=== PATIENT | female | born 1960 | race Caucasian/White ===

== ENCOUNTER → 2020-06-11 08:30 | Outpatient (BNVA) | payer OTHER, SELFPAY | PROVIDERS: PCP Registered Nurse; Referring Provider Registered Nurse; Visit Provider Psychiatry & Neurology Neurology | DX: Z76.89 Persons encountering health services in other specified circumstances (principal) ==

== ENCOUNTER → 2020-07-09 12:38 | Outpatient (BNVA) | payer OTHER, SELFPAY | PROVIDERS: PCP Pediatrics; Referring Provider Pediatrics; Visit Provider Physician Assistant | DX: Z76.89 Persons encountering health services in other specified circumstances (principal) ==

== ENCOUNTER → 2020-08-02 09:02 | Outpatient (BNVA) | payer OTHER, SELFPAY | PROVIDERS: Visit Provider Physician Assistant | DX: Z76.89 Persons encountering health services in other specified circumstances (principal) ==

== ENCOUNTER 2020-08-20 20:52 | Emergency (ER) | payer OTHER, SELFPAY ==
[2020-08-20 21:08] VITALS: BP 157/83; PULSE 76; RESP 16; TEMP 37.1; O2SAT 98; BMI 59.5
[2020-08-20 22:12] LABS: Basophils Absolute Auto 0.1 X10*3/uL (0.0-0.2); Basophils Percent Auto 0.6 % (0-2); Eosinophils Absolute Auto 0.3 X10*3/uL (0.0-0.4); Eosinophils Percent Auto 2.4 % (0-4); Hematocrit 41.1 % (37-47); Hemoglobin 12.9 g/dl (12.0-16.0); Imm Gran Abs Auto 0.03 X10*3/uL (0.00-0.03); Imm Gran Pct Auto 0.3 % (0.0-0.4); Lymphocytes Absolute Auto 3.3 X10*3/uL (1.2-4.9); Lymphocytes Percent Auto 30.5 % (20-40); MANUAL DIFF FLAG NO; Mean Corpuscular HGB Conc 31.4 g/dl (31.0-35.0); Mean Corpuscular Volume 82.9 fL (80-98); Mean Platelet Volume 10.5 fL (9.4-12.3); Monocytes Absolute Auto 0.9 X10*3/uL (0.1-1.2); Monocytes Percent Auto 8.6 % (2-11); Neutrophils Absolute Auto 6.2 X10*3/uL (2.0-8.3); Neutrophils Percent Auto 57.6 % (45-73); Platelet Count 241 X10*3/uL (160-400); Red Blood Count 4.96 X10*6/uL (4.20-5.50); Red Cell Distribution Width 14.9 % (11.0-16.0); White Blood Count 10.7 X10*3/uL (4.8-10.8)
[2020-08-20 22:25] LABS: Prothrombin Time 12.4 SEC (10.8-13.0)
[2020-08-20 22:28] LABS: D Dimer 232 NG/ML; Partial Thromboplastin Time 36.6 SEC (24.1-38.0)
[2020-08-20 22:53] LABS: Alanine Aminotransferase 15 U/L (0-31); Albumin Level 3.6 g/dL (3.5-5.0); Alkaline Phosphatase 96 U/L (39-117); Anion Gap 10 (12-20); Aspartate Amino Transferase 16 U/L (5-31); Bilirubin Total 0.4 mg/dL (0.0-1.0); Blood Urea Nitrogen 20 mg/dL (9-16); Carbon Dioxide 30 mmol/L (22-29); Chloride 102 mmol/L (96-108); Creatinine Clr Calc Pharmacy 92.6; Estimated Glomerular Filt Rate > 60; Glucose Fasting 168 mg/dL (60-99); Potassium 4.4 mmol/l (3.3-5.1); Sodium 138 mmol/L (135-145); Total Protein 6.8 g/dL (6.5-8.0)
--- NOTE | 2020-08-20 22:55 | US_ITS ---
EXAMINATION: DOPPLER VENOUS ULTRASOUND EXTREMITY, RIGHT CLINICAL INFORMATION: Right lower extremity pain. COMPARISON: None. TECHNIQUE: Collins-scale, Doppler and spectral analysis of the lower extremity was performed. FINDINGS: There is no evidence for a deep venous thrombosis within the visualized lower extremity veins. There is normal flow, compression and augmentation. ADDITIONAL FINDINGS: No Gil's cyst is identified. US/US venous duplex LE RT IMPRESSION: Unremarkable examination. Specifically, no evidence for DVT.
--- NOTE | 2020-08-20 22:55 | ED.EXTPRO ---
HPI - Extremity Problem General Chief complaint: Extremity Problem Stated complaint: LEG PAIN Time Seen by Provider: 08/20/20 22:42 Source: patient Mode of arrival: ambulatory Limitations: no limitations History of Present Illness HPI Narrative: Patient obese came here for right calf swelling and pain for last 4 - 5 days no his history of trauma no long distance travel no history of prior DVT in the past patient denies any knee pain or knee problems MD Complaint: extremity pain Onset (ago): day(s) (4-5) Pain Consistency: constant Location: right Quality: dull Radiation: proximal Relieving factors: nothing Exacerbating factors: walking Associated symptoms: denies other symptoms Related Data Home Medications Medication Instructions Recorded Confirmed amlodipine 5 mg tablet 5 mg PO DAILY 06/11/20 08/02/20 aspirin 81 mg tablet,delayed 81 mg PO DAILY 06/11/20 08/02/20 release cholecalciferol (vitamin D3) 25 25 mcg PO DAILY 06/11/20 08/02/20 mcg (1,000 unit) capsule dulaglutide 0.75 mg/0.5 mL 0.75 mg SUBCUT QWEEK 06/11/20 08/02/20 subcutaneous pen injector insulin degludec 100 unit/mL (3 30 unit SUBCUT DAILY ml 06/11/20 08/02/20 mL) subcutaneous pen lisinopril 20 mg tablet 20 mg PO DAILY 06/11/20 08/02/20 multivitamin 1 tab PO DAILY 06/11/20 08/02/20 desvenlafaxine succinate 25 mg 75 mg PO DAILY tab 08/02/20 08/02/20 tablet,extended release 24 hr Allergies Allergy/AdvReac Type Severity Reaction Status Date / Time Sulfa (Sulfonamide Allergy Intermediate SWELLING Unverified 06/11/20 15:23 Antibiotics) [SULFA (SULFONAMIDE ANTIBIOTICS)] Review of Systems Review of Systems: Constitutional : No Weight loss, No Fever, No Chills ENT/Mouth : No sore throat, No Rhinorrhea Eyes: No Eye Pain, No Swelling Cardiovascular : No Chest Pain, no Dyspnea on Exertion, No Orthopnea, No Edema, No Palpitations, no SOB Respiratory : No Cough, No Sputum Gastrointestinal : no Nausea, No Vomiting, No Diarrhea, No abdominal Pain, No Hematochezia, No Melena Genitourinary : No Dysuria, No Urinary Frequency Musculoskeletal : No joint pain, , No Joint Swelling Skin : No Skin Lesions, No rash Neuro : No Weakness, No Numbness, No Dizziness, No Headache Psych : No Anxiety/Panic, No Depression Heme/Lymph: No Bruising, No Lymphadenopathy Endocrine : No Polyuria, No Polydipsia All other systems reviewed and are negative [facility] Past Medical History Medical History Anxiety COPD (chronic obstructive pulmonary disease) Depression Fatty liver LBBB (left bundle branch block) Morbid obesity Obstructive sleep apnea hypopnea, severe Super obesity Type 2 diabetes mellitus Surgical History History of carpal tunnel surgery History of hand surgery History of removal of laparoscopic gastric banding device Hx of cholecystectomy Hx of colonoscopy Hx of laparoscopic gastric banding Family History Family History Father Interstitial pneumonitis Diabetes Mother Bladder cancer Brother No problems noted. Social History Social History Alcohol intake: current Alcohol intake frequency: a few times a month Alcohol type: wine Smoking Status: Former smoker Advance Directives: No Advance Directives Information Provided: No Physical Exam Vital Signs: Vital Signs: Last Vital Signs Temp 98.7 F 08/20/20 21:08 Pulse 76 08/20/20 21:08 Resp 16 08/20/20 21:08 BP 157/83 H 08/20/20 21:08 Pulse Ox 98 08/20/20 21:08 Body Mass Index 59.5 Appearance: Alert. Oriented X3. No acute distress. Eyes: Pupils equal, round and reactive to light. ENT: Pharynx normal. Neck: Normal inspection. Neck supple. CVS: Normal heart rate and rhythm. Pulses normal. Respiratory: No respiratory distress. Breath sounds normal. Abdomen: Soft and nontender. Bowel sounds are present, no mass palpable, no CVA tenderness Skin: Skin warm and dry. Normal skin color. Normal skin turgor. Extremities: 1+ lower extremity edema bilateral. Slight tenderness right upper calf area Cody signs and negative Neuro: Oriented X 3. No motor deficit. No sensory deficit. MDM - Extremity (Nontraumatic) MDM Narrative Medical decision making narrative: Patient obese with right calf pain clinically muscular pain Doppler was done which is also negative for DVT will discharge patient home Lab Data Attestation: I reviewed the patient's lab results. Result diagrams: 08/20/20 22:04 08/20/20 22:04 Labs: Lab Results 08/20/20 08/20/20 08/20/20 Range/Units 22:04 22:04 22:04 WBC 10.7 (4.8-10.8) X10*3/uL RBC 4.96 (4.20-5.50) X10*6/uL Hgb 12.9 (12.0-16.0) g/dl Hct 41.1 (37-47) % MCV 82.9 (80-98) fL MCH 26.0 L (27.0-33.0) pg MCHC 31.4 (31.0-35.0) g/dl RDW 14.9 (11.0-16.0) % Plt Count 241 (160-400) X10*3/uL MPV 10.5 (9.4-12.3) fL Immature Gran % (Auto) 0.3 (0.0-0.4) % Neut % (Auto) 57.6 (45-73) % Lymph % (Auto) 30.5 (20-40) % [place] % (Auto) 8.6 (2-11) % Eos % (Auto) 2.4 (0-4) % Baso % (Auto) 0.6 (0-2) % Lymph # (Auto) 3.3 (1.2-4.9) X10*3/uL [place] # (Auto) 0.9 (0.1-1.2) X10*3/uL Eos # (Auto) 0.3 (0.0-0.4) X10*3/uL Baso # (Auto) 0.1 (0.0-0.2) X10*3/uL Abs Immat Gran (auto) 0.03 (0.00-0.03) X10*3/uL Absolute Neuts (auto) 6.2 (2.0-8.3) X10*3/uL Absolute Nucleated RBC 0.000 (0.0-0.012) X10*3/uL Nucleated RBC % (auto) 0.0 (0.0-0.2) /100WBC Hold Purple Top SEE NOTE PT 12.4 (10.8-13.0) SEC INR 1.0 (0.9-1.1) APTT 36.6 (24.1-38.0) SEC D-Dimer 232 NG/ML Sodium (135-145) mmol/L Potassium (3.3-5.1) mmol/l Chloride (96-108) mmol/L Carbon Dioxide (22-29) mmol/L Anion Gap (12-20) BUN (9-16) mg/dL Creatinine (0.5-1.4) mg/dL Estim Creat Clear Calc Estimated GFR Fasting Glucose (60-99) mg/dL Calcium (8.4-10.2) mg/dL Total Bilirubin (0.0-1.0) mg/dL AST (5-31) U/L ALT (0-31) U/L Alkaline Phosphatase (39-117) U/L Total Protein (6.5-8.0) g/dL Albumin (3.5-5.0) g/dL 08/20/20 Range/Units 22:04 WBC (4.8-10.8) X10*3/uL RBC (4.20-5.50) X10*6/uL Hgb (12.0-16.0) g/dl Hct (37-47) % MCV (80-98) fL MCH (27.0-33.0) pg MCHC (31.0-35.0) g/dl RDW (11.0-16.0) % Plt Count (160-400) X10*3/uL MPV (9.4-12.3) fL Immature Gran % (Auto) (0.0-0.4) % Neut % (Auto) (45-73) % Lymph % (Auto) (20-40) % [place] % (Auto) (2-11) % Eos % (Auto) (0-4) % Baso % (Auto) (0-2) % Lymph # (Auto) (1.2-4.9) X10*3/uL [place] # (Auto) (0.1-1.2) X10*3/uL Eos # (Auto) (0.0-0.4) X10*3/uL Baso # (Auto) (0.0-0.2) X10*3/uL Abs Immat Gran (auto) (0.00-0.03) X10*3/uL Absolute Neuts (auto) (2.0-8.3) X10*3/uL Absolute Nucleated RBC (0.0-0.012) X10*3/uL Nucleated RBC % (auto) (0.0-0.2) /100WBC Hold Purple Top PT (10.8-13.0) SEC INR (0.9-1.1) APTT (24.1-38.0) SEC D-Dimer NG/ML Sodium 138 (135-145) mmol/L Potassium 4.4 (3.3-5.1) mmol/l Chloride 102 (96-108) mmol/L Carbon Dioxide 30 H (22-29) mmol/L Anion Gap 10 L (12-20) BUN 20 H (9-16) mg/dL Creatinine 0.81 (0.5-1.4) mg/dL Estim Creat Clear Calc 92.6 Estimated GFR > 60 Fasting Glucose 168 H (60-99) mg/dL Calcium 9.0 (8.4-10.2) mg/dL Total Bilirubin 0.4 (0.0-1.0) mg/dL AST 16 (5-31) U/L ALT 15 (0-31) U/L Alkaline Phosphatase 96 (39-117) U/L Total Protein 6.8 (6.5-8.0) g/dL Albumin 3.6 (3.5-5.0) g/dL Discharge Plan Discharge Prescriptions: No Action Tresiba FlexTouch U-100 100 unit/mL (3 mL) insulin pen 30 unit subcut DAILY RF: 0 amlodipine 5 mg tablet 5 mg PO DAILY RF: 0 lisinopril 20 mg tablet 20 mg PO DAILY RF: 0 multivitamin Tablet 1 tab PO DAILY RF: 0 cholecalciferol (vitamin D3) 25 mcg (1,000 unit) capsule 25 mcg PO DAILY RF: 0 aspirin 81 mg tablet,delayed release (DR/EC) 81 mg PO DAILY RF: 0 Trulicity 0.75 mg/0.5 mL pen injector 0.75 mg subcut QWEEK RF: 0 desvenlafaxine succinate [Pristiq] 25 mg tablet extended release 24 hr 75 mg PO DAILY RF: 0
== END 2020-08-21 00:40 | disposition home or self-care (01) ==
PROVIDERS: Emergency Provider Internal Medicine; PCP Registered Nurse
DX: R60.0 Localized edema (principal); M79.661 Pain in right lower leg; Z87.891 Personal history of nicotine dependence; Z79.899 Other long term (current) drug therapy
CPT/HCPCS: 36415; 80053; 85025; 85379; 85610; 85730; 93971; 99283; 99284

== ENCOUNTER 2020-08-26 17:02 | Emergency (ER) | payer OTHER, SELFPAY ==
[2020-08-26 20:15] VITALS: BP 225/94; PULSE 107; RESP 18; TEMP 36.8; O2SAT 100; BMI 60.5
--- NOTE | 2020-08-26 20:17 | PC.NURSE ---
charge nurse idalmis rodriguez aware of hypertension.
--- NOTE | 2020-08-26 20:34 | XR_ITS ---
EXAMINATION: XR CHEST CLINICAL INFORMATION: Upper extremity swelling. Hypertension. COMPARISON: Chest x-ray 05/04/2020 TECHNIQUE: Frontal portable view of the chest was obtained. 8:33 PM FINDINGS: Lungs are clear. No pulmonary vascular congestion. There is no pleural effusion. The heart size is normal. The cardiac and mediastinal contours are normal. There are calcifications of the thoracic aorta. There are multilevel degenerative changes of dorsal spine. XR/XR chest 1V IMPRESSION: Unremarkable examination.
--- NOTE | 2020-08-26 20:34 | ECG_ITS ---
Test Reason : swelling, hypertension Blood Pressure : / mmHG Vent. Rate : 098 BPM Atrial Rate : 098 BPM P-R Int : 152 ms QRS Dur : 090 ms QT Int : 360 ms P-R-T Axes : 058 -22 072 degrees QTc Int : 459 ms Sinus rhythm with Premature atrial complexes Possible Anterior infarct (cited on or before 24-MAY-2017) Abnormal ECG When compared with ECG of 24-MAY-2017 14:51, Premature atrial complexes are now Present Referred By: Kendra Hahn Electronically Signed By:KARMA ALVAREZ
[2020-08-26 20:55] LABS: MANUAL DIFF FLAG NO
[2020-08-26 20:56] LABS: Basophils Percent Auto 0.3 % (0-2); Eosinophils Absolute Auto 0.2 X10*3/uL (0.0-0.4); Eosinophils Percent Auto 1.5 % (0-4); Hematocrit 41.7 % (37-47); Hemoglobin 13.2 g/dl (12.0-16.0); Imm Gran Abs Auto 0.03 X10*3/uL (0.00-0.03); Imm Gran Pct Auto 0.3 % (0.0-0.4); Lymphocytes Absolute Auto 2.7 X10*3/uL (1.2-4.9); Lymphocytes Percent Auto 22.9 % (20-40); Mean Corpuscular HGB Conc 31.7 g/dl (31.0-35.0); Mean Corpuscular Hemoglobin 26.1 pg (27.0-33.0); Mean Corpuscular Volume 82.4 fL (80-98); Mean Platelet Volume 10.3 fL (9.4-12.3); Monocytes Absolute Auto 0.8 X10*3/uL (0.1-1.2); Monocytes Percent Auto 6.8 % (2-11); Neutrophils Percent Auto 68.2 % (45-73); Platelet Count 252 X10*3/uL (160-400); Red Blood Count 5.06 X10*6/uL (4.20-5.50); White Blood Count 11.7 X10*3/uL (4.8-10.8)
--- NOTE | 2020-08-26 21:00 | ED_ITS ---
HPI - General Adult General Chief complaint: General Medical Stated complaint: leg swelling Time Seen by Provider: 08/26/20 21:35 Source: patient Mode of arrival: ambulatory Limitations: no limitations History of Present Illness HPI narrative: PATIENT PRESENTS TO ED FOR INCREASED SWELLING OF LIGHT LOWER EXTREMITY AND PAIN. PATIENT STATES NO CHEST PAIN OR SHORTNESS OF BREATH. PATIENT DENIES ANY ERYTHEMA. PATIENT DOES STATES SOME BLISTERS ON BOTH LEGS. Related Data Home Medications Medication Instructions Recorded Confirmed amlodipine 5 mg tablet 5 mg PO DAILY 06/11/20 08/02/20 aspirin 81 mg tablet,delayed 81 mg PO DAILY 06/11/20 08/02/20 release cholecalciferol (vitamin D3) 25 25 mcg PO DAILY 06/11/20 08/02/20 mcg (1,000 unit) capsule dulaglutide 0.75 mg/0.5 mL 0.75 mg SUBCUT QWEEK 06/11/20 08/02/20 subcutaneous pen injector insulin degludec 100 unit/mL (3 30 unit SUBCUT DAILY ml 06/11/20 08/02/20 mL) subcutaneous pen lisinopril 20 mg tablet 20 mg PO DAILY 06/11/20 08/02/20 multivitamin 1 tab PO DAILY 06/11/20 08/02/20 desvenlafaxine succinate 25 mg 75 mg PO DAILY tab 08/02/20 08/02/20 tablet,extended release 24 hr Previous Rx's Medication Instructions Recorded cephalexin 500 mg PO QID 7 Days #28 cap 08/27/20 phenazopyridine [Pyridium] 200 mg PO TID PRN #6 tab 08/27/20 Allergies Allergy/AdvReac Type Severity Reaction Status Date / Time Sulfa (Sulfonamide Allergy Intermediate SWELLING Verified 08/26/20 20:12 Antibiotics) [SULFA (SULFONAMIDE ANTIBIOTICS)] Review of Systems Review of Systems: Yes all other systems are reviewed and are negative Constitutional: Constitutional: Reports as per HPI and Reports no additional constitutional complaints Eyes: Eyes: Reports as per HPI and Reports no additional eye complaints ENT: Reports system reviewed and no additional complaints, except as documented and Reports as per HPI Cardiovascular: Cardiovascular: Reports as per HPI and Reports no additional cardiovascular complaints Respiratory: Respiratory: Reports as per HPI and Reports no additional respiratory complaints Gastrointestinal: Gastrointestinal: Reports as per HPI and Reports no additional gastrointestinal complaints Genitourinary: Genitourinary: Reports no additional female genitourinary complaints and Reports as per HPI Musculoskeletal: Musculoskeletal: Reports no additional musculoskeletal complaints and Reports as per HPI Comments: INCREASED BILATERAL LOWER EXTREMITY SWELLING Neurologic: Reports system reviewed and no additional complaints, except as documented and Reports as per HPI Psychiatric: Psychiatric: Reports no additional psychiatric complaints and Reports as per HPI [facility] Past Medical History Medical History Anxiety COPD (chronic obstructive pulmonary disease) Depression Fatty liver LBBB (left bundle branch block) Morbid obesity Obstructive sleep apnea hypopnea, severe Super obesity Type 2 diabetes mellitus Surgical History History of carpal tunnel surgery History of hand surgery History of removal of laparoscopic gastric banding device Hx of cholecystectomy Hx of colonoscopy Hx of laparoscopic gastric banding Family History Family History Father Interstitial pneumonitis Diabetes Mother Bladder cancer Brother No problems noted. Social History Social History Alcohol intake: current Alcohol intake frequency: a few times a month Alcohol type: wine Smoking Status: Former smoker Smoked in Last 30 Days: No Advance Directives: No Advance Directives Information Provided: No Physical Exam Vital Signs: Vital Signs: Last Vital Signs Temp 98.3 F 08/26/20 20:15 Pulse 100 08/26/20 22:40 Resp 16 08/26/20 22:40 BP 147/80 H 08/26/20 22:40 Pulse Ox 95 08/26/20 22:40 Body Mass Index 60.5 Const: General: cooperative, healthy appearing, comfortable, no acute distress, well developed, alert, awake and Physically active Orientation/consciousness: patient oriented x3 HENMT: Head: Yes normal to inspection and Yes No palpable skull fracture p resent Eyes: General: appearance normal, both eyes and all related structures Neck: Neck: Yes normal visual inspection, Yes full ROM, Yes no lymphadenopathy, Yes no meningeal signs, Yes trachea midline, Yes supple and No tender Chest: Chest palpation & inspection: normal inspection of the chest and normal palpation of entire chest wall Breast/axilla inspection: normal inspection of the breasts Resp: Effort & Inspection: normal respiratory effort and able to speak in complete sentences Auscultation: clear to auscultation bilaterally Cardio: Jugular venous distension: no JVD Heart sounds: S1 normal heart sound present and S2 normal heart sound present GI: Inspection: Yes normal to inspection and No abdominal wall ecchymosis Palpation (GI): Soft to palpation, not firm, nontender, no guarding and not rigid : General: No CVA tenderness and Yes no CVA tenderness Back/Spine/Pelvis: Back: no CVA tenderness, No CVA tenderness and No back ten derness Skin: General skin exam: no rashes or lesions noted Neuro: General: patient oriented x3, gait normal, no meningeal signs and CN's II-XI intact bilaterally Cranial nerves: Yes CN's II-XII intact bilaterally Extrem: Other: LOWER EXTREMITIES BILATERALLY POSITIVE FOR SWELLING AND PITTING EDEMA. BOTH LOWER EXTREMITY POSITIVE FOR VENOUS STASIS CHANGES. NEGATIVE FOR ANY WARMTH OR ERYTHEMA TO INDICATE CELLULITIS. BOTH LOWER EXTREMITIES SKIN IS thickening WHICH IS POSITIVE FOR VENOUS STATUS CHANGES. NEGATIVE FOR (SHINGLES) BLISTERS. PULSES IN LOWER EXTREMITIES IS INTACT. Psych: Appearance: grossly normal, well kempt and not disheveled Course Course Course Narrative: PATIENT TO HAVE LABS, EKG, BNP, AND LOWER EXTREMITY IMAGING TO RULE OUT DVT, OSTEOMYELITIS, OR FRACTURES. PATIENT HAS PULSES OF LOWER EXTREMIT IES INTACT. Reevaluation(s) Reevaluation #1: LOWER EXTREMITY ULTRASOUND NEGATIVE FOR ANY DVT. X-RAYS NEGATIVE FOR FRACTURE OR OSTEOMYELITIS. BNP CAME BACK NEGATIVE. TROPONIN NEGATIVE. EKG IS NORMAL. DIAGNOSIS OF VENOUS STASIS. PATIENT IS SAFE FOR DISCHARGE. DR. Del Angel ALSO EVALUATE LOWER EXTREMITIES AND AGREES PATIENT HAS VENOUS STASIS. Time: 00:03 Medical Decision Making [facility] Narrative Medical decision making narrative: CHRONIC VENOUS STASIS Lab Data Result diagrams: 08/26/20 20:47 08/26/20 20:46 Labs: Lab Results 08/26/20 08/26/20 08/26/20 Range/Units 20:46 20:47 20:47 WBC 11.7 H (4.8-10.8) X10*3/uL RBC 5.06 (4.20-5.50) X10*6/uL Hgb 13.2 (12.0-16.0) g/dl Hct 41.7 (37-47) % MCV 82.4 (80-98) fL MCH 26.1 L (27.0-33.0) pg MCHC 31.7 (31.0-35.0) g/dl RDW 15.0 (11.0-16.0) % Plt Count 252 (160-400) X10*3/uL MPV 10.3 (9.4-12.3) fL Immature Gran % (Auto) 0.3 (0.0-0.4) % Neut % (Auto) 68.2 (45-73) % Lymph % (Auto) 22.9 (20-40) % [place] % (Auto) 6.8 (2-11) % Eos % (Auto) 1.5 (0-4) % Baso % (Auto) 0.3 (0-2) % Lymph # (Auto) 2.7 (1.2-4.9) X10*3/uL [place] # (Auto) 0.8 (0.1-1.2) X10*3/uL Eos # (Auto) 0.2 (0.0-0.4) X10*3/uL Baso # (Auto) 0.0 (0.0-0.2) X10*3/uL Abs Immat Gran (auto) 0.03 (0.00-0.03) X10*3/uL Absolute Neuts (auto) 8.0 (2.0-8.3) X10*3/uL Absolute Nucleated RBC 0.000 (0.0-0.012) X10*3/uL Nucleated RBC % (auto) 0.0 (0.0-0.2) /100WBC Hold Blue Top SEE NOTE Sodium 137 (135-145) mmol/L Potassium 4.3 (3.3-5.1) mmol/l Chloride 101 (96-108) mmol/L Carbon Dioxide 29 (22-29) mmol/L Anion Gap 11 L (12-20) BUN 12 (9-16) mg/dL Creatinine 0.76 (0.5-1.4) mg/dL Estim Creat Clear Calc 99.8 Estimated GFR > 60 Random Glucose 133 H (60-115) mg/dL Calcium 8.9 (8.4-10.2) mg/dL Troponin I High Sens (<3.5-17.0) ng/L B-Natriuretic Peptide (<100) pg/mL Urine Color Urine Appearance Urine pH (5.0-8.0) Ur Specific [place] (1.005-1.025) Urine Protein (NEG-TRACE) MG/DL Urine Glucose (UA) (NEG) MG/DL Urine Ketones (NEG) MG/DL Urine Blood (NEG) Urine Nitrite (NEG) Ur Leukocyte Esterase (NEG) Urine RBC (0) /HPF Urine WBC (0-4) /HPF Ur Squamous Epith Cells /LPF Urine Bacteria /LPF Urine Mucus /LPF 08/26/20 08/26/20 Range/Units 20:47 21:43 WBC (4.8-10.8) X10*3/uL RBC (4.20-5.50) X10*6/uL Hgb (12.0-16.0) g/dl Hct (37-47) % MCV (80-98) fL MCH (27.0-33.0) pg MCHC (31.0-35.0) g/dl RDW (11.0-16.0) % Plt Count (160-400) X10*3/uL MPV (9.4-12.3) fL Immature Gran % (Auto) (0.0-0.4) % Neut % (Auto) (45-73) % Lymph % (Auto) (20-40) % [place] % (Auto) (2-11) % Eos % (Auto) (0-4) % Baso % (Auto) (0-2) % Lymph # (Auto) (1.2-4.9) X10*3/uL [place] # (Auto) (0.1-1.2) X10*3/uL Eos # (Auto) (0.0-0.4) X10*3/uL Baso # (Auto) (0.0-0.2) X10*3/uL Abs Immat Gran (auto) (0.00-0.03) X10*3/uL Absolute Neuts (auto) (2.0-8.3) X10*3/uL Absolute Nucleated RBC (0.0-0.012) X10*3/uL Nucleated RBC % (auto) (0.0-0.2) /100WBC Hold Blue Top Sodium (135-145) mmol/L Potassium (3.3-5.1) mmol/l Chloride (96-108) mmol/L Carbon Dioxide (22-29) mmol/L Anion Gap (12-20) BUN (9-16) mg/dL Creatinine (0.5-1.4) mg/dL Estim Creat Clear Calc Estimated GFR Random Glucose (60-115) mg/dL Calcium (8.4-10.2) mg/dL Troponin I High Sens 4.6 (<3.5-17.0) ng/L B-Natriuretic Peptide 18 (<100) pg/mL Urine Color STRAW Urine Appearance CLEAR Urine pH 7.5 (5.0-8.0) Ur Specific [place] 1.020 (1.005-1.025) Urine Protein TRACE (NEG-TRACE) MG/DL Urine Glucose (UA) NEG (NEG) MG/DL Urine Ketones NEG (NEG) MG/DL Urine Blood NEG (NEG) Urine Nitrite NEG (NEG) Ur Leukocyte Esterase TRACE H (NEG) Urine RBC 0-2 (0) /HPF Urine WBC 15-29 H (0-4) /HPF Ur Squamous Epith Cells TRACE /LPF Urine Bacteria 1+ /LPF Urine Mucus TRACE /LPF ECG Data Interpretation: SINUS RHYTHM WITH PREMATURE ATRIAL COMPLEXES. VENTRICULAR RATE 98. CA INTERVAL 152. QTC 459. NEGATIVE STEMI Discharge Plan Discharge Clinical Impression: Venous stasis, Venous stasis dermatitis of both lower extremities, UTI (urinary tract infection) Patient Disposition: Home, Self-Care Instructions: Urinary Tract Infection in Women (ED), Stasis Dermatitis (ED), Venous Insufficiency (DC) Additional Instructions: RETURN TO ED FOR ANY CHEST PAIN, SHORTNESS OF BREATH, FEVER, CHILLS, REDNESS, WEAKNESS, COUGHING UP BLOOD, OR ANY OTHER CONCERNING SYMPTOMS. RECOMMEND [id number] COMPRESSION STOCKINGS. Prescriptions: New cephalexin 500 mg capsule 500 mg PO QID 7 Days Qty: 28 RF: 0 phenazopyridine [Pyridium] 200 mg tablet 200 mg PO TID PRN (Reason: dysuria) Qty: 6 RF: 0 No Action Tresiba FlexTouch U-100 100 unit/mL (3 mL) insulin pen 30 unit subcut DAILY RF: 0 amlodipine 5 mg tablet 5 mg PO DAILY RF: 0 lisinopril 20 mg tablet 20 mg PO DAILY RF: 0 multivitamin Tablet 1 tab PO DAILY RF: 0 cholecalciferol (vitamin D3) 25 mcg (1,000 unit) capsule 25 mcg PO DAILY RF: 0 aspirin 81 mg tablet,delayed release (DR/EC) 81 mg PO DAILY RF: 0 Trulicity 0.75 mg/0.5 mL pen injector 0.75 mg subcut QWEEK RF: 0 desvenlafaxine succinate [Pristiq] 25 mg tablet extended release 24 hr 75 mg PO DAILY RF: 0 Referrals: Linda Camejo DNP [Primary Care Provider] - 2 days (BILATERAL LOWER EXTREMITY ULTRASOUND NEGATIVE FOR DVT. LOWER EXTREMITY X-RAY NEGATIVE FOR ANY FRACTURES. BNP CAME BACK NEGATIVE. CHEST X-RAY NEGATIVE FOR CARDIOMEGALY. TROPONIN NEGATIVE.) Interventions: ED Discharge Assessment Last Done: 08/27/20 00:41 Discharge Date/Time: 08/27/20 00:43 Print Language: Spanish
--- NOTE | 2020-08-26 21:07 | US_ITS ---
EXAMINATION: US VENOUS ULTRASOUND WITH DOPPLER LOWER EXTREMITY, BILATERAL CLINICAL INFORMATION: Bilateral lower extremity swelling. COMPARISON: None TECHNIQUE: Ultrasound of the deep veins is performed from the hip to the calf with compression sonography and color and pulse Doppler assessment. Spectral analysis with color-flow imaging is performed. FINDINGS: RIGHT: There is normal venous compression and respiratory variation and augmented flow. The visualized common femoral vein, superficial femoral vein, profunda femoral vein, popliteal vein, and the trifurcation region shows no evidence of deep venous thrombosis. There is no significant popliteal fossa cyst. LEFT: There is normal venous compression and respiratory variation and augmented flow. The visualized common femoral vein, superficial femoral vein, profunda femoral vein, popliteal vein, and the trifurcation region shows no evidence of deep venous thrombosis. There is no significant popliteal fossa cyst. If the patient's symptoms persist, followup ultrasound in 5 days 7 days might be of value to exclude proximal propagation from a non-visualized calf vein. US/US venous duplex LE BI IMPRESSION: No DVT demonstrated in bilateral lower extremity.
--- NOTE | 2020-08-26 21:08 | XR_ITS ---
EXAMINATION: BILATERAL TIBIA AND FIBULA CLINICAL INFORMATION: Bilateral leg swelling. COMPARISON: None TECHNIQUE: 2 views each leg. FINDINGS: RIGHT LEG: There is no visible acute fracture or or periosteal thickening. The soft tissues are normal. Incidental finding of a small calcaneal heel spur. Left leg: There is no visible acute fracture or bony abnormality. Incidental finding of a small calcaneal heel enthesophyte is seen. The soft tissues are normal. XR/XR tibia fibula LT 2V IMPRESSION: Unremarkable bilateral tibia and fibula except for bilateral calcaneal heel enthesophytes
--- NOTE | 2020-08-26 21:08 | XR_ITS ---
EXAMINATION: BILATERAL TIBIA AND FIBULA CLINICAL INFORMATION: Bilateral leg swelling. COMPARISON: None TECHNIQUE: 2 views each leg. FINDINGS: RIGHT LEG: There is no visible acute fracture or or periosteal thickening. The soft tissues are normal. Incidental finding of a small calcaneal heel spur. Left leg: There is no visible acute fracture or bony abnormality. Incidental finding of a small calcaneal heel enthesophyte is seen. The soft tissues are normal. XR/XR tibia fibula RT 2V IMPRESSION: Unremarkable bilateral tibia and fibula except for bilateral calcaneal heel enthesophytes
[2020-08-26 21:21] LABS: Anion Gap 11 (12-20); Blood Urea Nitrogen 12 mg/dL (9-16); Calcium 8.9 mg/dL (8.4-10.2); Carbon Dioxide 29 mmol/L (22-29); Chloride 101 mmol/L (96-108); Creatinine Clr Calc Pharmacy 99.8; Estimated Glomerular Filt Rate > 60; Glucose Random 133 mg/dL (60-115); Potassium 4.3 mmol/l (3.3-5.1); Sodium 137 mmol/L (135-145)
[2020-08-26 21:26] LABS: B Type Natriuretic Peptide 18 pg/mL (<100); Troponin-I High Sensitivity 4.6 ng/L (<3.5-17.0)
[2020-08-26 21:43] VITALS: BP 199/76; PULSE 108
[2020-08-26 21:57] LABS: Glucose Urine UA NEG (NEG); Leukocyte Esterase Urine TRACE (NEG); Nitrite Urine NEG (NEG); PH 7.5 (5.0-8.0); Urine Blood NEG (NEG); Urine Ketones NEG (NEG); Urine Protein TRACE MG/DL (NEG-TRACE)
[2020-08-26 22:03] LABS: Appearance Urine CLEAR; Color Urine STRAW
[2020-08-26 22:16] LABS: Bacteria Urine 1+ /LPF; Mucus Urine TRACE /LPF; RBC Urine 0-2 /HPF (0); Squamous Epithelial Cell Urine TRACE /LPF
[2020-08-26 22:40] VITALS: BP 147/80; PULSE 100; RESP 16; O2SAT 95
== END 2020-08-27 00:43 | disposition home or self-care (01) ==
PROVIDERS: Physician Assistant; Emergency Provider Emergency Medicine; PCP Registered Nurse
DX: L30.9 Dermatitis, unspecified (principal); I87.2 Venous insufficiency (chronic) (peripheral); N39.0 Urinary tract infection, site not specified; M79.662 Pain in left lower leg; M79.661 Pain in right lower leg; E11.9 Type 2 diabetes mellitus without complications; Z79.4 Long term (current) use of insulin
CPT/HCPCS: 36415; 71045; 73590; 80048; 81001; 81003; 83880; 84484; 85025; 87086; 87088; 87186; 93005; 93970; 99284

== ENCOUNTER → 2020-09-12 13:41 | Outpatient (BNVA) | payer OTHER, SELFPAY | PROVIDERS: PCP Registered Nurse; Visit Provider Internal Medicine | DX: Z76.89 Persons encountering health services in other specified circumstances (principal) ==

== ENCOUNTER → 2021-03-07 10:21 | Outpatient (REF) | payer OTHER, SELFPAY ==
--- NOTE | 2021-03-07 10:30 | CA_ITS ---
Transthoracic Echocardiogram Patient (Last, First, Middle): Shefali Figueroa, Gender: Female Date of : 1960 Age: 60 Procedure Date: 03/07/2021 Procedure Type: Transthoracic Echocardiogram Location: OP Height: 149.86 cm Weight: 142.88 kg BSA: 2.24 m2 Heart Rate: bpm BP: 130 / 80 mmHg Box Maker Wood: [email or web address] Referring MD: Gage Browne MD Symptoms: I44.7 - Left bundle-branch block, unspecified Study Quality: Fair ECG Rhythm: Sinus Conclusions: - The left ventricular systolic function is normal. The visually estimated ejection fraction is between 60-65%. - No obvious valvular pathology seen on this study. Findings Left Ventricle Normal left ventricular cavity size. There is mildly increased left ventricular wall thickness. The left ventricular systolic function is normal. The visually estimated ejection fraction is between 60-65%. There is no evidence of regional wall motion abnormalities. E/E prime ratio is between 8 and 15 consistent with indeterminate filling pressures. Evidence suggests grade I (mild) diastolic dysfunction. Right Ventricle Normal right ventricular cavity size and systolic function. Atria Both atria are normal in size. Aortic Valve The aortic valve was not well visualized. There is no aortic valve stenosis. There is no aortic valve regurgitation. Mitral Valve There is mild mitral annular calcification. There is no mitral valve regurgitation. There is no mitral valve stenosis. Pulmonic Valve The pulmonic valve was not well visualized. Tricuspid Valve There is no tricuspid valve regurgitation. Tricuspid regurgitation envelope is inadequate for calculation of right ventricular systolic pressure. Great Vessels The aortic annulus, sinuses of valsalva, and asc aorta are normal in size. Venous The inferior vena cava is normal in size and collapses greater than 50% with inspiration. Pericardium/Pleural There is no evidence of pericardial effusion. Prior Study Comparison Changes noted compared to prior study dated: 11/30/2019. LVEF improved. Recommendations, Care & Conclusions No obvious valvular pathology seen on this study. Measurements 2D Linear Measurements IVSd: 1.28 0.6-0.9/0.6-1.0 cm LVIDd: 4.08 3.9-5.3/4.2-5.9 cm LVIDd Index: 1.82 2.4-3.2/2.2-3.1 cm/m2 LVIDs: 2.37 2.0-3.6 cm LVPWd: 1.02 0.7-1.1 cm Ao Root: 2.50 2.1-3.5 cm LA Diam: 4.40 2.7-3.8/3.0-4.0 cm LAIDs Index: 1.96 1.5-2.3 cm/m2 LV Mass: 199.45 67-162/88-224 g LV Mass Index: 89.04 43-95/49-115 g/m2 LVOT Diam: 2.20 3.0+(-)1.3 cm 2D Systolic Function EF 4C: 67.30 >55% EF 2C: 67.70 >55% EF BiP: 67.90 >55% Mitral Valve MV Pk E: 1.03 MV PK A: 1.54 MV Decel Time: 82.00 E/A: 0.70 E'Lateral: 7.51 E'Medial: 6.96 E/E' Med: 14.80 E/E' Lat: 13.70 PHT: 24.00 MVA PHT: 9.17 Decel [place]: 12.56 Aortic Valve AoV Pk Jaison: 1.64 AoV Pk Grad: 11.00 LVOT LVOT Pk [place]: 1.08 LVOT Mn [place]: 0.74 LVOT VTI: 0.22 LVOT Pk Grad: 5.00 LVOT Mn Grad: 3.00 LVOT Diam: 2.20 LVOT Area: 3.80 Diastolic Function MV Pk E: 1.03 MV Pk A: 1.54 E/A: 0.70 E'Medial: 6.96 E/E' Med: 14.80 E' Laterial: 7.51 E/E' Lat: 13.70 Tricuspid Valve RA Press: 8.00 Great Vessels Aorta Ao Root-2D: 2.50 2.0-3.7 cm Ao Asc: 3.00 2.1-3.4 cm Updated in Other Vendor System with Status of Final Gage Browne MD electronically signed on 03/08/2021 12:28:34 PM with status of Final
== END ==
LOC: HO.CARD 10:21
PROVIDERS: PCP Registered Nurse; Visit Provider Internal Medicine
DX: I44.7 Left bundle-branch block, unspecified (principal)
CPT/HCPCS: 93306; Q9957

== ENCOUNTER → 2021-03-13 13:59 | Outpatient (BNVA) | payer OTHER, SELFPAY | PROVIDERS: PCP Registered Nurse; Visit Provider Internal Medicine ==

== ENCOUNTER → 2022-03-05 09:34 | Outpatient (REF) | payer OTHER, SELFPAY ==
--- NOTE | 2022-03-05 09:38 | CA_ITS ---
Transthoracic Echocardiogram Patient (Last, First, Middle): Shefali Figueroa, Gender: Female Date of : 1960 Age: 61 Procedure Date: 03/05/2022 Procedure Type: Transthoracic Echocardiogram Location: OP Height: 149.86 cm Weight: 140.62 kg BSA: 2.22 m2 Heart Rate: 86 bpm BP: 130 / 74 mmHg Reliner: CARINA Referring MD: Gage Browne MD Handmade Tile Artist: Sea Bernstein MD Symptoms: I44.7 - Left bundle-branch block, unspecified Study Quality: Fair/Contrast ECG Rhythm: Sinus Conclusions: - 1. Technically very limited study desite use of contrast agent 2. Normal LV systolic function with LVEF of 60 65% 3. Limited visualization of cardiac valves with cardiac valvular Doppler within normal limits Findings Procedure Information Contrast agent, definity, is being given per protocol without apparent complications. Left Ventricle Normal left ventricular size, thickness, and systolic function. The visually estimated ejection fraction is between 60-65%. There is paradoxical septal motion consistent with a left bundle branch block. Spectral Doppler is indicative of a normal filling pattern. Right Ventricle The right ventricle was not well visualized. Atria The left atrium was not well visualized. Interatrial shunt cannot be excluded. The right atrium was not well visualized. Aortic Valve The aortic valve was not well visualized. There is no aortic valve stenosis. There is no aortic valve regurgitation. Mitral Valve The mitral valve was not well visualized. There is no mitral valve regurgitation. Pulmonic Valve The pulmonic valve was not well visualized. Tricuspid Valve The tricuspid valve was not well visualized. Tricuspid regurgitation envelope is inadequate for calculation of right ventricular systolic pressure. Great Vessels The aorta was not well visualized. The pulmonary artery was not well visualized. Venous The inferior vena cava was not well visualized. Pericardium/Pleural The pericardium was not well visualized. Prior Study Comparison No significant change compared to prior study. Measurements 2D Linear Measurements IVSd: 1.32 0.6-0.9/0.6-1.0 cm LVIDd: 3.91 3.9-5.3/4.2-5.9 cm LVIDd Index: 1.76 2.4-3.2/2.2-3.1 cm/m2 LVIDs: 2.78 2.0-3.6 cm LVPWd: 1.10 0.7-1.1 cm LA Diam: 3.70 2.7-3.8/3.0-4.0 cm LAIDs Index: 1.67 1.5-2.3 cm/m2 LV Mass: 201.61 67-162/88-224 g LV Mass Index: 90.82 43-95/49-115 g/m2 LVOT Diam: 2.00 3.0+(-)1.3 cm 2D Systolic Function EF 4C: 66.90 >55% EF 2C: 61.70 >55% EF BiP: 63.90 >55% Mitral Valve MV Pk E: 0.81 MV PK A: 1.14 MV Decel Time: 415.00 E/A: 0.70 E'Lateral: 7.62 E'Medial: 7.07 E/E' Med: 11.50 E/E' Lat: 10.70 PHT: 121.00 MVA PHT: 1.82 Decel [place]: 1.96 Aortic Valve AoV Pk Jaison: 1.54 AoV Mn Jaison: 1.22 AoV VTI: 0.37 AoV Pk Grad: 9.00 Aov Mn Grad: 6.00 TOMMIE Cont.VTI: 2.20 LVOT LVOT Pk [place]: 1.06 LVOT Mn [place]ison: 0.78 LVOT VTI: 0.26 LVOT Pk Grad: 4.00 LVOT Mn Grad: 3.00 LVOT Diam: 2.00 LVOT Area: 3.14 Diastolic Function MV Pk E: 0.81 MV Pk A: 1.14 E/A: 0.70 E'Medial: 7.07 E/E' Med: 11.50 E' Laterial: 7.62 E/E' Lat: 10.70 Right Ventricle TAPSE (mm): 25.30 TVS' [place]: 11.30 Tricuspid Valve RA Press: 3.00 Great Vessels Aorta Sinus of Valsalva: 3.18 2.0-3.5 cm Ao Asc: 3.00 2.1-3.4 cm Updated in Other Vendor System with Status of Final Sea Bernstein MD electronically signed on 03/05/2022 11:59:34 AM with status of Final
== END ==
LOC: HO.CARD 09:34
PROVIDERS: Visit Provider Internal Medicine
DX: I44.7 Left bundle-branch block, unspecified (principal)
CPT/HCPCS: 93306; 93356; Q9957

== ENCOUNTER 2022-03-10 22:07 | Inpatient (IN) | payer OTHER, SELFPAY ==
--- NOTE | ~2022-03-10 | XR_ITS ---
EXAMINATION: XR HAND, RIGHT CLINICAL INFORMATION: Right hand infection COMPARISON: None TECHNIQUE: PA, lateral, and oblique views of the right hand. FINDINGS: Osseous alignment is anatomic. No acute fracture is seen. There is mild degenerative change at the basal joint of the thumb. There is degenerative change with spurring at the interphalangeal joint of the thumb. There is soft tissue swelling of the second digit. No radiopaque foreign body or soft tissue gas is seen. XR/XR hand RT 2V IMPRESSION: Soft tissue swelling of the second digit. No acute osseous findings identified.
[2022-03-10 23:45] VITALS: BP 157/71; PULSE 85; RESP 18; TEMP 37.1; O2SAT 95; BMI 64.7
[2022-03-11] VITALS (12 sets, daily range): BP systolic 141–193; BP diastolic 57–86; PULSE 83–97; RESP 16–24; TEMP 37.1; O2SAT 92–97
[2022-03-11 00:18] LABS: Basophils Absolute Auto 0.1 X10*3/uL (0.0-0.2); Basophils Percent Auto 0.4 % (0-2); Eosinophils Absolute Auto 0.2 X10*3/uL (0.0-0.4); Eosinophils Percent Auto 1.7 % (0-4); Hematocrit 43.9 % (37.0-47.0); Hemoglobin 13.7 g/dl (12.0-16.0); Imm Gran Abs Auto 0.04 X10*3/uL (0.00-0.03); Imm Gran Pct Auto 0.3 % (0.0-0.4); Lymphocytes Absolute Auto 2.4 X10*3/uL (1.2-4.9); Lymphocytes Percent Auto 20.1 % (20-40); MANUAL DIFF FLAG NO; Mean Corpuscular HGB Conc 31.2 g/dl (31.0-35.0); Mean Corpuscular Hemoglobin 24.4 pg (27.0-33.0); Mean Corpuscular Volume 78.1 fL (80.0-98.0); Mean Platelet Volume 9.9 fL (9.4-12.3); Monocytes Absolute Auto 1.1 X10*3/uL (0.1-1.2); Monocytes Percent Auto 9.2 % (2-11); Neutrophils Absolute Auto 8.2 x10*3/uL (2.0-8.3); Neutrophils Percent Auto 68.3 % (45-73); Platelet Count 235 X10*3/uL (160-400); Red Blood Count 5.62 X10*6/uL (4.20-5.50)
[2022-03-11 00:43] LABS: Alanine Aminotransferase 17 U/L (0-31); Alkaline Phosphatase 88 U/L (39-117); Anion Gap 15 (12-20); Aspartate Amino Transferase 13 U/L (5-31); Bilirubin Total 0.8 mg/dL (0.0-1.0); Blood Urea Nitrogen 16 mg/dL (9-16); Calcium 9.3 mg/dL (8.4-10.2); Carbon Dioxide 26 mmol/L (22-29); Chloride 102 mmol/L (96-108); Creatinine Clr Calc Pharmacy 94.1; Estimated Glomerular Filt Rate > 60; Glucose Random 167 mg/dL (60-115); Potassium 3.7 mmol/L (3.3-5.1); Sodium 139 mmol/L (135-145); Total Protein 7.5 g/dL (6.5-8.0)
[2022-03-11] MEDS: 0.9 % Sodium Chloride 1,000 ML 999 ML IV (04:20)
[2022-03-11] MEDS: Piperacillin Sodium/Tazobactam 3.375 GM in 0.9 % Sodium Chloride 50 ML IV ×4 (04:20→21:58)
[2022-03-11 04:35] LABS: Lactic Acid 1.6 mmol/L (0.5-2.0)
--- NOTE | 2022-03-11 04:44 | ED_ITS ---
HPI - Animal Bite General Chief Complaint: Animal Bite Stated Complaint: bug/animal bite Time Seen by Provider: 03/11/22 03:53 Source: patient Mode of arrival: ambulatory Limitations: no limitations History of Present Illness HPI narrative: 61 years old female came in for evaluation of right index finger infection. Patient is right handed was bitten by her own cat (the cat was choking), patient was seen and evaluated at an urgent care was started on amoxicillin and was given a tetanus shot despite the antibiotic was started since yesterday patient noted that her right index finger is getting more swollen with spreading of the redness beyond the finger to the dorsum of the right hand toward the wrist, no fever or chills. Patient is diabetic. Related Data Home Medications Medication Instructions Recorded Confirmed amlodipine 5 mg tablet 5 mg PO DAILY 06/11/20 03/13/21 aspirin 81 mg tablet,delayed 81 mg PO DAILY 06/11/20 03/13/21 release cholecalciferol (vitamin D3) 25 25 mcg PO DAILY 06/11/20 03/13/21 mcg (1,000 unit) capsule dulaglutide 0.75 mg/0.5 mL 0.75 mg subcut QWEEK 06/11/20 03/13/21 subcutaneous pen injector (Trulicity) insulin degludec 100 unit/mL (3 30 unit subcut DAILY 06/11/20 03/13/21 mL) subcutaneous pen (Tresiba FlexTouch U-100 insulin) multivitamin 1 tab PO DAILY 06/11/20 03/13/21 desvenlafaxine succinate 25 mg 75 mg PO DAILY 08/02/20 03/13/21 tablet,extended release 24 hr (Pristiq) losartan 100 1 tab PO DAILY 09/12/20 03/13/21 mg-hydrochlorothiazide 25 mg tablet Previous Rx's Medication Instructions Recorded phenazopyridine 200 mg tablet 200 mg PO TID PRN dysuria 6 doses 08/27/20 (Pyridium) #6 tabs Allergies Allergy/AdvReac Type Severity Reaction Status Date / Time Sulfa (Sulfonamide Allergy Intermediate SWELLING Verified 03/13/21 14:04 Antibiotics) [SULFA (SULFONAMIDE ANTIBIOTICS)] Review of Systems Review of Systems: All other systems are reviewed and are negative Constitutional: Reports as per HPI and Reports no additional constitutional complaints Eyes: Reports as per HPI and Reports no additional eye complaints Reports system reviewed and no additional complaints, except as documented Cardiovascular: Reports as per HPI and Reports no additional cardiovascular co mplaints Respiratory: Reports as per HPI and Reports no additional respiratory complaints Gastrointestinal: Reports as per HPI and Reports no additional gastrointestinal complaints Genitourinary: Reports no additional female genitourinary complaints Musculoskeletal: Reports no additional musculoskeletal complaints Skin/Breast: Reports system reviewed and no additional complaints, except as docu Psychiatric: Reports no additional psychiatric complaints Endocrine: Reports no additional endocrine complaints Hematologic/Lymphatic: Reports no additional hematologic/lymphatic complaints Allergic/Immunologic: Reports no additional allergic/immunologic complaints Reports system reviewed and no additional complaints, except as documented and Reports Abnormal speech present [facility] Past Medical History Medical History Anxiety COPD (chronic obstructive pulmonary disease) Depression Essential hypertension Fatty liver LBBB (left bundle branch block) Morbid obesity Obstructive sleep apnea hypopnea, severe Super obesity Type 2 diabetes mellitus Surgical History History of carpal tunnel surgery History of hand surgery History of removal of laparoscopic gastric banding device Hx of cholecystectomy Hx of colonoscopy Hx of laparoscopic gastric banding Family History Family History Father Interstitial pneumonitis Diabetes Mother Bladder cancer Brother No problems noted. Social History Social History Alcohol intake: current Alcohol intake frequency: a few times a month Alcohol type: wine Patient Tobacco Use Status: Former Tobacco user Quit Date: 1997 Advance Directives: No Advance Directives Information Provided: No Physical Exam ED Vital Signs: Vital Signs - 24 hr 03/10/22 23:45 03/11/22 03:03 03/11/22 04:13 Temperature 98.8 F 98.7 F Pulse Rate 85 97 95 Respiratory Rate 18 24 H 20 Blood Pressure 157/71 H 158/72 H 193/86 H Pulse Oximetry 95 94 94 Oxygen Delivery Method Room Air Room Air Room Air BMI result Body Mass Index 64.7 Vital signs have been reviewed as appeared to be correct. Blood pressure normal. Heart rate normal. Respiration rate normal. Temperature normal. Oxygen saturation normal. Appearance: Alert. Oriented X3. No acute distress. Head: Normal external exam. Normocephalic. Atraumatic. No Knapp signs noted. No raccoon eyes noted Eyes: PERRLA. EOMI. Conjunctiva and sclera normal. Eyelids normal. ENT: TM's Normal. Pharynx normal. Uvula midline. Moist mucous membranes. No trismus noted. No drooling noted. No muffled voice noted. Neck: Normal inspection. Neck supple. FROM. No adenopathy. Thyroid Normal. No meningeal signs. No neck mass noted. CVS: Normal heart rate and rhythm. Heart sound normal. No murmurs noted. Pulses normal throughout. Respiratory: No respiratory distress. Painless inspiration. Breath sounds normal. No wheezes/rales/rhonchi noted. Chest nontender. No accessory muscle usage noted or decreased air movement noted. Abdomen: Soft and nontender. Bowel sounds normal in all 4 quadrants. No distention noted. No organomegaly noted. No visible injury noted. Back: No CVA tenderness. Full range of motion noted. Skin: Skin warm and dry. Normal skin color. Normal skin turgor. No rashes/lesions/lacerations noted. Extremities: Right hand exam: Right index finger is fusiform swelling, held an semi flexion position, tender to extend, to marked teeth on the palm side of the right index. No fluctuation, no discharge. Neuro: Oriented X 3. Cranial nerve exam: II-XII are grossly intact No motor deficit. No sensory deficit. Reflexes normal. Course Course Course Narrative: Assessment and plan. 61-year-old female with possible right index tenosynovitis, patient also meet criteria for SIRS (no sign of severe sepsis or septic shock) will start the patient on Zosyn/vancomycin. Will admit the patient will obtain orthopedic consultation in the a.m. [facility] - Animal Bite Medical Records Attestation: I reviewed the patient's medical records. Lab Data Attestation: I reviewed the patient's lab results. Result diagrams: 03/11/22 00:10 03/11/22 00:10 Labs: Lab Results 03/11/22 03/11/22 03/11/22 Range/Units 00:10 00:10 04:18 WBC 12.0 H (4.8-10.8) X10*3/uL RBC 5.62 H (4.20-5.50) X10*6/uL Hgb 13.7 (12.0-16.0) g/dl Hct 43.9 (37.0-47.0) % MCV 78.1 L (80.0-98.0) fL MCH 24.4 L (27.0-33.0) pg MCHC 31.2 (31.0-35.0) g/dl RDW 18.0 H (11.0-16.0) % Plt Count 235 (160-400) X10*3/uL MPV 9.9 (9.4-12.3) fL Immature Gran % (Auto) 0.3 (0.0-0.4) % Neut % (Auto) 68.3 (45-73) % Lymph % (Auto) 20.1 (20-40) % [place] % (Auto) 9.2 (2-11) % Eos % (Auto) 1.7 (0-4) % Baso % (Auto) 0.4 (0-2) % Lymph # (Auto) 2.4 (1.2-4.9) X10*3/uL [place] # (Auto) 1.1 (0.1-1.2) X10*3/uL Eos # (Auto) 0.2 (0.0-0.4) X10*3/uL Baso # (Auto) 0.1 (0.0-0.2) X10*3/uL Abs Immat Gran (auto) 0.04 H (0.00-0.03) X10*3/uL Absolute Neuts (auto) 8.2 (2.0-8.3) x10*3/uL Absolute Nucleated RBC 0.000 (0.0-0.012) X10*3/uL Nucleated RBC % (auto) 0.0 (0.0-0.2) /100WBC Sodium 139 (135-145) mmol/L Potassium 3.7 (3.3-5.1) mmol/L Chloride 102 (96-108) mmol/L Carbon Dioxide 26 (22-29) mmol/L Anion Gap 15 (12-20) BUN 16 (9-16) mg/dL Creatinine 0.79 (0.5-1.4) mg/dL Estim Creat Clear Calc 94.1 Estimated GFR > 60 Random Glucose 167 H (60-115) mg/dL Lactic Acid 1.6 (0.5-2.0) mmol/L Calcium 9.3 (8.4-10.2) mg/dL Total Bilirubin 0.8 (0.0-1.0) mg/dL AST 13 (5-31) U/L ALT 17 (0-31) U/L Alkaline Phosphatase 88 (39-117) U/L Total Protein 7.5 (6.5-8.0) g/dL Albumin 4.0 (3.5-5.0) g/dL Imaging Data Right finger x-ray: Attestation: I personally reviewed and interpreted this imaging study as follows: Radiologist's impression: Soft tissue swelling of the second digit. No acute osseous findings identified. Discharge Plan Discharge Clinical Impression: Cat bite, Tenosynovitis of finger Patient Disposition: Admitted As Inpatient Prescriptions: No Action phenazopyridine [Pyridium] 200 mg tablet 200 mg PO TID PRN (Reason: dysuria) Qty: 6 0RF Tresiba FlexTouch U-100 100 unit/mL (3 mL) insulin pen 30 unit subcut DAILY amlodipine 5 mg tablet 5 mg PO DAILY multivitamin Tablet 1 tab PO DAILY cholecalciferol (vitamin D3) 25 mcg (1,000 unit) capsule 25 mcg PO DAILY aspirin 81 mg tablet,delayed release (DR/EC) 81 mg PO DAILY Trulicity 0.75 mg/0.5 mL pen injector 0.75 mg subcut QWEEK desvenlafaxine succinate [Pristiq] 25 mg tablet extended release 24 hr 75 mg PO DAILY losartan-hydrochlorothiazide 100-25 mg tablet 1 tab PO DAILY
[2022-03-11] MEDS: Morphine Sulfate 2 MG/ML CARTRIDGE IVPUSH (05:33)
[2022-03-11 05:55] LABS: COVID-19 Test Negative (Negative); IDNOW Serial# 16C4AD1C
--- NOTE | 2022-03-11 06:17 | P.HPHOSP_ITS ---
History of Present Illness Date of Service: 03/11/22 Chief Complaint: cat bite 61-year-old female with past medical history of COPD, diabetes, HTN, morbid obesity, obstructive sleep apnea, presents to the hospital with complaints of a painful right index finger after a cat bite. Patient reports that on Wednesday she thought that her to cat was choking, therefore she attempted the Heimlich maneuver maneuver on her cat, when her cat bit her. She later found out that her cat was having an asthma attack, her cat in her arms. she went to urgent care on Wednesday, she had an injection of an IV antibiotic, and sent home on Augmentin. She reports that she took 1 dose that afternoon but developed worsening pain, swelling, and redness on her right hand therefore decided to come to the ED. Patient denies any fever or chills, no abdominal pain nausea or vomiting, no diarrhea constipation, no urinary symptoms and no lower extremity edema. No headache or change in vision. On arrival to the ED patient hemodynamically stable with respiratory rate of 24 otherwise unremarkable vitals Labs are significant for WBC count of 12, hemoglobin of 13.7, hematocrit 43.9, labs otherwise unremarkable, hand x-ray shows soft tissue swelling. patient will be admitted for further management Review of Systems Review of Systems: Yes all other systems are reviewed and are negative [facility] Medical History Anxiety COPD (chronic obstructive pulmonary disease) Depression Essential hypertension Fatty liver LBBB (left bundle branch block) Morbid obesity Obstructive sleep apnea hypopnea, severe Super obesity Type 2 diabetes mellitus Family History Father Interstitial pneumonitis Diabetes Mother Bladder cancer Brother No problems noted. Surgical History History of carpal tunnel surgery History of hand surgery History of removal of laparoscopic gastric banding device Hx of cholecystectomy Hx of colonoscopy Hx of laparoscopic gastric banding Social History Alcohol intake: current Alcohol intake frequency: a few times a month Alcohol type: wine Patient Tobacco Use Status: Former Tobacco user Quit Date: 1997 Advance Directives: No Advance Directives Information Provided: No Meds Allergies Allergy/AdvReac Type Severity Reaction Status Date / Time Sulfa (Sulfonamide Allergy Intermediate SWELLING Verified 03/13/21 14:04 Antibiotics) [SULFA (SULFONAMIDE ANTIBIOTICS)] Active Medications: Current Medications Acetaminophen (Acetaminophen 325 Mg Tablet) 650 mg PO Q6H PRN PRN Reason: Pain, Mild (Pain Scale 1-3) Docusate Sodium (Docusate Sodium 100 Mg Capsule) 100 mg PO DAILY PRN PRN Reason: Constipation Enoxaparin Sodium (Enoxaparin Sodium 40 Mg/0.4 Ml Syringe) 40 mg SUBCUT Q24H VIANCA Piperacillin Sod/Tazobactam (Sod 3.375 gm/ Sodium Chloride) 50 mls @ 100 mls/hr IV Q6H VIANCA Ondansetron HCl (Ondansetron Hcl 4 Mg/2 Ml Vial) 4 mg IVPUSH Q8H PRN PRN Reason: Nausea and Vomiting Oxycodone HCl (Oxycodone Hcl Immed Release 5 Mg Tablet) 5 mg PO Q6H PRN PRN Reason: Pain, Severe (Pain Scale 7-10) Pharmacy Consult (Consult Rx Vancomycin Dosing) 1 each MISCELLANE DAILY PRN PRN Reason: Consult order Sodium Chloride (0.9 % Sodium Chloride Flush 3 Ml Syringe) 3 ml IVFLUSH QSHIFT [facility] Home Medications Medication Instructions Recorded Confirmed Last Taken Type amlodipine 5 mg tablet 5 mg PO DAILY 03/11/22 03/11/22 Unknown History dulaglutide 4.5 mg/0.5 mL 4.5 mg subcut QWEEK 03/11/22 03/11/22 Unknown History subcutaneous pen injector (Trulicity) empagliflozin 10 mg tablet 10 mg PO DAILY 03/11/22 03/11/22 Unknown History (Jardiance) losartan 100 1 tab PO DAILY 03/11/22 03/11/22 Unknown History mg-hydrochlorothiazide 25 mg tablet metformin 1,000 mg 24 hr 1,000 mg PO QPM 03/11/22 03/11/22 Unknown History tablet,extended release sertraline 100 mg tablet 100 mg PO DAILY 03/11/22 03/11/22 Unknown History Physical Exam Vital Signs and Narrative: Vital Signs: Last Vital Signs Temp 98.7 F 03/11/22 03:03 Pulse 91 03/11/22 05:17 Resp 20 03/11/22 05:33 BP 157/58 H 03/11/22 05:17 Pulse Ox 94 03/11/22 04:13 O2 Del Method 03/11/22 04:13 BMI result Body Mass Index 64.7 Const: General: cooperative and no acute distress Orientation/conscious ness: patient oriented x3 Eyes: General: appearance normal, both eyes and all related structures Resp: Effort & Inspection: normal respiratory effort Auscultation: clear to auscultation bilaterally Cardio: Rate: regular rate Rhythm: regular rhythm GI: Palpation (GI): Soft to palpation Auscultation: normal bowel sounds Skin: General skin exam: no rashes or lesions noted Neuro: General: patient oriented x3 Cognition (Neuro): normal cognition Extrem: Other: right index finger tenderness, swelling, presence of puncture brandon on the finger, erythema to the middle of the hand, warmth limited range of motion of finger General: Yes no pedal edema Results Labs CBC and Chem 7: 03/11/22 00:10 03/11/22 00:10 Labs: Laboratory Results - last 24 hr 03/11/22 03/11/22 03/11/22 00:10 00:10 04:18 MCV 78.1 L MCH 24.4 L MCHC 31.2 RDW 18.0 H Plt Count 235 MPV 9.9 Immature Gran % (Auto) 0.3 Neut % (Auto) 68.3 Lymph % (Auto) 20.1 [place] % (Auto) 9.2 Eos % (Auto) 1.7 Baso % (Auto) 0.4 Lymph # (Auto) 2.4 [place] # (Auto) 1.1 Eos # (Auto) 0.2 Baso # (Auto) 0.1 Abs Immat Gran (auto) 0.04 H Absolute Neuts (auto) 8.2 Absolute Nucleated RBC 0.000 Nucleated RBC % (auto) 0.0 Anion Gap 15 Estim Creat Clear Calc 94.1 Estimated GFR > 60 Random Glucose 167 H Lactic Acid 1.6 Calcium 9.3 Total Bilirubin 0.8 AST 13 ALT 17 Alkaline Phosphatase 88 Total Protein 7.5 Albumin 4.0 COVID-19 (EFRAIN) COVID-19 Clin Com 03/11/22 05:31 MCV MCH MCHC RDW Plt Count MPV Immature Gran % (Auto) Neut % (Auto) Lymph % (Auto) [place] % (Auto) Eos % (Auto) Baso % (Auto) Lymph # (Auto) [place] # (Auto) Eos # (Auto) Baso # (Auto) Abs Immat Gran (auto) Absolute Neuts (auto) Absolute Nucleated RBC Nucleated RBC % (auto) Anion Gap Estim Creat Clear Calc Estimated GFR Random Glucose Lactic Acid Calcium Total Bilirubin AST ALT Alkaline Phosphatase Total Protein Albumin COVID-19 (EFRAIN) Negative COVID-19 Clin Com See Note Imaging Radiologist's Impressions: Impressions Hand X-Ray 03/11/22 04:05 IMPRESSION: Soft tissue swelling of the second digit. No acute osseous findings identified. Assessment and Plan (1) Cat bite: Status: Acute (2) Tenosynovitis of finger: Status: Acute (3) Cellulitis of right hand: Status: Acute Plan 61-year-old female with past medical history of diabetes, hypertension, presents to the hospital with complaints of cat bite and failed outpatient therapy # cat bite - has evidence of tenosynovitis and cellulitis of the hand with difficulty mo ving finger, swelling, as well as erythema and warmth - was tried on p.o. antibiotics with the pain and swelling worsening - will treat with IV antibiotics - follow cultures # likely acute tenosynovitis of right finger - IV antibiotic - hand surgeon consulted # right hand cellulitis - IV antibiotics - follow cultures # diabetes - low-dose sliding scale insulin - hold oral antihyperglycemics - diabetic diet # hypertension - slightly elevated - continue home medications DVT prophylaxis: Lovenox given the severity of the cat bite, tenosynovitis, and requirement for IV a ntibiotics patient will require a minimum 2 night hospital stay for further management Quality Stroke Does the patient have a stroke diagnosis?: No VTE Prior VTE?: No VTE Risk Level:: Medical - moderate - high VTE Device Contraindication: Treatment Not Indicated VTE Drug Contraindication: N/A - Med Ordered
[2022-03-11 06:47] LABS: C Reactive Protein 5.68 mg/dL (< or = 0.50)
--- NOTE | 2022-03-11 07:04 | PHA.MEDREC ---
Pharmacy Consult ? Medication Reconciliation Pharmacy has reviewed the medication reconciliation complete by Nicholas. Tory Calderón, PharmD
[2022-03-11 07:20] LABS: Erythrocyte Sedimentation Rate 23 MM/HR (0-20)
[2022-03-11] MEDS: hydroCHLOROthiazide 25 MG TABLET PO (07:43)
[2022-03-11] MEDS: Sertraline HCL 100 MG TABLET PO (07:43)
[2022-03-11] MEDS: Losartan Potassium 50 MG TABLET 100 MG PO (07:43)
[2022-03-11] MEDS: amLODIPine Besylate 5 MG TABLET PO (07:44)
[2022-03-11] MEDS: oxyCODONE HCl Immed Release 5 MG TABLET PO ×3 (07:44→21:57)
[2022-03-11] MEDS: Enoxaparin Sodium 40 MG/0.4 ML SYRINGE SUBCUT (07:51)
--- NOTE | 2022-03-11 07:54 | PC.NURSE ---
[facility] at bedside plan of care to soak right pointer finger in warm water in 20 minutes and possible corwin to drain area on finger . patient aware of plan of care .
--- NOTE | 2022-03-11 07:57 | PC.NURSE ---
patient a/ox4 . wound at pointer finger , red edematous , painful to touch . no streaks noted by this manager cosmetics up her wrist or arm . patient received vancomycin and c/o of itching and painfulness above site redness noted above IV site . provider made aware . patient pain level 10/ 10, medicated prn will reassess .
--- NOTE | 2022-03-11 08:09 | PM.EVENT ---
Event Note Date of Service: 03/11/22 Event Note: 61 yo female sustained cat bite 03/09 developed worsening pain and swelling within 12-24 hours, went to urgent care first on 03/10 and then to the ED due to worsening sx admitted for IV abx-recommend warm water soaks and re-eal for potential bed side I&D versus I&D in OR. pain and swelling / pus is located over the PIP of the right index finger
--- NOTE | 2022-03-11 08:13 | P.CONOP_ITS ---
History of Present Illness HPI Consult date: 03/12/22 Chief complaint: cat bite Narrative: 61 yo female admitted to the medical service for right index finger cat bite from 03/09. She states the following day she did go to urgent care and was given 1g Ceftriaxone and po augmentin, but her symptoms rapidly worsened which prompted her to the ED. She was admitted and strated on IV abx and orthopedics was consulted. Review of Systems Review of Systems: per hpi [facility] Past Medical History Medical History Anxiety COPD (chronic obstructive pulmonary disease) Depression Essential hypertension Fatty liver LBBB (left bundle branch block) Morbid obesity Obstructive sleep apnea hypopnea, severe Super obesity Type 2 diabetes mellitus Family History Family History Father Interstitial pneumonitis Diabetes Mother Bladder cancer Brother No problems noted. Surgical History Surgical History History of carpal tunnel surgery History of hand surgery History of removal of laparoscopic gastric banding device Hx of cholecystectomy Hx of colonoscopy Hx of laparoscopic gastric banding Social History Social History Alcohol intake: current Alcohol intake frequency: holidays/special occasions only Alcohol type: wine and hard liquor Patient Tobacco Use Status: Former Tobacco user Quit Date: 1997 Smoked in Last 30 Days: No Use of substances other than those prescribed or required for medical reasons: No Advance Directives: Yes Advance Directives on File: Yes Advance Directives Date on File: 03/12/22 service: No Current occupational status: unemployed Meds Allergies Allergy/AdvReac Type Severity Reaction Status Date / Time Sulfa (Sulfonamide Allergy Intermediate SWELLING Verified 03/13/21 14:04 Antibiotics) [SULFA (SULFONAMIDE ANTIBIOTICS)] vancomycin Allergy Rash Verified 03/11/22 08:20 Active Medications: Current Medications Acetaminophen (Acetaminophen 325 Mg Tablet) 650 mg PO Q6H PRN PRN Reason: Pain, Mild (Pain Scale 1-3) Amlodipine Besylate (Amlodipine Besylate 5 Mg Tablet) 5 mg PO DAILY [facility]; Protocol Last Admin: 03/11/22 07:44 Dose: 5 mg Dextrose (Dextrose 50 % 25 Gm/50 Ml Syringe) 25 gm IVPUSH Q15M PRN; Protocol PRN Reason: per Hypoglycemia Standing Ord. Docusate Sodium (Docusate Sodium 100 Mg Capsule) 100 mg PO DAILY PRN PRN Reason: Constipation Enoxaparin Sodium (Enoxaparin Sodium 40 Mg/0.4 Ml Syringe) 40 mg SUBCUT Q24H [facility] Last Admin: 03/11/22 07:51 Dose: 40 mg Glucose (Glucose Gel 15 Gm Gel..Gram.) 15 gm PO Q15M PRN; Protocol PRN Reason: per Hypoglycemia Standing Ord. Hydrochlorothiazide (Hydrochlorothiazide 25 Mg Tablet) 25 mg PO DAILY [facility] Last Admin: 03/11/22 07:43 Dose: 25 mg Piperacillin Sod/Tazobactam (Sod 3.375 gm/ Sodium Chloride) 50 mls @ 100 mls/hr IV Q6H [facility] Insulin Human Lispro (Insulin Lispro 100 Unit/Ml 3 Ml Vial) 0 unit SUBCUT QIDACHS [facility]; Protocol Losartan Potassium (Losartan Potassium 50 Mg Tablet) 100 mg PO DAILY [facility] Last Admin: 03/11/22 07:43 Dose: 100 mg Ondansetron HCl (Ondansetron Hcl 4 Mg/2 Ml Vial) 4 mg IVPUSH Q8H PRN PRN Reason: Nausea and Vomiting Oxycodone HCl (Oxycodone Hcl Immed Release 5 Mg Tablet) 5 mg PO Q6H PRN PRN Reason: Pain, Severe (Pain Scale 7-10) Last Admin: 03/11/22 07:44 Dose: 5 mg Sertraline HCl (Sertraline Hcl 100 Mg Tablet) 100 mg PO DAILY [facility] Last Admin: 03/11/22 07:43 Dose: 100 mg Sodium Chloride (0.9 % Sodium Chloride Flush 3 Ml Syringe) 3 ml IVFLUSH QSHIFT [facility] Home Medications Medication Instructions Recorded Confirmed Last Taken Type amlodipine 5 mg tablet 5 mg PO DAILY 03/11/22 03/11/22 Unknown History dulaglutide 4.5 mg/0.5 mL 4.5 mg subcut QWEEK 03/11/22 03/11/22 Unknown History subcutaneous pen injector (Trulicity) empagliflozin 10 mg tablet 10 mg PO DAILY 03/11/22 03/11/22 Unknown History (Jardiance) losartan 100 1 tab PO DAILY 03/11/22 03/11/22 Unknown History mg-hydrochlorothiazide 25 mg tablet metformin 1,000 mg 24 hr 1,000 mg PO QPM 03/11/22 03/11/22 Unknown History tablet,extended release sertraline 100 mg tablet 100 mg PO DAILY 03/11/22 03/11/22 Unknown History Physical Exam Vital Signs: Vital Signs: Last Vital Signs Temp 98.7 F 03/11/22 03:03 Pulse 93 03/11/22 07:35 Resp 20 03/11/22 07:35 BP 171/79 H 03/11/22 07:35 Pulse Ox 92 03/11/22 07:35 O2 Del Method 03/11/22 07:35 BMI result Body Mass Index 64.7 Extrem: Other: right index finger swelling and redness over the PIP joint with pustule. She is unable to flex the finger. No extension beyond the finger into the hand or wrist. Minimal pain along the flexor tendon. Results Labs Result Diagrams: 03/12/22 06:37 03/12/22 06:37 Labs: Abnormal lab results 03/11/22 03/11/22 03/11/22 Range/Units 00:10 00:10 00:10 WBC 12.0 H (4.8-10.8) X10*3/uL RBC 5.62 H (4.20-5.50) X10*6/uL MCV 78.1 L (80.0-98.0) fL MCH 24.4 L (27.0-33.0) pg RDW 18.0 H (11.0-16.0) % Abs Immat Gran (auto) 0.04 H (0.00-0.03) X10*3/uL ESR 23 H (0-20) MM/HR Random Glucose 167 H (60-115) mg/dL C-Reactive Protein 5.68 H (< or = 0.50) mg/dL H & H 03/11/22 Range/Units 00:10 Hgb 13.7 (12.0-16.0) g/dl Hct 43.9 (37.0-47.0) % All other labs normal. Assessment and Plan (1) Cellulitis of right hand: Status: Acute (2) Cat bite: Status: Acute Plan We will continue iv abx and perform warm water soaks qid. Re-eval tomorrow for potentail OR. She will be NPO after midnight. Procedures Date of Service Date of Service: 03/12/22
[2022-03-11] MEDS: 0.9 % Sodium Chloride Flush 3 ML SYRINGE IVFLUSH ×2 (08:14→15:28)
[2022-03-11 08:16] LABS: Glucose, Whole Blood 151 mg/dL (60-115)
--- NOTE | 2022-03-11 08:30 | PC.NURSE ---
Patient soaked right pointer finger for 20 minutes as previously advised by Marissa from orthopedics . Scant amount whit drainage noted from puncture wounds noted . patient tolerated well .
[2022-03-11] MEDS: Insulin Lispro 100 UNIT/ML 3 ML VIAL SUBCUT ×3 (09:14→21:57)
[2022-03-11] MEDS: diphenhydrAMINE HCL 50 MG/ML VIAL 25 MG IVPUSH ×3 (09:18→21:57)
--- NOTE | 2022-03-11 09:24 | PC.NURSE ---
patient given ivp for allergic reaction to vancomycin as ordered by hospitalist . patient medical recorder updated to reflect reaction to medication . patient aware of plan of care .
--- NOTE | 2022-03-11 10:15 | MHC.CM.PN ---
Attempted to meet with patient in regards to discharge planning. Provider currently with patient. Will attempt to meet again. Continue to monitor for d/c needs.
--- NOTE | 2022-03-11 10:22 | PC.NURSE ---
IV site in right for arm shows improvement after Benadryl , patient reports decreased pain and itching . IV patent . redness reduced . patient aware of plan of care
--- NOTE | 2022-03-11 11:58 | PM.EVENT ---
Event Note Date of Service: 03/11/22 Event Note: Seen and evaluated this morning Unable to bend her finger but less swollen than before Pending orthopedic final decision if any intervention if needed Continue IV antibiotic of Zosyn for now
--- NOTE | 2022-03-11 12:34 | PC.NURSE ---
patient c/o of increased redness and itchiness on IV site . bilateral redness with inflammation noted on forearms . patient c/o of right buttocks itchiness and inflammation noted . provider contacted , order for Benadryl obtained . administered as ordered . patient vss. patient aware of plan of care .
[2022-03-11 13:13] LABS: Glucose, Whole Blood 162 mg/dL (60-115)
--- NOTE | 2022-03-11 19:29 | MHC.CM.PN ---
CM met with admitted patient with bed assignment pending. A&Ox4. Lives with children and animals. No DME or services. Pt tells CM she has a CPAP, but cannot find a mask she can use, so she doesn't use it. Pt has no services. Verified that pt had 4 does of Moderna Vaccine. 2 vaccinations and 2 boosters. No HCP on file. Reviewed, completed and signed. Copies given. Uploaded into [facility] [employer] and [facility] [employer]. HCP/mother Haritha Nato ([phone]). PCP Linda Camejo. D/C plan: Home. Unsure if she will need IV antibiotics at discharge. Family to transport home. CM to follow for d/c needs.
[2022-03-11 19:33] LABS: Glucose, Whole Blood 179 mg/dL (60-115)
--- NOTE | 2022-03-11 19:45 | PC.NURSE ---
Pt ate dinner prior to having POC checked for 1630 insulin dose. This RN checked POC and found to be 179 just after eating dinner. Insulin due for 1630 will be held. Recheck POC at bedtime.
--- NOTE | 2022-03-11 21:48 | PC.NURSE ---
Pt had some swelling and redness on the left arm above IV site that she reported as more painful and itchy. IV removed from left arm. IV reinserted in right AC. This RN made markings on the left arm around inflamed area. Continue to monitor. Provider notified.
[2022-03-11 21:50] LABS: Glucose, Whole Blood 177 mg/dL (60-115)
[2022-03-12] VITALS (7 sets, daily range): BP systolic 144–168; BP diastolic 61–81; PULSE 77–97; RESP 18–20; TEMP 36.1–37.3; O2SAT 93–96
[2022-03-12] MEDS: 0.9 % Sodium Chloride Flush 3 ML SYRINGE IVFLUSH ×4 (01:20→23:34)
[2022-03-12] MEDS: Piperacillin Sodium/Tazobactam 3.375 GM in 0.9 % Sodium Chloride 50 ML IV ×3 (04:32→21:28)
[2022-03-12] MEDS: oxyCODONE HCl Immed Release 5 MG TABLET PO ×3 (04:59→21:34)
[2022-03-12] MEDS: diphenhydrAMINE HCL 50 MG/ML VIAL 25 MG IVPUSH ×3 (05:00→23:45)
[2022-03-12 07:00] LABS: MANUAL DIFF FLAG NO
[2022-03-12 07:06] LABS: Glucose, Whole Blood 168 mg/dL (60-115)
[2022-03-12 07:12] LABS: Basophils Percent Auto 0.4 % (0-2); Eosinophils Absolute Auto 0.2 X10*3/uL (0.0-0.4); Eosinophils Percent Auto 2.6 % (0-4); Hematocrit 42.7 % (37.0-47.0); Hemoglobin 12.9 g/dl (12.0-16.0); Imm Gran Abs Auto 0.04 X10*3/uL (0.00-0.03); Imm Gran Pct Auto 0.4 % (0.0-0.4); Lymphocytes Absolute Auto 1.8 X10*3/uL (1.2-4.9); Lymphocytes Percent Auto 18.8 % (20-40); Mean Corpuscular HGB Conc 30.2 g/dl (31.0-35.0); Mean Corpuscular Volume 79.4 fL (80.0-98.0); Monocytes Absolute Auto 0.9 X10*3/uL (0.1-1.2); Monocytes Percent Auto 9.6 % (2-11); Neutrophils Absolute Auto 6.4 x10*3/uL (2.0-8.3); Neutrophils Percent Auto 68.2 % (45-73); Platelet Count 217 X10*3/uL (160-400); Red Blood Count 5.38 X10*6/uL (4.20-5.50); Red Cell Distribution Width 17.6 % (11.0-16.0); White Blood Count 9.4 X10*3/uL (4.8-10.8)
[2022-03-12 07:25] LABS: Anion Gap 13 (12-20); Blood Urea Nitrogen 15 mg/dL (9-16); Calcium 8.6 mg/dL (8.4-10.2); Carbon Dioxide 26 mmol/L (22-29); Chloride 101 mmol/L (96-108); Creatinine Clr Calc Pharmacy 94.1; Estimated Glomerular Filt Rate > 60; Glucose Random 169 mg/dL (60-115); Potassium 3.8 mmol/L (3.3-5.1); Sodium 136 mmol/L (135-145)
--- NOTE | 2022-03-12 09:37 | PC.NURSE ---
pts hand placed in warm water basin
--- NOTE | 2022-03-12 09:39 | PC.NURSE ---
verbal order per dr. Millan - pt ok to have PO meds
[2022-03-12] MEDS: Enoxaparin Sodium 40 MG/0.4 ML SYRINGE SUBCUT (09:59)
--- NOTE | 2022-03-12 10:15 | PC.NURSE ---
warm water bath d/c - SSS on unit for pt at this time
--- NOTE | 2022-03-12 11:28 | MHC.SHP ---
Pre-Procedural Eval Section A Date of Service: 03/12/22 The patient is an INPATIENT: Yes Changes since office visit: No Cold of Flu in the past 2 weeks, No New Medical Problems, No Changes in Medication and No Patient answered all questions The History & Physical has been completed within 30 days and I have reviewed it.: Yes Section B Chief Complaint: cat bite Allergies: Allergies Allergy/AdvReac Type Severity Reaction Status Date / Time Sulfa (Sulfonamide Allergy Intermediate SWELLING Verified 03/13/21 14:04 Antibiotics) [SULFA (SULFONAMIDE ANTIBIOTICS)] vancomycin Allergy Rash Verified 03/11/22 08:20 Exam Exam Comment: The patient had multiple bite wounds about the right index finger. There was purulence coming from the dorsal aspect of the PIP joint. She did not appear to have discomfort with axial loading of the digit. She does have some increased tenderness along the flexor tendon sheath extending up to the A1 margaret. She was however able to weakly flex and extend the digit some. There is a bite wound on the volar aspect of the digit and about the PIP level. Cap refill was brisk. She did not appear to have any tenderness along the tendon sheath as it extended into the palm and there was no evidence of palmar abscess. Plan I have reviewed the history and physical and performed a pertinent physical examination on my patient. No changes have occurred unless specified. The risks and benefits of operative treatment were discussed with the patient and the patient wishes to proceed with surgery. These risks include, but are not limited to risk of damage to blood vessels, nerves, tendons, infection, recurrence, incomplete relief of preoperative symptoms, persistent pain, possible need for further surgery and the risks associated with regional blocks and anesthesia. The plan is to take the patient to the operating room Today for the following procedures: 1. right index finger I and D 2. [ ] All of the preoperative paperwork including the consent was filled out today. All the patient's questions were answered. The patient understands that they will be contacted by our veterinary surgery technician soon to schedule this procedure
--- NOTE | 2022-03-12 11:33 | P.OP_ITS ---
Operative Note Operative Note Date of Service: 03/12/22 Narrative: Operative Note Preop diagnosis: 1. right index finger flexor tenosynovitis status post cat bite 2. Right index finger infection from multiple bite wounds Postop diagnosis: same Procedure: 1. right index finger I and D flexor tendon sheath 2. Right index finger I and D dorsal to PIP joint and several other bite wounds on the finger Surgeon: Saskia Horn MD Anesthesia: digital block using 1% lidocaine with epinephrine Findings: creamy yellow purulent discharge from multiple bite wounds. The wound over the dorsal aspect of the PIP joint had the largest amount of purulent material. No gross purulence found within the flexor tendon sheath. EBL: Less than 5 mL Tourniquet time: None Specimens: cultures sent from flexor tendon sheath and dorsal PIP joint wound Drains: Iodoform x1 Complications: None Disposition: Brought to recovery room in stable condition Plan: Admit to floor for course of IV antibiotics. Remove iodoform drain Postop day 1 and begin daily dressing changes. check cultures and adjust antibiotics accordingly. Indications: The patient is 61 years old, with right index finger infection status post multiple cap bite wounds . The risks and benefits of operative treatment including but not limited to risk of damage to blood vessels, nerves, tendons, infection, persistent pain, persistent symptoms, recurrence or possible need for additional surgery were discussed with the patient and the patient wishes to proceed with surgery. Procedure: Once consent was obtained a digital block was performed in the preop area using a combination of 1% lidocaine with epinephrine. The patient was then brought back to the operating suite and placed on the operative table in supine position. A tourniquet was applied to the proximal aspect of the right upper extremity and the limb was prepped and draped in a standard surgical fashion. Once assured that we had a good block, A 15. Blade was used to make a longitudinal incision over the wound over the dorsal aspect of the right index finger PIP joint. incision was made through the skin to the subcutaneous tissues.? There was creamy yellow purulent material and cultures were obtained.? I carefully debrided this wound using tenotomy scissors.? I did not enter the PIP joint.? There were several other bite wounds over the finger and small is sits were made over each of these bite wounds, tenotomy scissors were used to carefully open the bite wounds.? Most of these by wounds had a small amount of creamy yellow purulent material. Cultures were taken of the creamy yellow pur ulent material.? All wounds were copiously irrigated with normal saline. A 2nd culture had been taken from 1 of these additional bite wounds. Once satisfied with this I then turned my attention to the volar aspect of the finger. I made an oblique incision over the A1 margaret and another oblique incision to include 1 of the bite wounds over the middle phalanx. The incisions were made through the skin to the subcutaneous tissues using a 15. Blade. I then carefully dissected down to the level of the tendon sheath using tenotomy scissors. The A1 margaret was opened longitudinally using a 15. Blade. No purulence was found within the tendon sheath at this point. At the middle phalanx level I carefully dissected down to the flexor tendon sheath at the A4 margaret level. I did not see any gross purulence here however there was some watery edema in the subcutaneous tissues. At this point I placed an Angiocath into the flexor tendon sheath at the A1 margaret level and irrigated from proximal to distal through the flexor tendon sheath. There was another bite wound just distal to the D IP flexion crease and I opened this up with a small longitudinal incision. I then carefully dissected down into the pulp. This area was also carefully irrigated with normal saline. All wounds were again irrigated with normal saline. The incisions over the A1 and A4 pulleys were loosely closed with some 5 0 nylon suture material. I also loosely closed the incision through the wound over the dorsal aspect of the PIP joint. A small strip of iodoform gauze was then placed from proximal to distal into this wound as a drain to facilitate drainage. Once satisfied with Our right index finger I and D hemostasis was obtained with a brief period of local pressure. A sterile dressing was applied. The patient appears to have tolerated the procedure well and with no complications. All digits were well vascularized at the conclusion of the case.
--- NOTE | 2022-03-12 11:50 | P.PNIM_ITS ---
Subjective Subjective Date of Service: 03/12/22 Interval History: the patient was seen and evaluated this morning Laying in bed, complaining pain in her right index Denies any fever, chills or shortness of breath No reported other overnight events. Systemic review: No fever, chills or weakness No chest pain, palpitation No shortness of breath or coughing No abdominal pain, nausea or vomiting No urinary symptoms Swelling and pain in the right index Physical Exam Vital Signs: Vital Signs: Last Vital Signs Temp 97 F 03/12/22 10:21 Pulse 97 03/12/22 10:21 Resp 20 03/12/22 10:21 BP 160/68 H 03/12/22 10:21 Pulse Ox 95 03/12/22 10:21 O2 Del Method 03/12/22 10:21 BMI result Body Mass Index 64.7 Const: Other: Constitutional : Alert, oriented, not in distress Neck : Normal inspection, Supple Cardiovascular : RRR, no JVP, no lower extremity edema Respiratory : fair bilateral air entry, no crackles, wheezes or rhonchi Gastrointestinal: soft, lax, Normal bowel sounds, Non tender Skin : Warm, Dry, right index finger tenderness, swelling with puncture brandon on the finger, improving erythema to the middle of the hand, still having ?limited range of motion of finger Neurological : Alert & oriented x3, No focal deficit , CN 2-12 within normal Objective Data Active Medications Acetaminophen (Acetaminophen 325 Mg Tablet) 650 mg PO Q6H PRN PRN Reason: Pain, Mild (Pain Scale 1-3) Amlodipine Besylate (Amlodipine Besylate 5 Mg Tablet) 5 mg PO DAILY [facility]; Protocol Last Admin: 03/12/22 10:02 Dose: Not Given Documented By: KULDEEP Non-Admin Reason: NPO Dextrose (Dextrose 50 % 25 Gm/50 Ml Syringe) 25 gm IVPUSH Q15M PRN; Protocol PRN Reason: per Hypoglycemia Standing Ord. Diphenhydramine HCl (Diphenhydramine Hcl 50 Mg/Ml Vial) 25 mg IVPUSH Q6H PRN PRN Reason: Allergic Reaction Last Admin: 03/12/22 05:00 Dose: 25 mg Documented By: HORACIO Docusate Sodium (Docusate Sodium 100 Mg Capsule) 100 mg PO DAILY PRN PRN Reason: Constipation Enoxaparin Sodium (Enoxaparin Sodium 40 Mg/0.4 Ml Syringe) 40 mg SUBCUT Q24H [facility] Last Admin: 03/12/22 09:59 Dose: 40 mg Documented By: KULDEEP Glucose (Glucose Gel 15 Gm Gel..Gram.) 15 gm PO Q15M PRN; Protocol PRN Reason: per Hypoglycemia Standing Ord. Hydrochlorothiazide (Hydrochlorothiazide 25 Mg Tablet) 25 mg PO DAILY [facility] Last Admin: 03/12/22 10:04 Dose: Not Given Documented By: KULDEEP Non-Admin Reason: NPO Piperacillin Sod/Tazobactam (Sod 3.375 gm/ Sodium Chloride) 50 mls @ 100 mls/hr IV Q6H [facility] Last Infusion: 03/12/22 05:48 Dose: 0 mls/hr Documented By: HORACIO Insulin Human Lispro (Insulin Lispro 100 Unit/Ml 3 Ml Vial) 0 unit SUBCUT QIDACHS [facility]; Protocol Last Admin: 03/12/22 07:21 Dose: Not Given Documented By: KULDEEP Non-Admin Reason: NPO Losartan Potassium (Losartan Potassium 50 Mg Tablet) 100 mg PO DAILY [facility] Last Admin: 03/12/22 10:04 Dose: Not Given Documented By: KULDEEP Non-Admin Reason: NPO Ondansetron HCl (Ondansetron Hcl 4 Mg/2 Ml Vial) 4 mg IVPUSH Q8H PRN PRN Reason: Nausea and Vomiting Oxycodone HCl (Oxycodone Hcl Immed Release 5 Mg Tablet) 5 mg PO Q6H PRN PRN Reason: Pain, Severe (Pain Scale 7-10) Last Admin: 03/12/22 04:59 Dose: 5 mg Documented By: HORACIO Sertraline HCl (Sertraline Hcl 100 Mg Tablet) 100 mg PO DAILY [facility] Last Admin: 03/12/22 10:04 Dose: Not Given Documented By: KULDEEP Non-Admin Reason: NPO Sodium Chloride (0.9 % Sodium Chloride Flush 3 Ml Syringe) 3 ml IVFLUSH QSHIFT [facility] Last Admin: 03/12/22 10:00 Dose: 3 ml Documented By: KULDEEP Labs CBC & Chem 7: 03/12/22 06:37 03/12/22 06:37 Labs: Laboratory Results - last 24 hr 07/03/11/22 03/11/22 13:10 19:28 21:46 MCV MCH MCHC RDW Plt Count MPV Immature Gran % (Auto) Neut % (Auto) Lymph % (Auto) [place] % (Auto) Eos % (Auto) Baso % (Auto) Lymph # (Auto) [place] # (Auto) Eos # (Auto) Baso # (Auto) Abs Immat Gran (auto) Absolute Neuts (auto) Absolute Nucleated RBC Nucleated RBC % (auto) Anion Gap Estim Creat Clear Calc Estimated GFR POC Glucose 162 H 179 H 177 H Random Glucose Calcium 03/12/22 03/12/22 03/12/22 06:37 06:37 07:03 MCV 79.4 L MCH 24.0 L MCHC 30.2 L RDW 17.6 H Plt Count 217 MPV 11.0 Immature Gran % (Auto) 0.4 Neut % (Auto) 68.2 Lymph % (Auto) 18.8 L [place] % (Auto) 9.6 Eos % (Auto) 2.6 Baso % (Auto) 0.4 Lymph # (Auto) 1.8 [place] # (Auto) 0.9 Eos # (Auto) 0.2 Baso # (Auto) 0.0 Abs Immat Gran (auto) 0.04 H Absolute Neuts (auto) 6.4 Absolute Nucleated RBC 0.000 Nucleated RBC % (auto) 0.0 Anion Gap 13 Estim Creat Clear Calc 94.1 Estimated GFR > 60 POC Glucose 168 H Random Glucose 169 H Calcium 8.6 D Microbiology Microbiology Results: Microbiology 03/11/22 04:18 Blood Culture - Preliminary Blood - Venous No growth after 24 hours. 03/11/22 04:18 Blood Culture - Preliminary Blood - Venous No growth after 24 hours. Assessment and Plan (1) Cellulitis of right hand: Status: Acute (2) Cat bite: Status: Acute Plan 61-year-old female with past medical history of diabetes, hypertension, presents to the hospital with complaints of cat bite and failed outpatient therapy # cat bite, right hand cellulitis has evidence of tenosynovitis and cellulitis of the hand Continue IV Zosyn Pending final cultures # acute tenosynovitis of right finger Plan for surgical intervention today # diabetes low-dose sliding scale insulin hold oral antihyperglycemics diabetic diet # hypertension slightly elevated continue home medications DVT prophylaxis Lovenox given the severity of the cat bite, tenosynovitis, and requirement for IV antibiotics patient will require overnight hospital stay for further management Quality Stroke Does the patient have a stroke diagnosis?: No VTE Prior VTE?: No VTE Risk Level:: Medical - moderate - high VTE Device Contraindication: Treatment Not Indicated VTE Drug Contraindication: N/A - Med Ordered
[2022-03-12 14:08] LABS: Glucose, Whole Blood 134 mg/dL (60-115)
[2022-03-12] MEDS: amLODIPine Besylate 5 MG TABLET PO (14:53)
[2022-03-12] MEDS: hydroCHLOROthiazide 25 MG TABLET PO (14:53)
[2022-03-12] MEDS: Sertraline HCL 100 MG TABLET PO (14:53)
[2022-03-12] MEDS: Losartan Potassium 50 MG TABLET 100 MG PO (14:54)
[2022-03-12] MEDS: Morphine Sulfate 4 MG/ML CARTRIDGE IVPUSH ×2 (17:23→23:45)
[2022-03-12 19:45] LABS: Glucose, Whole Blood 185 mg/dL (60-115)
[2022-03-12] MEDS: Insulin Lispro 100 UNIT/ML 3 ML VIAL SUBCUT (21:28)
[2022-03-13] VITALS (8 sets, daily range): BP systolic 137–158; BP diastolic 58–74; PULSE 79–89; RESP 16–20; TEMP 36.7–37.4; O2SAT 90–94
[2022-03-13] MEDS: Piperacillin Sodium/Tazobactam 3.375 GM in 0.9 % Sodium Chloride 50 ML IV ×4 (03:44→21:47)
[2022-03-13 05:45] LABS: Hematocrit 42.9 % (37.0-47.0); Hemoglobin 13.2 g/dl (12.0-16.0); Mean Corpuscular HGB Conc 30.8 g/dl (31.0-35.0); Mean Corpuscular Hemoglobin 24.4 pg (27.0-33.0); Mean Corpuscular Volume 79.3 fL (80.0-98.0); Mean Platelet Volume 10.5 fL (9.4-12.3); Platelet Count 225 X10*3/uL (160-400); Red Blood Count 5.41 X10*6/uL (4.20-5.50); Red Cell Distribution Width 17.6 % (11.0-16.0); White Blood Count 9.8 X10*3/uL (4.8-10.8)
[2022-03-13 05:59] LABS: Anion Gap 14 (12-20); Blood Urea Nitrogen 14 mg/dL (9-16); Calcium 8.6 mg/dL (8.4-10.2); Carbon Dioxide 24 mmol/L (22-29); Chloride 102 mmol/L (96-108); Creatinine Clr Calc Pharmacy 92.9; Estimated Glomerular Filt Rate > 60; Glucose Random 165 mg/dL (60-115); Potassium 3.8 mmol/L (3.3-5.1); Sodium 136 mmol/L (135-145)
[2022-03-13 07:29] LABS: Glucose, Whole Blood 156 mg/dL (60-115)
[2022-03-13] MEDS: oxyCODONE HCl Immed Release 5 MG TABLET PO ×2 (07:45→15:29)
[2022-03-13] MEDS: amLODIPine Besylate 5 MG TABLET PO (07:46)
[2022-03-13] MEDS: Losartan Potassium 50 MG TABLET 100 MG PO (07:46)
[2022-03-13] MEDS: hydroCHLOROthiazide 25 MG TABLET PO (07:46)
[2022-03-13] MEDS: Sertraline HCL 100 MG TABLET PO (07:46)
[2022-03-13] MEDS: Insulin Lispro 100 UNIT/ML 3 ML VIAL SUBCUT ×2 (07:47→21:47)
[2022-03-13] MEDS: Enoxaparin Sodium 40 MG/0.4 ML SYRINGE SUBCUT (07:47)
[2022-03-13] MEDS: 0.9 % Sodium Chloride Flush 3 ML SYRINGE IVFLUSH ×2 (07:48→16:09)
--- NOTE | 2022-03-13 08:00 | PM.PNORT ---
Subjective Subjective Date of Service: 03/13/22 Interval history: POd 1 s/p Right index ginfer I&D no overnight events states the finger is throbbing Physical Exam Vital Signs: Vital Signs: Last Vital Signs Temp 99.4 F 03/13/22 07:27 Pulse 83 03/13/22 07:27 Resp 16 03/13/22 07:27 BP 141/67 H 03/13/22 07:27 Pulse Ox 93 03/13/22 07:27 O2 Del Method 03/13/22 07:27 BMI result Body Mass Index 64.7 Const: General: cooperative, healthy appearing and no acute distress Resp: Effort & Inspection: normal respiratory effort and able to speak in complete sentences Cardio: Rate: regular rate Peripheral pulses: Peripheral pulses 2+ throughout GI: Palpation (GI): Soft to palpation Skin: General skin exam: no rashes or lesions noted Extrem: Other: Rught index finger incisions clean dry and intact mild erythema diff bending due to pain and swelling nvi Procedures Date of Service Date of Service: 03/13/22 Progress Note: A&P Assessment and plan (1) Cellulitis of right hand: Status: Acute (2) Cat bite: Status: Acute Plan continue iv abx await cultures and sensitivities ID consult Time Spent With Patient Time: Total time spent is greater than 50% in coordination of care (as documented) at patient's floor/unit and/or counseling patient: Quality Stroke Does the patient have a stroke diagnosis?: No VTE Prior VTE?: No VTE Risk Level:: Medical - moderate - high VTE Device Contraindication: Treatment Not Indicated VTE Drug Contraindication: N/A - Med Ordered
--- NOTE | 2022-03-13 09:04 | MHC.CLN ---
NUTRITION DIET CHANGED TO DIABETIC 2000 KCALS DUE TO DX DM AND TAKES INSULIN.
[2022-03-13 11:21] LABS: Glucose, Whole Blood 147 mg/dL (60-115)
--- NOTE | 2022-03-13 11:39 | HO.PM.IMPN ---
Subjective Subjective Date of Service: 03/13/22 Interval History: Pod 1 the patient was seen and evaluated this morning Laying in bed, improved pain in her right index Denies any fever, chills or shortness of breath No reported other overnight events. Systemic review: No fever, chills or weakness No chest pain, palpitation No shortness of breath or coughing No abdominal pain, nausea or vomiting No urinary symptoms Better range of motion in right index Physical Exam Vital Signs: Vital Signs: Last Vital Signs Temp 99.3 F 03/13/22 11:10 Pulse 82 03/13/22 11:10 Resp 16 03/13/22 11:10 BP 148/67 H 03/13/22 11:10 Pulse Ox 90 L 03/13/22 11:10 O2 Del Method 03/13/22 11:10 BMI result Body Mass Index 64.7 Const: Other: Constitutional : Alert, oriented, not in distress Neck : Normal inspection, Supple Cardiovascular : RRR, no JVP, no lower extremity edema Respiratory : fair bilateral air entry, no crackles, wheezes or rhonchi Gastrointestinal: soft, lax, Normal bowel sounds, Non tender Skin : Warm, Dry, right index finger covered with dressing, good peripheral sensation ?limited range of motion of finger Neurological : Alert & oriented x3, No focal deficit , CN 2-12 within normal Objective Data Active Medications Acetaminophen (Acetaminophen 325 Mg Tablet) 650 mg PO Q6H PRN PRN Reason: Pain, Mild (Pain Scale 1-3) Amlodipine Besylate (Amlodipine Besylate 5 Mg Tablet) 5 mg PO DAILY [facility]; Protocol Last Admin: 03/13/22 07:46 Dose: 5 mg Documented By: NERY Dextrose (Dextrose 50 % 25 Gm/50 Ml Syringe) 25 gm IVPUSH Q15M PRN; Protocol PRN Reason: per Hypoglycemia Standing Ord. Diphenhydramine HCl (Diphenhydramine Hcl 50 Mg/Ml Vial) 25 mg IVPUSH Q6H PRN PRN Reason: Allergic Reaction Last Admin: 03/12/22 23:45 Dose: 25 mg Documented By: SHELBI Docusate Sodium (Docusate Sodium 100 Mg Capsule) 100 mg PO DAILY PRN PRN Reason: Constipation Enoxaparin Sodium (Enoxaparin Sodium 40 Mg/0.4 Ml Syringe) 40 mg SUBCUT Q24H [facility]AN[facility] Last Admin: 03/13/22 07:47 Dose: 40 mg Documented By: NERY Glucose (Glucose Gel 15 Gm Gel..Gram.) 15 gm PO Q15M PRN; Protocol PRN Reason: per Hypoglycemia Standing Ord. Hydrochlorothiazide (Hydrochlorothiazide 25 Mg Tablet) 25 mg PO DAILY [facility] Last Admin: 03/13/22 07:46 Dose: 25 mg Documented By: ENRY Piperacillin Sod/Tazobactam (Sod 3.375 gm/ Sodium Chloride) 50 mls @ 100 mls/hr IV Q6H [facility] Last Infusion: 03/13/22 11:18 Dose: 100 mls/hr Documented By: NERY Insulin Human Lispro (Insulin Lispro 100 Unit/Ml 3 Ml Vial) 0 unit SUBCUT QIDACHS [facility]; Protocol Last Admin: 03/13/22 07:47 Dose: 2 unit Documented By: NERY Losartan Potassium (Losartan Potassium 50 Mg Tablet) 100 mg PO DAILY [facility] Last Admin: 03/13/22 07:46 Dose: 100 mg Documented By: NERY Morphine Sulfate (Morphine Sulfate 4 Mg/Ml Cartridge) 4 mg IVPUSH Q4H PRN; Protocol PRN Reason: Pain, Severe (Pain Scale 7-10) Last Admin: 03/12/22 23:45 Dose: 4 mg Documented By: SHELBI Ondansetron HCl (Ondansetron Hcl 4 Mg/2 Ml Vial) 4 mg IVPUSH Q8H PRN PRN Reason: Nausea and Vomiting Oxycodone HCl (Oxycodone Hcl Immed Release 5 Mg Tablet) 5 mg PO Q6H PRN PRN Reason: Pain, Severe (Pain Scale 7-10) Last Admin: 03/13/22 07:45 Dose: 5 mg Documented By: NERY Sertraline HCl (Sertraline Hcl 100 Mg Tablet) 100 mg PO DAILY [facility] Last Admin: 03/13/22 07:46 Dose: 100 mg Documented By: NERY Sodium Chloride (0.9 % Sodium Chloride Flush 3 Ml Syringe) 3 ml IVFLUSH QSHIFT [facility] Last Admin: 03/13/22 07:48 Dose: 3 ml Documented By: NERY Labs CBC & Chem 7: 03/13/22 05:16 03/13/22 05:16 Labs: Laboratory Results - last 24 hr 03/12/22 03/12/22 03/13/22 14:03 19:24 05:16 MCV 79.3 L MCH 24.4 L MCHC 30.8 L RDW 17.6 H Plt Count 225 MPV 10.5 Absolute Nucleated RBC 0.000 Nucleated RBC % (auto) 0.0 Anion Gap Estim Creat Clear Calc Estimated GFR POC Glucose 134 H 185 H Random Glucose Calcium 03/13/22 03/13/22 03/13/22 05:16 07:19 11:09 MCV MCH MCHC RDW Plt Count MPV Absolute Nucleated RBC Nucleated RBC % (auto) Anion Gap 14 Estim Creat Clear Calc 92.9 Estimated GFR > 60 POC Glucose 156 H 147 H Random Glucose 165 H Calcium 8.6 Microbiology Microbiology Results: Microbiology 03/12/22 12:32 Gram Stain - Final Finger Right Index Routine Culture - Preliminary Culture in progress. 03/12/22 12:28 Gram Stain - Final Finger Right Index Routine Culture - Preliminary Culture in progress. 03/11/22 04:18 Blood Culture - Preliminary Blood - Venous No growth after 48 hours. 03/11/22 04:18 Blood Culture - Preliminary Blood - Venous No growth after 48 hours. Assessment and Plan (1) Cellulitis of right hand: Status: Acute (2) Cat bite: Status: Acute (3) Tenosynovitis of finger: Status: Acute Plan 61-year-old female with past medical history of diabetes, hypertension, presents to the hospital with complaints of cat bite and failed outpatient therapy # cat bite, right hand cellulitis # tenosynovitis and cellulitis of the hand Pod 1 post I&D Continue IV Zosyn Pending final cultures ID consult # acute tenosynovitis of right finger Pod 1 Pain management with oxycodone and morphine # diabetes low-dose sliding scale insulin hold oral antihyperglycemics diabetic diet # hypertension slightly elevated continue home medications DVT prophylaxis Lovenox given the severity of the cat bite, tenosynovitis, and requirement for IV antibiotics patient will require overnight hospital stay for further management Quality Stroke Does the patient have a stroke diagnosis?: No VTE Prior VTE?: No VTE Risk Level:: Medical - moderate - high VTE Device Contraindication: Treatment Not Indicated VTE Drug Contraindication: N/A - Med Ordered
--- NOTE | 2022-03-13 13:52 | W.PM.IDCN ---
History of Present Illness Data of Consult Service Date: 03/13/22 Requesting physician: Patricia Millan Primary Care Provider: Nonstaff Physician ERNA Reason for consult: right first finger cat bite She took 10 yo cat to vet four days ago. Cat had asthma diagnosed and was given steroids and went home. Cat became worse overnight and patient tried to administer feline Heimlich maneuver and cat bit patient six times on hand and passed on. She has pain and swelling hand and went to Urgent Care next day and received IV and Augmentin which she only took one of before presenting here. Cat was UTD on shots. Patient received tetanus shot now. Review of Systems Review of Systems: Yes all other systems are reviewed and are negative [facility] Past Medical History Medical History Anxiety COPD (chronic obstructive pulmonary disease) Depression Essential hypertension Fatty liver LBBB (left bundle branch block) Morbid obesity Obstructive sleep apnea hypopnea, severe Super obesity Type 2 diabetes mellitus Family History Family History Father Interstitial pneumonitis Diabetes Mother Bladder cancer Brother No problems noted. Surgical History Surgical History History of carpal tunnel surgery History of hand surgery History of removal of laparoscopic gastric banding device Hx of cholecystectomy Hx of colonoscopy Hx of laparoscopic gastric banding Social History Social History Household Members: Family and Children Housing: House Do you presently have visiting nurse or other home services: No Alcohol intake: current Alcohol intake frequency: holidays/special occasions only Alcohol type: wine and hard liquor Patient Tobacco Use Status: Former Tobacco user Quit Date: 1997 Advance Directives Date on File: 03/12/22 service: No Current occupational status: unemployed Meds Allergies Allergy/AdvReac Type Severity Reaction Status Date / Time Sulfa (Sulfonamide Allergy Intermediate SWELLING Verified 03/13/21 14:04 Antibiotics) [SULFA (SULFONAMIDE ANTIBIOTICS)] vancomycin Allergy Rash Verified 03/11/22 08:20 Active Medications: Current Medications Acetaminophen (Acetaminophen 325 Mg Tablet) 650 mg PO Q6H PRN PRN Reason: Pain, Mild (Pain Scale 1-3) Amlodipine Besylate (Amlodipine Besylate 5 Mg Tablet) 5 mg PO DAILY [facility]; Protocol Last Admin: 03/13/22 07:46 Dose: 5 mg Dextrose (Dextrose 50 % 25 Gm/50 Ml Syringe) 25 gm IVPUSH Q15M PRN; Protocol PRN Reason: per Hypoglycemia Standing Ord. Diphenhydramine HCl (Diphenhydramine Hcl 50 Mg/Ml Vial) 25 mg IVPUSH Q6H PRN PRN Reason: Allergic Reaction Last Admin: 03/12/22 23:45 Dose: 25 mg Docusate Sodium (Docusate Sodium 100 Mg Capsule) 100 mg PO DAILY PRN PRN Reason: Constipation Enoxaparin Sodium (Enoxaparin Sodium 40 Mg/0.4 Ml Syringe) 40 mg SUBCUT Q24H [facility] Last Admin: 03/13/22 07:47 Dose: 40 mg Glucose (Glucose Gel 15 Gm Gel..Gram.) 15 gm PO Q15M PRN; Protocol PRN Reason: per Hypoglycemia Standing Ord. Hydrochlorothiazide (Hydrochlorothiazide 25 Mg Tablet) 25 mg PO DAILY [facility] Last Admin: 03/13/22 07:46 Dose: 25 mg Piperacillin Sod/Tazobactam (Sod 3.375 gm/ Sodium Chloride) 50 mls @ 100 mls/hr IV Q6H [facility] Last Infusion: 03/13/22 11:18 Dose: Infused Insulin Human Lispro (Insulin Lispro 100 Unit/Ml 3 Ml Vial) 0 unit SUBCUT QIDACHS [facility]; Protocol Last Admin: 03/13/22 12:00 Dose: Not Given Losartan Potassium (Losartan Potassium 50 Mg Tablet) 100 mg PO DAILY [facility] Last Admin: 03/13/22 07:46 Dose: 100 mg Morphine Sulfate (Morphine Sulfate 4 Mg/Ml Cartridge) 4 mg IVPUSH Q4H PRN; Protocol PRN Reason: Pain, Severe (Pain Scale 7-10) Last Admin: 03/12/22 23:45 Dose: 4 mg Ondansetron HCl (Ondansetron Hcl 4 Mg/2 Ml Vial) 4 mg IVPUSH Q8H PRN PRN Reason: Nausea and Vomiting Oxycodone HCl (Oxycodone Hcl Immed Release 5 Mg Tablet) 5 mg PO Q6H PRN PRN Reason: Pain, Severe (Pain Scale 7-10) Last Admin: 03/13/22 07:45 Dose: 5 mg Sertraline HCl (Sertraline Hcl 100 Mg Tablet) 100 mg PO DAILY [facility] Last Admin: 03/13/22 07:46 Dose: 100 mg Sodium Chloride (0.9 % Sodium Chloride Flush 3 Ml Syringe) 3 ml IVFLUSH QSHIFT [facility] Last Admin: 03/13/22 07:48 Dose: 3 ml Home Medications Medication Instructions Recorded Confirmed Last Taken Type amlodipine 5 mg tablet 5 mg PO DAILY 03/11/22 03/11/22 Unknown History dulaglutide 4.5 mg/0.5 mL 4.5 mg subcut QWEEK 03/11/22 03/11/22 Unknown History subcutaneous pen injector (Trulicity) empagliflozin 10 mg tablet 10 mg PO DAILY 03/11/22 03/11/22 Unknown History (Jardiance) losartan 100 1 tab PO DAILY 03/11/22 03/11/22 Unknown History mg-hydrochlorothiazide 25 mg tablet metformin 1,000 mg 24 hr 1,000 mg PO QPM 03/11/22 03/11/22 Unknown History tablet,extended release sertraline 100 mg tablet 100 mg PO DAILY 03/11/22 03/11/22 Unknown History Physical Exam Vital Signs: Vital Signs: Last Vital Signs Temp 99.3 F 03/13/22 11:10 Pulse 82 03/13/22 11:10 Resp 16 03/13/22 11:10 BP 148/67 H 03/13/22 11:10 Pulse Ox 90 L 03/13/22 11:10 O2 Del Method 03/13/22 11:10 BMI result Body Mass Index 64.7 Const: General: cooperative HEENT: Head: Yes normal to inspection Face and sinus: Yes normal facial exam Mouth: Normal oral and palatal mucosa present Teeth and gingiva: dentition normal Eyes: General: appearance normal, both eyes and all related structures Pupils: Equal, round and reactive pupils present Resp: Effort & Inspection: normal respiratory effort Cardio: Rate: regular rate Rhythm: regular rhythm GI: Palpation (GI): Soft to palpation and nontender : General: Yes no CVA tenderness Back/Spine/Pelvis: Back: no CVA tenderness Skin: General skin exam: no rashes or lesions noted Neuro: General: moves all extremities Cranial nerves: Yes Equal, round and reactive pupils present Extrem: Other: right first finger wrapped,swelling and redness dorsum hand difficulty bending finger Psych: Appearance: grossly normal Results Labs CBC & Chem 7: 03/13/22 05:16 03/13/22 05:16 Labs: Short CBC 03/13/22 Range/Units 05:16 WBC 9.8 (4.8-10.8) X10*3/uL Hgb 13.2 (12.0-16.0) g/dl Hct 42.9 (37.0-47.0) % Plt Count 225 (160-400) X10*3/uL BMP 03/13/22 05:16 Sodium 136 Potassium 3.8 Chloride 102 Carbon Dioxide 24 BUN 14 Creatinine 0.80 Calcium 8.6 Microbiology Microbiology Results: Microbiology 03/12/22 12:32 Finger Right Index Gram Stain - Final 03/12/22 12:32 Finger Right Index Routine Culture - Preliminary Culture in progress. 03/12/22 12:28 Finger Right Index Gram Stain - Final 03/12/22 12:28 Finger Right Index Routine Culture - Preliminary Culture in progress. 03/11/22 04:18 Blood - Venous Blood Culture - Preliminary No growth after 48 hours. 03/11/22 04:18 Blood - Venous Blood Culture - Preliminary No growth after 48 hours. Assessment and Plan (1) Cellulitis of right hand: Status: Acute She is seen by Hand She has allergy to Vancomycin rash now and Sulfa pasterella,anerobes,concern and gram positive (2) Cat bite: Status: Acute (3) Tenosynovitis of finger: Status: Acute Plan Stop Vancomycin,reaction Continue piperacillin/tazobactam or Unasyn Follow up Hand surgery probable po Augmentin 10 d outpatient No rabies shot (cat has been vaccinated)
[2022-03-13 15:26] LABS: Glucose, Whole Blood 149 mg/dL (60-115)
[2022-03-13 19:31] LABS: Glucose, Whole Blood 190 mg/dL (60-115)
[2022-03-13] MEDS: Morphine Sulfate 4 MG/ML CARTRIDGE IVPUSH (21:48)
[2022-03-14 03:20] VITALS: BP 155/60; PULSE 78; RESP 17; TEMP 37; O2SAT 97
[2022-03-14] MEDS: Piperacillin Sodium/Tazobactam 3.375 GM in 0.9 % Sodium Chloride 50 ML IV ×2 (04:36→10:21)
[2022-03-14] MEDS: 0.9 % Sodium Chloride Flush 3 ML SYRINGE IVFLUSH ×2 (04:38→07:50)
[2022-03-14 07:08] LABS: Glucose, Whole Blood 157 mg/dL (60-115)
[2022-03-14 07:13] VITALS: BP 132/63; PULSE 73; RESP 18; TEMP 36.6; O2SAT 98
[2022-03-14] MEDS: Insulin Lispro 100 UNIT/ML 3 ML VIAL SUBCUT ×2 (07:45→11:54)
[2022-03-14] MEDS: hydroCHLOROthiazide 25 MG TABLET PO (07:46)
[2022-03-14] MEDS: Sertraline HCL 100 MG TABLET PO (07:46)
[2022-03-14] MEDS: amLODIPine Besylate 5 MG TABLET PO (07:47)
[2022-03-14] MEDS: Losartan Potassium 50 MG TABLET 100 MG PO (07:47)
[2022-03-14] MEDS: Enoxaparin Sodium 40 MG/0.4 ML SYRINGE SUBCUT (07:48)
[2022-03-14] MEDS: Acetaminophen 325 MG TABLET 650 MG PO (08:03)
--- NOTE | 2022-03-14 11:20 | PM.DS ---
DS: Providers Provider Date of Service: 03/14/22 Date of admission: 03/11/22 06:02 Primary care physician: Nonstaff Physician Consults: 03/11/22 06:04 Consult to Orthopedics Routine Consulting Provider: Saskia Horn Reason for consultation: Cat bite, difficulty moving finger Has provider been notified: No 03/13/22 07:28 Consult to Infectious Diseases Stat Consulting Provider: Love Estrada Reason for consultation: cat bite - POD1 s/p I&D DS: Diagnosis Discharge Diagnosis (1) Cellulitis of right hand: Status: Acute (2) Cat bite: Status: Acute (3) Tenosynovitis of finger: Status: Acute DS: Summary Hospital Course Hospital Course: The patient underwent a successful right index finger I&D after sustaining a cat bite on 03/09/22, they were transferred to PACU and then to the floor to recover. During their stay, their vitals were stable, afebrile at 97.7. Labs were unremarkable. POD 1 their dressings were changed and areas of infection were showing signs of decreasing erythema and edema. Prior to discharge, their dressing was changed, incisions were clean dry and intact, new dressing applied and the plan was to be discharged home with antibiotics for 10 days. Time Spent with Patient Time attestation: Total time spent providing and/or coordinating discharge services: Discharge coordination time: Less than 30 minutes Quality: Safe Use of Opioids Does Pt have an Active Cancer Diagnosis on the Problem List?: No Quality: Stroke Does the patient have a stroke diagnosis?: No Physical Exam Vital Signs: Vital Signs: Last Vital Signs Temp 98 F 03/14/22 07:13 Pulse 73 03/14/22 07:13 Resp 18 03/14/22 07:13 BP 132/63 03/14/22 07:13 Pulse Ox 98 03/14/22 07:13 O2 Del Method 03/14/22 07:13 BMI result Body Mass Index 64.7 Const: General: cooperative, healthy appearing and no acute distress Resp: Effort & Inspection: normal respiratory effort and able to speak in complete sentences Cardio: Rate: regular rate Peripheral pulses: Peripheral pulses 2+ throughout GI: Palpation (GI): Soft to palpation Skin: General skin exam: no rashes or lesions noted Extrem: Other: Rught index finger incisions clean dry and intact. Mild erythema. No active drainage. Sutures intact. Pain with flexion due to pain and swelling. NVI. DS: Data Data Completed and Pending Labs on day of discharge: Laboratory Results - last 24 hr 03/13/22 03/13/22 03/13/22 11:09 15:02 19:26 POC Glucose 147 H 149 H 190 H 03/14/22 07:02 POC Glucose 157 H Preliminary micro results at discharge 03/12/22 12:32 Routine Culture - Preliminary Finger Right Index Culture in progress. 03/12/22 12:28 Routine Culture - Preliminary Finger Right Index Culture in progress. 03/11/22 04:18 Blood Culture - Preliminary Blood - Venous No growth after 48 hours. 03/11/22 04:18 Blood Culture - Preliminary Blood - Venous No growth after 48 hours. Discharge Plan Discharge Patient Disposition: Home, Self-Care Discharge Diagnosis: s/p cat bite Referrals: Physician,Nonstaff [Primary Care Provider] - 1 Week Discharge Medications: New acetaminophen 325 mg Tablet 650 mg PO Q6H PRN (Reason: Pain, Mild (Pain Scale 1-3)) 30 Days Qty: 240 0RF docusate sodium 100 mg Capsule 100 mg PO DAILY PRN (Reason: Constipation) 30 Days Qty: 60 0RF oxycodone 5 mg Tablet 5 mg PO Q6H PRN (Reason: Pain, Severe (Pain Scale 7-10)) 7 Days Qty: 28 0RF Rx Instructions: Partial Fill upon patient request. amoxicillin-pot clavulanate [Augmentin] 500-125 mg tablet 1 tab PO BID 10 Days Qty: 20 0RF Continued sertraline 100 mg tablet 100 mg PO DAILY amlodipine 5 mg tablet 5 mg PO DAILY losartan-hydrochlorothiazide 100-25 mg tablet 1 tab PO DAILY metformin 1,000 mg tablet,ER [email or web address] 24 hr 1,000 mg PO QPM Jardiance 10 mg tablet 10 mg PO DAILY Trulicity 4.5 mg/0.5 mL pen injector 4.5 mg subcut QWEEK Discharge Orders: Discharge Order (Routine); Ordered 03/14/22 Ordered By: Berna Greene Diet: Regular diet Activity on Discharge: keep bandages clean, dry, and intact Stand Alone Forms: Patient Portal Discharge page Care Plan Goals: Treat cat bite infection Health Concerns: None Plan of Treatment: Keep bandages clean, dry, and intact Oxycodone every 6hrs as needed for pain by mouth Followup with orthopedics in one week Augmentin antibiotic for 10 days by mouth Assessment: Stable for d/c
[2022-03-14 11:23] LABS: Glucose, Whole Blood 189 mg/dL (60-115)
[2022-03-14 11:31] VITALS: BP 151/75; PULSE 81; RESP 15; TEMP 36.5; O2SAT 96
--- NOTE | 2022-03-14 11:58 | MHC.CM.PN ---
PT WILL DC HOME TODAY WITH NO SERVICES FAMILY TO TRANSPORT
[2022-03-14] MEDS: oxyCODONE HCl Immed Release 5 MG TABLET PO (12:26)
--- NOTE | 2022-03-14 12:31 | PM.EVENT ---
Event Note Date of Service: 03/14/22 Event Note: the patient was seen and evaluated this morning. Feels comfortable and able to move her index finger with less pain. Stable vitals and blood work. To be discharged on Augmentin and follow-up with orthopedic team.
== END 2022-03-14 15:23 | disposition home or self-care (01) | DRG 603 ==
LOC: HO.ED 03-11 04:53 → HO.EDOVER 03-11 06:26 → HO.S3 03-12 13:21
PROVIDERS: Orthopaedic Surgery; Admitting Provider Internal Medicine; Emergency Provider Emergency Medicine; Visit Provider Student in an Organized Health Care Education/Training Program
PROC: 0J9J0ZZ Drainage of Right Hand Subcutaneous Tissue and Fascia, Open Approach (ICD-10-PCS; principal; 2022-03-12 12:20)
DX: L03.011 Cellulitis of right finger (principal); Z68.44 Body mass index [BMI] 60.0-69.9, adult; S60.476A Other superficial bite of right little finger, initial encounter; W55.01XA Bitten by cat, initial encounter; J44.9 Chronic obstructive pulmonary disease, unspecified; F41.9 Anxiety disorder, unspecified; E66.01 Morbid (severe) obesity due to excess calories; I10 Essential (primary) hypertension; M65.9 Synovitis and tenosynovitis, unspecified; G47.33 Obstructive sleep apnea (adult) (pediatric); Z20.822 Contact with and (suspected) exposure to COVID-19; Z98.84 Bariatric surgery status; Z87.891 Personal history of nicotine dependence; Z88.1 Allergy status to other antibiotic agents; Z88.2 Allergy status to sulfonamides; Z79.84 Long term (current) use of oral hypoglycemic drugs; Z79.899 Other long term (current) drug therapy
CPT/HCPCS: 36415; 73120; 80048; 80053; 82947; 83605; 85025; 85027; 85652; 86140; 87040; 87071; 87077; 87102; 87186; 87205; 87635; 96361; 96374; 96375; 99285; J1200; J1650; J2270; J2543; J3370

== ENCOUNTER → 2022-04-13 13:02 | Outpatient (BNVA) | payer OTHER, SELFPAY | PROVIDERS: PCP Registered Nurse; Visit Provider Internal Medicine | DX: I44.7 Left bundle-branch block, unspecified (principal); I10 Essential (primary) hypertension; E66.01 Morbid (severe) obesity due to excess calories; E11.8 Type 2 diabetes mellitus with unspecified complications; G47.33 Obstructive sleep apnea (adult) (pediatric) | CPT/HCPCS: 93005 ==

== ENCOUNTER 2022-07-10 10:49 | Outpatient (REF) | payer OTHER, SELFPAY ==
--- NOTE | ~2022-07-10 | US_ITS ---
EXAMINATION: US PELVIS CLINICAL INFORMATION: Postmenopausal bleeding COMPARISON: None TECHNIQUE: Ultrasound of the pelvis is performed using both transabdominal and transvaginal transducers along with Doppler. Transvaginal imaging is performed due to inadequate visualization transabdominally. FINDINGS: Uterus: The uterus is anteverted and measures 8.4 x 5.6 cm. There is a 3.6 cm fibroid. The endometrium was not well visualized. Adnexa: Both ovaries are not visualized. No free fluid. US/US pelvic and transvaginal IMPRESSION: 1. 3.6 cm fibroid. 2. The endometrium and ovaries are not visualized. Consider pelvic MRI for further evaluation if warranted.
== END 2022-07-10 10:50 | disposition home or self-care (01) ==
LOC: HO.US 10:49
PROVIDERS: Visit Provider Registered Nurse
DX: N95.0 Postmenopausal bleeding (principal)
CPT/HCPCS: 76830; 76856

== ENCOUNTER 2022-10-20 14:23 | Outpatient (REF) | payer OTHER, SELFPAY ==
--- NOTE | ~2022-10-20 | US_ITS ---
EXAMINATION: ULTRASOUND EXTREMITY NONVASCULAR CLINICAL INFORMATION: Right lower extremity lump. COMPARISON: No similar priors. TECHNIQUE: Grayscale targeted sonographic evaluation utilizing grayscale and color Doppler in the area of clinical concern as indicated by patient within the right posterior calf, with the contralateral side for comparison. US/US extremity nonvascular FINDINGS/IMPRESSION: No evidence of discrete lesion or mass. No drainable abscess. There is however significant bilateral soft tissue thickening and swelling, correlation with physical examination for cellulitis or edema recommended. If the lumping persist or increases in size, recommend correlation with CT or MRI.
== END 2022-10-20 14:24 | disposition home or self-care (01) ==
LOC: HO.HMGCX 14:23
PROVIDERS: PCP Registered Nurse; Visit Provider Registered Nurse
DX: R22.41 Localized swelling, mass and lump, right lower limb (principal)
CPT/HCPCS: 76882

== ENCOUNTER → 2023-05-20 13:59 | Outpatient (REF) | payer OTHER, SELFPAY ==
--- NOTE | 2023-05-20 14:01 | CA_ITS ---
Transthoracic Echocardiogram Patient (Last, First, Middle): Shefali Figueroa, Gender: Female Date of : 1960 Age: 62 Procedure Date: 05/20/2023 Procedure Type: Transthoracic Echocardiogram Location: OP Height: 149.86 cm Weight: 132.45 kg BSA: 2.17 m2 Heart Rate: 88 bpm BP: 148 / 74 mmHg Band Manager: TO Referring MD: Gage Browne MD Symptoms: I44.7 - Left bundle-branch block, unspecified Study Quality: Adequate w contrast ECG Rhythm: Sinus Conclusions: - The left ventricular systolic function is low normal. The visually estimated ejection fraction is between 50-55%. - No obvious valvular pathology seen on this study. Findings Procedure Information Contrast agent, definity, is being given per protocol without apparent complications. Left Ventricle Normal left ventricular cavity size. The left ventricular systolic function is low normal. The visually estimated ejection fraction is between 50-55%. There is paradoxical septal motion consistent with a left bundle branch block. Evidence suggests grade I (mild) diastolic dysfunction. There is moderate septal asymmetric hypertrophy. Right Ventricle Normal right ventricular cavity size and systolic function. Atria Both atria are normal in size. Aortic Valve There is a normal trileaflet aortic valve. There is no aortic valve stenosis. There is no aortic valve regurgitation. Mitral Valve There is mild mitral annular calcification. There is no mitral valve regurgitation. There is no mitral valve stenosis. Pulmonic Valve The pulmonic valve is likely normal. Tricuspid Valve There is no tricuspid valve regurgitation. Tricuspid regurgitation envelope is inadequate for calculation of right ventricular systolic pressure. Great Vessels The asc aorta is normal in size. Venous The inferior vena cava is normal in size and collapses greater than 50% with inspiration. Pericardium/Pleural There is no evidence of pericardial effusion. Prior Study Comparison Changes noted compared to prior study dated: 03/05/2022. Difficult to compare due to image quality. Possible slight decrease in LVEF vs technical. Images reviewed. Recommendations, Care & Conclusions No obvious valvular pathology seen on this study. Measurements 2D Linear Measurements IVSd: 1.50 0.6-0.9/0.6-1.0 cm LVIDd: 4.10 3.9-5.3/4.2-5.9 cm LVIDd Index: 1.89 2.4-3.2/2.2-3.1 cm/m2 LVIDs: 3.00 2.0-3.6 cm LVPWd: 1.10 0.7-1.1 cm LA Diam: 4.20 2.7-3.8/3.0-4.0 cm LAIDs Index: 1.94 1.5-2.3 cm/m2 LV Mass: 241.12 67-162/88-224 g LV Mass Index: 111.11 43-95/49-115 g/m2 LVOT Diam: 2.10 3.0+(-)1.3 cm 2D Systolic Function EF 4C: 58.50 >55% Mitral Valve MV VTI: 0.22 MV Pk Jaison: 1.48 MV Mn Jaison: 0.85 MV Pk Grad: 9.00 MV Mn Grad: 3.00 MV Pk E: 0.73 MV PK A: 1.27 MV Decel Time: 79.00 E/A: 0.60 E'Lateral: 4.79 E'Medial: 5.00 E/E' Med: 14.50 E/E' Lat: 15.20 PHT: 23.00 MVA PHT: 9.57 MVA Continuity: 2.57 Decel [place]: 9.25 Aortic Valve AoV Pk Jaison: 1.28 AoV Mn Jaison: 0.93 AoV VTI: 0.24 AoV Pk Grad: 7.00 Aov Mn Grad: 4.00 TOMMIE Cont.VTI: 2.27 LVOT LVOT Pk Jaison: 0.71 LVOT Mn Jaison: 0.55 LVOT VTI: 0.16 LVOT Pk Grad: 2.00 LVOT Mn Grad: 1.00 LVOT Diam: 2.10 LVOT Area: 3.46 Diastolic Function MV Pk E: 0.73 MV Pk A: 1.27 E/A: 0.60 E'Medial: 5.00 E/E' Med: 14.50 E' Laterial: 4.79 E/E' Lat: 15.20 Right Ventricle TAPSE (mm): 21.40 TVS' Jaison: 11.90 Tricuspid Valve RA Press: 3.00 Great Vessels Aorta Sinus of Valsalva: 3.20 2.0-3.5 cm Ao Asc: 3.00 2.1-3.4 cm Updated in Other Vendor System with Status of Final Gage Browne MD electronically signed on 05/20/2023 4:04:41 PM with status of Final
== END ==
LOC: HO.CARD 13:59
PROVIDERS: PCP Registered Nurse; Visit Provider Internal Medicine
DX: I44.7 Left bundle-branch block, unspecified (principal)
CPT/HCPCS: 93306; Q9957

== ENCOUNTER → 2023-05-20 14:01 | Outpatient (BNV) | payer OTHER, SELFPAY | PROVIDERS: PCP Registered Nurse; Visit Provider Internal Medicine | DX: I34.81 Nonrheumatic mitral (valve) annulus calcification (principal) | CPT/HCPCS: 93306 ==

== ENCOUNTER 2023-05-24 09:10 | Outpatient (AMB) | payer OTHER, SELFPAY ==
--- NOTE | 2023-05-24 09:13 | A.OFFVIS_ITS ---
Intake Vital Signs 05/24/23 09:14 Height 4 ft 11 in Weight 302 lb 0.533 oz BMI 61.0 BP 140/62 H Blood Pressure Location Lt brachial Position Sitting Pulse 82 Intake Visit Reasons: 1 year follow up Intake Note: 1 year f/u Spooler Operator Automatic Required: No Allergies Sulfa (Sulfonamide Antibiotics) [SULFA (SULFONAMIDE ANTIBIOTICS)] Allergy (Intermediate, Verified 05/24/23 09:22) SWELLING vancomycin Allergy (Verified 05/24/23 09:22) Rash Medication List - Last Reconciled 05/24/23 by Jessie Horner, BUSINESS DEVELOPMENT COORDINATOR-C amlodipine 5 mg PO DAILY bupropion HCl 100 mg PO BID dulaglutide (Trulicity) 4.5 mg subcut QWEEK empagliflozin (Jardiance) 10 mg PO DAILY lorazepam 0.5 mg PO BID PRN losartan-hydrochlorothiazide 100-25 mg 1 tab PO DAILY metformin ER 500 mg PO BID sertraline 100 mg PO DAILY HPI 1 year follow up HPI Details Shefali is a 62-year-old female with past medical history of diabetes, hypertension, morbid obesity, obstructive sleep apnea with CPAP use, left bundle branch block who presents for follow-up after recent echocardiogram. Today she reports that she continues to be under high stress in her life. She has recently lost a good friend and 2 of her cats. She also tells me that both her children have been diagnosed with psychiatric illness. In the past year and half she also lost her ex- and brother. She says her mother now has dementia and she is trying to help her out more. She has not been able to lose weight. Her activity is limited by this and she ambulates with a cane. She has no cardiac symptoms. She has some mild shortness of breath with exertion which is not new. No presyncope, syncope, falls. Taking meds as directed. [facility] Medical History Essential hypertension LBBB (left bundle branch block) Morbid obesity Super obesity Anxiety Depression Fatty liver Type 2 diabetes mellitus COPD (chronic obstructive pulmonary disease) Obstructive sleep apnea hypopnea, severe Surgical History History of hand surgery Hx of colonoscopy History of removal of laparoscopic gastric banding device History of carpal tunnel surgery Hx of cholecystectomy Hx of laparoscopic gastric banding Family History Father Interstitial pneumonitis Diabetes Mother Bladder cancer Brother No problems noted. Social History Household Members: Family and Children Housing: House Do you presently have visiting nurse or other home services: No Alcohol intake: current Alcohol intake frequency: holidays/special occasions only Alcohol type: wine and hard liquor Patient Tobacco Use Status: Former Tobacco user Quit Date: 1997 Advance Directives Date on File: 03/12/22 service: No Current occupational status: unemployed Review of Systems Const Details: High stress level All systems reviewed & are unremarkable except as noted in HPI and below ENT Denies dizziness Card Denies chest pain, Denies chest pain at rest, Denies chest pain with activity, Denies rapid heart rate, Denies pedal edema, Denies edema, Denies leg edema, Denies lightheadedness, Denies palpitations, Denies dyspnea, Denies dyspnea on exertion and Denies orthopnea Resp Denies cough, Denies dyspnea and Denies dyspnea on exertion GI Denies hematochezia and Denies change in stool character Musc Details: Ambulates with cane Reports abnormal gait, Reports limited range of motion, Denies muscle cramps, Denies muscle weakness, Denies numbness, Denies radiating pain into limb, Denies stiffness and Denies tingling Neuro Reports abnormal gait, Denies dizziness, Denies numbness and Denies tingling Endo Denies palpitations Physical Exam Vital Signs: Last Vital Signs Pulse 82 05/24/23 09:14 BP 140/62 H 05/24/23 09:14 BMI result Body Mass Index 61.0 Const Other: Morbidly obese General: cooperative, comfortable and no acute distress Orientation/consciousness: patient oriented x3 Neck Neck: Yes normal visual inspection Resp Effort & Inspection: normal respiratory effort Auscultation: clear to auscultation bilaterally, no crackles, no rales, no rhonchi and no wheezes Cardio Jugular venous distension: no JVD Rate: regular rate Rhythm: regular rhythm Heart sounds: S1 normal heart sound present, S2 normal heart sound present, no gallops, no murmurs and no rubs Neuro General: patient oriented x3 Extrem General: Yes normal to inspection Psych Appearance: grossly normal Mental Status: mental status grossly normal Speech and movement: Normal speech and movement present Office Procedures EKG Details: Today, read by me, normal sinus rhythm, left axis deviation, left bundle branch block, no change from prior, rate 83 [id number], Complete Assessment & Plan Assessment & Plan (1) Abnormal echocardiogram findings without diagnosis: Code(s): R93.1 - Abnormal findings on diagnostic imaging of heart and coronary circulation Plan: Echocardiogram done 05/20/2023 showing EF 50-55%, difficult to determine if this is technical verses actual. Prior echo showed EF was 60-65%. She does have an underlying left bundle branch block which does put her at increased risk for development of cardiomyopathy. She also has significant stressors in her life, morbid obesity and hypertension all of which can contribute. She is compliant with CPAP. She is on losartan and hydrochlorothiazide combination. Blood pressure mildly elevated today but tells me she has not taking her medications as of yet. Echo results reviewed with her and she is very concerned. Will plan for a limited echo with definity contrast in 3 months for further evaluation. If EF is in fact going down then nuclear stress test will be ordered. Plan to review results with her over the phone unless office visit is needed sooner. If repeat echo shows EF is normal then will plan a follow-up in 1 year, sooner if needed (2) LBBB (left bundle branch block): Code(s): I44.7 - Left bundle-branch block, unspecified Plan: Chronic left bundle branch block. Following with routine echoes to assess EF. (3) Obstructive sleep apnea hypopnea, severe: Code(s): G47.33 - Obstructive sleep apnea (adult) (pediatric) (4) Essential hypertension: Code(s): I10 - Essential (primary) hypertension (5) Super obesity: Code(s): E66.9 - Obesity, unspecified Orders: Orders CA echo limited 3 Months I44.7 - Left bundle-branch block, unspecified, R93.1 - Abnormal findings on diagnostic imaging of heart and coronary circulation Coding Level of Care Code Est Pt Level 3 (58050) Diagnoses Abnormal echocardiogram findings without diagnosis R93.1 LBBB (left bundle branch block) I44.7 Obstructive sleep apnea hypopnea, severe G47.33 Essential hypertension I10 Super obesity E66.9 CPT Codes EKG - CPT: 35792-[id number], Complete ([id number]) Time Spent (min) 28
[2023-05-24 09:14] VITALS: BP 140/62; PULSE 82; BMI 61.0
== END 2023-05-24 09:50 | disposition home or self-care (01) ==
PROVIDERS: PCP Registered Nurse; Visit Provider Nurse Practitioner Family
DX: R93.1 Abnormal findings on diagnostic imaging of heart and coronary circulation (principal); I44.7 Left bundle-branch block, unspecified; G47.33 Obstructive sleep apnea (adult) (pediatric); I10 Essential (primary) hypertension; E66.9 Obesity, unspecified
CPT/HCPCS: 93010; 99213

== ENCOUNTER → 2023-05-24 09:10 | Outpatient (BNVA) | payer OTHER, SELFPAY | PROVIDERS: PCP Registered Nurse; Visit Provider Nurse Practitioner Family | DX: I44.7 Left bundle-branch block, unspecified (principal); R93.1 Abnormal findings on diagnostic imaging of heart and coronary circulation; I10 Essential (primary) hypertension | CPT/HCPCS: 93005 ==

== ENCOUNTER 2023-11-23 15:11 | Outpatient (AMB) | payer OTHER, SELFPAY ==
[2023-11-23 15:36] VITALS: BP 120/74; PULSE 80; BMI 60.9
--- NOTE | 2023-11-23 15:36 | A.OFFVIS_ITS ---
Intake Vital Signs 11/23/23 15:36 Height 4 ft 11 in Weight 301 lb 9.478 oz BMI 60.9 BP 120/74 Blood Pressure Location Lt brachial Position Sitting Pulse 80 Pulse Source Pulse Oximeter Intake Visit Reasons: r/s 6 mos followup Still Pump Operator Required: No Allergies Sulfa (Sulfonamide Antibiotics) [SULFA (SULFONAMIDE ANTIBIOTICS)] Allergy (Intermediate, Verified 11/23/23 15:39) SWELLING vancomycin Allergy (Verified 11/23/23 15:39) Rash Medication List - Last Reconciled 11/23/23 by Jessie Horner, DIRECTOR OF DEVELOPMENT-C amlodipine 5 mg PO DAILY bupropion HCl 100 mg PO BID empagliflozin (Jardiance) 10 mg PO DAILY lorazepam 0.5 mg PO BID PRN losartan-hydrochlorothiazide 100-25 mg 1 tab PO DAILY metformin ER 500 mg PO BID sertraline 100 mg PO DAILY tirzepatide (Mounjaro) 10 mg subcut QWEEK HPI r/s 6 mos followup HPI Details Shefali is a 62-year-old female with past medical history of diabetes, hypertension, morbid obesity, obstructive sleep apnea with CPAP use, left bundle branch block who presents for follow-up.. Today she reports that physically she has been feeling unchanged. She does still have a lot of mental stress in her life. She continues to provide emotional care to her 2 children that have psychiatric illness. Her mother has dementia and she has been trying to help her when able. Last year she lost her ex- and brother. She is in need of hip surgery but she can not have it done since she is not able to lose weight. He states she is not able to exercise and can ambulate only short distances with a cane. She continues to have no cardiac symptoms. She has some shortness of breath with walking which is not new. No presyncope, syncope, falls. Taking meds as directed. [facility] Medical History Essential hypertension LBBB (left bundle branch block) Morbid obesity Super obesity Anxiety Depression Fatty liver Type 2 diabetes mellitus COPD (chronic obstructive pulmonary disease) Obstructive sleep apnea hypopnea, severe Surgical History History of hand surgery Hx of colonoscopy History of removal of laparoscopic gastric banding device History of carpal tunnel surgery Hx of cholecystectomy Hx of laparoscopic gastric banding Family History Father Interstitial pneumonitis Diabetes Mother Bladder cancer Brother No problems noted. Social History Household Members: Family and Children Housing: House Do you presently have visiting nurse or other home services: No Alcohol intake: current Alcohol intake frequency: holidays/special occasions only Alcohol type: wine and hard liquor Patient Tobacco Use Status: Former Tobacco user Quit Date: 1997 Advance Directives Date on File: 03/12/22 service: No Current occupational status: unemployed Review of Systems Const All systems reviewed & are unremarkable except as noted in HPI and below Reports fatigue Card Denies chest pain, Denies chest pain at rest, Denies chest pain with activity, Denies syncope, Denies rapid heart rate, Reports pedal edema, Reports dyspnea, Reports dyspnea on exertion and Denies orthopnea Resp Reports dyspnea and Reports dyspnea on exertion Musc Details: Hip pain bilateral Neuro Denies syncope Endo Reports fatigue Physical Exam Vital Signs: Last Vital Signs Pulse 80 11/23/23 15:36 BP 120/74 11/23/23 15:36 BMI result Body Mass Index 60.9 Const Other: Morbidly obese General: cooperative, comfortable and no acute distress Orientation/consciousness: patient oriented x3 Neck Neck: Yes normal visual inspection Resp Effort & Inspection: normal respiratory effort Auscultation: clear to auscultation bilaterally, no crackles, no rales, no rhonchi and no wheezes Cardio Jugular venous distension: no JVD Rate: regular rate Rhythm: regular rhythm Heart sounds: S1 normal heart sound present, S2 normal heart sound present, no gallops, no murmurs and no rubs Neuro General: patient oriented x3 Extrem General: Yes normal to inspection Psych Appearance: grossly normal Mental Status: mental status grossly normal Speech and movement: Normal speech and movement present Assessment & Plan Assessment & Plan (1) Abnormal echocardiogram findings without diagnosis: Code(s): R93.1 - Abnormal findings on diagnostic imaging of heart and coronary circulation Plan: Echocardiogram done 05/20/2023 showing EF 50-55%, difficult to determine if this is technical verses actual. Prior echo 02/2022 showed EF was 60-65%. She does have an underlying left bundle branch block which does put her at increased risk for development of cardiomyopathy. I had ordered a repeat limited echocardiogram to be done 6 months from the last however it was denied by the insurance company. She also has significant stressors in her life, morbid obesity and hypertension all of which can contribute to slight reduction in EF.. She is compliant with CPAP. She is on losartan and hydrochlorothiazide combination. Blood pressure in normal range today. No signs of heart failure on examination. She does have some shortness of breath with walking which can be explained by her sedentary lifestyle and obesity. Will plan for a repeat echocardiogram 1 year from the last due April 2024. If EF is truly reduced then nuclear stress test will be ordered. Signs and symptoms of angina and heart failure reviewed with her. Cardiology follow-up 6 months, sooner if needed (2) LBBB (left bundle branch block): Code(s): I44.7 - Left bundle-branch block, unspecified Plan: Chronic left bundle branch block. Following with routine echoes to assess EF. (3) Essential hypertension: Code(s): I10 - Essential (primary) hypertension Plan: Well controlled at present. No med changes made Plan Time spent on chart review, documentation, interview and assessment Coding Level of Care Code Est Pt Level 3 (76384) Diagnoses Abnormal echocardiogram findings without diagnosis R93.1 LBBB (left bundle branch block) I44.7 Essential hypertension I10 Time Spent (min) 24
== END 2023-11-23 16:23 | disposition home or self-care (01) ==
PROVIDERS: PCP Registered Nurse; Visit Provider Nurse Practitioner Family
DX: R93.1 Abnormal findings on diagnostic imaging of heart and coronary circulation (principal); I44.7 Left bundle-branch block, unspecified; I10 Essential (primary) hypertension
CPT/HCPCS: 99213

== ENCOUNTER → 2023-11-23 15:11 | Outpatient (BNVA) | payer OTHER, SELFPAY | PROVIDERS: PCP Registered Nurse; Visit Provider Nurse Practitioner Family ==

== ENCOUNTER 2024-03-13 01:22 | Emergency (ER) | payer OTHER, SELFPAY ==
--- NOTE | ~2024-03-13 | CT_ITS ---
EXAMINATION: CT ABDOMEN AND PELVIS WITHOUT CONTRAST CLINICAL INFORMATION: Left flank pain. COMPARISON: None available. TECHNIQUE: Multidetector volumetric imaging was performed from the superior aspect of the liver through the pubic symphysis. Sagittal and coronal reformatted images were obtained on the technologist's workstation. This CT examination was performed using dose optimization techniques as appropriate, variously including the following: *Automated exposure control *Adjustment of mA and/or kV according to patient size (this includes techniques or standardized protocols for targeted exams where dose is matched to indication/reason for exam; i.e. extremities or head) *Use of iterative reconstruction technique DLP: 1315 mGy-cm FINDINGS: LUNG BASES: The visualized lung bases are unremarkable. LIVER, GALLBLADDER, AND BILIARY TREE: The liver is of heterogeneous diminished attenuation. No focal liver lesions are seen. There is no intrahepatic biliary duct dilatation. There has been a prior cholecystectomy. PANCREAS: There is partial fatty infiltration of the pancreas. SPLEEN: Unremarkable. ADRENAL GLANDS: Unremarkable. KIDNEYS AND URETERS: The kidneys are normal in size, shape, and attenuation. There is a 1 mm nonobstructing calculus lower pole right kidney. There is no hydronephrosis. BLADDER: Unremarkable. GASTROINTESTINAL TRACT: The small and large bowel are unremarkable. The appendix is unremarkable. ABDOMINAL WALL: There is an umbilical hernia containing LYMPH NODES: Normal. VASCULAR: Unremarkable. PELVIC VISCERA: Unremarkable. OSSEOUS STRUCTURES: There is diffuse [id number] thoracolumbar disc degenerative change with grade 1 anterolisthesis L3 over L4. There is severe right hip degenerative change. CT/CT abdomen pelvis wo IV con IMPRESSION: Small nonobstructing right lower pole renal calculus. Fatty liver. Partial fatty infiltration of the pancreas. Umbilical hernia containing fat. Severe right hip degenerative change. Fleischner guidelines were followed.
[2024-03-13 01:41] VITALS: BP 159/81; PULSE 99; RESP 16; TEMP 36.8; O2SAT 94; BMI 58.0
[2024-03-13 01:52] LABS: Appearance Urine Clear; Color Urine Yellow; Glucose Urine UA >=1000 mg/dL (Negative); Leukocyte Esterase Urine Negative (Negative); Nitrite Urine Negative (Negative); PH 5.5 (5.0-9.0); Specific Gravity - Urine >= 1.030 (1.005-1.025); UMIC TRIGGER UACC YES; Urine Blood Negative (Negative); Urine Ketones Negative (Negative); Urine Protein Negative (Neg-Trace)
[2024-03-13 02:04] LABS: Bacteria Urine None Seen (None Seen); Hyaline Casts Urine 0-2 /LPF (0-2); Squamous Epithelial Cell Urine 0-2 /HPF (0-2); WBC Urine 0-5 /HPF (0-5)
[2024-03-13 02:14] VITALS: BP 156/79; PULSE 98; RESP 19; TEMP 37.2; O2SAT 96
[2024-03-13 02:24] LABS: MANUAL DIFF FLAG NO
[2024-03-13 02:25] LABS: Basophils Percent Auto 0.5 % (0-2); Eosinophils Percent Auto 0.1 % (0-4); Hematocrit 47.8 % (37.0-47.0); Hemoglobin 16.1 g/dl (12.0-16.0); Imm Gran Abs Auto 0.09 X10*3/uL (0.00-0.03); Imm Gran Pct Auto 1.1 % (0.0-0.4); Lymphocytes Absolute Auto 1.1 X10*3/uL (1.2-4.9); Lymphocytes Percent Auto 13.3 % (20-40); Mean Corpuscular HGB Conc 33.7 g/dl (31.0-35.0); Mean Platelet Volume 10.5 fL (9.4-12.3); Monocytes Absolute Auto 0.3 X10*3/uL (0.1-1.2); Monocytes Percent Auto 3.1 % (2-11); Neutrophils Absolute Auto 6.5 x10*3/uL (2.0-8.3); Neutrophils Percent Auto 81.9 % (45-73); Platelet Count 210 X10*3/uL (160-400); Red Blood Count 5.56 X10*6/uL (4.20-5.50); Red Cell Distribution Width 14.4 % (11.0-16.0)
--- NOTE | 2024-03-13 02:41 | ED.BACK ---
HPI - Back Pain/Injury General Chief Complaint: Back Pain/Injury Stated Complaint: low back pain Time Seen by Provider: 03/13/24 02:26 Source: patient Mode of arrival: ambulatory Limitations: no limitations History of Present Illness ED Provider: Dr. Kendra Hahn HPI Narrative: Patient comes to the emergency room complaining of left lower back pain for 2-3 days. 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 Patient went to see her primary care physician, patient was prescribed muscle relaxants. Patient states it she has not having any improvement in symptoms. Patient denies fever chills, no hematuria or dysuria. Denies nausea or vomiting. Related Data Home Medications ?Medication ?Instructions ?Recorded ?Confirmed amlodipine 5 mg tablet 5 mg PO DAILY 03/11/22 11/23/23 empagliflozin 10 mg tablet 10 mg PO DAILY 03/11/22 11/23/23 (Jardiance) losartan 100 1 tab PO DAILY 03/11/22 11/23/23 mg-hydrochlorothiazide 25 mg tablet sertraline 100 mg tablet 100 mg PO DAILY 03/11/22 11/23/23 bupropion HCl 100 mg tablet,12 hr 100 mg PO BID 05/24/23 11/23/23 sustained-release lorazepam 0.5 mg tablet 0.5 mg PO BID PRN 05/24/23 11/23/23 metformin 500 mg tablet,extended 500 mg PO BID 05/24/23 11/23/23 release 24 hr tirzepatide 10 mg/0.5 mL 10 mg subcut QWEEK 11/23/23 11/23/23 subcutaneous pen injector (Tal) Previous Rx's ?Medication ?Instructions ?Recorded oxycodone 5 mg tablet 5 mg PO BID PRN pain #7 tabs 03/13/24 Allergies Allergy/AdvReac Type Severity Reaction Status Date / Time Sulfa (Sulfonamide Allergy Intermediate SWELLING Verified 03/13/24 01:46 Antibiotics) [SULFA (SULFONAMIDE ANTIBIOTICS)] vancomycin Allergy Rash Verified 03/13/24 01:46 Review of Systems Review of Systems: Constitutional : No Weight loss, No Fever, No Chills, No Night Sweats, No Fatigue, No Malaise ENT/Mouth : No Hearing loss, No Ear Pain, No Nasal Congestion, No Sinus Pain, No Hoarseness, No sore throat, No Rhinorrhea, No Swallowing Difficulty Eyes: No Eye Pain, No Swelling, No Redness, No Foreign Body, No Discharge, No Vision Changes Cardiovascular : No Chest Pain, No SOB, No Dyspnea on Exertion, No Orthopnea, No Edema, No Palpitations Respiratory : No Cough, No Sputum, No Wheezing, No Smoke Exposure, No Dyspnea Gastrointestinal : No Nausea, No Vomiting, No Diarrhea, No Constipation, No abdominal Pain, No Hematochezia, No Melena Genitourinary : no irregular bleeding, No Dysuria, No Urinary Frequency, No Hematuria, No Urinary Incontinence, No Urgency, No Flank Pain, No Urinary Flow Changes, No Hesitancy Musculoskeletal : Complaining of constant left lower back pain with periods of intensity, No joint pain, No Myalgias, No Joint Swelling Skin : No Skin Lesions, No rash Neuro : No Weakness, No Numbness, No Paresthesias, No Loss of Consciousness, No Dizziness, No Headache Psych : No Anxiety/Panic, No Depression, No SI/HI/AH/VH, No Social Issues, Heme/Lymph: No Bruising, No Bleeding,No Lymphadenopathy Endocrine : No Polyuria, No Polydipsia, No Temperature Intolerance PMFSH Past Medical History Medical History Essential hypertension LBBB (left bundle branch block) Morbid obesity Super obesity Anxiety Depression Fatty liver Type 2 diabetes mellitus COPD (chronic obstructive pulmonary disease) Obstructive sleep apnea hypopnea, severe Surgical History History of hand surgery Hx of colonoscopy History of removal of laparoscopic gastric banding device History of carpal tunnel surgery Hx of cholecystectomy Hx of laparoscopic gastric banding Family History Family History Father Interstitial pneumonitis Diabetes Mother Bladder cancer Brother No problems noted. Social History Social History Household Members: Family and Children Housing: House Do you presently have visiting nurse or other home services: No Alcohol intake: current Alcohol intake frequency: holidays/special occasions only Alcohol type: wine and hard liquor Patient Tobacco Use Status: Former Tobacco user Advance Directives: Yes Advance Directives on File: Yes Advance Directives Date on File: 03/12/22 Do you have a plan to hurt others: No Plan service: No Current occupational status: unemployed Physical Exam Vital Signs: Vital Signs: Last Vital Signs Temp 98.9 F 03/13/24 02:14 Pulse 98 03/13/24 02:14 Resp 19 03/13/24 02:14 BP 156/79 H 03/13/24 02:14 Pulse Ox 96 03/13/24 02:14 O2 Del Method Room Air 03/13/24 02:14 BMI result Body Mass Index 58.0 Const: Other: Appearance: Alert. Oriented X3. No acute distress. Eyes: Pupils equal, round and reactive to light. ENT: Pharynx normal. Neck: Normal inspection. Neck supple. No lymph nodes noted. No crepitus CVS: Normal heart rate and rhythm. Pulses normal. Normal S1 and S2 Respiratory: No respiratory distress. Breath sounds normal. No Wheezing. No rales Abdomen: Soft and nontender. No rigidity. No distention. Back: No cervical/thoracic/lumbar spine tenderness, positive CVA tenderness on the left Skin: Skin warm and dry. Normal skin color. Normal skin turgor. Extremities: No lower extremity edema. No Lacerations. No Rash Neuro: Oriented X 3. No motor deficit. No sensory deficit. Moving all extremities. No slurred speech. CN 2 through 12 grossly intact Psych: calm, cooperative, normal affect Medications Administered Discontinued Medications Generic Name Dose Route Start Last Admin Trade Name Freq PRN Reason Stop Dose Admin Ketorolac Tromethamine 60 mg 03/13/24 02:34 03/13/24 03:00 Ketorolac Tromethamine 60 Mg/2 Ml Vial IM 03/13/24 02:35 60 mg ONCE ONE Administration Medical Decision Making Medical Decision Making [facility] Narrative: My interpretation of labs: No significant abnormality in the hematology, no significant electrolyte abnormality, glucose 207. Urinalysis negative for UTI but there is blood in the urine. -given the patient's physical exam and urinalysis, patient likely is passing a kidney stone CT scan my interpretation, no obvious ureterolithiasis. -patient's pain likely secondary to musculoskeletal issues, patient states that she has knee and hip replacements pending. -I discussed with the patient to follow-up with the primary care physician as she did have microscopic hematuria. UA to be performed in a near future to ensure resolution of hematuria -I discussed with the patient that there is another possibility that she may have passed a small kidney stone and it is no longer present. The pain that she is feeling could be secondary to a renal colic -patient agrees with plan. Differential Diagnosis Differential Diagnoses: The differential diagnosis associated with the presentation includes (As above) Lab Data MDM Lab Attestation statement: I reviewed the patient's lab results. 03/13/24 02:19 03/13/24 02:19 Labs: Lab Results 03/13/24 03/13/24 Range/Units 01:44 02:19 WBC 8.0 (4.8-10.8) X10*3/uL RBC 5.56 H (4.20-5.50) X10*6/uL Hgb 16.1 H D (12.0-16.0) g/dl Hct 47.8 H (37.0-47.0) % MCV 86.0 (80.0-98.0) fL MCH 29.0 (27.0-33.0) pg MCHC 33.7 (31.0-35.0) g/dl RDW 14.4 (11.0-16.0) % Plt Count 210 (160-400) X10*3/uL MPV 10.5 (9.4-12.3) fL Immature Gran % (Auto) 1.1 H (0.0-0.4) % Neut % (Auto) 81.9 H (45-73) % Lymph % (Auto) 13.3 L (20-40) % Trinity % (Auto) 3.1 (2-11) % Eos % (Auto) 0.1 (0-4) % Baso % (Auto) 0.5 (0-2) % Lymph # (Auto) 1.1 L (1.2-4.9) X10*3/uL [place] # (Auto) 0.3 (0.1-1.2) X10*3/uL Eos # (Auto) 0.0 (0.0-0.4) X10*3/uL Baso # (Auto) 0.0 (0.0-0.2) X10*3/uL Abs Immat Gran (auto) 0.09 H (0.00-0.03) X10*3/uL Absolute Neuts (auto) 6.5 (2.0-8.3) x10*3/uL Absolute Nucleated RBC 0.000 (0.0-0.012) X10*3/uL Nucleated RBC % (auto) 0.0 (0.0-0.2) /100WBC Sodium 138 (135-145) mmol/L Potassium 4.2 (3.3-5.1) mmol/L Chloride 101 (96-108) mmol/L Carbon Dioxide 24 (22-29) mmol/L Anion Gap 17 (12-20) BUN 20 H (9-16) mg/dL Creatinine 1.05 (0.5-1.4) mg/dL Estim Creat Clear Calc 66.6 Estimated GFR 53 Random Glucose 207 H (60-115) mg/dL Calcium 10.3 H D (8.4-10.2) mg/dL Total Bilirubin 0.7 (0.0-1.0) mg/dL Direct Bilirubin 0.2 (0.0-0.5) mg/dL AST 22 (5-31) U/L ALT 38 H (0-31) U/L Alkaline Phosphatase 86 (39-117) U/L Total Protein 8.1 H (6.5-8.0) g/dL Albumin 4.3 (3.5-5.0) g/dL Urine Color Yellow Urine Appearance Clear Urine pH 5.5 (5.0-9.0) Ur Specific [place] >= 1.030 H (1.005-1.025) Urine Protein Negative (Neg-Trace) mg/dL Urine Glucose (UA) >=1000 H (Negative) mg/dL Urine Ketones Negative (Negative) mg/dL Urine Blood Negative (Negative) Urine Nitrite Negative (Negative) Ur Leukocyte Esterase Negative (Negative) Urine RBC 6-10 H (0-2) /HPF Urine WBC 0-5 (0-5) /HPF Ur Squamous Epith Cells 0-2 (0-2) /HPF Urine Bacteria None Seen (None Seen) Hyaline Casts 0-2 (0-2) /LPF Urine Yeast Present Independent Interpretation I performed an independent interpretation of an: CT Scan Radiology Impression Discussion of test interpretation with radiology: I have reviewed the radiologist's reading. Radiologist Impression: FINDINGS: LUNG BASES: The visualized lung bases are unremarkable. LIVER, GALLBLADDER, AND BILIARY TREE: The liver is of heterogeneous diminished attenuation. No focal liver lesions are seen. There is no intrahepatic biliary duct dilatation. There has been a prior cholecystectomy. PANCREAS: There is partial fatty infiltration of the pancreas. SPLEEN: Unremarkable. ADRENAL GLANDS: Unremarkable. KIDNEYS AND URETERS: The kidneys are normal in size, shape, and attenuation. There is a 1 mm nonobstructing calculus lower pole right kidney. There is no hydronephrosis. BLADDER: Unremarkable. GASTROINTESTINAL TRACT: The small and large bowel are unremarkable. The appendix is unremarkable. ABDOMINAL WALL: There is an umbilical hernia containing LYMPH NODES: Normal. VASCULAR: Unremarkable. PELVIC VISCERA: Unremarkable. OSSEOUS STRUCTURES: There is diffuse [id number]-[id number] thoracolumbar disc degenerative change with grade 1 anterolisthesis L3 over L4. There is severe right hip degenerative change. CT/CT abdomen pelvis wo IV con IMPRESSION: Small nonobstructing right lower pole renal calculus. Fatty liver. Partial fatty infiltration of the pancreas. Umbilical hernia containing fat. Severe right hip degenerative change. Discharge Plan Discharge Clinical Impression: Acute flank pain Patient Disposition: Home, Self-Care Instructions: Flank Pain (ED) Additional Instructions: Please follow-up with your primary care physician tomorrow. If you have any worsening or new symptoms, please return to the emergency room or call 911 Prescriptions: New oxycodone 5 mg tablet 5 mg PO BID PRN (Reason: pain) Qty: 7 0RF Rx Instructions: Partial Fill upon patient request. No Action sertraline 100 mg tablet 100 mg PO DAILY amlodipine 5 mg tablet 5 mg PO DAILY losartan-hydrochlorothiazide 100-25 mg tablet 1 tab PO DAILY Jardiance 10 mg tablet 10 mg PO DAILY lorazepam 0.5 mg tablet 0.5 mg PO BID PRN bupropion HCl 100 mg tablet sustained-release 12 hr 100 mg PO BID metformin 500 mg tablet extended release 24 hr 500 mg PO BID Mounjaro 10 mg/0.5 mL pen injector 10 mg subcut QWEEK Print Language: Spanish
[2024-03-13 02:42] LABS: Alanine Aminotransferase 38 U/L (0-31); Albumin Level 4.3 g/dL (3.5-5.0); Alkaline Phosphatase 86 U/L (39-117); Anion Gap 17 (12-20); Aspartate Amino Transferase 22 U/L (5-31); Bilirubin Direct 0.2 mg/dL (0.0-0.5); Blood Urea Nitrogen 20 mg/dL (9-16); Calcium 10.3 mg/dL (8.4-10.2); Carbon Dioxide 24 mmol/L (22-29); Chloride 101 mmol/L (96-108); Creatinine Clr Calc Pharmacy 66.6; Estimated Glomerular Filt Rate 53; Glucose Random 207 mg/dL (60-115); Potassium 4.2 mmol/L (3.3-5.1); Sodium 138 mmol/L (135-145); Total Protein 8.1 g/dL (6.5-8.0)
[2024-03-13 02:50] LABS: Bilirubin Total 0.7 mg/dL (0.0-1.0)
--- OUTSIDE RECORDS SUMMARY | 2024-03-13 02:52 | XMS_ITS | Continuity of Care Document ---
Author Organization [facility] Address [address] [place] [address] [address], [address] [place] [address]- Care Team Providers Care Poultry Hanger Name Role Phone Bashir RODARTE, Linda Fatima Primary Care Physician Encounter [facility] Date(s): 03/11/20 - 03/18/20 [facility] [address] [place] [address] Drive, [address] [place] [address]- [facility] Attending Physician: Domenico Paiz MD Referring Physician: Bashir RODARTE, Linda Fatima Allergies, Adverse Reactions, Alerts Substance Reaction Severity Status sulfa drugs hives Active Medications 14 day desiree reader 14 day desiree reader, See Instructions, # 1 each, Refills 5, Tot. Refills 5, Maintenance, E11.9: Fortesting glucose levels: [facility] [id number], 10/23/19 11:36:00 EST, Compound, 152, cm, 08/04/19 11:39:00 EST, Height Start Date: 10/23/19 Status: Ordered 14 day desiree sensor 14 day desiree sensor, See Instructions, # 2 each, Refills 11, Tot. Refills 11, Maintenance, E 11.9: for testing glucose lev els. [facility] [id number], 08/04/19 13:21:15 EST, Compound, 152, cm, 08/04/19 11:39:47 EST, Height Start Date: 08/04/19 Status: Ordered aspirin 81 mg oral tablet 1 tablet = 81 mg, By Mouth, Daily, 0 Refills, Maintenance Start Date: 08/09/13 Status: Ordered Compression Stockings See Instructions, # 3 pair, Refills 3, Tot. Refills 3, Maintenance, surgical, knee length 20-30 mm Hg, 08/09/13 16:09:22, Compound Start Date: 08/09/13 Status: Ordered Humalog Kwik Pen 100 units/mL subcutaneous injection See Instructions, take 10-20 units 3 times a day before meals per sliding scale. Max daily dose is 60 units. E 11.9, # 30 mL, 11 Refills, Maintenance, 08/04/19 13:16:57 EST, 152, cm, 08/04/19 11:39:47 EST, Height Start Date: 08/04/19 Status: Ordered Lexapro 20 mg oral tablet 1 tablet = 20 mg, By Mouth, Daily, 0 Refills, Maintenance Start Date: 08/09/13 Status: Ordered lisinopril 20 mg oral tablet See Instructions, # 90 tablet, Refills 1 Tot. Refills 1, TAKE 1 TABLET BY MOUTH ONCE A DAY (INCREASED DOSE), [facility]/pharmacy #1972 Start Date: 12/09/18 Status: Ordered Metformin By Mouth, 0 Refills, Maintenance Start Date: 08/09/13 Status: Ordered metFORMIN 500 mg oral tablet, extended release 2 tablet = 1,000 mg, By Mouth, 2 times a day, # 120 tablet, 5 Refills, Maintenance, 09/08/19 16:57:00 EST, ER Tablet, [facility] #[id number], 152, cm, 08/04/19 11:39:00 EST, Height Start Date: 09/08/19 Status: Ordered Tresiba FlexTouch 100 units/mL subcutaneous solution See Instructions, tresiba 60 units daily in the AM. E 11.9, # 30 mL, 11 Refills, Maintenance, 08/04/19 13:18:29 EST, 152, cm, 08/04/19 11:39:47 EST, Height Start Date: 08/04/19 Status: Ordered Trulicity Pen 1.5 mg/0.5 mL subcutaneous solution = 1.5 mg, Subcutaneous Infusion, Every week, Increased dose. E 11.9, # 2.5 mL, 11 Refills, Maintenance, 08/04/19 13:20:19 EST, 152, cm, 08/04/19 11:39:47 EST, Height Start Date: 08/04/19 Status: Ordered Vital Signs Most recent to oldest [Reference Range]: 1 Height 152.00 cm (03/11/20 8:50 AM) Weight 142 kg (03/11/20 8:50 AM) Body Mass Index [18.5-24.99] 61.46 *>HHI* (03/11/20 8:50 AM)
--- OUTSIDE RECORDS SUMMARY | 2024-03-13 02:52 | XMS_ITS | Continuity of Care Document ---
Author Organization [facility] Address [address] [facility] [place] [address]- Care Team Providers Care Dining Service Inspector Name Role Phone Bashir RODARTE, Linda Fatima Primary Care Physician Encounter 12/22/21 - 12/29/21 [facility] [address] [place], [place] [address] Attending Physician: Bashir RODARTE, Linda Fatima Admitting Physician: Bashir RODARTE, Linda Fatima Referring Physician: Bashir RODARTE, Linda Fatima Allergies, Adverse Reactions, Alerts Substance Reaction Severity Status sulfa drugs hives Active Medications 14 day desiree reader 14 day desiree reader, See Instructions, # 1 each, Refills 5, Tot. Refills 5, Maintenance, E11.9: Fortesting glucose levels: [facility] [id number], 10/23/19 11:36:00 EST, Compound, 152, cm, 08/04/19 11:39:00 EST, Height Start Date: 10/23/19 Status: Ordered 14 day desiree sensor 14 day desiree sensor, See Instructions, # 2 each, Refills 11, Tot. Refills 11, Maintenance, E 11.9: for testing glucose lev els. [facility] [id number], 09/19/20 16:42:00 EST, Compound, 152, cm, 04/15/20 12:53:00 EDT, Height Start Date: 09/19/20 Status: Ordered aspirin 81 mg oral tablet 1 tablet = 81 mg, By Mouth, Daily, 0 Refills, Maintenance Start Date: 08/09/13 Status: Ordered Compression Stockings See Instructions, # 3 pair, Refills 3, Tot. Refills 3, Maintenance, surgical, knee length 20-30 mm Hg, 08/09/13 16:09:22, Compound Start Date: 08/09/13 Status: Ordered diazepam 5 mg oral tablet See Instructions, take 1 tab 1 hour prior to procedure and may repeat x 1 upon arrival to clinic ifneeded, # 2 tablet, Refills 0, Tot. Refills 0, Maintenance, 04/12/20 15:29:00 EDT, Instructions Replace Required Details, Route to Pharmacy [facility]... Start Date: 04/12/20 Status: Ordered Fluoxetine = 80 mg, By Mouth, Daily, 0 Refills, Maintenance, 03/21/20 11:21:00 EDT Start Date: 03/21/20 Status: Ordered gabapentin 300 mg oral capsule 300 mg, 1, capsule, By Mouth, 3 times a day, Refills 0, Maintenance, 03/21/20 11:22:00 EDT Start Date: 03/21/20 Status: Ordered Garlic oral capsule = 800 mg, Daily, 0 Refills, Maintenance, 03/21/20 11:23:00 EDT Start Date: 03/21/20 Status: Ordered lisinopril 20 mg oral tablet See Instructions, # 90 tablet, Refills 1 Tot. Refills 1, TAKE 1 TABLET BY MOUTH ONCE A DAY (INCREASED DOSE), [facility]/pharmacy #1972 Start Date: 12/09/18 Status: Ordered magnesium glycinate = 400 mg, By Mouth, Daily, 0 Refills, Maintenance, 03/21/20 11:23:00 EDT Start Date: 03/21/20 Status: Ordered metFORMIN 500 mg oral tablet, extended release 2 tablet = 1,000 mg, By Mouth, Daily, Take with food E 11.9, # 60 tablet, 11 Refills, Maintenance, 09/19/20 16:42:00 EST, ER Tablet, [facility] #[id number], 152, cm, 04/15/20 12:53:00 EDT, Height Start Date: 09/19/20 Status: Ordered Norvasc 5 mg oral tablet 5 mg, 1, tablet, By Mouth, Daily, Refills 0, Maintenance, 03/21/20 11:21:00 EDT Start Date: 03/21/20 Status: Ordered Pen [place], 31 G x 5 mm BD Ultra Fine III See Instructions, # 50 each, Refills 11, Tot. Refills 11, Maintenance, To take with insulin 1x a day. E 11.9, 09/19/20 16:45:00 EST, Supply, 152, cm, 04/15/20 12:53:00 EDT, Height Start Date: 09/19/20 Status: Ordered Tresiba FlexTouch 100 units/mL subcutaneous solution See Instructions, tresiba 60 units daily in the AM. E 11.9, # 30 mL, 11 Refills, Maintenance, 09/19/20 16:42:00 EST, [facility] #[id number], 152, cm, 04/15/20 12:53:00 EDT, Height Start Date: 09/19/20 Status: Ordered Trulicity Pen 1.5 mg/0.5 mL subcutaneous solution = 1.5 mg, Subcutaneous Infusion, Every week, E 11.9, # 2.5 mL, 11 Refills, Maintenance, 09/19/20 16:43:00 EST, [facility] #[id number], 152, cm, 04/15/20 12:53:00 EDT, Height Start Date: 09/19/20 Status: Ordered Vitamin D3 = 2,000 mg, By Mouth, Daily, 0 Refills, Maintenance, 03/21/20 11:21:00 EDT Start Date: 03/21/20 Status: Ordered Problem List Condition Effective Dates Status Health Status Inform ant Low back pain with radiation(Confirmed) Active
--- OUTSIDE RECORDS SUMMARY | 2024-03-13 02:52 | XMS_ITS | Continuity of Care Document ---
Author Organization [facility] Address [address] [place] [address]- Care Team Providers Care Video Game Designer Name Role Phone Bashir RODARTE, Linda Fatima Primary Care Physician [place] [facility] [place] 02/18[place]21 - 06/18/21 [facility] [address] [place] [id number] Attending Physician: Karma Grullon NP Admitting Physician: Karma Grullon NP Allergies, Adverse Reactions, Alerts Substance Reaction Severity Status sulfa drugs hives Active Medications 14 day desiree reader 14 day desiree reader, See Instructions, # 1 each, Refills 5, Tot. Refills 5, Maintenance, E11.9: Fortesting glucose levels: [facility] [id number], 10/23/19 11:36:00 EST, Compound, 152, cm, 08/04/19 11:39:00 EST, Height Start Date: 10/23/19 Status: Ordered 14 day desiree sensor 14 day desiree sensor, See Instructions, # 2 each, Refills 11, Tot. Refills 11, Maintenance, E 11.9: for testing glucose lev els. [facility] [id number], 09/19/20 16:42:00 EST, Compound, 152, cm, 04/15/20 [...] BY MOUTH ONCE A DAY (INCREASED DOSE), [facility]/pharmacy #1972 Start Date: 12/09/18 Status: Ordered magnesium glycinate = 400 mg, By Mouth, Daily, 0 Refills, Maintenance, 03/21/20 11:23:00 EDT Start Date: 03/21/20 Status: Ordered metFORMIN 500 mg oral tablet, extended release 2 tablet = 1,000 mg, By Mouth, Daily, Take with food E 11.9, # 60 tablet, 11 Refills, Maintenance, 09/19/20 16:42:00 EST, ER Tablet, [facility] #[id number], 152, cm, 04/15/20 12:53:00 EDT, Height Start Date: 09/19/20 Status: Ordered Norvasc 5 mg oral tablet 5 mg, 1, tablet, By Mouth, Daily, Refills 0, Maintenance, 03/21/20 11:21:00 EDT Start Date: 03/21/20 Status: Ordered Pen [place], 31 G x 5 mm BD Ultra [...] mL, 11 Refills, Maintenance, 09/19/20 16:42:00 EST, [facility] #[id number], 152, cm, 04/15/20 12:53:00 EDT, Height Start Date: 09/19/20 Status: Ordered Trulicity Pen 1.5 mg/0.5 mL subcutaneous solution = 1.5 mg, Subcutaneous Infusion, Every week, E 11.9, # 2.5 mL, 11 Refills, Maintenance, 09/19/20 16:43:00 EST, [facility] #[id number], 152, cm, 04/15/20 12:53:00 EDT, Height Start Date: 09/19/20 Status: Ordered Vitamin D3 = 2,000 mg, By Mouth, Daily, 0 Refills, Maintenance, 03/21/20 11:21:00 EDT Start Date: 03/21/20 Status: Ordered Problem List Condition Effective Dates Status Health Status Inform ant Low back pain with radiation(Confirmed) Active
--- OUTSIDE RECORDS SUMMARY | 2024-03-13 02:52 | XMS_ITS | Continuity of Care Document ---
Author Organization [facility] Address [address] [place] [address] [address] [place] [address]- Care Team Providers Care Genetics Physician Name Role Phone Bashir RODARTE, Linda Fatima Primary Care Physician [place] [facility] [place]/04/23 - 02/21/[address] [place], [place] [address] Attending Physician: Bindu FERMIN,RD,ANTONIAN, Dulce Heredia Referring Physician: Bashir RODARTE, Linda Fatima Allergies, Adverse Reactions, Alerts Substance Reaction Severity Status vancomycin HIVES Active sulfa drugs hives Active Medications 14 day desiree reader 14 day desiree reader, See Instructions, # 1 each, Refills 5, Tot. Refills 5, Maintenance, E11.9: Fortesting glucose levels: [facility] [id number], 10/23/19 11:36:00 EST, Compound, 152, cm, 08/04/19 11:39:00 EST, Height Start Date: 10/23/19 Status: Ordered 14 day desiree sensor 14 day desiree sensor, See Instructions, # 2 each, Refills 11, Tot. Refills 11, Maintenance, E 11.9: for testing glucose lev els. [facility] [id number], 09/19/20 16:42:00 EST, Compound, 152, cm, 04/15/20 12:53:00 EDT, Height Start Date: 09/19/20 Status: Ordered aspirin 81 mg oral tablet 1 tablet = 81 mg, By Mouth, Daily, 0 Refills, Maintenance Start Date: 08/09/13 Status: Ordered Budeprion By Mouth, 2 times a day, 0 Refills, Maintenance, 01/04/23 8:51:00 EDT, Partial fill upon patient request if the prescription is for a schedule II opioid drug. Start Date: 01/04/23 Status: Ordered BuPROpion By Mouth, 0 Refills, Maintenance, 10/02/22 9:13:00 EST, Partial fill upon patient request if the prescription is for a schedule II opioid drug. Start Date: 10/02/22 Status: Ordered Compression Stockings See Instructions, # [...] Pharmacy [facility]... Start Date: 04/12/20 Status: Ordered Diclofenac By Mouth, 0 Refills, Maintenance, 10/02/22 9:13:00 EST, Partial fill upon patient request if the prescription is for a schedule II opioid drug. Start Date: 10/02/22 Status: Ordered Fluoxetine = 80 mg, By [...] 11:23:00 EDT Start Date: 03/21/20 Status: Ordered Jardiance 10 mg oral tablet 1 tablet = 10 mg, By Mouth, Daily in AM, # 30 tablet, 0 Refills, Maintenance, 10/02/22 9:14:00 EST,Tablet, Partial fill upon patient request if the prescription is for a schedule II opioid drug. Start Date: 10/02/22 Status: Ordered lisinopril 20 mg oral tablet See Instructions, # 90 tablet, Refills 1 Tot. Refills 1, TAKE 1 TABLET BY MOUTH ONCE A DAY (INCREASED DOSE), [facility]/pharmacy #1972 Start Date: 12/09/18 Status: Ordered Losartan By Mouth, Daily, 0 Refills, Maintenance, 01/04/23 8:50:00 EDT, Partial fill upon patient request ifthe prescription is for a schedule II opioid drug. Start Date: 01/04/23 Status: Ordered Losartan By Mouth, Daily, 0 Refills, Maintenance, 10/02/22 9:13:00 EST, Partial fill upon patient request ifthe prescription is for a schedule II opioid drug. Start Date: 10/02/22 Status: Ordered magnesium glycinate = 400 mg, By Mouth, Daily, 0 Refills, Maintenance, 03/21/20 11:23:00 EDT Start Date: 03/21/20 Status: Ordered metFORMIN 500 mg oral tablet, extended release 2 tablet = 1,000 mg, By Mouth, Daily, Take with food E 11.9, # 60 tablet, 11 Refills, Maintenance, 09/19/20 16:42:00 EST, ER Tablet, [facility] #[id number], 152, cm, 04/15/20 12:53:00 EDT, Height Start Date: 09/19/20 Status: Ordered Norvasc 5 mg oral tablet 5 mg, 1, tablet, By Mouth, Daily, Refills 0, Maintenance, 03/21/20 11:21:00 EDT Start Date: 03/21/20 Status: Ordered Ozempic Subcutaneous Infusion, 0 Refills, Maintenance, 01/04/23 8:51:00 EDT, Partial fill upon patient request if the prescription is for a schedule II opioid drug. Start Date: 01/04/23 Status: Ordered Pen [place], 31 G x 5 mm BD Ultra [...] mL, 11 Refills, Maintenance, 09/19/20 16:42:00 EST, [facility] #[id number], 152, cm, 04/15/20 12:53:00 EDT, Height Start Date: 09/19/20 Status: Ordered Trulicity Pen 1.5 mg/0.5 mL subcutaneous solution = 1.5 mg, Subcutaneous Infusion, Every week, E 11.9, # 2.5 mL, 11 Refills, Maintenance, 09/19/20 16:43:00 EST, [facility] #[id number], 152, cm, 04/15/20 12:53:00 EDT, Height Start Date: 09/19/20 Status: Ordered Vitamin D3 = 2,000 mg, By Mouth, Daily, 0 Refills, Maintenance, 03/21/20 11:21:00 EDT Start Date: 03/21/20 Status: Ordered Zoloft 100 mg oral tablet 1 tablet = 100 mg, By Mouth, Daily, # 30 tablet, 0 Refills, Maintenance, 10/02/22 9:12:00 EST, Tablet, Partial fill upon patient request if the prescription is for a schedule II opioid drug. Start Date: 10/02/22 Status: Ordered Problem List Condition Confirmation Course Effective Dates Status H ealth Status Informant COPD with asthma Confirmed Active Diabetes Confirmed Active Ambulates with cane Confirmed Active Hypertension Confirmed Active Hypothyroidism Confirmed Active LBBB (left bundle branch block) Confirmed Active Low back pain with radiation Confirmed Active Osteoarthritis Confirmed Active Severe obesity Confirmed Active Social History Social History Type Response Smoking Status Never (less than 100 in lifetime) entered on: 01/04/23 Sex Patient Care team information Care Team Personnel Name: Nidia Hill RN Position: [facility] RN Member Role: Primary Care Nurse Name: Linda Camejo NP Position: [facility] Outreach Member Role: PCP Address: Address: [address] [place] [address]- Care Team Related Persons Name: OVIDIOSALBADOR Address: home [address] [place] [address]
--- OUTSIDE RECORDS SUMMARY | 2024-03-13 02:52 | XMS_ITS | Continuity of Care Document ---
Author Organization [facility] Address [address] [place] [address]- Care Team Providers Care Flasher Adjuster Name Role Phone Bashir RODARTE, Linda Fatima Primary Care Physician Encounter [facility] R [id number] Date(s): 05/13/23 - 07/01/[address] [address] Attending Physician: Bashir RODARTE, Linda Fatima Admitting Physician: Bashir RODARTE, Linda Fatima Referring Physician: Bashir RODARTE, Linda Fatima Allergies, Adverse Reactions, Alerts Substance Reaction Severity Status vancomycin HIVES Active sulfa drugs hives Active Medications 14 day desiree reader 14 day desiree reader, See Instructions, # 1 each, Refills 5, Tot. Refills 5, Maintenance, E11.9: Fortesting glucose levels: [facility] [id number], 10/23/19 11:36:00 EST, Compound, 152, cm, 08/04/19 11:39:00 EST, Height Start Date: 10/23/19 Status: Ordered 14 day desiree sensor 14 day desiree sensor, See Instructions, # 2 each, Refills 11, Tot. Refills 11, Maintenance, E 11.9: for testing glucose lev els. [facility] [id number], 09/19/20 16:42:00 EST, Compound, 152, cm, 04/15/20 [...] BY MOUTH ONCE A DAY (INCREASED DOSE), [facility]/pharmacy #1972 Start Date: 12/09/18 Status: Ordered Losartan [...] Refills, Maintenance, 09/19/20 16:42:00 EST, ER Tablet, [facility] #[id number], 152, cm, 04/15/20 12:53:00 EDT, Height Start [...] drug. Start Date: 01/04/23 Status: Ordered Pen [place], 31 G x 5 mm BD Ultra [...] mL, 11 Refills, Maintenance, 09/19/20 16:42:00 EST, [facility] #[id number], 152, cm, 04/15/20 12:53:00 EDT, Height Start Date: 09/19/20 Status: Ordered Trulicity Pen 1.5 mg/0.5 mL subcutaneous solution = 1.5 mg, Subcutaneous Infusion, Every week, E 11.9, # 2.5 mL, 11 Refills, Maintenance, 09/19/20 16:43:00 EST, [facility] #[id number], 152, cm, 04/15/20 12:53:00 EDT, Height Start [...] Team Personnel Name: Nidia Hill RN Position: S RN Member Role: Primary Care Nurse Name: Linda Camejo NP Position: [facility] Outreach Member Role: PCP Address: Address: [address] [place] [address]- Care Team Related Persons Name: SALBADOR NOLAN Address: home [address] [place] [address]
--- OUTSIDE RECORDS SUMMARY | 2024-03-13 02:52 | XMS_ITS | Continuity of Care Document ---
Author Organization [facility] Address [address] [place] [address]- Care Team Providers Care Wild Life Photographer Name Role Phone Bashir RODARTE, Linda Fatima Primary Care Physician [place] [facility] [place]s): 04/15/20 - 05/15/20 [facility] [address] [place] [address] [facility] Attending Physician: Admtr, Kj8 Admitting Physician: Admtr, Ar8 Referring Physician: Admtr, Ar8 Allergies, Adverse Reactions, Alerts Substance Reaction Severity Status sulfa drugs hives Active Medications 14 day desiree reader 14 day desiree reader, See Instructions, # 1 each, Refills 5, Tot. Refills 5, Maintenance, E11.9: Fortesting glucose levels: [facility] [id number], 10/23/19 11:36:00 EST, Compound, 152, cm, 08/04/19 11:39:00 EST, Height Start Date: 10/23/19 Status: Ordered 14 day desiree sensor 14 day desiree sensor, See Instructions, # 2 each, Refills 11, Tot. Refills 11, Maintenance, E 11.9: for testing glucose lev els. [facility] [id number], 08/04/19 13:21:15 EST, Compound, 152, cm, 08/04/19 [...] 11:23:00 EDT Start Date: 03/21/20 Status: Ordered Humalog Kwik Pen 100 units/mL subcutaneous injection See Instructions, take 10-20 units 3 times a day before meals per sliding scale. Max daily dose is 60 units. E 11.9, # 30 mL, 11 Refills, Maintenance, 08/04/19 13:16:57 EST, 152, cm, 08/04/19 11:39:47 EST, Height Start Date: 08/04/19 Status: Ordered lisinopril 20 mg oral tablet See Instructions, # 90 tablet, Refills 1 Tot. Refills 1, TAKE 1 TABLET BY MOUTH ONCE A DAY (INCREASED DOSE), [facility]/pharmacy #1972 Start Date: 12/09/18 Status: Ordered magnesium glycinate = 400 mg, By Mouth, Daily, 0 Refills, Maintenance, 03/21/20 11:23:00 EDT Start Date: 03/21/20 Status: Ordered Metformin = 1,000 mg, By Mouth, Daily, 0 Refills, Maintenance, 08/09/13 15:15:01 EST Start Date: 08/09/13 Status: Ordered metFORMIN 500 mg oral tablet, extended release 2 tablet = 1,000 mg, By Mouth, 2 times a day, # 120 tablet, 5 Refills, Maintenance, 09/08/19 16:57:00 EST, ER Tablet, [facility] #[id number], 152, cm, 08/04/19 11:39:00 EST, Height Start Date: 09/08/19 Status: Ordered Norvasc 5 mg oral tablet 5 mg, 1, tablet, By Mouth, Daily, Refills 0, Maintenance, 03/21/20 11:21:00 EDT Start Date: 03/21/20 Status: Ordered Tresiba FlexTouch 100 units/mL subcutaneous [...] EST, Height Start Date: 08/04/19 Status: Ordered Vitamin D3 = 2,000 mg, By Mouth, Daily, 0 Refills, Maintenance, 03/21/20 11:21:00 EDT Start Date: 03/21/20 Status: Ordered Problem List Condition Effective Dates Status Health Status Inform ant Low back pain with radiation(Confirmed) Active
--- OUTSIDE RECORDS SUMMARY | 2024-03-13 02:52 | XMS_ITS | Continuity of Care Document ---
Author Organization [facility] Address [address] [place] [address]- Care Team Providers Care Lead Software Tester Name Role Phone Bashir RODARTE, Linda Fatima Primary Care Physician Encounter [facility] Date(s): 04/21/23 - 05/21/[address] [address] Allergies, Adverse Reactions, Alerts Substance Reaction Severity Status vancomycin HIVES Active sulfa drugs hives Active Medications 14 day desiree reader 14 day desiree reader, See Instructions, # 1 each, Refills 5, Tot. Refills 5, Maintenance, E11.9: Fortesting glucose levels: [facility] [id number], 10/23/19 11:36:00 EST, Compound, 152, cm, 08/04/19 11:39:00 EST, Height Start Date: 10/23/19 Status: Ordered 14 day desiree sensor 14 day desiree sensor, See Instructions, # 2 each, Refills 11, Tot. Refills 11, Maintenance, E 11.9: for testing glucose lev els. [facility] [id number], 09/19/20 16:42:00 EST, Compound, 152, cm, 04/15/20 [...] BY MOUTH ONCE A DAY (INCREASED DOSE), [facility]/pharmacy #1972 Start Date: 12/09/18 [...] Refills, Maintenance, 09/19/20 16:42:00 EST, ER Tablet, [facility] #[id number], 152, cm, 04/15/20 12:53:00 EDT, Height Start [...] drug. Start Date: 01/04/23 Status: Ordered Pen [place], 31 G x 5 mm BD Ultra [...] mL, 11 Refills, Maintenance, 09/19/20 16:42:00 EST, [facility] #[id number], 152, cm, 04/15/20 12:53:00 EDT, Height Start Date: 09/19/20 Status: Ordered Trulicity Pen 1.5 mg/0.5 mL subcutaneous solution = 1.5 mg, Subcutaneous Infusion, Every week, E 11.9, # 2.5 mL, 11 Refills, Maintenance, 09/19/20 16:43:00 EST, [facility] #[id number], 152, cm, 04/15/20 12:53:00 EDT, Height Start [...] Team Personnel Name: Nidia Hill RN Position: [facility] RN Member Role: Primary Care Nurse Name: Linad Camejo NP Position: [facility] Outreach Member Role: PCP Address: Address: [address] [place] [address]- Care Team Related Persons Name: SALBADOR NOLAN Address: home [address] [place] [address]
--- OUTSIDE RECORDS SUMMARY | 2024-03-13 02:52 | XMS_ITS | Continuity of Care Document ---
Author Organization [facility] Address [address] [place] [address] [address] [place] [address]- Care Team Providers Care Craniologist Name Role Phone Bashir RODARTE, Linda Fatima Primary Care Physician En[place] [facility] [place] Date(s): 01/29/23 - 02/05/[address] [place], [place] [address] Attending Physician: Bindu FERMIN,RD,ANTONIANDulce Referring Physician: Bashir RODARTE, Linda Fatima Allergies, Adverse Reactions, Alerts Substance Reaction Severity Status vancomycin HIVES Active sulfa drugs hives Active Medications 14 day desiree reader 14 day desiree reader, See Instructions, # 1 each, Refills 5, Tot. Refills 5, Maintenance, E11.9: Fortesting glucose levels: [facility] [id number], 10/23/19 11:36:00 EST, Compound, 152, cm, 08/04/19 11:39:00 EST, Height Start Date: 10/23/19 Status: Ordered 14 day desiree sensor 14 day desiree sensor, See Instructions, # 2 each, Refills 11, Tot. Refills 11, Maintenance, E 11.9: for testing glucose lev els. [facility] [id number], 09/19/20 16:42:00 EST, Compound, 152, cm, 04/15/20 [...] BY MOUTH ONCE A DAY (INCREASED DOSE), [facility]/pharmacy #1972 Start Date: 12/09/18 Status: Ordered Losartan [...] Refills, Maintenance, 09/19/20 16:42:00 EST, ER Tablet, [facility] #[id number], 152, cm, 04/15/20 12:53:00 EDT, Height Start [...] drug. Start Date: 01/04/23 Status: Ordered Pen [place], 31 G x 5 mm BD Ultra [...] mL, 11 Refills, Maintenance, 09/19/20 16:42:00 EST, [facility] #[id number], 152, cm, 04/15/20 12:53:00 EDT, Height Start Date: 09/19/20 Status: Ordered Trulicity Pen 1.5 mg/0.5 mL subcutaneous solution = 1.5 mg, Subcutaneous Infusion, Every week, E 11.9, # 2.5 mL, 11 Refills, Maintenance, 09/19/20 16:43:00 EST, [facility] #[id number], 152, cm, 04/15/20 12:53:00 EDT, Height Start [...] Team Personnel Name: Nidia Hill RN Position: [facility] RN Member Role: Primary Care Nurse Name: Linda Camejo NP Position: [facility] Outreach Member Role: PCP Address: Address: [address] [place] [address]- Care Team Related Persons Name: OVIDIOSALBADOR Address: home [address] [place] [address]
--- OUTSIDE RECORDS SUMMARY | 2024-03-13 02:52 | XMS_ITS | Continuity of Care Document ---
Author Organization [facility] Address [address] [place] [address] [address] [place] [address]- Care Team Providers Care Rn Operating Room Name Role Phone Bashir RODARTE, Linda Fatima Primary Care Physician Encounter [facility] [place] Date(s): 06/23/23 - 07/23/23 [facility] [address] [place], [place] [address] Attending Physician: Admtr, Ar8 Admitting Physician: Admtr, Ar8 Referring Physician: Admtr, Ar8 Allergies, Adverse Reactions, Alerts Substance Reaction Severity Status vancomycin HIVES Active sulfa drugs hives Active Medications 14 day desiree reader 14 day desiree reader, See Instructions, # 1 each, Refills 5, Tot. Refills 5, Maintenance, E11.9: Fortesting glucose levels: [facility] [address]-60, 10/23/19 11:36:00 EST, Compound, 152, cm, 08/04/19 11:39:00 EST, Height Start Date: 10/23/19 Status: Ordered 14 day desiree sensor 14 day desiree sensor, See Instructions, # 2 each, Refills 11, Tot. Refills 11, Maintenance, E 11.9: for testing glucose lev els. [facility] [id number], 09/19/20 16:42:00 EST, Compound, 152, cm, 04/15/20 [...] BY MOUTH ONCE A DAY (INCREASED DOSE), [facility]/pharmacy #1972 Start Date: 12/09/18 Status: Ordered Losartan [...] Refills, Maintenance, 09/19/20 16:42:00 EST, ER Tablet, [facility] #[id number], 152, cm, 04/15/20 12:53:00 EDT, Height Start [...] drug. Start Date: 01/04/23 Status: Ordered Pen [place], 31 G x 5 mm BD Ultra [...] mL, 11 Refills, Maintenance, 09/19/20 16:42:00 EST, [facility] #[id number], 152, cm, 04/15/20 12:53:00 EDT, Height Start Date: 09/19/20 Status: Ordered Trulicity Pen 1.5 mg/0.5 mL subcutaneous solution = 1.5 mg, Subcutaneous Infusion, Every week, E 11.9, # 2.5 mL, 11 Refills, Maintenance, 09/19/20 16:43:00 EST, [facility] #[id number], 152, cm, 04/15/20 12:53:00 EDT, Height Start [...] Care Nurse Name: Linda Camejo NP Position: [facility] Outreach Member Role: PCP Address: Address: [address] [place] [address]- Care Team Related Persons Name: SALBADOR NOLAN Address: home [address] [place] [address]
--- OUTSIDE RECORDS SUMMARY | 2024-03-13 02:52 | XMS_ITS | Continuity of Care Document ---
Author Organization [facility] Address [address] [place] [address]- Care Team Providers Care Paint Stock Clerk Name Role Phone Bashir RODARTE, Linda aFtima Primary Care Physician Encounter [facility] Date(s): 11/13/19 - 11/23/19 [facility] [address] [place] [address]- [facility] Attending Physician: Admtr, Kj8 Admitting Physician: Admtr, Ar8 Referring Physician: Admtr, Ar8 Allergies, Adverse Reactions, Alerts Substance Reaction Severity Status sulfa drugs hives Active Medications 14 day desiree reader 14 day desiree reader, See Instructions, # 1 each, Refills 5, Tot. Refills 5, Maintenance, E11.9: Fortesting glucose levels: [facility] [address]-36, 10/23/19 11:36:00 EST, Compound, 152, cm, 08/04/19 11:39:00 EST, Height Start Date: 10/23/19 Status: Ordered 14 day desiree sensor 14 day desiree sensor, See Instructions, # 2 each, Refills 11, Tot. Refills 11, Maintenance, E 11.9: for testing glucose lev els. [facility] [id number], 08/04/19 13:21:15 EST, Compound, 152, cm, 08/04/19 11:39:47 EST, Height Start Date: 08/04/19 Status: Ordered aspirin 81 mg oral tablet 1 tablet = 81 mg, By Mouth, Daily, 0 Refills, Maintenance Start Date: 08/09/13 Status: Ordered Compression Stockings See Instructions, # 3 pair, Refills 3, Tot. Refills 3, Maintenance, surgical, knee length 20-30 mm Hg, 12/11/13 16:09:22, Compound Start Date: 08/09/13 Status: Ordered [...] BY MOUTH ONCE A DAY (INCREASED DOSE), [facility]/pharmacy #1972 Start Date: 12/09/18 Status: Ordered Metformin By Mouth, 0 Refills, Maintenance Start Date: 08/09/13 Status: Ordered metFORMIN 500 mg oral tablet, extended release 2 tablet = 1,000 mg, By Mouth, 2 times a day, # 120 tablet, 5 Refills, Maintenance, 09/08/19 16:57:00 EST, ER Tablet, [facility] #[id number], 152, cm, 08/04/19 11:39:00 EST, Height Start [...]
--- OUTSIDE RECORDS SUMMARY | 2024-03-13 02:52 | XMS_ITS | Continuity of Care Document ---
Author Organization [facility] ter Address [address] [place] [address]- Care Team Providers Care Clinical Counselor Name Role Phone Bashir RODARTE, Linda Fatima Primary Care Physician En[place] [facility] [place] Date(s): 09/07/19 - 09/17/[address] [address]- [facility] Attending Physician: Admtr, Ar8 Admitting Physician: Admtr, Ar8 Referring Physician: Admtr, Ar8 Allergies, Adverse Reactions, Alerts Substance Reaction Severity Status sulfa drugs hives Active Medications 14 day desiree reader 14 day desiree reader, See Instructions, # 1 each, Refills 0, Tot. Refills 0, Maintenance, E11.9: Fortesting glucose levels: [facility] [id number], 08/04/19 13:21:11 EST, Compound, 152, cm, 08/04/19 11:39:47 EST, Height Start Date: 08/04/19 Status: Ordered 14 day desiree sensor 14 day desiree sensor, See Instructions, # 2 each, Refills 11, Tot. Refills 11, Maintenance, E 11.9: for testing glucose lev els. [facility] [id number], 08/04/19 13:21:15 EST, Compound, 152, cm, 08/04/19 [...] BY MOUTH ONCE A DAY (INCREASED DOSE), [facility]/pharmacy #1972 Start Date: 12/09/18 Status: Ordered Metformin By Mouth, 0 Refills, Maintenance Start Date: 08/09/13 Status: Ordered metFORMIN 500 mg oral tablet, extended release 2 tablet = 1,000 mg, By Mouth, 2 times a day, # 120 tablet, 5 Refills, Maintenance, 09/08/19 16:57:00 EST, ER Tablet, [facility] #[id number], 152, cm, 08/04/19 11:39:00 EST, Height Start [...]
--- OUTSIDE RECORDS SUMMARY | 2024-03-13 02:52 | XMS_ITS | Continuity of Care Document ---
Author Organization [facility] Address [address] [place] [address]- Care Team Providers Care Textile Technologist Name Role Phone Bashir RODARTE, Linda Fatima Primary Care Physician Encounter [facility] [place] Date(s): 04/11/21 - 06/18/21 [facility] [address] [place] [address] Attending Physician: Jaden Santana MD Admitting Physician: Jaden Santana MD Referring Physician: Bashir RODARTE, Linda Fatima Allergies, Adverse Reactions, Alerts Substance Reaction Severity Status sulfa drugs hives Active Medications 14 day desiree reader 14 day desiree reader, See Instructions, # 1 each, Refills 5, Tot. Refills 5, Maintenance, E11.9: Fortesting glucose levels: [facility] [address]-83, 10/23/19 11:36:00 EST, Compound, 152, cm, 08/04/19 11:39:00 EST, Height Start Date: 10/23/19 Status: Ordered 14 day desiree sensor 14 day desiree sensor, See Instructions, # 2 each, Refills 11, Tot. Refills 11, Maintenance, E 11.9: for testing glucose lev els. [facility] [id number], 09/19/20 16:42:00 EST, Compound, 152, cm, 04/15/20 [...] Refills, Maintenance, 09/19/20 16:42:00 EST, ER Tablet, [facility] #[id number], 152, cm, 04/15/20 12:53:00 EDT, Height Start Date: 09/19/20 Status: Ordered Norvasc 5 mg oral tablet 5 mg, 1, tablet, By Mouth, Daily, Refills 0, Maintenance, 03/21/20 11:21:00 EDT Start Date: 03/21/20 Status: Ordered Pen [place], 31 G x 5 mm BD Ultra [...] mL, 11 Refills, Maintenance, 09/19/20 16:42:00 EST, [facility] #[id number], 152, cm, 04/15/20 12:53:00 EDT, Height Start Date: 09/19/20 Status: Ordered Trulicity Pen 1.5 mg/0.5 mL subcutaneous solution = 1.5 mg, Subcutaneous Infusion, Every week, E 11.9, # 2.5 mL, 11 Refills, Maintenance, 09/19/20 16:43:00 EST, [facility] #[id number], 152, cm, 04/15/20 12:53:00 EDT, Height Start Date: 09/19/20 Status: Ordered Vitamin D3 = 2,000 mg, By Mouth, Daily, 0 Refills, Maintenance, 03/21/20 11:21:00 EDT Start Date: 03/21/20 Status: Ordered Problem List Condition Effective Dates Status Health Status Inform ant Low back pain with radiation(Confirmed) Active
--- OUTSIDE RECORDS SUMMARY | 2024-03-13 02:52 | XMS_ITS | Continuity of Care Document ---
Author Organization [facility] Address [address] [place] [address]- Care Team Providers Care Seal Extrusion Operator Name Role Phone Bashir RODARTE, Linda Fatima Primary Care Physician Encounter [facility] [place] Date(s): 02/24/22 - 05/29/[address] [address] Attending Physician: Heidi Mejia MD Admitting Physician: Heidi Mejia MD Allergies, Adverse Reactions, Alerts Substance Reaction Severity Status sulfa drugs hives Active Medications 14 day desiree reader 14 day desiree reader, See Instructions, # 1 each, Refills 5, Tot. Refills 5, Maintenance, E11.9: Fortesting glucose levels: [facility] [id number], 10/23/19 11:36:00 EST, Compound, 152, cm, 08/04/19 11:39:00 EST, Height Start Date: 10/23/19 Status: Ordered 14 day desiree sensor 14 day desiree sensor, See Instructions, # 2 each, Refills 11, Tot. Refills 11, Maintenance, E 11.9: for testing glucose lev els. [facility] [id number], 09/19/20 16:42:00 EST, Compound, 152, cm, 04/15/20 [...] BY MOUTH ONCE A DAY (INCREASED DOSE), [facility]/pharmacy #1972 Start Date: 12/09/18 Status: Ordered magnesium glycinate = 400 mg, By Mouth, Daily, 0 Refills, Maintenance, 03/21/20 11:23:00 EDT Start Date: 03/21/20 Status: Ordered metFORMIN 500 mg oral tablet, extended release 2 tablet = 1,000 mg, By Mouth, Daily, Take with food E 11.9, # 60 tablet, 11 Refills, Maintenance, 09/19/20 16:42:00 EST, ER Tablet, [facility] #[id number], 152, cm, 04/15/20 12:53:00 EDT, Height Start Date: 09/19/20 Status: Ordered Norvasc 5 mg oral tablet 5 mg, 1, tablet, By Mouth, Daily, Refills 0, Maintenance, 03/21/20 11:21:00 EDT Start Date: 03/21/20 Status: Ordered Pen [place], 31 G x 5 mm BD Ultra [...] mL, 11 Refills, Maintenance, 09/19/20 16:42:00 EST, [facility] #[id number], 152, cm, 04/15/20 12:53:00 EDT, Height Start Date: 09/19/20 Status: Ordered Trulicity Pen 1.5 mg/0.5 mL subcutaneous solution = 1.5 mg, Subcutaneous Infusion, Every week, E 11.9, # 2.5 mL, 11 Refills, Maintenance, 09/19/20 16:43:00 EST, [facility] #[id number], 152, cm, 04/15/20 12:53:00 EDT, Height Start Date: 09/19/20 Status: Ordered Vitamin D3 = 2,000 mg, By Mouth, Daily, 0 Refills, Maintenance, 03/21/20 11:21:00 EDT Start Date: 03/21/20 Status: Ordered Problem List Condition Confirmation Course Effective Dates Status Health St atus Informant Low back pain with radiation Confirmed Active Patient Care team information Personnel Name: Bashir RODARTE, Linda Fatima Address: Address: [address] [place] [id number]
--- OUTSIDE RECORDS SUMMARY | 2024-03-13 02:52 | XMS_ITS | Continuity of Care Document ---
Author Organization [facility] Address [address] [place], [place] [address]victor hugo saul, [address] [place] [address]- Care Team Providers Care Rope Laying Machine Operator Name Role Phone Bashir RODARTE, Linda Fatima Primary Care Physician Encounter [facility] [place] Date(s): 03/08/20 - 04/07/[address], [address] [place] [address]- [facility] Allergies, Adverse Reactions, Alerts Substance Reaction Severity Status sulfa drugs hives Active Medications 14 day desiree reader 14 day desiree reader, See Instructions, # 1 each, Refills 5, Tot. Refills 5, Maintenance, E11.9: Fortesting glucose levels: [facility] [id number], 10/23/19 11:36:00 EST, Compound, 152, cm, 08/04/19 11:39:00 EST, Height Start Date: 10/23/19 Status: Ordered 14 day desiree sensor 14 day desiree sensor, See Instructions, # 2 each, Refills 11, Tot. Refills 11, Maintenance, E 11.9: for testing glucose lev els. [facility] [id number], 08/04/19 13:21:15 EST, Compound, 152, cm, 08/04/19 11:39:47 EST, Height Start Date: 08/04/19 Status: Ordered aspirin 81 mg oral tablet 1 tablet = 81 mg, By Mouth, Daily, 0 Refills, Maintenance Start Date: 08/09/13 Status: Ordered Compression Stockings See Instructions, # 3 pair, Refills 3, Tot. Refills 3, Maintenance, surgical, knee length 20-30 mm Hg, 08/09/13 16:09:22, Compound Start Date: 08/09/13 Status: Ordered Fluoxetine = 80 mg, By [...] BY MOUTH ONCE A DAY (INCREASED DOSE), [facility]/pharmacy #1972 Start Date: 12/09/18 [...] Refills, Maintenance, 09/08/19 16:57:00 EST, ER Tablet, [facility] #[id number], 152, cm, 08/04/19 11:39:00 EST, Height Start [...]
--- OUTSIDE RECORDS SUMMARY | 2024-03-13 02:52 | XMS_ITS | Continuity of Care Document ---
Author Organization [facility] Address [address] [place] [address] Care Team Providers Care Human Resource Advisor Name Role Phone Bashir RODARTE, Linda Fatima Primary Care Physician [place] [facility] [place](s): 01/13/21 - 02/12/21 [facility] [address] [place] [address] Attending Physician: Admtr, Ar8 Admitting Physician: Admtr, Ar8 Referring Physician: Admtr, Ar8 Allergies, Adverse Reactions, Alerts Substance Reaction Severity Status sulfa drugs hives Active Medications 14 day desiree reader 14 day desiree reader, See Instructions, # 1 each, Refills 5, Tot. Refills 5, Maintenance, E11.9: Fortesting glucose levels: [facility] [id number], 10/23/19 11:36:00 EST, Compound, 152, cm, 08/04/19 11:39:00 EST, Height Start Date: 10/23/19 Status: Ordered 14 day desiree sensor 14 day desiree sensor, See Instructions, # 2 each, Refills 11, Tot. Refills 11, Maintenance, E 11.9: for testing glucose lev els. [facility] [id number], 09/19/20 16:42:00 EST, Compound, 152, cm, 04/15/20 [...] BY MOUTH ONCE A DAY (INCREASED DOSE), [facility]/pharmacy #1972 Start Date: 12/09/18 Status: Ordered magnesium glycinate = 400 mg, By Mouth, Daily, 0 Refills, Maintenance, 03/21/20 11:23:00 EDT Start Date: 03/21/20 Status: Ordered metFORMIN 500 mg oral tablet, extended release 2 tablet = 1,000 mg, By Mouth, Daily, Take with food E 11.9, # 60 tablet, 11 Refills, Maintenance, 09/19/20 16:42:00 EST, ER Tablet, [facility] #[id number], 152, cm, 04/15/20 12:53:00 EDT, Height Start Date: 09/19/20 Status: Ordered Norvasc 5 mg oral tablet 5 mg, 1, tablet, By Mouth, Daily, Refills 0, Maintenance, 03/21/20 11:21:00 EDT Start Date: 03/21/20 Status: Ordered Pen [place], 31 G x 5 mm BD Ultra [...] mL, 11 Refills, Maintenance, 09/19/20 16:42:00 EST, [facility] #[id number], 152, cm, 04/15/20 12:53:00 EDT, Height Start Date: 09/19/20 Status: Ordered Trulicity Pen 1.5 mg/0.5 mL subcutaneous solution = 1.5 mg, Subcutaneous Infusion, Every week, E 11.9, # 2.5 mL, 11 Refills, Maintenance, 09/19/20 16:43:00 EST, [facility] #30405, 152, cm, 04/15/20 12:53:00 EDT, Height Start Date: 09/19/20 Status: Ordered Vitamin D3 = 2,000 mg, By Mouth, Daily, 0 Refills, Maintenance, 03/21/20 11:21:00 EDT Start Date: 03/21/20 Status: Ordered Problem List Condition Effective Dates Status Health Status Inform ant Low back pain with radiation(Confirmed) Active
--- OUTSIDE RECORDS SUMMARY | 2024-03-13 02:52 | XMS_ITS | Continuity of Care Document ---
Author Organization [facility] Address [address] [place] [address]- Care Team Providers Care Civil Process Server Name Role Phone Bashir RODARTE, Linda Fatima Primary Care Physician Encounter [facility] Date(s): 08/15/19 - 12/13/19 [facility] [address] [place] [address]- [facility] Attending Physician: Jaden Santana MD Admitting Physician: Jaden Santana MD Referring Physician: Linda Camejo NP Allergies, Adverse Reactions, Alerts Substance Reaction Severity Status sulfa drugs hives Active Medications 14 day desiree reader 14 day desiree reader, See Instructions, # 1 each, Refills 5, Tot. Refills 5, Maintenance, E11.9: Fortesting glucose levels: [facility] [id number], 10/23/19 11:36:00 EST, Compound, 152, cm, 08/04/19 11:39:00 EST, Height Start Date: 10/23/19 Status: Ordered 14 day desiree sensor 14 day desiree sensor, See Instructions, # 2 each, Refills 11, Tot. Refills 11, Maintenance, E 11.9: for testing glucose lev els. [facility] [id number], 08/04/19 13:21:15 EST, Compound, 152, cm, 08/04/19 [...] MOUTH ONCE A DAY (INCREASED DOSE), [facility]/pharmacy #1972 Start Date: 12/09/18 Status: Ordered Metformin By Mouth, 0 Refills, Maintenance Start Date: 08/09/13 Status: Ordered metFORMIN 500 mg oral tablet, extended release 2 tablet = 1,000 mg, By Mouth, 2 times a day, # 120 tablet, 5 Refills, Maintenance, 09/08/19 16:57:00 EST, ER Tablet, [email or web address] #[id number], 152, cm, 08/04/19 11:39:00 EST, Height Start [...]
--- OUTSIDE RECORDS SUMMARY | 2024-03-13 02:52 | XMS_ITS | Continuity of Care Document ---
Author Organization [facility] Address [address] [place] [address]- Care Team Providers Care Burr Picker Name Role Phone Bashir RODARTE, Linda Fatima Primary Care Physician [place] [facility] [place] 03/13/20 - 04/30/[address] [address] [facility] Discharge Disposition: A-D/C Home Attending Physician: Bashir RODARTE, Linda Fatima Admitting Physician: Bashir RODARTE, Linda Fatima Referring Physician: Domenico Paiz MD Allergies, Adverse Reactions, Alerts Substance Reaction Severity Status sulfa drugs hives Active Medications 14 day desiree reader 14 day desiree reader, See Instructions, # 1 each, Refills 5, Tot. Refills 5, Maintenance, E11.9: Fortesting glucose levels: [facility] [address]-38, 10/23/19 11:36:00 EST, Compound, 152, cm, 08/04/19 11:39:00 EST, Height Start Date: 10/23/19 Status: Ordered 14 day desiree sensor 14 day desiree sensor, See Instructions, # 2 each, Refills 11, Tot. Refills 11, Maintenance, E 11.9: for testing glucose lev els. [facility] [id number], 08/04/19 13:21:15 EST, Compound, 152, cm, 08/04/19 [...] Refills, Maintenance, 09/08/19 16:57:00 EST, ER Tablet, [facility] #[id number], 152, cm, 08/04/19 11:39:00 EST, Height Start [...]
--- OUTSIDE RECORDS SUMMARY | 2024-03-13 02:52 | XMS_ITS | Continuity of Care Document ---
Author Organization [facility] Address [address] [place] [address]- Care Team Providers Care Business Process Architect Name Role Phone Bashir RODARTE, Linda Fatima Primary Care Physician [place] [facility] [place] 10/02/[address] [id number] Discharge Disposition: A-D/C Home Attending Physician: Heidi Mejia MD Admitting Physician: Heidi Mejia MD Referring Physician: Heidi Mejia MD Allergies, Adverse Reactions, Alerts Substance Reaction Severity Status sulfa drugs hives Active Medications 14 day desiree reader 14 day desiree reader, See Instructions, # 1 each, Refills 5, Tot. Refills 5, Maintenance, E11.9: Fortesting glucose levels: [facility] [id number], 10/23/19 11:36:00 EST, Compound, 152, cm, 08/04/19 11:39:00 EST, Height Start Date: 10/23/19 Status: Ordered 14 day desiree sensor 14 day desiree sensor, See Instructions, # 2 each, Refills 11, Tot. Refills 11, Maintenance, E 11.9: for testing glucose lev els. [facility] [id number], 09/19/20 16:42:00 EST, Compound, 152, cm, 04/15/20 12:53:00 EDT, Height Start Date: 09/19/20 Status: Ordered aspirin 81 mg oral tablet 1 tablet = 81 mg, By Mouth, Daily, 0 Refills, Maintenance Start Date: 08/09/13 Status: Ordered BuPROpion By Mouth, 0 Refills, [...] BY MOUTH ONCE A DAY (INCREASED DOSE), [facility]/pharmacy #1972 Start Date: 12/09/18 Status: Ordered [...] Refills, Maintenance, 09/19/20 16:42:00 EST, ER Tablet, [facility] #[id number], 152, cm, 04/15/20 12:53:00 EDT, Height Start Date: 09/19/20 Status: Ordered Norvasc 5 mg oral tablet 5 mg, 1, tablet, By Mouth, Daily, Refills 0, Maintenance, 03/21/20 11:21:00 EDT Start Date: 03/21/20 Status: Ordered Oxycodone 5mg Oral Tablet (PACU ONLY) 10 mg, Tablet, By Mouth, Once, in PACU ONLY, PRN for Pain , Severe, Routine, 10/02/22 10:36:00 EST Start Date: 10/02/22 Stop Date: 10/02/22 Status: Completed Pen [place], 31 G x 5 mm BD Ultra [...] mL, 11 Refills, Maintenance, 09/19/20 16:42:00 EST, [facility] #[id number], 152, cm, 04/15/20 12:53:00 EDT, Height Start Date: 09/19/20 Status: Ordered Trulicity Pen 1.5 mg/0.5 mL subcutaneous solution = 1.5 mg, Subcutaneous Infusion, Every week, E 11.9, # 2.5 mL, 11 Refills, Maintenance, 09/19/20 16:43:00 EST, [facility] #[id number], 152, cm, 04/15/20 12:53:00 EDT, Height Start [...] Low back pain with radiation Confirmed Active Vital Signs Most recent to oldest [Reference Range]: 1 2 3 Oxygen Saturation [94-100 %] 96 % (10/02/22 11:30 AM) 95 % (10/02/22 11:15 AM) 100 % (10/02/22 11:00 AM) Pulse Rate [55-90 bpm] 82 bpm (10/02/22 9:05 AM) Blood Pressure [90-138/55-84 mm Hg] 129/63mm Hg (10/02/22 11:30 AM) 137/64mm Hg (10/02/22 11:15 AM) 101/52mm Hg (10/02/22 11:00 AM) Respiratory Rate [16-30 br/min] 12 br/min *L* (10/02/22 11:30 AM) 19 br/min (10/02/22 11:15 AM) 16 br/min (10/02/22 11:05 AM) Temperature [96.8-100.4 DegF] 97 DegF (10/02/22 11:30 AM) 97 DegF (10/02/22 10:30 AM) 99.1 DegF (10/02/22 9:05 AM) Liters per Minute 6 L/min (10/02/22 11:00 AM) 6 L/min (10/02/22 10:45 AM) 6 L/min (10/02/22 10:30 AM) Mode of Delivery (Oxygen) Room air (10/02/22 11:30 AM) Room air (10/02/22 11:15 AM) Simple face mask (10/02/22 11:00 AM) Blood pressure sites Arm, left (10/02/22 10:30 AM) Temperature Route Temporal (10/02/22 11:30 AM) Temporal (10/02/22 10:30 AM) Temporal (10/02/22 9:05 AM) Dry Weight 139 kg (10/02/22 9:05 AM) Dry Weight Obtained Via Standing scale (10/02/22 9:05 AM) Note * Emilia Olivier RN: PERFORM Event Display: Discharge/Transfer Note Hospital Authored Date: [id number] Nursing Discharge Note Entered On: 10/02/2022 12:20 EST Performed On: 10/02/2022 12:19 EST by Emilia Olivier RN Nursing Discharge Note 2 Discharge Time : 10/02/2022 12:13 EST Discharge Level of Care at Discharge : Home/Shelter/Foster Care Patient Left Unit Via : Wheelchair Patient Accompanied Off Unit with : Responsible adult DC Instructions Provided & Signed by Pt : Yes Patient Understands D/C Instructions : Yes Patient Instructions Discharge Signed : Yes Did Pt have Specialty Bed or Wound Vac : No Emilia Olivier RN - 10/02/2022 12:19 EST * Emilia Olivier RN: PERFORM Event Display: Patient Education/Instruction Authored Date: [id number] Inpatient Adult Discharge Instructions [place] [id number] Name: ALEC VERDUGO : 1960 Visit: 10/02/2022 07:50:00 Current Date: 10/02/2022 10:41 Account: [id number] Inpatient Adult Discharge Instructions We would like to thank you for allowing us to assist you with your healthcare needs. The following includes patient education materials and information regarding your injury/illness. Our entire staffstrives to provide an excellent experience for our patients and their families. PLEASE ENSURE YOU FOLLOW-UP PER THE INSTRUCTIONS BELOW! ?? YOUR OPINION IS IMPORTANT TO US! Please complete the survey you may receive by mail or email. Your feedback will be used to make improvements to the healthcare experiences of our patients and their families. Surveys are administered by [employer] ?? If further treatment with your primary care physician or another doctor is recommended, it is important for you to keep the appointment. Call your primary care physician or return to the Emergency Department immediately if your condition worsens, fails to improve, or new symptoms develop. If you need to find a doctor, you can call [facility] [employer] for a referral at [phone] or toll free at [phone] or log in to [email or web address].. ?? You can view and manage your care through the patient portal or by using a health care per of your choosing. [employer] is a website that allows you to securely view your medical information including your hospital discharge summary, office visit summaries, medications and follow-up visits. You can also request appointments, renew medications, and request access to your medical information using a health care per of your choosing, or just ask a question. You can enroll at [email or web address] or register during your next office visit. You have been discharged from [facility], Patient Care Unit: [facility]. If you have any questions regarding these instructions after you leave, please call us and we will be happy to assist you. [facility] Your Care Team Attending Physician Jackie WOO, Heidi Montemayor Consulting Providers Mile WOO, Breana Travis Discharging Providers Dany WOO, Daniella Reason for Admission POST MENOPAUSAL BLEEDINGDS CS Tests Performed Below is a partial list of the tests performed during your hospitalization. You may have had other tests and procedures not included in this list. Please discuss all test results with your provider. GLUCOSE POC Primary Care Provider Bashir RODARTE, Linda Fatima Advance Directive Health Care Proxy on File No Discharge Vitals Temperature: 97 DegF Pulse Rate: 82 bpm Respiratory Rate:??14 br/min??Low Systolic Blood Pressure: 128 mm Hg Diastolic Blood Pressure: 80 mm Hg Oxygen Saturation: 100 % Studies Pending All tests and labs ordered during this hospital stay have been completed unless listed below. Please discuss all pending results with your provider listed above in these instructions. ?? No incomplete studies found What to do next Instructions From Your Doctor Discharge Orders Instructions from your Care Team FOLLOW POSTOP INSTRUCTIONS You Need to Schedule the Following Appointments Follow Up with??Heidi Mejia When??Within 1 to 2 weeks Where: [facility] [employer] [place] [address]- Business (1) Follow Up with??Linda Camejo When??In 0 days Where: [address] [place] [address]- Business (1) Discharge Medications ALEC VERDUGO :1960 Visit Date:10/02/2022 Medications: Please continue your medications until treatment is completed or stopped by your provider. Medications not listed below should be discontinued. Discuss any questions related to medications with your provider. What How Much When Instructions Next Dose Unchanged Amlodipine (Norvasc 5 mg oral tablet) 1 tab(s) Oral Daily Unchanged Aspirin (aspirin 81 mg oral tablet) 1 tab(s) Oral Daily Unchanged BuPROpion Oral Unchanged Cholecalciferol (Vitamin D3) 2,000 Milligram Oral Daily Unchanged Diazepam (diazepam 5 mg oral tablet) See instructions take 1 tab 1 hour prior to procedure and may repeat x 1 upon arrival to clinic if needed ?? Unchanged Diclofenac Oral Unchanged dulaglutide (Trulicity Pen 1.5 mg/ 0.5 mL subcutaneous solution) 1.5 Milligram Subcutaneous Infusion Every week E 11.9 ?? Unchanged Durable Medical Equipment (14 day desiree sensor) See instructions E 11.9: for testing glucose lev els. ??[facility] [id number] ?? Unchanged Durable Medical Equipment (Compression Stockings) See instructions surgical, knee length 20-30 mm Hg ?? Unchanged Durable Medical Equipment (Pen [place], 31 G x 5 mm BD Ultra Fine III) See instructions To take with insulin 1x a day. E 11.9 ?? Unchanged empagliflozin (Jardiance 10 mg oral tablet) 1 tab(s) Oral Daily in the morning Unchanged Fluoxetine 80 Milligram Oral Daily Unchanged Gabapentin (gabapentin 300 mg oral capsule) 1 capsule Oral 3 times a day Unchanged Garlic (Garlic oral capsule) 800 Milligram Daily Unchanged insulin degludec (Tresiba FlexTouch 100 units/ mL subcutaneous solution) See instructions tresiba 60 units daily in the AM. E 11.9 ?? Unchanged Lisinopril (lisinopril 20 mg oral tablet) See instructions TAKE 1 TABLET BY MOUTH ONCE A DAY (INCREASED DOSE) ?? Unchanged Losartan Oral Daily Unchanged magnesium glycinate 400 Milligram Oral Daily Unchanged Metformin (metFORMIN 500 mg oral tablet, extended release) 2 tab(s) Oral Daily Take with food E 11.9 ?? Unchanged Miscellaneous Rx (14 day desriee reader) See instructions E11.9: For testing glucose levels: ??[facility] [id number] ?? Unchanged Sertraline (Zoloft 100 mg oral tablet) 1 tab(s) Oral Daily Test Results Below is a partial list of the most recent Laboratory test results done prior to this discharge. You may have had other tests and procedures not included in this list. Please discuss all test resultswith your provider. GLUCOSE POC (10/02/2022) ???Glucose, POC - 199 mg/dL Allergies (NKA means No Known Allergies) sulfa drugs??(hives) Problems Active Problems??(9) Anxiety?? Asthma?? Borderline DM, Type II?? Bronchitis?? Depression?? Hypothyroidism?? Low back pain with radiation?? Morbid Obesity?? Sleep Apnea?? Education Materials Below is the list of Educational Leaflet Providered with your Discharge Instructions. Surgery Medical Daystay Surgical Overnight Discharge Instructions?? Valuables and Belongings I fully understand and agree that [facility] accepts no responsibility for all my personal property including clothing, toilet articles, radios, jewelry, dentures, hearing aids, rings, money, or any other property that is in my possession or is brought to me after admission. I understand certain valuables may be placed in a hospital safe for a short period of time. I understand that the hospital is not liable for loss or damage due to accident, fire, or other natural occurrence while said property is in the safe. I accept full responsibility for any personal property that I keep with me, and will not hold the hospital responsible in case of loss or disappearance. I acknowledge that i have been encouraged to send valuables and belongings home. ?? Date for Pt to Sign Valuables/Belongings: 10/02/22 09:05:00 ?? Valuables & Belongings ?? Clothes Electronic devices Jewelry Monetary Items Personal devices Miscellaneous Medications (Valuables) Valuables at Bedside Pants, Shirt, Shoes, Undergarments ? Valuables Sent Home ? Valuables Sent to Security ? Other Discharge Information ? Pulmonary Rehab Status?? Pulmonary Rehab Discharge Status?? Respiratory Rate:??14 br/min??Low ? Common Emergency Awareness Tips IS IT A STROKE? Act FAST and Check for these signs: FACE Does the face look uneven? ARM Does one arm drift down? SPEECH Does their speech sound strange? TIME Call at any sign of stroke ?? Heart Attack Signs Chest discomfort: Most heart attacks involve discomfort in the center of the chest and lasts more than a few minutes, or goes away and comes back. It can feel like uncomfortable pressure, squeezing, fullness or pain. Discomfort in upper body: Symptoms can include pain or discomfort in one or both arms, back, neck, jaw or stomach. Shortness of breath: With or without discomfort. Other signs: Breaking out in a cold sweat, nausea, or lightheaded. Remember, MINUTES DO MATTER. If you experience any of these heart attack warning signs, call to get immediate medical attention! ?? Smoking can increase your chances of developing chronic health problems and can cause harmful effects to other family members in your house. If you smoke, you are strongly encouraged to quit. Please call [facility] [employer] at [phone] or [phone]) or log in to [email or web address] for referrals to smoking cessation programs. ?? The National Suicide Prevention Hotline is available 22/03 if you or someone you know needs to find a reason to keep living. By calling 1-349-935Amirite.com (2397) you'll be connected to a skilled, trained counselor at a crisis center in your area. INPATIENT DISCHARGE INSTRUCTIONS SIGNATURE PAGE ALEC VERDUGO Location:[facility] Registration Date and Time:10/02/2022 07:50 EST Primary Care Physician: Bashir RODARTE, Linda Fatima, Maryam MARCIALKERRIEALEC, have received the above patient education materials/instructions and have verbalized understanding. If ambulance or transport services are being used I further acknowledge being given a choice of service. ?? If you need to contact me, please call me at this number: . Patient/Suction Roller Name: Patient/Suction Roller Signature: Relationship to Patient: Witness Name/Signature: Date: * Emilai Olivier RN: PERFORM, SIGN, VERIFY Event Display: Patient Education Handout Authored Date: [id number] * Emilia Olivier RN: PERFORM Event Display: Patient Education Leaflets Authored Date: [id number] Surgery Medical Daystay Surgical Overnight Discharge Instructions ?? 295 Medical Daystay/Surgical Overnight Discharge Instructions ? Since your coordination and judgment may be altered by medication and/or anesthesia, a responsible adult must drive you home from the hospital. ? If you have received medication for pain or sedation while under our care, you should not drive, operate machinery, drink alcohol, or sign any legal documents for 24 hours.?? You should have someone with you at home tonight. ? Remain at home the day of discharge.?? You may be up and about unless otherwise instructed by your physician. ? You may resume your daily prescription medication schedule.?? Any depressant medication should be avoided for 24 hours unless otherwise instructed by your surgeon or anesthesiologist. ? Call your physician for a follow-up appointment.? If you experience unusual or severe pain not relied by your pain medication, excessive bleedingor drainage, persistent nausea and vomiting, excessive swelling or redness, foul odor from incisionsite or fever over 100.6F, you need to call your physician. ? A follow-up phone call by a nurse will be made the day after your procedure.?? If you have stayed with us over night, you will not be receiving a follow-up phone call. ? Nausea and vomiting are a common side effect of prescription pain medication.?? We recommend that pills are not taken on an empty stomach.?? While taking any prescription pain medication you should not drive or drink alcohol. ? Patient Care team information Care Team Personnel Name: Nidia Hill RN Position: [facility] RN Member Role: Primary Care Nurse Name: Linda Camejo NP Position: [facility] Outreach Member Role: PCP Address: Address: [address] [place] [address]- Care Team Related Persons Name: SALBADOR NOLAN Address: home [address] [place] [address]
--- OUTSIDE RECORDS SUMMARY | 2024-03-13 02:52 | XMS_ITS | Continuity of Care Document ---
Author Organization [facility] Address [address] [place] [address]- Care Team Providers Care Marketing Production Manager Name Role Phone Bashir RODARTE, Linda Fatima Primary Care Physician [place] [facility] [place] 06/15/23 - 07/15/[address] [address] Allergies, Adverse Reactions, Alerts Substance Reaction Severity Status vancomycin HIVES Active sulfa drugs hives Active Medications 14 day desiree reader 14 day desiree reader, See Instructions, # 1 each, Refills 5, Tot. Refills 5, Maintenance, E11.9: Fortesting glucose levels: [facility] [id number], 10/23/19 11:36:00 EST, Compound, 152, cm, 08/04/19 11:39:00 EST, Height Start Date: 10/23/19 Status: Ordered 14 day desiree sensor 14 day desiree sensor, See Instructions, # 2 each, Refills 11, Tot. Refills 11, Maintenance, E 11.9: for testing glucose lev els. [facility] [id number], 09/19/20 16:42:00 EST, Compound, 152, cm, 04/15/20 [...] BY MOUTH ONCE A DAY (INCREASED DOSE), [facility]/pharmacy #1972 Start Date: 12/09/18 Status: Ordered [...] Refills, Maintenance, 09/19/20 16:42:00 EST, ER Tablet, [facility] #[id number], 152, cm, 04/15/20 12:53:00 EDT, Height Start [...] drug. Start Date: 01/04/23 Status: Ordered Pen [place], 31 G x 5 mm BD Ultra [...] mL, 11 Refills, Maintenance, 09/19/20 16:42:00 EST, [facility] #[id number], 152, cm, 04/15/20 12:53:00 EDT, Height Start Date: 09/19/20 Status: Ordered Trulicity Pen 1.5 mg/0.5 mL subcutaneous solution = 1.5 mg, Subcutaneous Infusion, Every week, E 11.9, # 2.5 mL, 11 Refills, Maintenance, 09/19/20 16:43:00 EST, [facility] #[id number], 152, cm, 04/15/20 12:53:00 EDT, Height Start [...] Team Personnel Name: Nidia Hill RN Position: [facility] RN Member Role: Primary Care Nurse Name: Linda Camejo NP Position: [facility] Outreach Member Role: PCP Address: Address: [address] [place] [address]- Care Team Related Persons Name: SALBADOR NOLAN Address: home [address] [place] [address]
--- OUTSIDE RECORDS SUMMARY | 2024-03-13 02:52 | XMS_ITS | Continuity of Care Document ---
Author Organization [facility] Address [address] [place] [address] [address], [address] [place] [address]- Care Team Providers Care Large Sheetfed Press Operator Name Role Phone Bashir RODARTE, Linda Fatima Primary Care Physician Encounter [place] Date(s): 03/11/20 - 04/10/[address], [address] [place] [address]- [facility] Attending Physician: Admtr, Ar8 Admitting Physician: Admtr, Ar8 Referring Physician: Admtr, Ar8 Allergies, Adverse Reactions, Alerts Substance Reaction Severity Status sulfa drugs hives Active Medications 14 day desiree reader 14 day desiree reader, See Instructions, # 1 each, Refills 5, Tot. Refills 5, Maintenance, E11.9: Fortesting glucose levels: [facility] [id number], 10/23/19 11:36:00 EST, Compound, 152, cm, 08/04/19 11:39:00 EST, Height Start Date: 10/23/19 Status: Ordered 14 day desiree sensor 14 day desiree sensor, See Instructions, # 2 each, Refills 11, Tot. Refills 11, Maintenance, E 11.9: for testing glucose lev els. [facility] [id number], 08/04/19 13:21:15 EST, Compound, 152, cm, 08/04/19 [...] BY MOUTH ONCE A DAY (INCREASED DOSE), [facility]/pharmacy #1972 Start Date: 12/09/18 [...] Refills, Maintenance, 09/08/19 16:57:00 EST, ER Tablet, [facility] #[id number], 152, cm, 08/04/19 11:39:00 EST, Height Start [...]
--- OUTSIDE RECORDS SUMMARY | 2024-03-13 02:52 | XMS_ITS | Continuity of Care Document ---
Author Organization [facility] Address [address] [place] [address]- Care Team Providers Care Carbon Printer Name Role Phone Bashir RODARTE, Linda Fatima Primary Care Physician [place] [facility] [place] 03/25/20 - 04/24/20 [facility] [address] [place] [address]- [facility] Allergies, Adverse Reactions, Alerts Substance Reaction Severity Status sulfa drugs hives Active Medications 14 day desiree reader 14 day desiree reader, See Instructions, # 1 each, Refills 5, Tot. Refills 5, Maintenance, E11.9: Fortesting glucose levels: [facility] [id number], 10/23/19 11:36:00 EST, Compound, 152, cm, 08/04/19 11:39:00 EST, Height Start Date: 10/23/19 Status: Ordered 14 day desiree sensor 14 day desiree sensor, See Instructions, # 2 each, Refills 11, Tot. Refills 11, Maintenance, E 11.9: for testing glucose lev els. [facility] [id number], 08/04/19 13:21:15 EST, Compound, 152, cm, 08/04/19 [...] BY MOUTH ONCE A DAY (INCREASED DOSE), [facility]/pharmacy #1972 Start Date: 12/09/18 Status: Ordered [...] Refills, Maintenance, 09/08/19 16:57:00 EST, ER Tablet, [facility] #[id number], 152, cm, 08/04/19 11:39:00 EST, Height Start [...]
--- OUTSIDE RECORDS SUMMARY | 2024-03-13 02:52 | XMS_ITS | Continuity of Care Document ---
Author Organization [facility] Address [address] [place] [address]- Care Team Providers Care Street Vendor Name Role Phone Bashir RODARTE, Linda Fatima Primary Care Physician En[place] [facility] [place] Date(s): 04/30/20 - 05/30/[address] [address]- [facility] Attending Physician: Admtr, Ar8 Admitting Physician: Admtr, Ar8 Referring Physician: Admtr, Ar8 Allergies, Adverse Reactions, Alerts Substance Reaction Severity Status sulfa drugs hives Active Medications 14 day desiree reader 14 day desiree reader, See Instructions, # 1 each, Refills 5, Tot. Refills 5, Maintenance, E11.9: Fortesting glucose levels: [facility] [id number], 10/23/19 11:36:00 EST, Compound, 152, cm, 08/04/19 11:39:00 EST, Height Start Date: 10/23/19 Status: Ordered 14 day desiree sensor 14 day desiree sensor, See Instructions, # 2 each, Refills 11, Tot. Refills 11, Maintenance, E 11.9: for testing glucose lev els. [facility] [id number], 08/04/19 13:21:15 EST, Compound, 152, cm, 08/04/19 [...] MOUTH ONCE A DAY (INCREASED DOSE), [facility]/pharmacy #1972 Start Date: 12/09/18 Status: Ordered [...] Refills, Maintenance, 09/08/19 16:57:00 EST, ER Tablet, [facility] #[id number], 152, cm, 08/04/19 11:39:00 EST, Height Start [...]
--- OUTSIDE RECORDS SUMMARY | 2024-03-13 02:52 | XMS_ITS | Continuity of Care Document ---
Author Organization [facility] Address [address] [place] [address] [address] [place] [address]- Care Team Providers Care Guest Specialist Name Role Phone Bashir RODARTE, Linda Fatima Primary Care Physician Encounter [facility] [place] ACCT R [id number] Date(s): 03/25/23 - 07/23/[address] [place], [place] [address] Attending Physician: Giuseppe Yo MD Referring Physician: Bashir RODARTE, Linda Fatima Allergies, Adverse Reactions, Alerts Substance Reaction Severity Status vancomycin HIVES Active sulfa drugs hives Active Medications 14 day desiree reader 14 day desiree reader, See Instructions, # 1 each, Refills 5, Tot. Refills 5, Maintenance, E11.9: Fortesting glucose levels: [facility] [id number], 10/23/19 11:36:00 EST, Compound, 152, cm, 08/04/19 11:39:00 EST, Height Start Date: 10/23/19 Status: Ordered 14 day desiree sensor 14 day desiree sensor, See Instructions, # 2 each, Refills 11, Tot. Refills 11, Maintenance, E 11.9: for testing glucose lev els. [facility] [id number], 09/19/20 16:42:00 EST, Compound, 152, cm, 04/15/20 [...] BY MOUTH ONCE A DAY (INCREASED DOSE), [facility]/pharmacy #1972 Start Date: 12/09/18 Status: Ordered [...] Refills, Maintenance, 09/19/20 16:42:00 EST, ER Tablet, [facility] #[id number], 152, cm, 04/15/20 12:53:00 EDT, Height Start [...] drug. Start Date: 01/04/23 Status: Ordered Pen [place], 31 G x 5 mm BD Ultra [...] mL, 11 Refills, Maintenance, 09/19/20 16:42:00 EST, [facility] #[id number], 152, cm, 04/15/20 12:53:00 EDT, Height Start Date: 09/19/20 Status: Ordered Trulicity Pen 1.5 mg/0.5 mL subcutaneous solution = 1.5 mg, Subcutaneous Infusion, Every week, E 11.9, # 2.5 mL, 11 Refills, Maintenance, 09/19/20 16:43:00 EST, [facility] #[id number], 152, cm, 04/15/20 12:53:00 EDT, Height Start [...] Care Nurse Name: Linda Camejo NP Position: [facility] Outreach Member Role: PCP Address: Address: [address] [place] [address]- Care Team Related Persons Name: SALBADOR NOLAN Address: home [address] [place] [address]
--- OUTSIDE RECORDS SUMMARY | 2024-03-13 02:52 | XMS_ITS | Continuity of Care Document ---
Author Organization [facility] Address [address] [place] [address]- Care Team Providers Care Third Grade Teacher Name Role Phone Bashir RODARTE, Linda Fatima Primary Care Physician [place] [facility] [place] 07/03/[address] [address] [facility] Discharge Disposition: A-D/C Home Attending Physician: Bashir RODARTE, Linda Fatima Admitting Physician: Bashir RODARTE, Linda Fatima Referring Physician: Bashir RODARTE, Linda Fatima Allergies, Adverse Reactions, Alerts Substance Reaction Severity Status sulfa drugs hives Active Medications 14 day desiree reader 14 day desiree reader, See Instructions, # 1 each, Refills 5, Tot. Refills 5, Maintenance, E11.9: Fortesting glucose levels: [facility] [address]-15, 10/23/19 11:36:00 EST, Compound, 152, cm, 08/04/19 11:39:00 EST, Height Start Date: 10/23/19 Status: Ordered 14 day desiree sensor 14 day desiree sensor, See Instructions, # 2 each, Refills 11, Tot. Refills 11, Maintenance, E 11.9: for testing glucose lev els. [facility] [address]-82, 08/04/19 13:21:15 EST, Compound, 152, cm, 08/04/19 [...] BY MOUTH ONCE A DAY (INCREASED DOSE), [facility]/pharmacy #1972 Start Date: 12/09/18 Status: Ordered [...] 16:57:00 EST, ER Tablet, [facility] #[id number], 152, cm, 08/04/19 11:39:00 EST, Height Start [...]
--- OUTSIDE RECORDS SUMMARY | 2024-03-13 02:52 | XMS_ITS | Continuity of Care Document ---
Author Organization [facility] Address [address] [place] [address] [address] [place] [address]- Care Team Providers Care Continuity Director Name Role Phone Bashir RODARTE, Linda Fatima Primary Care Physician Encounter [facility] [place] Date(s): 01/21/23 - 02/20/[address] [place], [place] [address] Allergies, Adverse Reactions, Alerts Substance Reaction Severity Status vancomycin HIVES Active sulfa drugs hives Active Medications 14 day desiree reader 14 day desiree reader, See Instructions, # 1 each, Refills 5, Tot. Refills 5, Maintenance, E11.9: Fortesting glucose levels: [facility] [id number], 10/23/19 11:36:00 EST, Compound, 152, cm, 08/04/19 11:39:00 EST, Height Start Date: 10/23/19 Status: Ordered 14 day desiree sensor 14 day desiree sensor, See Instructions, # 2 each, Refills 11, Tot. Refills 11, Maintenance, E 11.9: for testing glucose lev els. [facility] [id number], 09/19/20 16:42:00 EST, Compound, 152, cm, 04/15/20 [...] MOUTH ONCE A DAY (INCREASED DOSE), [facility]/pharmacy #1972 Start Date: 12/09/18 Status: Ordered [...] Refills, Maintenance, 09/19/20 16:42:00 EST, ER Tablet, [facility] #51814, 152, cm, 04/15/20 12:53:00 EDT, Height Start [...] drug. Start Date: 01/04/23 Status: Ordered Pen [place], 31 G x 5 mm BD Ultra [...] mL, 11 Refills, Maintenance, 09/19/20 16:42:00 EST, [facility] #[id number], 152, cm, 04/15/20 12:53:00 EDT, Height Start Date: 09/19/20 Status: Ordered Trulicity Pen 1.5 mg/0.5 mL subcutaneous solution = 1.5 mg, Subcutaneous Infusion, Every week, E 11.9, # 2.5 mL, 11 Refills, Maintenance, 09/19/20 16:43:00 EST, [facility] #[id number], 152, cm, 04/15/20 12:53:00 EDT, Height Start [...] Care team information Care Team Personnel Name: Liz LACY, Nidia Position: S RN Member Role: Primary Care Nurse Name: Bashir RODARTE, Linda Fatima Position: [facility] Outreach Member Role: PCP Address: Address: [address] [place] [address]- Care Team Related Persons Name: SALBADOR NOLAN Address: home [address] [place] [address]
--- OUTSIDE RECORDS SUMMARY | 2024-03-13 02:52 | XMS_ITS | Continuity of Care Document ---
Author Organization [facility] Address [address] [place] [address] [address] [place] [address]- Care Team Providers Care Drilling Manager Name Role Phone Bashir RODARTE, Linda Fatima Primary Care Physician [place] [facility] Date(s): 01/22/23 - 02/21/[address] [place], [place] [address] Allergies, Adverse Reactions, Alerts Substance Reaction Severity Status vancomycin HIVES Active sulfa drugs hives Active Medications 14 day desiree reader 14 day desiree reader, See Instructions, # 1 each, Refills 5, Tot. Refills 5, Maintenance, E11.9: Fortesting glucose levels: [facility] [address]-87, 10/23/19 11:36:00 EST, Compound, 152, cm, 08/04/19 11:39:00 EST, Height Start Date: 10/23/19 Status: Ordered 14 day desiree sensor 14 day desiree sensor, See Instructions, # 2 each, Refills 11, Tot. Refills 11, Maintenance, E 11.9: for testing glucose lev els. [facility] [id number], 09/19/20 16:42:00 EST, Compound, 152, cm, 04/15/20 [...] ONCE A DAY (INCREASED DOSE), [facility]/pharmacy #1972 Start Date: 12/09/18 Status: Ordered [...] Refills, Maintenance, 09/19/20 16:42:00 EST, ER Tablet, [facility] #[id number], 152, cm, 04/15/20 12:53:00 EDT, Height Start [...] drug. Start Date: 01/04/23 Status: Ordered Pen [place], 31 G x 5 mm BD Ultra [...] mL, 11 Refills, Maintenance, 09/19/20 16:42:00 EST, [facility] #[id number], 152, cm, 04/15/20 12:53:00 EDT, Height Start Date: 09/19/20 Status: Ordered Trulicity Pen 1.5 mg/0.5 mL subcutaneous solution = 1.5 mg, Subcutaneous Infusion, Every week, E 11.9, # 2.5 mL, 11 Refills, Maintenance, 09/19/20 16:43:00 EST, [facility] #03993, 152, cm, 04/15/20 12:53:00 EDT, Height Start [...] Nurse Name: Bashir RODARTE, Linda Fatima Position: [facility] Outreach Member Role: PCP Address: Address: [address] [place] [address]- Care Team Related Persons Name: SALBADOR NOLAN Address: home [address] [place] [address]
--- OUTSIDE RECORDS SUMMARY | 2024-03-13 02:52 | XMS_ITS | Continuity of Care Document ---
Author Organization [facility] Address [address] [place] [address]- Care Team Providers Care Trucker Name Role Phone Bashir RODARTE, Linda Fatima Primary Care Physician Encounter [facility] Date(s): 04/12/20 - 05/12/20 [facility] [address] [place] [address]- [facility] Allergies, Adverse Reactions, Alerts Substance Reaction Severity Status sulfa drugs hives Active Medications 14 day desiree reader 14 day desiree reader, See Instructions, # 1 each, Refills 5, Tot. Refills 5, Maintenance, E11.9: Fortesting glucose levels: [facility] [address]-10, 10/23/19 11:36:00 EST, Compound, 152, cm, 08/04/19 11:39:00 EST, Height Start Date: 10/23/19 Status: Ordered 14 day desiree sensor 14 day desiree sensor, See Instructions, # 2 each, Refills 11, Tot. Refills 11, Maintenance, E 11.9: for testing glucose lev els. [facility] [address]-06, 08/04/19 13:21:15 EST, Compound, 152, cm, 08/04/19 [...] ONCE A DAY (INCREASED DOSE), [facility]/pharmacy #1972 Start Date: 12/09/18 Status: Ordered [...] Refills, Maintenance, 09/08/19 16:57:00 EST, ER Tablet, [facility] #[id number], 152, cm, 08/04/19 11:39:00 EST, Height Start [...]
--- OUTSIDE RECORDS SUMMARY | 2024-03-13 02:52 | XMS_ITS | Continuity of Care Document ---
Author Organization [facility] Address [address] [place] [address]- Care Team Providers Care Residential Treatment Counselor Name Role Phone Bashir RODARTE, Linda Fatima Primary Care Physician Encounter [facility] [place] [place] ACCT R [id number] Date(s): 03/31/23 - 07/15/[address] [address] Attending Physician: Lucy Muniz MD Admitting Physician: Lucy Muniz MD Referring Physician: Bashir RODARTE, Linda Fatima Allergies, Adverse Reactions, Alerts Substance Reaction Severity Status vancomycin HIVES Active sulfa drugs hives Active Medications 14 day desiree reader 14 day desiree reader, See Instructions, # 1 each, Refills 5, Tot. Refills 5, Maintenance, E11.9: Fortesting glucose levels: [facility] [id number], 10/23/19 11:36:00 EST, Compound, 152, cm, 08/04/19 11:39:00 EST, Height Start Date: 10/23/19 Status: Ordered 14 day desiree sensor 14 day desiree sensor, See Instructions, # 2 each, Refills 11, Tot. Refills 11, Maintenance, E 11.9: for testing glucose lev els. [facility] [id number], 09/19/20 16:42:00 EST, Compound, 152, cm, 04/15/20 [...] BY MOUTH ONCE A DAY (INCREASED DOSE), [facility]/pharmacy #1972 Start Date: 12/09/18 Status: Ordered Losartan [...] Refills, Maintenance, 09/19/20 16:42:00 EST, ER Tablet, [facility] #[id number], 152, cm, 04/15/20 12:53:00 EDT, Height Start [...] drug. Start Date: 01/04/23 Status: Ordered Pen [place], 31 G x 5 mm BD Ultra [...] mL, 11 Refills, Maintenance, 09/19/20 16:42:00 EST, [facility] #[id number], 152, cm, 04/15/20 12:53:00 EDT, Height Start Date: 09/19/20 Status: Ordered Trulicity Pen 1.5 mg/0.5 mL subcutaneous solution = 1.5 mg, Subcutaneous Infusion, Every week, E 11.9, # 2.5 mL, 11 Refills, Maintenance, 09/19/20 16:43:00 EST, [facility] #[id number], 152, cm, 04/15/20 12:53:00 EDT, Height Start [...] Team Personnel Name: Nidia Hill RN Position: [facility] RN Member Role: Primary Care Nurse Name: Lidna Camejo NP Position: [facility] Outreach Member Role: PCP Address: Address: [address] [place] [address]- Care Team Related Persons Name: OVIDIOSALBADOR Address: home [address] [place] [address]
--- OUTSIDE RECORDS SUMMARY | 2024-03-13 02:52 | XMS_ITS | Continuity of Care Document ---
Author Organization [facility] Address [address] [place] [address]- Care Team Providers Care Display Carver Name Role Phone Bashir RODARTE, Linda Fatima Primary Care Physician [place] [facility] [facility] [place] 10/15/20 - 02/12/21 [facility] [address] [place] [address] Attending Physician: Jaden Santana MD Admitting Physician: Jaden Santana MD Referring Physician: Bashir RODARTE, Linda Fatima Allergies, Adverse Reactions, Alerts Substance Reaction Severity Status sulfa drugs hives Active Medications 14 day desiree reader 14 day desiree reader, See Instructions, # 1 each, Refills 5, Tot. Refills 5, Maintenance, E11.9: Fortesting glucose levels: [facility] [address]-88, 10/23/19 11:36:00 EST, Compound, 152, cm, 08/04/19 11:39:00 EST, Height Start Date: 10/23/19 Status: Ordered 14 day desiree sensor 14 day desiree sensor, See Instructions, # 2 each, Refills 11, Tot. Refills 11, Maintenance, E 11.9: for testing glucose lev els. [facility] [id number], 09/19/20 16:42:00 EST, Compound, 152, cm, 04/15/20 [...] BY MOUTH ONCE A DAY (INCREASED DOSE), [facility]/pharmacy #1972 Start Date: 12/09/18 Status: Ordered magnesium glycinate = 400 mg, By Mouth, Daily, 0 Refills, Maintenance, 03/21/20 11:23:00 EDT Start Date: 03/21/20 Status: Ordered metFORMIN 500 mg oral tablet, extended release 2 tablet = 1,000 mg, By Mouth, Daily, Take with food E 11.9, # 60 tablet, 11 Refills, Maintenance, 09/19/20 16:42:00 EST, ER Tablet, [facility] #06506, 152, cm, 04/15/20 12:53:00 EDT, Height Start Date: 09/19/20 Status: Ordered Norvasc 5 mg oral tablet 5 mg, 1, tablet, By Mouth, Daily, Refills 0, Maintenance, 03/21/20 11:21:00 EDT Start Date: 03/21/20 Status: Ordered Pen [place], 31 G x 5 mm BD Ultra [...] mL, 11 Refills, Maintenance, 09/19/20 16:42:00 EST, [facility] #06514, 152, cm, 04/15/20 12:53:00 EDT, Height Start Date: 09/19/20 Status: Ordered Trulicity Pen 1.5 mg/0.5 mL subcutaneous solution = 1.5 mg, Subcutaneous Infusion, Every week, E 11.9, # 2.5 mL, 11 Refills, Maintenance, 09/19/20 16:43:00 EST, [facility] #[id number], 152, cm, 04/15/20 12:53:00 EDT, Height Start Date: 09/19/20 Status: Ordered Vitamin D3 = 2,000 mg, By Mouth, Daily, 0 Refills, Maintenance, 03/21/20 11:21:00 EDT Start Date: 03/21/20 Status: Ordered Problem List Condition Effective Dates Status Health Status Inform ant Low back pain with radiation(Confirmed) Active
--- OUTSIDE RECORDS SUMMARY | 2024-03-13 02:52 | XMS_ITS | Continuity of Care Document ---
Author Organization [facility] Address [address] [place] [address]- Care Team Providers Care Continuous Crusher Operator Name Role Phone Bashir RODARTE, Linda Fatima Primary Care Physician En[place] [facility] [place] Date(s): 05/19/21 - 06/18/21 [facility] [address] [place] [address] Attending Physician: Admtr, Ar8 Admitting Physician: Admtr, Ar8 Referring Physician: Admtr, Ar8 Allergies, Adverse Reactions, Alerts Substance Reaction Severity Status sulfa drugs hives Active Medications 14 day desiree reader 14 day desiree reader, See Instructions, # 1 each, Refills 5, Tot. Refills 5, Maintenance, E11.9: Fortesting glucose levels: [facility] [id number], 10/23/19 11:36:00 EST, Compound, 152, cm, 08/04/19 11:39:00 EST, Height Start Date: 10/23/19 Status: Ordered 14 day desiree sensor 14 day desiree sensor, See Instructions, # 2 each, Refills 11, Tot. Refills 11, Maintenance, E 11.9: for testing glucose lev els. [facility] [address]-32, 09/19/20 16:42:00 EST, Compound, 152, cm, 04/15/20 [...] BY MOUTH ONCE A DAY (INCREASED DOSE), [facility]/pharmacy #1972 Start Date: 12/09/18 Status: Ordered magnesium glycinate = 400 mg, By Mouth, Daily, 0 Refills, Maintenance, 03/21/20 11:23:00 EDT Start Date: 03/21/20 Status: Ordered metFORMIN 500 mg oral tablet, extended release 2 tablet = 1,000 mg, By Mouth, Daily, Take with food E 11.9, # 60 tablet, 11 Refills, Maintenance, 09/19/20 16:42:00 EST, ER Tablet, [facility] #[id number], 152, cm, 04/15/20 12:53:00 EDT, Height Start Date: 09/19/20 Status: Ordered Norvasc 5 mg oral tablet 5 mg, 1, tablet, By Mouth, Daily, Refills 0, Maintenance, 03/21/20 11:21:00 EDT Start Date: 03/21/20 Status: Ordered Pen [place], 31 G x 5 mm BD Ultra [...] mL, 11 Refills, Maintenance, 09/19/20 16:42:00 EST, [facility] #71258, 152, cm, 04/15/20 12:53:00 EDT, Height Start Date: 09/19/20 Status: Ordered Trulicity Pen 1.5 mg/0.5 mL subcutaneous solution = 1.5 mg, Subcutaneous Infusion, Every week, E 11.9, # 2.5 mL, 11 Refills, Maintenance, 09/19/20 16:43:00 EST, [facility] #27621, 152, cm, 04/15/20 12:53:00 EDT, Height Start Date: 09/19/20 Status: Ordered Vitamin D3 = 2,000 mg, By Mouth, Daily, 0 Refills, Maintenance, 03/21/20 11:21:00 EDT Start Date: 03/21/20 Status: Ordered Problem List Condition Effective Dates Status Health Status Inform ant Low back pain with radiation(Confirmed) Active
--- OUTSIDE RECORDS SUMMARY | 2024-03-13 02:52 | XMS_ITS | Continuity of Care Document ---
Author Organization [facility] Address [address] [place] [address]- Care Team Providers Care Marshmallow Maker Name Role Phone Bashir RODARTE, Linda Fatima Primary Care Physician En[place] [facility] [place] ACCT R [id number] Date(s): 06/15/23 - 07/15/23 [facility] [address] [address]- Attending Physician: Admtr, Kj8 Admitting Physician: Admtr, ArCriselda Referring Physician: Admtr, Ar8 Allergies, Adverse Reactions, Alerts Substance Reaction Severity Status vancomycin HIVES Active sulfa drugs hives Active Medications 14 day desiree reader 14 day desiree reader, See Instructions, # 1 each, Refills 5, Tot. Refills 5, Maintenance, E11.9: Fortesting glucose levels: [facility] [address]-10, 10/23/19 11:36:00 EST, Compound, 152, cm, 08/04/19 11:39:00 EST, Height Start Date: 10/23/19 Status: Ordered 14 day desiree sensor 14 day desiree sensor, See Instructions, # 2 each, Refills 11, Tot. Refills 11, Maintenance, E 11.9: for testing glucose lev els. [facility] [id number], 09/19/20 16:42:00 EST, Compound, 152, cm, 04/15/20 [...] Refills, Maintenance, 09/19/20 16:42:00 EST, ER Tablet, [facility] #[id number], 152, cm, 04/15/20 12:53:00 EDT, Height Start [...] drug. Start Date: 01/04/23 Status: Ordered Pen [place], 31 G x 5 mm BD Ultra [...] mL, 11 Refills, Maintenance, 09/19/20 16:42:00 EST, [facility] #57651, 152, cm, 04/15/20 12:53:00 EDT, Height Start Date: 09/19/20 Status: Ordered Trulicity Pen 1.5 mg/0.5 mL subcutaneous solution = 1.5 mg, Subcutaneous Infusion, Every week, E 11.9, # 2.5 mL, 11 Refills, Maintenance, 09/19/20 16:43:00 EST, [facility] #09484, 152, cm, 04/15/20 12:53:00 EDT, Height Start [...] Care Nurse Name: Linda Camejo NP Position: [facility] Outreach Member Role: PCP Address: Address: [address] [place] [address]- Care Team Related Persons Name: SALBADOR NOLAN Address: home [address] [place] [address]
--- OUTSIDE RECORDS SUMMARY | 2024-03-13 02:52 | XMS_ITS | Continuity of Care Document ---
Author Organization [facility] Address [address] [place] [address]- Care Team Providers Care Twister Hand Name Role Phone Bashir RODARTE, Linda Fatima Primary Care Physician [place] [facility] [place] Date(s): 04/17/20 - 05/17/20 [facility] [address] [place] [address] [facility] Allergies, Adverse Reactions, Alerts Substance Reaction Severity Status sulfa drugs hives Active Medications 14 day desiree reader 14 day desiree reader, See Instructions, # 1 each, Refills 5, Tot. Refills 5, Maintenance, E11.9: Fortesting glucose levels: [facility] [address]-91, 10/23/19 11:36:00 EST, Compound, 152, cm, 08/04/19 11:39:00 EST, Height Start Date: 10/23/19 Status: Ordered 14 day desiree sensor 14 day desiree sensor, See Instructions, # 2 each, Refills 11, Tot. Refills 11, Maintenance, E 11.9: for testing glucose lev els. [facility] [id number], 08/04/19 13:21:15 EST, Compound, 152, cm, 08/04/19 [...] BY MOUTH ONCE A DAY (INCREASED DOSE), [facility]/pharmacy #1972 Start Date: 12/09/18 Status: Ordered magnesium [...] Refills, Maintenance, 09/08/19 16:57:00 EST, ER Tablet, [facility] #[id number], 152, cm, 08/04/19 11:39:00 EST, Height Start [...]
--- OUTSIDE RECORDS SUMMARY | 2024-03-13 02:52 | XMS_ITS | Continuity of Care Document ---
Author Organization [facility] Address [address] [place] [address]- Care Team Providers Care Tester Armature Or Fields Name Role Phone Bashir RODARTE, Linda Fatima Primary Care Physician Encounter [facility] [place] Date(s): 01/05/23 - 05/01/[address] [address]- Attending Physician: Bruce Covington Admitting Physician: Bruce Covington Referring Physician: Bruce Covington Allergies, Adverse Reactions, Alerts Substance Reaction Severity Status vancomycin HIVES Active sulfa drugs hives Active Medications 14 day desiree reader 14 day desiree reader, See Instructions, # 1 each, Refills 5, Tot. Refills 5, Maintenance, E11.9: Fortesting glucose levels: [facility] [address]-22, 10/23/19 11:36:00 EST, Compound, 152, cm, 08/04/19 11:39:00 EST, Height Start Date: 10/23/19 Status: Ordered 14 day desiree sensor 14 day desiree sensor, See Instructions, # 2 each, Refills 11, Tot. Refills 11, Maintenance, E 11.9: for testing glucose lev els. [facility] [id number], 09/19/20 16:42:00 EST, Compound, 152, cm, 04/15/20 [...] MOUTH ONCE A DAY (INCREASED DOSE), [facility]/pharmacy #1972 Start Date: 12/09/18 Status: [...] Refills, Maintenance, 09/19/20 16:42:00 EST, ER Tablet, [facility] #[id number], 152, cm, 04/15/20 12:53:00 EDT, Height Start [...] drug. Start Date: 01/04/23 Status: Ordered Pen [place], 31 G x 5 mm BD Ultra [...] mL, 11 Refills, Maintenance, 09/19/20 16:42:00 EST, [facility] #[id number], 152, cm, 04/15/20 12:53:00 EDT, Height Start Date: 09/19/20 Status: Ordered Trulicity Pen 1.5 mg/0.5 mL subcutaneous solution = 1.5 mg, Subcutaneous Infusion, Every week, E 11.9, # 2.5 mL, 11 Refills, Maintenance, 09/19/20 16:43:00 EST, [facility] #[id number], 152, cm, 04/15/20 12:53:00 EDT, Height Start [...] Team Personnel Name: Nidia Hill RN Position: [facility] RN Member Role: Primary Care Nurse Name: Linda Camejo NP Position: [facility] Outreach Member Role: PCP Address: Address: [address] [place] [address]- Care Team Related Persons Name: OVIDIOSALBADOR Address: home [address] [place] [address]
--- OUTSIDE RECORDS SUMMARY | 2024-03-13 02:52 | XMS_ITS | Continuity of Care Document ---
Author Organization [facility] Address [address] [place] [address]- Care Team Providers Care Primary Care Coordinator Name Role Phone Bashir RODARTE, Linda Fatima Primary Care Physician Encounter [facility] [place] Date(s): 09/02/20 - 10/02/20 [facility] [address] [place] [address] Allergies, Adverse Reactions, Alerts Substance Reaction Severity Status sulfa drugs hives Active Medications 14 day desiree reader 14 day desiree reader, See Instructions, # 1 each, Refills 5, Tot. Refills 5, Maintenance, E11.9: Fortesting glucose levels: [facility] [id number], 10/23/19 11:36:00 EST, Compound, 152, cm, 08/04/19 11:39:00 EST, Height Start Date: 10/23/19 Status: Ordered 14 day desiree sensor 14 day desiree sensor, See Instructions, # 2 each, Refills 11, Tot. Refills 11, Maintenance, E 11.9: for testing glucose lev els. [facility] [id number], 09/19/20 16:42:00 EST, Compound, 152, cm, 04/15/20 [...] Refills, Maintenance, 09/19/20 16:42:00 EST, ER Tablet, [facility] #[id number], 152, cm, 04/15/20 12:53:00 EDT, Height Start Date: 09/19/20 Status: Ordered Norvasc 5 mg oral tablet 5 mg, 1, tablet, By Mouth, Daily, Refills 0, Maintenance, 03/21/20 11:21:00 EDT Start Date: 03/21/20 Status: Ordered Pen [place], 31 G x 5 mm BD Ultra [...] 30 mL, 11 Refills, Maintenance, 09/19/20 16:42:[id number], 152, cm, 04/15/20 12:53:00 EDT, Height Start Date: 09/19/20 Status: Ordered Trulicity Pen 1.5 mg/0.5 mL subcutaneous solution = 1.5 mg, Subcutaneous Infusion, Every week, E 11.9, # 2.5 mL, 11 Refills, Maintenance, 09/19/20 16:43:00 EST, [facility] #[id number], 152, cm, 04/15/20 12:53:00 EDT, Height Start Date: 09/19/20 Status: Ordered Vitamin D3 = 2,000 mg, By Mouth, Daily, 0 Refills, Maintenance, 03/21/20 11:21:00 EDT Start Date: 03/21/20 Status: Ordered Problem List Condition Effective Dates Status Health Status Inform ant Low back pain with radiation(Confirmed) Active
--- OUTSIDE RECORDS SUMMARY | 2024-03-13 02:52 | XMS_ITS | Continuity of Care Document ---
Author Organization [facility] Address [address] [place], [place] [address]victor hugo saul, [address] [place] [address]- Care Team Providers Care Special Collections Librarian Name Role Phone Bashir RODARTE, Linda Fatima Primary Care Physician [place] [facility] [place](s[place] 03/04/20 - 04/03/[address], [address] [place] [address]- [facility] Allergies, Adverse Reactions, Alerts Substance Reaction Severity Status sulfa drugs hives Active Medications 14 day desiree reader 14 day desiree reader, See Instructions, # 1 each, Refills 5, Tot. Refills 5, Maintenance, E11.9: Fortesting glucose levels: [facility] [id number], 10/23/19 11:36:00 EST, Compound, 152, cm, 08/04/19 11:39:00 EST, Height Start Date: 10/23/19 Status: Ordered 14 day desiree sensor 14 day desiree sensor, See Instructions, # 2 each, Refills 11, Tot. Refills 11, Maintenance, E 11.9: for testing glucose lev els. [facility] [id number], 08/04/19 13:21:15 EST, Compound, 152, cm, 08/04/19 [...] BY MOUTH ONCE A DAY (INCREASED DOSE), [facility]/pharmacy #1972 Start Date: 12/09/18 [...] Refills, Maintenance, 09/08/19 16:57:00 EST, ER Tablet, [facility] #[id number], 152, cm, 08/04/19 11:39:00 EST, Height Start [...]
--- OUTSIDE RECORDS SUMMARY | 2024-03-13 02:52 | XMS_ITS | Continuity of Care Document ---
Author Organization [facility] Address [address] [place] [address]- Care Team Providers Care Wine Cellar Worker Name Role Phone Bashir RODARTE, Linda Fatima Primary Care Physician [place] [facility] [id number] Date(s): 10/28/23 - 11/27/[address] [address]- Allergies, Adverse Reactions, Alerts Substance Reaction Severity Status vancomycin HIVES Active sulfa drugs hives Active Medications 14 day desiree reader 14 day desiree reader, See Instructions, # 1 each, Refills 5, Tot. Refills 5, Maintenance, E11.9: Fortesting glucose levels: [facility] [id number], 10/23/19 11:36:00 EST, Compound, 152, cm, 08/04/19 11:39:00 EST, Height Start Date: 10/23/19 Status: Ordered 14 day desiree sensor 14 day desiree sensor, See Instructions, # 2 each, Refills 11, Tot. Refills 11, Maintenance, E 11.9: for testing glucose lev els. [facility] [id number], 09/19/20 16:42:00 EST, Compound, 152, cm, 04/15/20 [...] BY MOUTH ONCE A DAY (INCREASED DOSE), [facility]/pharmacy #[id number] Start Date: 12/09/18 Status: Ordered Losartan [...] Refills, Maintenance, 09/19/20 16:42:00 EST, ER Tablet, [facility] #[id number], 152, cm, 04/15/20 12:53:00 EDT, Height Start [...] drug. Start Date: 01/04/23 Status: Ordered Pen [place], 31 G x 5 mm BD Ultra [...] mL, 11 Refills, Maintenance, 09/19/20 16:42:00 EST, [facility] #[id number], 152, cm, 04/15/20 12:53:00 EDT, Height Start Date: 09/19/20 Status: Ordered Trulicity Pen 1.5 mg/0.5 mL subcutaneous solution = 1.5 mg, Subcutaneous Infusion, Every week, E 11.9, # 2.5 mL, 11 Refills, Maintenance, 09/19/20 16:43:00 EST, [facility] #[id number], 152, cm, 04/15/20 12:53:00 EDT, Height Start [...] Team Personnel Name: Nidia Hill RN Position: [facility] RN Member Role: Primary Care Nurse Name: Linda Camejo NP Position: [facility] Outreach Member Role: PCP Address: Address: [address] [place] [address]- Care Team Related Persons Name: SALBADOR NOLAN Address: home [address] [place] [address]
--- OUTSIDE RECORDS SUMMARY | 2024-03-13 02:52 | XMS_ITS | Continuity of Care Document ---
Author Organization [facility] Address [address] [place] [address] [address] [place] [address]- Care Team Providers Care Medical Secretary Receptionist Name Role Phone Bashir RODARTE, Linda Fatima Primary Care Physician Encounter [facility] [place] Date(s): 01/04/23 - 01/11/[address] [place], [place] [address] Attending Physician: Giuseppe Yo MD Referring Physician: Bashir RODARTE, Linda Fatima Allergies, Adverse Reactions, Alerts Substance Reaction Severity Status vancomycin HIVES Active sulfa drugs hives Active Medications 14 day desiree reader 14 day desiree reader, See Instructions, # 1 each, Refills 5, Tot. Refills 5, Maintenance, E11.9: Fortesting glucose levels: [facility] [id number], 10/23/19 11:36:00 EST, Compound, 152, cm, 08/04/19 11:39:00 EST, Height Start Date: 10/23/19 Status: Ordered 14 day desiree sensor 14 day desiree sensor, See Instructions, # 2 each, Refills 11, Tot. Refills 11, Maintenance, E 11.9: for testing glucose lev els. [facility] [id number], 09/19/20 16:42:00 EST, Compound, 152, cm, 04/15/20 [...] BY MOUTH ONCE A DAY (INCREASED DOSE), [facility]/pharmacy #[id number] Start Date: 12/09/18 Status: Ordered [...] Refills, Maintenance, 09/19/20 16:42:00 EST, ER Tablet, [facility] #[id number], 152, cm, 04/15/20 12:53:00 EDT, Height Start [...] drug. Start Date: 01/04/23 Status: Ordered Pen [place], 31 G x 5 mm BD Ultra [...] mL, 11 Refills, Maintenance, 09/19/20 16:42:00 EST, [facility] #[id number], 152, cm, 04/15/20 12:53:00 EDT, Height Start Date: 09/19/20 Status: Ordered Trulicity Pen 1.5 mg/0.5 mL subcutaneous solution = 1.5 mg, Subcutaneous Infusion, Every week, E 11.9, # 2.5 mL, 11 Refills, Maintenance, 09/19/20 16:43:00 EST, [email or web address] #[id number], 152, cm, 04/15/20 12:53:00 EDT, Height Start [...] Osteoarthritis Confirmed Active Severe obesity Confirmed Active Procedures Procedure Date Related Diagnosis Body Site Status Laparoscopic adjustable gastric banding Completed Open cholecystectomy Comp leted Operative procedure on finger Completed Removal of gastric band C ompleted Vital Signs Most recent to oldest [Reference Range]: 1 Height 147.95 cm (01/04/23 8:34 AM) Weight 133.9 kg (01/04/23 8:34 AM) Pulse Rate [55-90 bpm] 80 bpm (01/04/23 8:34 AM) Body Mass Index [18.5-24.99 kg/m2] 61.17 kg/m2 *>HHI* (01/04/23 8:34 AM) Blood Pressure [90-138/55-84 mm Hg] 144/ 77mm Hg *H* (01/04/23 8:34 AM) Respiratory Rate [16-30 br/min] 18 br/mi n (01/04/23 8:34 AM) Temperature [96.8-100.4 DegF] 96.7 DegF *L* (01/04/23 8:34 AM) Blood pressure sites Arm, right (01/04/23 8:34 AM) Temperature Route Temporal (01/04/23 8:34 AM) Weight Obtained Via Standing scale (01/04/23 8:34 AM) Social History Social History Type Response Smoking Status Never (less than 100 in lifetime) entered on: 01/04/23 Sex Patient Care team information Care Team Personnel Name: Nidia Hill RN Position: [facility] RN Member Role: Primary Care Nurse Name: Bashir RODARTE, Linda Fatima Position: [facility] Outreach Member Role: PCP Address: Address: [address] [place] [address]- Care Team Related Persons Name: SALBADOR NOLAN Address: home [address] [place] [address]
--- OUTSIDE RECORDS SUMMARY | 2024-03-13 02:52 | XMS_ITS | Continuity of Care Document ---
Author Organization [facility] Address [address] [place], [place] [address]victor hugo saul, [address] [place] [address]- Care Team Providers Care Rn Disease Management Name Role Phone Bashir RODARTE, Linda Fatima Primary Care Physician [place] [facility] [place] 04[place]10/20 [facility] [address] [place] [address] Drive, [address] [place] [address]- [facility] Allergies, Adverse Reactions, Alerts Substance Reaction Severity Status sulfa drugs hives Active Medications 14 day desiree reader 14 day desiree reader, See Instructions, # 1 each, Refills 5, Tot. Refills 5, Maintenance, E11.9: Fortesting glucose levels: [facility] [id number], 10/23/19 11:36:00 EST, Compound, 152, cm, 08/04/19 11:39:00 EST, Height Start Date: 10/23/19 Status: Ordered 14 day desiree sensor 14 day desiree sensor, See Instructions, # 2 each, Refills 11, Tot. Refills 11, Maintenance, E 11.9: for testing glucose lev els. [facility] [id number], 08/04/19 13:21:15 EST, Compound, 152, cm, 08/04/19 [...] BY MOUTH ONCE A DAY (INCREASED DOSE), [facility]/pharmacy #[id number] Start Date: 12/09/18 Status: [...] Refills, Maintenance, 09/08/19 16:57:00 EST, ER Table[facility], [id number], 152, cm, 08/04/19 11:39:00 EST, Height Start [...]
--- OUTSIDE RECORDS SUMMARY | 2024-03-13 02:52 | XMS_ITS | Continuity of Care Document ---
Author Organization [facility] Address [address] [place] [address] ve [address] [place] [address]- Care Team Providers Care Dairy Manager Name Role Phone Bashir POLE TRUCK DRIVER, Linda Fatima Primary Care Physician Encounter [facility] [place] Date(s): 01/29/23 - 04/18/[address] [place] [address]- Attending Physician: Bindu MS,RD,LDN, Dulce Heredia Allergies, Adverse Reactions, Alerts Substance Reaction Severity Status vancomycin HIVES Active sulfa drugs hives Active Medications 14 day desiree reader 14 day desiree reader, See Instructions, # 1 each, Refills 5, Tot. Refills 5, Maintenance, E11.9: Fortesting glucose levels: [facility] [id number], 10/23/19 11:36:00 EST, Compound, 152, cm, 08/04/19 11:39:00 EST, Height Start Date: 10/23/19 Status: Ordered 14 day desiree sensor 14 day desiree sensor, See Instructions, # 2 each, Refills 11, Tot. Refills 11, Maintenance, E 11.9: for testing glucose lev els. [facility] [id number], 09/19/20 16:42:00 EST, Compound, 152, cm, 04/15/20 [...] Refills, Maintenance, 09/19/20 16:42:00 EST, ER Tablet, [facility] #[id number], 152, cm, 04/15/20 12:53:00 EDT, Height Start [...] drug. Start Date: 01/04/23 Status: Ordered Pen [place], 31 G x 5 mm BD Ultra [...] mL, 11 Refills, Maintenance, 09/19/20 16:42:00 EST, [facility] #[id number], 152, cm, 04/15/20 12:53:00 EDT, Height Start Date: 09/19/20 Status: Ordered Trulicity Pen 1.5 mg/0.5 mL subcutaneous solution = 1.5 mg, Subcutaneous Infusion, Every week, E 11.9, # 2.5 mL, 11 Refills, Maintenance, 09/19/20 16:43:00 EST, [facility] #[id number], 152, cm, 04/15/20 12:53:00 EDT, Height Start [...] Care Nurse Name: Linda Camejo NP Position: [facility] Outreach Member Role: PCP Address: Address: [address] [place] [address]- Care Team Related Persons Name: SALBADOR NOLAN Address: [address] [place] [address]
--- OUTSIDE RECORDS SUMMARY | 2024-03-13 02:53 | XMS_ITS | Patient Health Record ---
Author Organization [facility] [employer] Address [address] [place] [phone] Care Team Providers Care Group Managing Director Name Role Phone KENDRICK GILES Primary Care Provider GIACOMO SAEED Unavailable [phone] ALLERGIES Allergen (clinical drug ingredient) Drug/Non Drug Allergy documented on EMR Reaction Allergy Type Onset Date Status Substance with sulfonamide structure and antibacterial mechanism of action (substance) Sulfa Antibiotics Unknown Drug Allergy Active vancomycin Vancomycin , Severity Observation:Sev ere , Drug Allergy Active RESULTS Component Value Reference Range Notes THYROID PANEL Reviewed date:08/17/2023 11:23:25 AM Interpretation: Performing Lab:Testing performed or reported by [facility], a Service of [address] [address] Dev Wills MD, Cold Type Composing Machine Operator [facility]# [id number] Notes/Report: FREE T4 1.40 (0.70-1.80) NG/DL TSH 3.38 (0.4-4.2) uIU/mL URINALYSIS, COMPLETE Reviewed date:08/18/2023 02:44:09 PM Interpretation: Performing Lab:Testing performed or reported by [facility], a Service of [address] [address] Dev Wills MD, Cold Type Composing Machine Operator [facility]# [id number] Notes/Report: APPEAR/COLOR YELLOW TURBID SP. GRAVITY 1.041 (1.002-1.030) URINE PH 5.5 (5.0-8.0) URINE ALBUMIN TRACE (NEG) URINE GLUCOSE 4+ (NEG) URINE KETONES NEGATIVE (NEG) URINE BILIRUBIN NEGATIVE (NEG) URINE HEMOGLOBIN NEGATIVE (NEG) URINE NITRITE POSITIVE (NEG) URINE LEUKOCYTE 1+ (NEG) UROBILINOGEN NORMAL (NORM) MG/DL URINE WBCs 44 (0-5) /HPF URINE RBCs 3 (0-3) /HPF BACTERIA SLIGHT (NEG) HPF MUCUS SLIGHT SQUAMOUS EPITH 22 (0-8) /HPF BUDDING YEAST HEAVY T3, REVERSE Reviewed date:08/24/2023 07:57:06 AM Interpretation: Performing Lab:Testing performed or reported by [facility], a Service of [facility], [address] [place] [address] [place] [address] Dev Wills MD, Cold Type Composing Machine Operator CLIA# [id number] Notes/Report: REVERSE T3 30.6 Reference range: 9.2 to 24.1 Unit: ng/dL (NOTE) This test was developed and its performance characteristics determined by [facility]. It has not been cleared or approved by the Food and Drug Administration. Test performed at [address] [address] MICROALBUMIN, URINE Reviewed date:08/18/2023 02:44:09 PM Interpretation: Performing Lab:Testing performed or reported by [facility], a Service of [facility], [address] [place] [id number] Dev Wills MD, Cold Type Composing Machine Operator CLIA# [id number] Notes/Report: MICRO-ALBUMIN 29.0 (<20) MG/L The urine microalbumin test is designed to monitor renal function. When screening for Bence Alvarado proteinuria, urine electrophoresis is recommended. MALB/CREAT RATIO 28.8 (0-20) MG/GM URINE CREAT FOR MICRO ALBUMIN 100.4 LIPID PANEL, REFLEX TO DIREC T LDL Reviewed date:08/17/2023 11:23:25 AM Interpretation: Performing Lab:Testing performed or reported by [facility], a Service of [facility], [address] [place] [id number] Dev Wills MD, Cold Type Composing Machine Operator CLIA# [id number] Notes/Report: CHOLESTEROL, TOTAL 204 (<200) MG/DL TRIGLYCERIDES 181 (<150) MG/DL HDL CHOL 55 (>39) MG/DL LDL CHOLESTEROL, CALCULATED 113 (0-130) MG/DL NON HDL CHOLESTEROL (CALC) 149 (<160) MG/DL CHOLESTEROL/HDL RATIO (CALC) 3.7 (<5.0) Reference range for children have not been well established. Adult reference range is equal or less than 5 HEMOGLOBIN A1C Reviewed date:08/17/2023 11:23:25 AM Interpretation: Performing Lab:Testing performed or reported by [facility], a Service of [address] [address] Dev Wills MD, Cold Type Composing Machine Operator [facility]# [id number] Notes/Report: HEMOGLOBIN A1C 9.0 (4.0-5.6) % MONITORING: In known diabetic patients, hemoglobin A1c targets should be discussed with health care provider. DIAGNOSTIC USE: The [place] Diabetes Association (ADA) and the World Health Organization (WHO) recommend the use of HbA1c to diagnose diabetes using a threshold of 6.5%. Patients who have an HbA1c between 5.7% and 6.4% are considered at increased risk for developing diabetes in the future. CAUTION: Falsely low HbA1c results may be observed in patients with hemolytic anemia, homozygous forms of abnormal hemoglobin (e.g. SS, CC, SC), , recent blood loss or hemoglobin F greater than 7%. Fructosamine may be used as an alternate test in these cases. REFERENCE: ADA: Standards of Medical Care in Diabetes 2020, The Journal of Clinical and Applied Research and Education Volume 43, Supplement 1 COMPREHENSIVE METABOLIC PANE L Reviewed date:08/17/2023 11:23:25 AM Interpretation: Performing Lab:Testing performed or reported by [facility], a Service of [facility], [address] [place] [address] Dev Wills MD, Cold Type Composing Machine Operator [facility]# [id number] Notes/Report: GLUCOSE 197 (70-99) MG/DL BUN 19 (8-23) MG/DL CREATININE 0.8 (0.5-1.0) MG/DL SODIUM 140 (133-145) MMOL/L POTASSIUM 4.3 (3.6-5.2) MMOL/L CHLORIDE 100 (98-107) MMOL/L BICARBONATE 28 (22-29) MMOL/L ANION GAP 12 (4-17) ALBUMIN 4.5 (3.4-4.8) GM/DL CALCIUM 9.5 (8.6-10.5) MG/DL BILIRUBIN,TOTAL 0.5 (0-1.2) MG/DL TOTAL PROTEIN 7.3 (6.2-8.2) GM/DL AG RATIO 1.6 AST 25 (0-32) U/L ALK PHOS 106 (35-104) U/L ALT 40 (0-33) U/L ESTIMATED GFR CREATININE 80 Creatinine based estimated glomerular filtration (eGFR) in adults is calculated using the National Kidney Foundation recommended 2020 CKD-EPI equation. Estimates GFR from serum creatinine, age and sex. CBC (COMPLETE BLOOD COUNT) W ITH DIFF Reviewed date:08/17/2023 11:23:25 AM Interpretation: Performing Lab:Testing performed or reported by [facility], a Service of [facility], [address] [place] [address] Dev Wills MD, Cold Type Composing Machine Operator [facility]# [id number] Notes/Report: WBC 7.5 (4.0-11.0) K/MM3 RBC 5.61 (4.20-5.40) M/MM3 HGB 15.2 (11.7-15.5) GM/DL HCT 49.6 (35.7-45.8) % MCV 88.4 (80.0-100.0) FL MCH 27.1 (27.0-34.0) PG MCHC 30.6 (33.0-37.0) g/dL PLT 226 (150-460) K/MM3 RDW-SD 45.9 (<47.0) FL MPV 11.3 (9.4-12.4) FL AUTOMATED NRBC 0.0 ABS. NRBC 0.0 NEUT # 3.8 (1.3-7.0) K/MM3 LYMPH # 2.7 (0.8-3.1) K/MM3 MONO# 0.6 (0.4-0.9) K/MM3 EO # 0.3 (0.0-0.4) K/MM3 BASO # 0.1 (0.0-0.1) K/MM3 ABS. IMM GRAN 0.1 NEUT 50.8 (44-76) % LYMPH 36.2 (15-43) % MONOCYTE 7.4 (4.5-10.5) % EO 3.8 (0-6) % BASO 1.1 (0-2) % IMM GRAN 0.7 REASON FOR REFERRAL No Information MEDICATIONS Medication SIG (Take, Route, Frequency, Duration) Notes Start Date End Date Status Dexcom G6 Emergency Department Director - for continuous glucose monitoring for 90 days Active buPROPion HCl 100 MG 1 tablet Orally Twice a day for 90 days 10/18/2023 Active Mounjaro 12.5 MG/0.5ML 12.5 mg Subcutaneous once per week for 90 days 12/02/2023 Active Losartan Potassium-HCTZ 100-25 MG 1 tablet Orally Once a day for 90 days Active Diflucan 150 MG 1 tab(s) orally once then repeat dose in 72 hrs Orally once for 1 days Diflucan 150 mg tablet 08/18/2022 Active Doxycycline Monohydrate 100 MG take 1 cap orally twice daily with food for 7 days Oral doxycycline monohydrate 100 mg capsule 07/17/2022 Not-Taking Acetaminophen 325 MG Oral ACETAMINOPH EN 325 MG TABLET 03/14/2022 Active Dexcom G7 Sensor - as directed for continuous glucose monitoring for 90 days 07/08/2023 Not-Taking Dexcom G6 Sensor - as directed for continuous glucose monitoring for 90 days 06/01/2023 Active Ozfsaprs-Wpvwkebsh-L C 3.5-35678-4 4 drops into affected ear Otic Three times a day for 10 days 05/11/2023 Active Zithromax Z-Monico 250 MG Take 2 tabs orally once on day one, then 1 tab remaining days until gone Oral Zithromax Z-Monico 250 mg tablet 07/08/2022 Not-Taking Sertraline HCl 100 MG 1 tablet Orally Once a day for 90 days Active LORazepam 0.5 mg TAKE 1 TABLET BY MOUTH TWICE A DAY NEEDED FOR PANIC for 30 01/17/2024 Active DOCUSATE SOD 100MG CAPSULES TAKE 1 CAPSULE BY MOUTH EVERY DAY NEEDED FOR CONSTIPATION DOCUSATE SOD 100MG CAPSULES *Reorder from [employer] for eRx and Interaction Alerts* 03/14/2022 Not-Taking Vitamin D3 Super Strength 50 MCG (2000 UT) Take 1 tab orally once daily as directed Oral Vitamin D3 50 mcg (2,000 unit) tablet 06/04/2022 Not-Taking Nitrofurantoin Macrocrystal 100 MG 1 cap orally twice daily for 7 days Orally twice daily for 14 days Not-Taking buPROPion HCl ER (SR) 100 MG 1 tab in the morning and 1 tab in the evening Orally twice a day for 90 days 10/20/2023 Not-Taking Trelegy Ellipta 100-62.5-25 MCG/ACT 1 puff Inhalation Once a day Samples Active Dexcom G7 Emergency Department Director - as directed for continuous glucose monitoring for 90 days 07/08/2023 Not-Taking Synjardy XR 25-1000 MG 1 tablet with breakfast Orally Once a day Samples Active Ozempic (2 MG/DOSE) 8 MG/3ML 2 mg Subcutaneous once weekly for 90 days Not-Taking amLODIPine Besylate 5 MG 1 tablet Orally Once a day for 90 days Active Mounjaro 15 MG/0.5ML 15 mg Subcutaneous once a week for 90 days 12/23/2023 Active Pulmicort Flexhaler 180 MCG/ACT 1 puff Inhalation Twice a day for 90 days 01/06/2024 Not-Taking Qvar RediHaler 80 MCG/ACT Inhale 1-4 puffs every 12 hrs as directed Inhalation Twice a day for 90 days Qvar RediHaler 80 mcg/actuation HFA breath activated aerosol 05/27/2022 Not-Taking Azithromycin 250 MG as directed Orally take 2 tabs orally once on day one, then take 1 tab orally once daily for remaining days, 5 days total for 5 days 12/30/2023 Not-Taking Diclofenac Sodium 75 MG 1 tablet as needed Orally Twice a day for 30 days Active SOCIAL HISTORY Tobacco Use: Social History Observation Description Date Details (start date - stop date) Former Smoker NA - 08/30/1997 Sex Assigned At : Social History Observation Description Sex Assigned At Unknown Tobacco Use/Smoking Question Answer Notes Tobacco use: former smoker When did you stop smoking? 08/30/1997 How long has it been since you last smoked? 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) Active confirmed Skin ulcer due to diabetes mellitus (disorder) (753297706) Problem Type 2 diabetes mellitus with diabetic chronic kidney disease (E11.22) Active confirmed Diabetic renal disease (126272580) Problem Type 2 diabetes mellitus with diabetic autonomic (poly)neuropathy (E11.43) Active confirmed Diabetic autonomic neuropathy due to type 2 diabetes mellitus (365162309) Problem Type 2 diabetes mellitus with foot ulcer (E11.621) Active confirmed Foot ulcer d ue to type 2 diabetes mellitus (7137500384903) Problem Morbid (severe) obesity with alveolar hypoventilation (E66.2) Active confirmed Extreme obesity with alveolar hypoventilation (833280180) Problem Sleep apnea, unspecified (G47.30) Active confirmed Sleep apnea (60641744) Problem Essential (primary) hypertension (I10) Active confirmed Essential hypertension (97697209) Problem Depression, unspecified (F32.A) Active confirmed Depression (102216195) Problem Morbid obesity (E66.01) Active confirmed Morbid obesity (473303507) VITAL SIGNS Heart Rate 79 /min 01/10/2024 Height-cm 147.32 cm 01/10/2024 Oximetry 96 % 01/10/2024 Blood pressure diastolic 68 mm Hg 01/10/2024 Weight-kg 133.9 kg 01/05/2024 Height 58 in 01/10/2024 Blood pressure systolic 132 mm Hg 01/10/2024 Weight 295.2 lbs 01/05/2024 BMI 61.69 kg/m2 01/05/2024 Encounters Encounter Location Date Provider Diagnosis [address] [id number] 11/18/[address] [id number] 01/28/[address] [id number] 05/11/2023 KENDRICK GILES Otalgia, right ear H92.01 and Left upper quadrant abdominal swelling, mass and lump R19.[address] [id number] 08/19/2023 KENDRICK GILES Dysuria R30.0 ; Type 2 diabetes mellitus with diabetic autonomic (poly)neuropathy E11.43 ; Acute UTI N39.0 and Morbid (severe) obesity with alveolar hypoventilation E66.[address] [id number] 12/02/2023 KENDRICK KING Type 2 diabetes mellitus with diabetic autonomic (poly)neuropathy E11.43 ; Essential (primary) hypertension I10 and Morbid obesity E66.[address] [id number] 12/23/2023 KENDRICK GILES Type 2 diabetes mellitus with diabetic autonomic (poly)neuropathy E11.43 and Morbid (severe) obesity with alveolar hypoventilation E66.[address] [id number] 01/05/2024 KENDRICK GILES Type 1 diabetes mellitus with other skin ulcer E10.622 [facility], [facility] [address] [facility], [place] [id number] 01/07/2024 KENDRICK CHAN Type 1 diabetes mellitus with other skin ulcer E10.622 [facility], [facility] [address] [facility] [place], [place] [id number] 01/10/2024 KENDRICK GILES Type 2 diabetes mellitus with foot ulcer E11.621 [facility], [facility] [address] [facility] [place], [place] [id number] 01/14/2024 KENDRICK GILES Always tired R53.83 [facility], [facility] [address] [facility], [place] [id number] 03/15/2023 [facility], [facility] [address] [facility], [place] [id number] 03/19/2023 [facility], [facility] [address] [facility], [place] [id number] 04/12/2023 [facility], [facility] [address] [facility], [place] [id number] 04/15/2023 [facility], [facility] [address] [facility], [place] [id number] 05/20/2023 [facility], [facility] [address] [facility], [place] [id number] 05/25/2023 [facility], [facility] [address] [facility], [place] [id number] 05/27/2023 [facility], [facility] [address] [facility], [place] [id number] 06/01/2023 [facility], [facility] [address] [facility], [place] [id number] 06/09/2023 GIACOMO [employer] [facility] [employer] [facility], [facility] [address] [facility], [place] [id number] 06/29/2023 [facility], [facility] [address] [facility] [place] [id number] 07/06/2023 [facility], [facility] [address] [facility], [place] [id number] 08/02/20[facility] 2 diabetes mellitus with foot ulcer E11.621 ; Morbid obesity E66.01 ; Essential (primary) hypertension I10 ; Sleep apnea, unspecified G47.30 and Type 2 diabetes mellitus with diabetic autonomic (poly)neuropathy E11.43 [facility], [facility] [address] [facility], [place] [id number] 08/04/2023 [facility], [facility] [address] [place], [place] [id number] 10/14/2023 [facility], [facility] [address] [facility], [place] [id number] 10/17/2023 [facility], [facility] [address] [facility], [place] [id number] 10/20/2023 [facility], [facility] [address] [facility], [place] [id number] 10/29/2023 [facility], [facility] [address] [facility], [place] [id number] 11/12/2023 [facility], [facility] [address] [place], [place] [id number] 12/27/2023 [facility], [facility] [address] [place], [place] [id number] 12/30/2023 [facility], [facility] [address] [place], [place] [id number] 12/30/2023 [facility], [facility] [address] [place], [place] [id number] 01/05/2024 [facility], [facility] [address] [place], [place] [id number] 01/17/2024 [facility], [facility] [address] [place], [place] [id number] 02/07/2024 [facility] Encounter Date Diagnosis Assessment Notes Treatment Notes Treatment Clinical Notes 08/02/2023 Morbid obesity (ICD-10 - E66.01) 05/11/2023 Otalgia, right ear (ICD-10 - H92.01) 05/11/2023 Left upper quadrant abdominal swelling, mass and lump (ICD-10 - R19.02) 01/14/2024 Always tired (ICD-10 - R53.83) 01/10/2024 Type 2 diabetes mellitus with foot ulcer (ICD-10 - E11.621) Resolved Total time spent with patient 20 minutes which includes face to face visit, education and coordination of care. 01/07/2024 Type 1 diabetes mellitus with other skin ulcer (ICD-10 - E10.622) area/wound resolved, no further treatment necessary-continue to monitor skin daily and report changes 01/05/2024 Type 1 diabetes mellitus with other skin ulcer (ICD-10 - E10.622) very shallow, applied topical duoderm, we will apply compression at 30% will see again on Wednesday12/23/2023 Type 2 diabetes mellitus with diabetic autonomic (poly)neuropathy (ICD-10 - E11.43) All labs were reviewed and the results were explained to the patient in detail. Total time with patient >30 minutes which includes education and coordination of care. 12/23/2023 Morbid (severe) obesity with alveolar hypoventilation (ICD-10 - E66.2) 12/02/2023 Type 2 diabetes mellitus with diabetic autonomic (poly)neuropathy (ICD-10 - E11.43) Will be due for labs this month, would like to increase mounjaro, last a1C was 9, we will plan to increase to 12.5 mg and check a1c 12/02/2023 Essential (primary) hypertension (ICD-10 - I10) Condition is stable and well controlled on current treatment. No changes made, medication(s) refilled as indicated 08/19/2023 Type 2 diabetes mellitus with diabetic autonomic (poly)neuropathy (ICD-10 - E11.43) We will increase mounjaro to 10 mg/week and repeat A1c in 3 months with f/u in office 08/19/2023 Dysuria (ICD-10 - R30.0) reviewed UA with (+) Nitrites, will treat with macrobid 08/02/2023 Type 2 diabetes mellitus with foot ulcer (ICD-10 - E11.621) 08/02/2023 Essential (primary) hypertension (ICD-10 - I10) 08/19/2023 Acute UTI (ICD-10 - N39.0) see above 12/02/2023 Morbid obesity (ICD-10 - E66.01) Has not noticed any particular weight loss, still struggles at night with binge eating. 08/19/2023 Morbid (severe) obesity with alveolar hypoventilation (ICD-10 - E66.2) Discussed weight and it affect on health status Discussed dietary choices/nutritioni st referral Intermittent fasting Increase exercise as tolerated 08/02/2023 Sleep apnea, unspecified (ICD-10 - G47.30) 08/02/2023 Type 2 diabetes mellitus with diabetic autonomic (poly)neuropathy (ICD-10 - E11.43) 08/19/2023 Other Total time spen t with patient 32 minutes which includes face to face visit, education and coordination of care. 12/02/2023 Other Total time spen t with patient 32 minutes which includes face to face visit, education and coordination of care. 12/23/2023 Other Total time spen t with patient 32 minutes which includes face to face visit, education and coordination of care. 01/07/2024 Other Total time spen t with patient 20 minutes which includes face to face visit, education and coordination of care. PLAN OF TREATMENT Pending Test Test Name Order Date X ray : Foot, right 12/11/2022 Ultrasound : Abdomen, upper 05/11/2023 Ultrasound : Artery Doppler Low Ext Righ t 10/13/2022 CBC (COMPLETE BLOOD COUNT) WITH DIFF COMPREHENSIVE METABOLIC PANEL 08/19/2023 HEMOGLOBIN A1C 08/19/2023 MICROALBUMIN, URINE 08/19/2023 Insurance Providers Payer Name Payer Address Payer Phone Subscriber Number Group Number Insured Name Patient Relationship to Insured Coverage Start Date Coverage End Date [facility] [address] [facility] [place], [place] [id number] ALEC VERDUGO Self - patient is the insured MEDICAL (GENERAL) HISTORY Medical History History ICD Code Diabetes Surgical History Surgery Date(Month/Year) Gallbladder removal 2017 Lapband Surgery 2008 Lapband removal 2018 Rt index finger surgery - cat bite/infec tion @ [facility] 2021
[2024-03-13] MEDS: Ketorolac Tromethamine 60 MG/2 ML VIAL IM (03:00)
[2024-03-13 05:30] VITALS: BP 156/79; PULSE 98; RESP 19; TEMP 37.2; O2SAT 96
== END 2024-03-13 05:31 | disposition home or self-care (01) ==
PROVIDERS: Emergency Provider Emergency Medicine; PCP Registered Nurse
DX: R10.9 Unspecified abdominal pain (principal); M54.50 Low back pain, unspecified; Z87.891 Personal history of nicotine dependence; E11.9 Type 2 diabetes mellitus without complications; Z79.899 Other long term (current) drug therapy; Z79.84 Long term (current) use of oral hypoglycemic drugs
CPT/HCPCS: 36415; 74176; 80048; 80076; 81001; 85025; 96372; 99283; 99284; J1885

== ENCOUNTER 2024-04-13 13:38 | Emergency (ER) | payer OTHER, SELFPAY ==
[2024-04-13 14:15] VITALS: BP 155/76; PULSE 89; RESP 16; TEMP 36.2; O2SAT 95; BMI 55.5
--- NOTE | 2024-04-13 14:15 | ED_ITS ---
HPI - Abdominal Pain General Chief Complaint: Urogenital-Female Stated Complaint: l flank pain Time Seen by Provider: 04/13/24 17:27 Source: patient Mode of arrival: wheelchair Limitations: physical limitation History of Present Illness HPI narrative: 63-year-old female with a past medical history of hypertension, diabetes, left bundle branch block, JIM, and morbid obesity presents to the emergency department complaints of left flank pain radiating into the left groin starting yesterday. She reports she has been having intermittent spasms of her left lower back radiating into her buttock in her hip. She states that she was seen by her primary care provider who gave her an injection of Solu-Medrol into her buttock but that pain has not improved. She also states she has a prescription for both cyclobenzaprine and oxycodone for pain which she has been using. She reports that she has a history of kidney stones and was here roughly 1 month ago for similar symptoms and found to have a nonobstructing stone on the right. She reports concern that she may have stones at this time as well. She also reports mild discomfort with urination but denies noting any hematuria or foul odor to her urine. She denies any fevers, chills, saddle anesthesias, urinary or fecal incontinence, urinary hesitancy, history of IVDU, recent falls or trauma. Pertinent positives and negatives discussed in HPI Related Data Home Medications ?Medication ?Instructions ?Recorded ?Confirmed amlodipine 5 mg tablet 5 mg PO DAILY 03/11/22 11/23/23 empagliflozin 10 mg tablet 10 mg PO DAILY 03/11/22 11/23/23 (Jardiance) losartan 100 1 tab PO DAILY 03/11/22 11/23/23 mg-hydrochlorothiazide 25 mg tablet sertraline 100 mg tablet 100 mg PO DAILY 03/11/22 11/23/23 bupropion HCl 100 mg tablet,12 hr 100 mg PO BID 05/24/23 11/23/23 sustained-release lorazepam 0.5 mg tablet 0.5 mg PO BID PRN 05/24/23 11/23/23 metformin 500 mg tablet,extended 500 mg PO BID 05/24/23 11/23/23 release 24 hr tirzepatide 10 mg/0.5 mL 10 mg subcut QWEEK 11/23/23 11/23/23 subcutaneous pen injector (Tal) Previous Rx's ?Medication ?Instructions ?Recorded oxycodone 5 mg tablet 5 mg PO BID PRN pain #7 tabs 03/13/24 prednisone 20 mg tablet 20 mg PO DAILY #5 tabs 04/13/24 Allergies Allergy/AdvReac Type Severity Reaction Status Date / Time Sulfa (Sulfonamide Allergy Intermediate SWELLING Verified 04/13/24 14:17 Antibiotics) [SULFA (SULFONAMIDE ANTIBIOTICS)] vancomycin Allergy Rash Verified 04/13/24 14:17 Review of Systems Review of Systems Yes all other systems are reviewed and are negative [facility] Past Medical History Medical History Essential hypertension LBBB (left bundle branch block) Morbid obesity Super obesity Anxiety Depression Fatty liver Type 2 diabetes mellitus COPD (chronic obstructive pulmonary disease) Obstructive sleep apnea hypopnea, severe Surgical History History of hand surgery Hx of colonoscopy History of removal of laparoscopic gastric banding device History of carpal tunnel surgery Hx of cholecystectomy Hx of laparoscopic gastric banding Family History Family History Father Interstitial pneumonitis Diabetes Mother Bladder cancer Brother No problems noted. Social History Social History Household Members: Family and Children Housing: House Do you presently have visiting nurse or other home services: No Alcohol intake: current Alcohol intake frequency: holidays/special occasions only Alcohol type: wine and hard liquor Patient Tobacco Use Status: Former Tobacco user Advance Directives: Yes Advance Directives on File: Yes Advance Directives Date on File: 03/12/22 service: No Current occupational status: unemployed Physical Exam ED Vital Signs: Vital Signs - 24 hr 04/13/24 14:15 04/13/24 16:00 04/13/24 18:26 Temperature 97.1 F 97.5 F 97.8 F Pulse Rate 89 86 74 Respiratory Rate 16 19 18 Blood Pressure 155/76 H 171/79 H 158/72 H Pulse Oximetry 95 95 97 Oxygen Delivery Method Room Air Room Air Room Air BMI result Body Mass Index 55.5 Nursing notes and vital signs reviewed. GENERAL APPEARANCE: A&0 x 4, generally well appearing, no acute distress, morbid obesity HENMT: Normal to inspection, atraumatic, face symmetrical. Normal external ears, nose, and oropharynx clear. EYE: PERRLA, EOM intact, structures appear normal NECK: Supple without stiffness or restricted ROM. HEART: Normal rate and regular rhythm, normal S1/S2, no M/R/G LUNGS: LS CTA, moving air well. Able to speak in complete sentences. No crackles, wheezes, or rhonchi auscultated BACK: No CVAT, no obvious deformity EXTREMITIES: Moving all extremities without difficulty. Normal capillary refill. NEUROLOGICAL: Alert and oriented, moving all 4 extremities with equal strength. CN not formally tested but appearing grossly intact. Observed to ambulate with normal gait. Cognition normal SKIN: Warm and dry without any lesions, rash, or visible sores Course Course Course Narrative: This is a Rapid Medical Examination (RME) performed by Archie Feliciano PA-C in triage. Full HPI, ROS, assessment and treatment plan per primary provider in the Main ED. 63 yo female with history of morbid obesity, JIM, LBBB, HTN, DM2 who presents to the ER for evaluation of left flank pain that started yesterday. Also has been having back spasms and got a shot from her doctor. This pain feels worse. No nausea or vomiting. +dysuria and vaginal itching. Was here 1 month ago for left flank pain and found to have a nonobstructing stone on the right side. Plan: UA, labs, imaging deferred for now Medical Decision Making Medical Decision Making MDM Narrative: Old records reviewed for previous imaging, lab studies, ECGs, and notes. Patient was assessed the emergency department with no acute distress or toxicity noted. Urinalysis showing no evidence of acute urinary tract infection. A large amount of glucose was noted, however; this appears to be a chronic issue compared to previous urinalysis. Hematology showing leukocytosis with WBCs 13.1 with no evidence of fever, tachypnea, or tachycardia meeting SIRS criteria. Patient symptoms most likely musculoskeletal in origin based on exam as pain is reproducible. Patient is safe for discharge at this time with plan for vuht-kio-nwdfolk Tylenol and/or NSAID such as ibuprofen or naproxen for fever/discomfort with dosing as per packaging. HPI, PE, diagnostics, and plan discussed with patient and family with no unanswered questions at this time. Strict return precautions given to return to the emergency department with new, worsening, or concerning emergent symptoms. Recommended to follow-up with there primary care provider in 24-48 hours for further treatment and management. Differential Diagnosis Differential Diagnoses: The differential diagnosis associated with the presentation includes But not limited to UTI, cystitis, pyelonephritis, nephrolithiasis, strain, sprain, fracture, stenosis, radiculopathy, cauda equina, epidural abscess, sepsis, malignancy. Lab Data MDM Lab Attestation statement: I reviewed the patient's lab results. 04/13/24 15:09 04/13/24 15:09 Labs: Lab Results 04/13/24 Range/Units 15:09 WBC 13.1 H (4.8-10.8) X10*3/uL RBC 5.49 (4.20-5.50) X10*6/uL Hgb 15.8 (12.0-16.0) g/dl Hct 47.9 H (37.0-47.0) % MCV 87.2 (80.0-98.0) fL MCH 28.8 (27.0-33.0) pg MCHC 33.0 (31.0-35.0) g/dl RDW 14.4 (11.0-16.0) % Plt Count 227 (160-400) X10*3/uL MPV 10.2 (9.4-12.3) fL Immature Gran % (Auto) 0.4 (0.0-0.4) % Neut % (Auto) 72.6 (45-73) % Lymph % (Auto) 18.3 L (20-40) % Talbot % (Auto) 7.4 (2-11) % Eos % (Auto) 0.7 (0-4) % Baso % (Auto) 0.6 (0-2) % Lymph # (Auto) 2.4 (1.2-4.9) X10*3/uL Talbot # (Auto) 1.0 (0.1-1.2) X10*3/uL Eos # (Auto) 0.1 (0.0-0.4) X10*3/uL Baso # (Auto) 0.1 (0.0-0.2) X10*3/uL Abs Immat Gran (auto) 0.05 H (0.00-0.03) X10*3/uL Absolute Neuts (auto) 9.5 H (2.0-8.3) x10*3/uL Absolute Nucleated RBC 0.000 (0.0-0.012) X10*3/uL Nucleated RBC % (auto) 0.0 (0.0-0.2) /100WBC Sodium 138 (135-145) mmol/L Potassium 4.0 (3.3-5.1) mmol/L Chloride 100 (96-108) mmol/L Carbon Dioxide 31 H (22-29) mmol/L Anion Gap 11 L (12-20) BUN 20 H (9-16) mg/dL Creatinine 0.83 (0.5-1.4) mg/dL Estim Creat Clear Calc 81.9 Estimated GFR > 60 Random Glucose 142 H (60-115) mg/dL Calcium 9.7 (8.4-10.2) mg/dL Magnesium 2.0 (1.6-2.6) mg/dL Total Bilirubin 0.6 (0.0-1.0) mg/dL Direct Bilirubin 0.2 (0.0-0.5) mg/dL AST 18 (5-31) U/L ALT 32 H (0-31) U/L Alkaline Phosphatase 86 (39-117) U/L Total Protein 7.4 (6.5-8.0) g/dL Albumin 3.9 (3.5-5.0) g/dL Urine Color Yellow Urine Appearance Clear Urine pH 5.5 (5.0-9.0) Ur Specific Pullman >= 1.030 H (1.005-1.025) Urine Protein Negative (Neg-Trace) mg/dL Urine Glucose (UA) >=1000 H (Negative) mg/dL Urine Ketones Negative (Negative) mg/dL Urine Blood Negative (Negative) Urine Nitrite Negative (Negative) Ur Leukocyte Esterase Negative (Negative) Urine RBC 0-2 (0-2) /HPF Urine WBC 0-5 (0-5) /HPF Ur Squamous Epith Cells 3-5 (0-2) /HPF Urine Bacteria None Seen (None Seen) Hyaline Casts 0-2 (0-2) /LPF Prescription Management Narcotic pain medication was considered, however; patient is already prescribed narcotics in addition to muscle relaxers. Chronic Conditions Patient?s care impacted by: Diabetes and Hypertension Discharge Plan Discharge Clinical Impression: Low back pain Patient Disposition: Home, Self-Care Instructions: Back Pain (ED) Prescriptions: New prednisone 20 mg tablet 20 mg PO DAILY Qty: 5 0RF No Action sertraline 100 mg tablet 100 mg PO DAILY amlodipine 5 mg tablet 5 mg PO DAILY losartan-hydrochlorothiazide 100-25 mg tablet 1 tab PO DAILY Jardiance 10 mg tablet 10 mg PO DAILY oxycodone 5 mg tablet 5 mg PO BID PRN (Reason: pain) Qty: 7 0RF Rx Instructions: Partial Fill upon patient request. lorazepam 0.5 mg tablet 0.5 mg PO BID PRN bupropion HCl 100 mg tablet sustained-release 12 hr 100 mg PO BID metformin 500 mg tablet extended release 24 hr 500 mg PO BID Mounjaro 10 mg/0.5 mL pen injector 10 mg subcut QWEEK Referrals: [facility] [Provider Group] Linda Camejo DNP [Primary Care Provider] - Interventions: ED Discharge Assessment Last Done: 04/13/24 18:26 Discharge Date/Time: 04/13/24 18:26 Print Language: Nicaraguan
[2024-04-13 15:20] LABS: MANUAL DIFF FLAG NO
[2024-04-13 15:23] LABS: Appearance Urine Clear; Color Urine Yellow; Glucose Urine UA >=1000 mg/dL (Negative); Leukocyte Esterase Urine Negative (Negative); Nitrite Urine Negative (Negative); PH 5.5 (5.0-9.0); Specific Gravity - Urine >= 1.030 (1.005-1.025); UMIC TRIGGER UACC YES; Urine Blood Negative (Negative); Urine Ketones Negative (Negative); Urine Protein Negative (Neg-Trace)
[2024-04-13 15:27] LABS: Bacteria Urine None Seen (None Seen); Hyaline Casts Urine 0-2 /LPF (0-2); RBC Urine 0-2 /HPF (0-2); WBC Urine 0-5 /HPF (0-5)
[2024-04-13 15:31] LABS: Basophils Absolute Auto 0.1 X10*3/uL (0.0-0.2); Basophils Percent Auto 0.6 % (0-2); Eosinophils Absolute Auto 0.1 X10*3/uL (0.0-0.4); Eosinophils Percent Auto 0.7 % (0-4); Hematocrit 47.9 % (37.0-47.0); Hemoglobin 15.8 g/dl (12.0-16.0); Imm Gran Abs Auto 0.05 X10*3/uL (0.00-0.03); Imm Gran Pct Auto 0.4 % (0.0-0.4); Lymphocytes Absolute Auto 2.4 X10*3/uL (1.2-4.9); Lymphocytes Percent Auto 18.3 % (20-40); Mean Corpuscular Hemoglobin 28.8 pg (27.0-33.0); Mean Corpuscular Volume 87.2 fL (80.0-98.0); Mean Platelet Volume 10.2 fL (9.4-12.3); Monocytes Percent Auto 7.4 % (2-11); Neutrophils Absolute Auto 9.5 x10*3/uL (2.0-8.3); Neutrophils Percent Auto 72.6 % (45-73); Platelet Count 227 X10*3/uL (160-400); Red Blood Count 5.49 X10*6/uL (4.20-5.50); Red Cell Distribution Width 14.4 % (11.0-16.0); White Blood Count 13.1 X10*3/uL (4.8-10.8)
[2024-04-13 15:34] LABS: Alanine Aminotransferase 32 U/L (0-31); Albumin Level 3.9 g/dL (3.5-5.0); Alkaline Phosphatase 86 U/L (39-117); Anion Gap 11 (12-20); Aspartate Amino Transferase 18 U/L (5-31); Bilirubin Direct 0.2 mg/dL (0.0-0.5); Bilirubin Total 0.6 mg/dL (0.0-1.0); Blood Urea Nitrogen 20 mg/dL (9-16); Calcium 9.7 mg/dL (8.4-10.2); Carbon Dioxide 31 mmol/L (22-29); Chloride 100 mmol/L (96-108); Creatinine Clr Calc Pharmacy 81.9; Estimated Glomerular Filt Rate > 60; Glucose Random 142 mg/dL (60-115); Sodium 138 mmol/L (135-145); Total Protein 7.4 g/dL (6.5-8.0)
[2024-04-13 16:00] VITALS: BP 171/79; PULSE 86; RESP 19; TEMP 36.4; O2SAT 95
[2024-04-13 18:26] VITALS: BP 158/72; PULSE 74; RESP 18; TEMP 36.6; O2SAT 97
--- OUTSIDE RECORDS SUMMARY | 2024-04-19 06:19 | XMS_ITS ---
Author Organization [facility] Address [address], [place] [id number] Care Team Providers Care Care Process Manager Name Role Phone KENDRICK GILES Primary Care Provider REASON FOR VISIT joint pain Encounters Encounter Location Date Provider Diagnosis [address] [id number] 04/10/2024 KENDRICK GILES PLAN OF TREATMENT Next Appt Details Provider Name:KENDRICK Quinones, 05/04/2024 08:45:00 AM, [address] [place] [address], [phone], Progress Notes * VJ VERDUGO:1960 (63 yo F)Acc No.[id number]:04/10/2024 Patient:??ALEC VERDUGO :1960?Age:63 Y?Sex:Fe male Phone: Address:[address] [place] [id number] * true * Date:??
--- OUTSIDE RECORDS SUMMARY | 2024-04-19 06:19 | XMS_ITS ---
Author Organization [facility] Address [address] [place] [phone] Care Team Providers Care First Line Production Supervisor Name Role Phone KENDRICK GILES Primary Care Provider [phone] REASON FOR VISIT pain medication MEDICATIONS Medication SIG (Take, Route, Frequency, Duration) Notes Start Date End Date Status oxyCODONE HCl 5 MG 1 tablet as needed Orally every 6 hrs for 7 days Pt may choose lesser quantity 03/30/2024 Active Encounters Encounter Location Date Provider Diagnosis [address] [id number] 03/30/2024 KENDRICK GILES PLAN OF TREATMENT Medication Medication Name Sig Start Date Stop Date Notes oxyCODONE HCl 5 MG 1 tablet as needed Orally every 6 hrs for 7 days 03/30/2024 Pt may choose lesser quantity Next Appt Details Provider Name:KENDRICK Quinones, 05/04/2024 08:45:00 AM, [address] [place] [address], [phone], Progress Notes * STUART VERDUGOB:1960 (63 yo F)Acc No.[id number]:03/30/2024 Patient:??ALEC VERDUGO :1960?Age:63 Y?Sex:Fe male Phone: Address:[address] [place] [phone] * Refills?? Start oxyCODONE HCl Tablet, 5 MG, Orally, 28 Tablet, 1 tablet as needed, every 6 hrs, 7 days, Refills=0 * true * Date:??
--- OUTSIDE RECORDS SUMMARY | 2024-04-19 06:20 | XMS_ITS ---
Author Organization [facility] Address [address] [place] [phone] Care Team Providers Care Case Resolution Specialist Name Role Phone KENDRICK CAMEJO Primary Care Provider [phone] ALLERGIES Allergen (clinical drug ingredient) Drug/Non Drug Allergy documented on EMR Reaction Allergy Type Onset Date Status Substance with sulfonamide structure and antibacterial mechanism of action (substance) Sulfa Antibiotics Unknown Drug Allergy Active vancomycin Vancomycin , Severity Observation:Sev ere , Drug Allergy Active REASON FOR VISIT Lower Back/Lt leg Pain MEDICATIONS Medication SIG (Take, Route, Frequency, Duration) Notes Start Date End Date Status Dexcom G6 Store Shopper - for continuous glucose monitoring for 90 days Active buPROPion HCl 100 MG 1 tablet Orally Twice a day for 90 days 10/18/2023 Active Sertraline HCl 100 MG 1 tablet Orally Once a day for 90 days Active Dexcom G6 Sensor - as directed for continuous glucose monitoring for 90 days 06/01/2023 Active Bwmxnlxb-Ltgzhlfrf-X C 3.5-96911-0 4 drops into affected ear Otic Three times a day for 10 days 05/11/2023 Active Diflucan 150 MG 1 tab(s) orally once then repeat dose in 72 hrs Orally once for 1 days Diflucan 150 mg tablet 08/18/2022 Active Acetaminophen 325 MG Oral ACETAMINOPH EN 325 MG TABLET 03/14/2022 Active Trelegy Ellipta 100-62.5-25 MCG/ACT 1 puff Inhalation Once a day Samples Active Synjardy XR 25-1000 MG 1 tablet with breakfast Orally Once a day Samples Active Tamsulosin HCl 0.4 MG 1 capsule Orally Once a day for 30 day(s) 03/15/2024 Active LORazepam 0.5 mg TAKE 1 TABLET BY MOUTH TWICE A DAY NEEDED FOR PANIC for 30 01/17/2024 Active Zithromax Z-Monico 250 MG Take 2 tabs orally once on day one, then 1 tab remaining days until gone Oral Zithromax Z-Monico 250 mg tablet 07/08/2022 Not-Taking Doxycycline Monohydrate 100 MG take 1 cap orally twice daily with food for 7 days Oral doxycycline monohydrate 100 mg capsule 07/17/2022 Not-Taking Dexcom G7 Sensor - as directed for continuous glucose monitoring for 90 days 07/08/2023 Not-Taking Diclofenac Sodium 75 MG 1 tablet as needed Orally Twice a day for 30 days Active Dexcom G7 Store Shopper - as directed for continuous glucose monitoring for 90 days 07/08/2023 Not-Taking Ozempic (2 MG/DOSE) 8 MG/3ML 2 mg Subcutaneous once weekly for 90 days Not-Taking Nitrofurantoin Macrocrystal 100 MG 1 cap orally twice daily for 7 days Orally twice daily for 14 days Not-Taking buPROPion HCl ER (SR) 100 MG 1 tab in the morning and 1 tab in the evening Orally twice a day for 90 days 10/20/2023 Not-Taking DOCUSATE SOD 100MG CAPSULES TAKE 1 CAPSULE BY MOUTH EVERY DAY NEEDED FOR CONSTIPATION DOCUSATE SOD 100MG CAPSULES *Reorder from Perceptive Pixel for eRx and Interaction Alerts* 03/14/2022 Not-Taking Pulmicort Flexhaler 180 MCG/ACT 1 puff Inhalation Twice a day for 90 days 01/06/2024 Not-Taking Qvar RediHaler 80 MCG/ACT Inhale 1-4 puffs every 12 hrs as directed Inhalation Twice a day for 90 days Qvar RediHaler 80 mcg/actuation HFA breath activated aerosol 05/27/2022 Not-Taking amLODIPine Besylate 5 MG 1 tablet Orally Once a day for 90 days Active Vitamin D3 Super Strength 50 MCG (2000 UT) Take 1 tab orally once daily as directed Oral Vitamin D3 50 mcg (2,000 unit) tablet 06/04/2022 Not-Taking Azithromycin 250 MG as directed Orally take 2 tabs orally once on day one, then take 1 tab orally once daily for remaining days, 5 days total for 5 days 12/30/2023 Not-Taking Mounjaro 15 MG/0.5ML 15 mg Subcutaneous once a week for 90 days 12/23/2023 Active Mounjaro 12.5 MG/0.5ML 12.5 mg Subcutaneous once per week for 90 days 12/02/2023 Active Losartan Potassium-HCTZ 100-25 MG 1 tablet Orally Once a day for 90 days Active SOCIAL HISTORY Tobacco Use: Social History Observation Description Date Details (start date - stop date) Former Smoker NA - 08/30/1997 Sex Assigned At : Social History Observation Description Sex Assigned At Unknown Tobacco Use/Smoking Question Answer Notes Tobacco use: former smoker When did you stop smoking? 08/30/1997 How long has it been since you last smoked? > 10 years VITAL SIGNS Blood pressure systolic 168 mm Hg 03/30/20 24 Blood pressure diastolic 82 mm Hg 024 Heart Rate 96 /min 03/30/2024 Oximetry 95 % 03/30/2024 Weight 285.2 lbs 03/30/2024 Weight-kg 129.36 kg 03/30/2024 Height 58 in 03/30/2024 Height-cm 147.32 cm 03/30/2024 BMI 59.6 kg/m2 03/30/2024 Encounters Encounter Location Date Provider Diagnosis [address] [id number] 03/30/2024 KENDRICK CAMEJO PLAN OF TREATMENT Next Appt Details Provider Name:KENDRICK Quinones, 05/04/2024 08:45:00 AM, [address] [place] [address], [phone], Progress Notes * STUART VERDUGOB:1960 (63 yo F)Acc No.[id number]:03/30/2024 Progress Notes Patient:??ALEC VERDUGO Provider:??Kendrick Camejo DNP :1960?Age:63 Y?Sex:Fe male Date:03/30/2024 Phone: Address:[address] [place] [phone] Subjective: * Chief Complaints: * ?1. Lower Back/Lt leg P ain. * HPI: ?Patient Care Team:?Middle School Sports Coach:??Dr. Browne @ [facility].?.?Manager Developmental:??Dr. Austin @ [facility]..? Providers/Specialists: Campus Coordinator - Dr. Horne @ [facility]. ?Visit info:? Alec presents in the office today for lower back and left leg pain. * Medical History:??Diabetes. 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 2019 @ [facility], normal per pt.?Last mammogram date??Fall 2021 @ [facility], normal per pt..?? * Surgical History:??Gallbladd er removal 2016, Lapband Surgery 2008, Lapband removal 2018, Rt index finger surgery - cat bite/infection @ [facility] 2021. * Family History:??Father: dec eased 70 yrs, Diabetes.??Mother: alive, Bladder CA.??Maternal Grandfather: , Heart disease.??Maternal Grandmother: , Diverticulitis, CHF, HTN.?? * Social History:?Tobacco Use:?Tobacco Use/Smoking?Tobacco use:??former smoker ?When did you stop smoking???08/30/1997 ?How long has it been since you last smoked???> 10 years ?Migrated Social History:?Migrated Social History: Smoking Status:Former smoker, [[id number]], smoked in 1997. ?Drugs/Alcohol:?Do you drink alcohol?: Yes, Socially. ?Lives in [place] with 2 children (17 & 18). * Medications:??Taking Synjard y XR 25-1000 MG Tablet Extended Release 24 Hour 1 tablet with breakfast Orally Once a day , Notes to Pharmacist: Samples, Taking Trelegy Ellipta 100-62.5-25 MCG/ACT Aerosol Powder Breath Activated 1 puff Inhalation Once a day , Notes to Pharmacist: Samples, Taking Acetaminophen 325 MG Tablet Oral , Notes to Pharmacist: ACETAMINOPHEN 325 MG TABLET, Taking Diflucan 150 MG Tablet 1 tab(s) orally once then repeat dose in 72 hrs Orally once may repeat dose in 72 hrs if symptoms continue, Notes to Pharmacist: Diflucan 150 mg tablet, Taking Qiblvwgk-Hqzjyfibi-FI 3.5-96854-2 Solution 4 drops into affected ear Otic Three times a day , Taking Dexcom G6 Sensor - Miscellaneous as directed for continuous glucose monitoring , Taking Sertraline HCl 100 MG Tablet 1 tablet Orally Once a day , Taking buPROPion HCl 100 MG Tablet 1 tablet Orally Twice a day , Taking Dexcom G6 Store Shopper - Device for continuous glucose monitoring , Taking Losartan Potassium-HCTZ 100-25 MG Tablet 1 tablet Orally Once a day , Taking Mounjaro 12.5 MG/0.5ML Solution Pen-injector 12.5 mg Subcutaneous once per week , Taking Mounjaro 15 MG/0.5ML Solution Pen-injector 15 mg Subcutaneous once a week , Taking amLODIPine Besylate 5 MG Tablet 1 tablet Orally Once a day , Taking LORazepam 0.5 mg Tablet TAKE 1 TABLET BY MOUTH TWICE A DAY NEEDED FOR PANIC , Taking Diclofenac Sodium 75 MG Tablet Delayed Release 1 tablet as needed Orally Twice a day , Taking Tamsulosin HCl 0.4 MG Capsule 1 capsule Orally Once a day , stop date 04/14/2024, Not-Taking Qvar RediHaler 80 MCG/ACT Aerosol Breath Activated Inhale 1-4 puffs every 12 hrs as directed Inhalation Twice a day , stop date 06/24/2024, Notes to Pharmacist: Qvar RediHaler 80 mcg/actuation HFA breath activated aerosol, Not-Taking Pulmicort Flexhaler 180 MCG/ACT Aerosol Powder Breath Activated 1 puff Inhalation Twice a day , Not- Taking Azithromycin 250 MG Tablet as directed Orally take 2 tabs orally once on day one, then take 1 tab orally once daily for remaining days, 5 days total , Not-Taking Vitamin D3 Super Strength 50 MCG (2000 UT) Tablet Take 1 tab orally once daily as directed Oral , Notes to Pharmacist: Vitamin D3 50 mcg (2,000 unit) tablet, Not-Taking DOCUSATE SOD 100MG CAPSULES TAKE 1 CAPSULE BY MOUTH EVERY DAY NEEDED FOR CONSTIPATION , Notes to Pharmacist: DOCUSATE SOD 100MG CAPSULES *Reorder from Perceptive Pixel for eRx and Interaction Alerts*, Not-Taking buPROPion HCl ER (SR) 100 MG Tablet Extended Release 12 Hour 1 tab in the morning and 1 tab in the evening Orally twice a day , Not-Taking Nitrofurantoin Macrocrystal 100 MG Capsule 1 cap orally twice daily for 7 days Orally twice daily , Not-Taking Ozempic (2 MG/DOSE) 8 MG/3ML Solution Pen-injector 2 mg Subcutaneous once weekly , Not-Taking Dexcom G7 Store Shopper - Device as directed for continuous glucose monitoring , Not-Taking Dexcom G7 Sensor - Miscellaneous as directed for continuous glucose monitoring , Not-Taking Doxycycline Monohydrate 100 MG Capsule take 1 cap orally twice daily with food for 7 days Oral , Notes to Pharmacist: doxycycline monohydrate 100 mg capsule, Not-Taking Zithromax Z-Monico 250 MG Tablet Take 2 tabs orally once on day one, then 1 tab remaining days until gone Oral , Notes to Pharmacist: Zithromax Z-Monico 250 mg tablet * Allergies:??Sulfa Antibiotic s: Allergy, Vancomycin: , Severity Observation:Severe , - Allergy. Objective: * Vitals:??BP:168/82mm Hg, HR: 96/min, Oxygen sat %:95%, Wt:285.2lbs, Wt-k.36 kg, Ht: 58 in, Ht-cm: 147.32 cm, BMI:59.6Index, Body Surface Area: 2.3. Assessment: Plan: * Treatment: * Preventive Medicine:?Last CPE: 2020 @ [facility] DEXA: 2020 @ [facility] ([facility]) Colonoscopy: 2020 @ [facility] per pt. Endoscopy: Yes, 2019 (for Lapband removal) Covid Vac: Yes & boosted Flu Vac: Yes PV: No. * Billing Information: * Visit Code:?? * Procedure Codes:?? * Sign off status: Pending * Provider:??Kendrick Camejo DNP Date:??0 03/30/2024 History and Physical Notes * HPI (History of Present Illness) Category Sub-Category Detail Notes Patient Care Team Middle School Sports Coach: Dr. Hiral quinones @ [facility]. Manager Developmental: Dr. Austin @ [facility].
--- OUTSIDE RECORDS SUMMARY | 2024-04-19 06:20 | XMS_ITS | Patient Health Record ---
Author Organization [employer] Address [address] [place] [id number] Care Team Providers Care Mathematical Statistician Name Role Phone KENDRICK GILES Primary Care Provider [phone] GIACOMO SAEED Unavailable [phone] ALLERGIES Allergen (clinical drug ingredient) Drug/Non Drug Allergy documented on EMR Reaction Allergy Type Onset Date Status Substance with sulfonamide structure and antibacterial mechanism of action (substance) Sulfa Antibiotics Unknown Drug Allergy Active vancomycin Vancomycin , Severity Observation:Sev ere , Drug Allergy Active RESULTS Component Value Reference Range Notes THYROID PANEL Reviewed date:08/17/2023 11:23:25 AM Interpretation: Performing Lab:Testing performed or reported by [facility], a Service of [address] [address] Dev Wills MD, Medical Administrative [facility]# [id number] Notes/Report: FREE T4 1.40 (0.70-1.80) NG/DL TSH 3.38 (0.4-4.2) uIU/mL URINALYSIS, COMPLETE Reviewed date:08/18/2023 02:44:09 PM Interpretation: Performing Lab:Testing performed or reported by [facility], a Service of [address] [address] Dev Wills MD, Medical Administrative [facility]# [id number] Notes/Report: APPEAR/COLOR YELLOW TURBID SP. GRAVITY 1.041 [...] Interpretation: Performing Lab:Testing performed or reported by [facility], a Service of [facility], [address] [place] [address] [place] [address] Dev Wills MD, Medical Administrative CLIA# [id number] Notes/Report: REVERSE T3 30.6 Reference range: 9.2 to 24.1 Unit: ng/dL (NOTE) This test was developed and its performance characteristics determined by [facility]. It has not been cleared or approved by the Food and Drug Administration. Test performed at [address] [address] MICROALBUMIN, URINE Reviewed date:08/18/2023 02:44:09 PM Interpretation: Performing Lab:Testing performed or reported by [facility], a Service of [facility], [address] [place] [address] Dev Wills MD, Medical Administrative CLIA# [id number] Notes/Report: MICRO-ALBUMIN 29.0 (<20) MG/L The urine microalbumin test is designed to monitor renal function. When screening for Bence Alvarado proteinuria, urine electrophoresis is recommended. MALB/CREAT RATIO 28.8 (0-20) MG/GM URINE CREAT FOR MICRO ALBUMIN 100.4 LIPID PANEL, REFLEX TO DIREC T LDL Reviewed date:08/17/2023 11:23:25 AM Interpretation: Performing Lab:Testing performed or reported by [facility], a Service of [facility], [address] [place] [address] Dev Wills MD, Medical Administrative CLIA# [id number] Notes/Report: CHOLESTEROL, TOTAL 204 (<200) MG/DL TRIGLYCERIDES [...] Interpretation: Performing Lab:Testing performed or reported by [facility], a Service of [address] [address] Dev Wills MD, Medical Administrative [facility]# [id number] Notes/Report: HEMOGLOBIN A1C 9.0 (4.0-5.6) % MONITORING: In known diabetic patients, hemoglobin A1c targets should be discussed with health care provider. DIAGNOSTIC USE: The [place] Diabetes [employer] (ADA) and the World Health [...] Interpretation: Performing Lab:Testing performed or reported by [facility], a Service of [facility], [address] [place] [address] Dev Wills MD, Medical Administrative [facility]# [id number] Notes/Report: GLUCOSE 197 (70-99) MG/DL BUN 19 [...] Interpretation: Performing Lab:Testing performed or reported by [facility], a Service of [facility], [address] [place] [address] Dev Wills MD, Medical Administrative [facility]# [id number] Notes/Report: WBC 7.5 (4.0-11.0) K/MM3 RBC 5.61 [...] % IMM GRAN 0.7 REASON FOR REFERRAL Reason Please see order for bilateral US of kidneys, pt recently in Hosp (see docs) for flank pain-CT did not indicated size or whether she would be able to pass on her own we will need US Diagnosis 1 Kidney stones (N20.0 ) Referral Organization [facility], [facility] Referring Provider First Name KENDRICK Referring Provider Last Name [place] Referring Provider Speciality Nurse Gill juarez Referred Organization [facility], [facility] Referred Address [address] [place], [place] [address]JENISE JOSE,[place],[id number],[place] Referred Provider Specialty Radiology General Notes MARTIN MOBELY 0 03/23/2024 09:09:32 AM >order form, demographics, insurance info, order and CT report faxed to [facility] [phone] Referral Priority Urgent MEDICATIONS Medication SIG (Take, Route, Frequency, Duration) Notes Start Date End Date Status predniSONE 5 MG 1 tablet Orally Once a day 5 days Active DOCUSATE SOD 100MG CAPSULES TAKE 1 CAPSULE BY MOUTH EVERY DAY NEEDED FOR CONSTIPATION DOCUSATE SOD 100MG CAPSULES *Reorder from [employer] for eRx and Interaction Alerts* 03/14/2022 Not-Taking Vitamin D3 Super Strength 50 MCG (2000 UT) Take 1 tab orally once daily as directed Oral Vitamin D3 50 mcg (2,000 unit) tablet 06/04/2022 Not-Taking Trelegy Ellipta 100-62.5-25 MCG/ACT 1 puff Inhalation Once a day Samples Active Nitrofurantoin Macrocrystal 100 MG 1 cap orally twice daily for 7 days Orally twice daily for 14 days Not-Taking Synjardy XR 25-1000 MG 1 tablet with breakfast Orally Once a day Samples Active buPROPion HCl ER (SR) 100 MG 1 tab in the morning and 1 tab in the evening Orally twice a day for 90 days 10/20/2023 Not-Taking Diflucan 150 MG 1 tab(s) orally once then repeat dose in 72 hrs Orally once for 1 days Diflucan 150 mg tablet 08/18/2022 Active Acetaminophen 325 MG Oral ACETAMINOPH EN 325 MG TABLET 03/14/2022 Active Ozempic (2 MG/DOSE) 8 MG/3ML 2 mg Subcutaneous once weekly for 90 days Not-Taking Fdsngqwm-Umzyljxfs-W C 3.5-90676-4 4 drops into affected ear Otic Three times a day for 10 days 05/11/2023 Active Qvar RediHaler 80 MCG/ACT Inhale 1-4 puffs every 12 hrs as directed Inhalation Twice a day for 90 days Qvar RediHaler 80 mcg/actuation HFA breath activated aerosol 05/27/2022 Not-Taking oxyCODONE HCl 5 MG 1 tablet as needed Orally every 6 hrs for 7 days Pt may choose lesser quantity 03/30/2024 Active Azithromycin 250 MG as directed Orally take 2 tabs orally once on day one, then take 1 tab orally once daily for remaining days, 5 days total for 5 days 12/30/2023 Not-Taking Pulmicort Flexhaler 180 MCG/ACT 1 puff Inhalation Twice a day for 90 days 01/06/2024 Not-Taking Mounjaro 12.5 MG/0.5ML 12.5 mg Subcutaneous once per week for 90 days 12/02/2023 Active Fluconazole 150 MG 1 tablet Orally as directed for 3 days 04/14/2024 4 Active Losartan Potassium-HCTZ 100-25 MG 1 tablet Orally Once a day for 90 days Active amLODIPine Besylate 5 MG 1 tablet Orally Once a day for 90 days Active Mounjaro 15 MG/0.5ML 15 mg Subcutaneous once a week for 90 days 12/23/2023 Active Diclofenac Sodium 75 MG 1 tablet as needed Orally Twice a day for 30 days Active LORazepam 0.5 mg TAKE 1 TABLET BY MOUTH TWICE A DAY NEEDED FOR PANIC for 30 01/17/2024 Active Dexcom G7 Sensor - as directed for continuous glucose monitoring for 90 days 07/08/2023 Not-Taking Dexcom G7 Administrative Appeals Tribunal Member - as directed for continuous glucose monitoring for 90 days 07/08/2023 Not-Taking Sertraline HCl 100 MG 1 tablet Orally Once a day for 90 days Active Zithromax Z-Monico 250 MG Take 2 tabs orally once on day one, then 1 tab remaining days until gone Oral Zithromax Z-Monico 250 mg tablet 07/08/2022 Not-Taking Dexcom G6 Sensor - as directed for continuous glucose monitoring for 90 days 06/01/2023 Active Doxycycline Monohydrate 100 MG take 1 cap orally twice daily with food for 7 days Oral doxycycline monohydrate 100 mg capsule 07/17/2022 Not-Taking Mupirocin 2 % 1 application Externally Twice a day for 7 days 04/14/2024 4 Active Dexcom G6 Administrative Appeals Tribunal Member - for continuous glucose monitoring for 90 days Active Doxycycline Hyclate 100 MG 1 tablet Orally twice a day for 7 days 04/14/2024 4 Active buPROPion HCl 100 MG 1 tablet Orally Twice a day for 90 days 10/18/2023 Active SOCIAL HISTORY Tobacco Use: Social History [...] Skin ulcer due to diabetes mellitus (disorder) (568122208) Problem Type 2 diabetes mellitus with diabetic chronic kidney disease (E11.22) Active confirmed Diabetic renal disease (999998572) Problem Type 2 diabetes mellitus with diabetic autonomic (poly)neuropathy (E11.43) Active confirmed Diabetic autonomic neuropathy due to type 2 diabetes mellitus (793306383) Problem Type 2 diabetes mellitus with foot ulcer (E11.621) Active confirmed Foot ulcer d ue to type 2 diabetes mellitus (6000667080082) Problem Morbid (severe) obesity with alveolar hypoventilation (E66.2) Active confirmed Extreme obesity with alveolar hypoventilation (764281546) Problem Sleep apnea, unspecified (G47.30) Active confirmed Sleep apnea (71547631) Problem Essential (primary) hypertension (I10) Active confirmed Essential hypertension (06259347) Problem Depression, unspecified (F32.A) Active confirmed Depression (553156302) Problem Morbid obesity (E66.01) Active confirmed Morbid obesity (497424904) Problem Kidney stones (N20.0) Active confirmed Kidney stone (76576957) VITAL SIGNS Heart Rate 94 /min 04/14/2024 Height-cm 147.32 cm 04/14/2024 Oximetry 96 % 04/14/2024 Blood pressure diastolic 92 mm Hg 04/14/2024 Weight-kg 126.19 kg 04/14/2024 Height 58 in 04/14/2024 Blood pressure systolic 160 mm Hg 04/14/2024 Weight 278.2 lbs 04/14/2024 BMI 58.14 kg/m2 04/14/2024 Encounters Encounter Location Date Provider Diagnosis [facility], [address] [id number] 11/18/2023 KENDRICK [facility], [facility] [address] [place], [place] [id number] 01/28/2024 KENDRICK GILES [facility] [address] [place], [place] [id number] 03/30/2024 KENDRICK GILES [facility], [address] [id number] 04/14/2024 GIACOMO SAEED [facility] [address] [place], [place] [id number] 05/11/2023 KENDRICK GILES Otalgia, right ear H92.01 and Left upper quadrant abdominal swelling, mass and lump R19.02 [facility] [address] [place], [place] [id number] 08/19/2023 KENDRICK GILES Dysuria R30.0 ; Type 2 diabetes mellitus with diabetic autonomic (poly)neuropathy E11.43 ; Acute UTI N39.0 and Morbid (severe) obesity with alveolar hypoventilation E66.[address] [id number] 12/02/2023 KENDRICK GILES Type 2 diabetes mellitus with diabetic autonomic (poly)neuropathy E11.43 ; Essential (primary) hypertension I10 and Morbid obesity E66.[address] [id number] 12/23/2023 KENDRICK GILES Type 2 diabetes mellitus with diabetic autonomic (poly)neuropathy E11.43 and Morbid (severe) obesity with alveolar hypoventilation E66.[address] [id number] 01/05/2024 KENDRICK GILES Type 1 diabetes mellitus with other skin ulcer E10.[address] [id number] 01/07/2024 KENDRICK GILES Type 1 diabetes mellitus with other skin ulcer E10.[address] [id number] 01/10/2024 KENDRICK GILES Type 2 diabetes mellitus with foot ulcer E11.[address] [id number] 01/14/2024 KENDRICK GILES Always tired R53.83 [facility] [address] [place], [place] [id number] 04/14/2024 [facility] Cellulitis of right lower limb L03.115 [facility] [address] [facility] [id number] 05/20/2023 [facility], [facility] [address] [facility] [id number] 05/25/2023 [facility], [facility] [address] [facility] [id number] 05/27/2023 [facility], [facility] [address] [facility] [id number] 06/01/2023 [facility], [facility] [address] [facility] [id number] 06/09/2023 [facility], [facility] [address] [facility], [place] [id number] 06/29/2023 [facility], [facility] [address] [facility], [place] [id number] 07/06/2023 [facility], [facility] [address] [facility], [place] [id number] 08/02/2023 [facility] Type 2 diabetes mellitus with foot ulcer E11.621 ; Morbid obesity E66.01 ; Essential (primary) hypertension I10 ; Sleep apnea, unspecified G47.30 and Type 2 diabetes mellitus with diabetic autonomic (poly)neuropathy E11.43 [facility] [address] [facility] [place], [place] [id number] 08/04/2023 [facility], [facility] [address] [facility] [place] [id number] 10/14/2023 [facility], [facility] [address] [facility] [place] [id number] 10/17/2023 [facility], [facility] [address] [facility] [id number] 10/20/2023 [facility], [facility] [address] [facility] [id number] 10/29/2023 [facility], [facility] [address] [facility] [id number] 11/12/2023 [facility], [facility] [address] [facility] [place] [id number] 12/27/2023 [facility], [facility] [address] [facility] [id number] 12/30/2023 [facility], [facility] [address] [place], [place] [id number] 12/30/2023 [facility], [facility] [address] [place], [place] [id number] 01/05/2024 [facility], [facility] [address] [facility] [id number] 01/17/2024 [facility], [facility] [address] [facility] [id number] 02/07/2024 [facility], [address], [place] [id number] 03/14/2024 [facility], [address], [place] [id number] 03/22/2024 [facility], [address], [place] [id number] 03/22/2024 [facility] Kidney stones N20.0 [facility], [address], [place] [id number] 03/28/2024 [facility], [address] [id number] 03/30/2024 [facility], [facility] [address] [facility], [place] [id number] 04/10/2024 [facility] ASSESSMENTS Encounter Date Diagnosis Assessment Notes Treatment Notes Treatment Clinical Notes 01/14/2024 Always tired (ICD-10 - R53.83) 01/07/2024 Type 1 diabetes mellitus with other [...] No changes made, medication(s) refilled as indicated 05/11/2023 Otalgia, right ear (ICD-10 - H92.01) 05/11/2023 Left upper quadrant abdominal swelling, mass and lump (ICD-10 - R19.02) 04/14/2024 Cellulitis of right lower limb (ICD-10 - L03.115) Discussed not itching May continue with antihistamine Pt is on prednisone for her back which will also help Gave both PO and topical coverage To call if any increased redness, drainage or fever Pt also states that she gets yeast infections with antibiotics and requesting coverage 01/10/2024 Type 2 diabetes mellitus with foot ulcer (ICD-10 - E11.621) Resolved Total time spent with patient 20 minutes which includes face to face visit, education and coordination of care. 03/22/2024 Kidney stones (ICD-1 0 - N20.0) 08/19/2023 Type 2 diabetes mellitus with diabetic autonomic (poly)neuropathy (ICD-10 - E11.43) We will increase mounjaro to 10 mg/week and repeat A1c in 3 months with f/u in office 08/19/2023 Dysuria (ICD-10 - R30.0) reviewed UA with (+) Nitrites, will treat with macrobid 08/02/2023 Type 2 diabetes mellitus with foot ulcer (ICD-10 - E11.621) 08/02/2023 Morbid obesity (ICD-10 - E66.01) 08/02/2023 Essential (primary) hypertension (ICD-10 - I10) 08/19/2023 Acute UTI (ICD-10 - N39.0) see above 12/02/2023 Morbid obesity (ICD-10 - E66.01) Has not noticed any particular weight loss, still struggles at night with binge eating. 08/02/2023 Sleep apnea, unspecified (ICD-10 - G47.30) 08/19/2023 Morbid (severe) obesity with alveolar hypoventilation (ICD-10 - E66.2) Discussed weight and it affect on health status Discussed dietary choices/nutritioni st referral Intermittent fasting Increase exercise as tolerated 08/02/2023 Type 2 diabetes mellitus with diabetic [...] Ultrasound : Abdomen, upper 05/11/2023 Ultrasound : Kidneys 03/22/2024 Ultrasound : Artery Doppler Low Ext Righ t 10/13/2022 CBC (COMPLETE BLOOD COUNT) WITH DIFF COMPREHENSIVE METABOLIC PANEL 08/19/2023 HEMOGLOBIN A1C 08/19/2023 MICROALBUMIN, URINE 08/19/2023 Next Appt Details Provider Name:KENDRICK DOMENICO Quinones, 05/04/2024 08:45:00 AM, [address] [place] [address], [phone], Insurance Providers Payer Name Payer Address Payer Phone Subscriber Number Group Number Insured Name Patient Relationship to Insured Coverage Start Date Coverage End Date [facility] [address] [place], [place] [id number] ALEC VERDUGO Self - patient is the insured MEDICAL (GENERAL) HISTORY Medical History History ICD Code Diabetes Surgical History Surgery Date(Month/Year) Gallbladder removal 2017 Lapband Surgery 2009 Lapband removal 2019 Rt index finger surgery - cat bite/infec tion @ [facility] 2021
--- OUTSIDE RECORDS SUMMARY | 2024-04-19 06:21 | XMS_ITS | Continuity of Care Document ---
Author Organization [facility] Address [address] [place] [id number]- Care Team Providers Care Local Area Network Administrator Name Role Phone Bashir RODARTE, Linda Fatima Primary Care Physician Encounter [facility] ACCT R [id number] Date(s): 02/11/24 - 03/12/[address] [address] Allergies, Adverse Reactions, Alerts Substance Reaction Severity Status vancomycin HIVES Active sulfa drugs hives Active Medications 14 day desiree reader 14 day desiree reader, See Instructions, # 1 each, Refills 5, Tot. Refills 5, Maintenance, E11.9: Fortesting glucose levels: [facility] [id number], 10/23/19 11:36:00 EST, Compound, 152, cm, 08/04/19 11:39:00 EST, Height Start Date: 10/23/19 Status: Ordered 14 day desiree sensor 14 day desiree sensor, See Instructions, # 2 each, Refills 11, Tot. Refills 11, Maintenance, E 11.9: for testing glucose lev els. [facility] [id number], 09/19/20 16:42:00 EST, Compound, 152, cm, 04/15/20 [...] BY MOUTH ONCE A DAY (INCREASED DOSE), [facility]/pharmacy #[id number] Start Date: 12/09/18 Status: Ordered [...] Refills, Maintenance, 09/19/20 16:42:00 EST, ER Tablet, [facility] #[id number], 152, cm, 04/15/20 12:53:00 EDT, Height Start [...] drug. Start Date: 01/04/23 Status: Ordered Pen [place], 31 G x 5 mm BD Ultra [...] mL, 11 Refills, Maintenance, 09/19/20 16:42:00 EST, [facility] #[id number], 152, cm, 04/15/20 12:53:00 EDT, Height Start Date: 09/19/20 Status: Ordered Trulicity Pen 1.5 mg/0.5 mL subcutaneous solution = 1.5 mg, Subcutaneous Infusion, Every week, E 11.9, # 2.5 mL, 11 Refills, Maintenance, 09/19/20 16:43:00 EST, [facility] #[id number], 152, cm, 04/15/20 12:53:00 EDT, Height Start [...] Team Personnel Name: Nidia Hill RN Position: [facility] RN Member Role: Primary Care Nurse Name: Linda Camejo NP Position: [facility] Outreach Member Role: PCP Address: Address: [address] [place] [id number]- Care Team Related Persons Name: SALBADOR NOLAN Address: home [address] [place] [address]
== END 2024-04-13 18:26 | disposition home or self-care (01) ==
PROVIDERS: Physician Assistant; Emergency Provider Emergency Medicine Emergency Medical Services; PCP Registered Nurse
DX: M54.50 Low back pain, unspecified (principal); R10.32 Left lower quadrant pain; M25.552 Pain in left hip; Z79.899 Other long term (current) drug therapy
CPT/HCPCS: 36415; 80048; 80076; 81001; 83735; 85025; 99283

== ENCOUNTER → 2024-05-02 13:04 | Outpatient (REF) | payer OTHER, SELFPAY ==
--- NOTE | 2024-05-02 13:07 | CA_ITS ---
Transthoracic Echocardiogram Patient (Last, First, Middle): Shefali Figueroa, Gender: Female Date of : 1960 Age: 63 Procedure Date: 05/02/2024 Procedure Type: Transthoracic Echocardiogram Location: OP Height: 149.86 cm Weight: 124.74 kg BSA: 2.11 m2 Heart Rate: bpm BP: 130 / 68 mmHg Excellence Manager: TO Referring MD: Jessie Horner C[facility] HUMAN RESOURCES MANAGER-Leah Symptoms: I44.7 - Left bundle-branch block, unspecified Study Quality: Adequate w contrast ECG Rhythm: Sinus Conclusions: - The left ventricular systolic function is low normal. The calculated ejection fraction is 52% by biplane method. - There is moderate mitral annular calcification. Findings Procedure Information Contrast agent, definity, is being given per protocol without apparent complications. Left Ventricle Normal left ventricular cavity size. The left ventricular systolic function is low normal. The calculated ejection fraction is 52% by biplane method. There is paradoxical septal motion consistent with a left bundle branch block. Evidence suggests grade I (mild) diastolic dysfunction. There is mild septal asymmetric hypertrophy. Right Ventricle Mildly increased right ventricular cavity size. There is normal right ventricular systolic function. Atria Both atria are normal in size. Aortic Valve There is a normal trileaflet aortic valve. There is no aortic valve stenosis. There is no aortic valve regurgitation. Mitral Valve There is moderate mitral annular calcification. There is no mitral valve regurgitation. There is no mitral valve stenosis. Pulmonic Valve The pulmonic valve is likely normal. Tricuspid Valve There is no tricuspid valve regurgitation. Tricuspid regurgitation envelope is inadequate for calculation of right ventricular systolic pressure. Great Vessels The asc aorta is normal in size. Venous The inferior vena cava was not well visualized. The inferior vena cava is normal in size and collapses greater than 50% with inspiration. Pericardium/Pleural There is no evidence of pericardial effusion. Prior Study Comparison No significant change compared to prior study dated: 05/20/2023. Measurements 2D Linear Measurements IVSd: 1.13 0.6-0.9/0.6-1.0 cm LVIDd: 4.16 3.9-5.3/4.2-5.9 cm LVIDd Index: 1.97 2.4-3.2/2.2-3.1 cm/m2 LVIDs: 3.09 2.0-3.6 cm LVPWd: 0.90 0.7-1.1 cm LA Diam: 3.50 2.7-3.8/3.0-4.0 cm LAIDs Index: 1.66 1.5-2.3 cm/m2 LV Mass: 171.43 67-162/88-224 g LV Mass Index: 81.25 43-95/49-115 g/m2 LVOT Diam: 2.10 3.0+(-)1.3 cm 2D Systolic Function EF 4C: 46.70 >55% EF 2C: 58.10 >55% EF BiP: 52.40 >55% Mitral Valve MV VTI: 0.23 MV Pk Jaison: 1.42 MV Mn Jaison: 0.88 MV Pk Grad: 8.00 MV Mn Grad: 3.00 MV Pk E: 0.72 MV PK A: 1.28 MV Decel Time: 132.00 E/A: 0.60 E'Lateral: 3.81 E'Medial: 3.48 E/E' Med: 20.60 E/E' Lat: 18.80 PHT: 39.00 MVA PHT: 5.64 MVA Continuity: 2.55 Decel [place]: 5.44 Aortic Valve AoV Pk Jaison: 1.45 AoV Mn Jaison: 1.12 AoV VTI: 0.30 AoV Pk Grad: 8.00 Aov Mn Grad: 5.00 TOMMIE Cont.VTI: 2.00 LVOT LVOT Pk Jaison: 0.86 LVOT Mn Jaison: 0.60 LVOT VTI: 0.17 LVOT Pk Grad: 3.00 LVOT Mn Grad: 2.00 LVOT Diam: 2.10 LVOT Area: 3.46 Diastolic Function MV Pk E: 0.72 MV Pk A: 1.28 E/A: 0.60 E'Medial: 3.48 E/E' Med: 20.60 E' Laterial: 3.81 E/E' Lat: 18.80 Right Ventricle TAPSE (mm): 18.00 TVS' Jaison: 11.90 Tricuspid Valve RA Press: 3.00 Great Vessels Aorta Sinus of Valsalva: 3.20 2.0-3.5 cm Ao Asc: 3.10 2.1-3.4 cm Updated in Other Vendor System with Status of Final Gage Browne MD electronically signed on 05/03/2024 9:17:10 AM with status of Final
== END ==
LOC: HO.CARD 13:04
PROVIDERS: PCP Registered Nurse; Visit Provider Nurse Practitioner Family
DX: I44.7 Left bundle-branch block, unspecified (principal); R93.1 Abnormal findings on diagnostic imaging of heart and coronary circulation; I10 Essential (primary) hypertension
CPT/HCPCS: 93306; Q9957

== ENCOUNTER → 2024-05-02 13:07 | Outpatient (BNV) | payer OTHER, SELFPAY | PROVIDERS: PCP Registered Nurse; Visit Provider Internal Medicine | DX: I42.2 Other hypertrophic cardiomyopathy (principal); I44.7 Left bundle-branch block, unspecified; I34.81 Nonrheumatic mitral (valve) annulus calcification | CPT/HCPCS: 93306 ==

== ENCOUNTER 2024-05-04 13:42 | Outpatient (AMB) | payer OTHER, SELFPAY ==
[2024-05-04 13:45] VITALS: BP 124/60; PULSE 86; BMI 56.3
--- NOTE | 2024-05-04 13:45 | MHC.OFFVIS ---
Vital Signs 05/04/24 13:45 Height 4 ft 11 in Weight 278 lb 10.629 oz BMI 56.3 BP 124/60 Blood Pressure Location Lt brachial Position Sitting Pulse 86 Pulse Source Monitor Intake Visit Reasons: 6 mth f/up after echo Practice Consultant Required: No Allergies Sulfa (Sulfonamide Antibiotics) [SULFA (SULFONAMIDE ANTIBIOTICS)] Allergy (Intermediate, Verified 05/04/24 13:48) SWELLING vancomycin Allergy (Verified 05/04/24 13:48) Rash Medication List - Last Reconciled 05/04/24 by Jessie Horner, COMPUTER T[employer] KEYLINER-C amlodipine 5 mg PO DAILY bupropion HCl SR 100 mg PO BID empagliflozin-metformin 25-1,000 mg ER (Synjardy XR) 1 tab PO DAILY lorazepam 0.5 mg PO BID PRN losartan-hydrochlorothiazide 100-25 mg 1 tab PO DAILY oxycodone 5 mg PO BID PRN prednisone 20 mg PO DAILY sertraline 100 mg PO DAILY tirzepatide (Mounjaro) 10 mg subcut QWEEK HPI HPI 6 mth f/up after echo: Details: Shefali is a 63-year-old female with past medical history of diabetes, hypertension, morbid obesity, obstructive sleep apnea with CPAP use, left bundle branch block who presents for follow-up after recent echo. Today she reports that she has had no significant changes to her health since her last visit in October. She has been trying to lose weight and is down 24 lb in the last year. She is still under high mental stress. She again describes both her children have psychiatric illnesses. She is caring for her mother who has a diagnosis of Alzheimer's dementia. She lost her ex- and brother last year. She was told she can not have knee/hip replacement surgery until she loses 100 lb. She states she is not able to exercise and can ambulate only short distances with a cane. She continues to have no cardiac symptoms. She has some shortness of breath with walking which is not new. No presyncope, syncope. Taking meds as directed. [facility] Medical History Essential hypertension LBBB (left bundle branch block) Morbid obesity Super obesity Anxiety Depression Fatty liver Type 2 diabetes mellitus COPD (chronic obstructive pulmonary disease) Obstructive sleep apnea hypopnea, severe Surgical History History of hand surgery Hx of colonoscopy History of removal of laparoscopic gastric banding device History of carpal tunnel surgery Hx of cholecystectomy Hx of laparoscopic gastric banding Family History Father Interstitial pneumonitis Diabetes Mother Bladder cancer Brother No problems noted. Social History Household Members: Family and Children Housing: House Do you presently have visiting nurse or other home services: No Alcohol intake: current Alcohol intake frequency: holidays/special occasions only Alcohol type: wine and hard liquor Patient Tobacco Use Status: Former Tobacco user Advance Directives Date on File: 03/12/22 service: No Current occupational status: unemployed Review of Systems Const All systems reviewed & are unremarkable except as noted in HPI and below ENT Denies dizziness Card Denies chest pain, Denies chest pain at rest, Denies chest pain with activity, Denies rapid heart rate, Denies pedal edema, Denies edema, Denies leg edema, Denies lightheadedness, Denies palpitations, Denies dyspnea, Reports dyspnea on exertion and Denies orthopnea Resp Denies cough, Denies dyspnea and Reports dyspnea on exertion GI Denies hematochezia and Denies change in stool character Musc Details: uses cane, bilateral knee pains Reports abnormal gait, Reports limited range of motion, Denies muscle cramps, Denies muscle weakness, Denies numbness, Denies radiating pain into limb, Denies stiffness and Denies tingling Neuro Reports abnormal gait, Denies dizziness, Denies numbness and Denies tingling Endo Denies palpitations Physical Exam Vital Signs: BMI result Body Mass Index 56.3 Const Other: morbidly obese. uses cane General: cooperative, healthy appearing, comfortable and no acute distress Orientation/consciousness: patient oriented x3 Neck Neck: Yes normal visual inspection Resp Effort & Inspection: normal respiratory effort Auscultation: clear to auscultation bilaterally, no crackles, no rales, no rhonchi and no wheezes Cardio Jugular venous distension: no JVD Rate: regular rate Rhythm: regular rhythm Heart sounds: S1 normal heart sound present, S2 normal heart sound present, no murmurs and no rubs Neuro General: patient oriented x3 Extrem General: Yes normal to inspection and No no pedal edema Psych Appearance: grossly normal Mental Status: mental status grossly normal Speech and movement: Normal speech and movement present Assessment & Plan Assessment & Plan (1) Abnormal echocardiogram findings without diagnosis: Code(s): R93.1 - Abnormal findings on diagnostic imaging of heart and coronary circulation Category: Medical Plan: Echocardiogram done 05/20/2023 showing EF 50-55%, difficult to determine if this is technical verses actual. Prior echo 02/2022 showed EF was 60-65%. She does have an underlying left bundle branch block which does put her at increased risk for development of cardiomyopathy. She also has significant stressors in her life, morbid obesity and hypertension all of which can contribute to slight reduction in EF.. She is compliant with CPAP. She is on amlodipine and losartan and hydrochlorothiazide combination with good blood pressure control. No signs of heart failure on examination. She does have some shortness of breath with walking which can be explained by her sedentary lifestyle and obesity. A repeat echocardiogram was done on 05/02/2024 showing EF 52%, grade 1 diastolic dysfunction, moderate mitral annular calcification. At this time will plan for a pharmacological nuclear stress test to evaluate for any ischemia in the setting of her low normal EF. Plan to call her with results. If test is abnormal she was informed that will require further evaluation. Signs and symptoms of angina and heart failure reviewed with her. Cardiology follow-up 6 months, sooner if needed (2) LBBB (left bundle branch block): Code(s): I44.7 - Left bundle-branch block, unspecified Category: Medical Plan: Chronic left bundle branch block. Following with routine echoes to assess EF. Nuclear stress as above (3) Essential hypertension: Code(s): I10 - Essential (primary) hypertension Category: Medical Plan: Well controlled at present. No med changes made Plan Time spent on chart review, documentation, interview and assessment Orders: Orders CA lexiscan stress w casper Today I44.7 - Left bundle-branch block, unspecified, R93.1 - Abnormal findings on diagnostic imaging of heart and coronary circulation NM cardiolite stress test Today I44.7 - Left bundle-branch block, unspecified, R93.1 - Abnormal findings on diagnostic imaging of heart and coronary circulation Coding Level of Care Code Est Pt Level 4 (74858) Diagnoses Abnormal echocardiogram findings without diagnosis R93.1 LBBB (left bundle branch block) I44.7 Essential hypertension I10 Time Spent (min) 28
== END 2024-05-04 14:19 | disposition home or self-care (01) ==
PROVIDERS: PCP Registered Nurse; Visit Provider Nurse Practitioner Family
DX: R93.1 Abnormal findings on diagnostic imaging of heart and coronary circulation (principal); I44.7 Left bundle-branch block, unspecified; I10 Essential (primary) hypertension
CPT/HCPCS: 99214

== ENCOUNTER → 2024-05-04 13:42 | Outpatient (BNVA) | payer OTHER, SELFPAY | PROVIDERS: PCP Registered Nurse; Visit Provider Nurse Practitioner Family ==

== ENCOUNTER → 2024-10-10 10:04 | Outpatient (REF) | payer OTHER, SELFPAY | LOC: HO.CARD 10:04 | PROVIDERS: PCP Registered Nurse; Visit Provider Nurse Practitioner Family | DX: R93.1 Abnormal findings on diagnostic imaging of heart and coronary circulation (principal); I44.7 Left bundle-branch block, unspecified | CPT/HCPCS: 93017; J0280; J2785 ==

== ENCOUNTER → 2024-10-10 10:13 | Outpatient (BNV) | payer OTHER, SELFPAY | PROVIDERS: PCP Registered Nurse | DX: I51.0 Cardiac septal defect, acquired (principal); R06.02 Shortness of breath; I44.7 Left bundle-branch block, unspecified | CPT/HCPCS: 78452 ==

== ENCOUNTER 2024-11-02 13:08 | Outpatient (AMB) | payer OTHER, SELFPAY ==
[2024-11-02 13:11] VITALS: BP 120/62; PULSE 69; BMI 53.9
--- NOTE | 2024-11-02 13:11 | A.OFFVIS_ITS ---
Vital Signs 11/02/24 13:11 Height 4 ft 11 in Weight 266 lb 12.149 oz BMI 53.9 BP 120/62 Blood Pressure Location Lt brachial Position Sitting Pulse 69 Pulse Source Pulse Oximeter Intake Visit Reasons: 6M Follow up [employer] Required: No Allergies Sulfa (Sulfonamide Antibiotics) [SULFA (SULFONAMIDE ANTIBIOTICS)] Allergy (Intermediate, Verified 11/02/24 13:15) SWELLING vancomycin Allergy (Verified 11/02/24 13:15) Rash HPI HPI 6M Follow up: Details: Shefali is a 63-year-old female with past medical history of diabetes, hyp ertension, morbid obesity, obstructive sleep apnea with CPAP use, left bundle branch block who presents for follow-up after recent nuclear stress test. Today she reports that she has had no significant changes to her health since her last visit in [facility]. She is still working on weight loss. She is still under high mental stress and recently moved in with her mother, who has alzheimers ds. She has chronic knee/ hip pain was told she can not have knee/hip replacement surgery until she loses 100 lb. She states she is not able to exercise and can ambulate only short distances with a cane. She continues to have no cardiac symptoms. She has some shortness of breath with walking which is not new. No presyncope, syncope. Taking meds as directed. [facility] Medical History Essential hypertension LBBB (left bundle branch block) Morbid obesity Super obesity Anxiety Depression Fatty liver Type 2 diabetes mellitus COPD (chronic obstructive pulmonary disease) Obstructive sleep apnea hypopnea, severe Surgical History History of hand surgery Hx of colonoscopy History of removal of laparoscopic gastric banding device History of carpal tunnel surgery Hx of cholecystectomy Hx of laparoscopic gastric banding Family History Father Interstitial pneumonitis Diabetes Mother Bladder cancer Brother No problems noted. Social History Household Members: Family and Children Housing: House Do you presently have visiting nurse or other home services: No Alcohol intake: current Alcohol intake frequency: holidays/special occasions only Alcohol type: wine and hard liquor Patient Tobacco Use Status: Former Tobacco user Advance Directives Date on File: 03/12/22 service: No Current occupational status: unemployed Review of Systems Const All systems reviewed & are unremarkable except as noted in HPI and below ENT Denies dizziness Card Denies chest pain, Denies chest pain at rest, Denies chest pain with activity, Denies rapid heart rate, Denies pedal edema, Denies edema, Denies leg edema, Denies lightheadedness, Denies palpitations, Denies dyspnea, Denies dyspnea on exertion and Denies orthopnea Resp Denies cough, Denies dyspnea and Denies dyspnea on exertion GI Denies hematochezia and Denies change in stool character Musc Reports abnormal gait (uses cane), Denies limited range of motion, Denies muscle cramps, Denies muscle weakness, Denies numbness, Denies radiating pain into limb, Denies stiffness and Denies tingling Neuro Reports abnormal gait (uses cane), Denies dizziness, Denies numbness and Denies tingling Endo Denies palpitations Physical Exam Vital Signs: Last Vital Signs Pulse 69 11/02/24 13:11 BP 120/62 11/02/24 13:11 BMI result Body Mass Index 53.9 Const Other: morbidly obese. uses cane General: cooperative, healthy appearing, comfortable and no acute distress Orientation/consciousness: patient oriented x3 Neck Neck: Yes normal visual inspection Resp Effort & Inspection: normal respiratory effort Auscultation: clear to auscultation bilaterally, no crackles, no rales, no rhonchi and no wheezes Cardio Jugular venous distension: no JVD Rate: regular rate Rhythm: regular rhythm Heart sounds: S1 normal heart sound present, S2 normal heart sound present, no murmurs and no rubs Neuro General: patient oriented x3 Extrem General: Yes normal to inspection and No no pedal edema Psych Appearance: grossly normal Mental Status: mental status grossly normal Speech and movement: Normal speech and movement present Assessment & Plan Assessment & Plan (1) Abnormal echocardiogram findings without diagnosis: Code(s): R93.1 - Abnormal findings on diagnostic imaging of heart and coronary circulation Category: Medical Plan: Echocardiogram done 05/20/2023 showing EF 50-55%, difficult to determine if this is technical verses actual. Prior echo 02/2022 showed EF was 60-65%. She does have an underlying left bundle branch block which does put her at increased risk for development of cardiomyopathy. She also has significant stressors in her life, morbid obesity and hypertension all of can contribute to CMP. She is compliant with CPAP. She is on amlodipine and losartan and hydrochlorothiazide combination with good blood pressure control. A repeat echocardiogram was done on 05/02/2024 showing EF 52%, grade 1 diastolic dysfunction, moderate mitral annular calcification. She then had nuclear stress test on 10/10/2024 which shows a reversible distal lateral wall defect, ischemia versus infarct. Test results reviewed with her. Will order a CTA of the coronary arteries for further evaluation. Signs and symptoms of angina reviewed. Emergency care if ever needed for symptoms. Cardiology follow-up 3 months, sooner if needed (2) LBBB (left bundle branch block): Code(s): I44.7 - Left bundle-branch block, unspecified Category: Medical Plan: Chronic left bundle branch block. Following with routine echoes to assess EF. Nuclear stress as above (3) Essential hypertension: Code(s): I10 - Essential (primary) hypertension Category: Medical Plan: Well controlled at present. No med changes made (4) Abnormal nuclear stress test: Code(s): R94.39 - Abnormal result of other cardiovascular function study Category: Medical Plan Time spent on chart review, documentation, interview and assessment Orders: Orders CT Cardiac Coronary Angio Today I44.7 - Left bundle-branch block, unspecified, R93.1 - Abnormal findings on diagnostic imaging of heart and coronary circulation, R94.39 - Abnormal result of other cardiovascular function study Basic Metabolic Panel Today I10 - Essential (primary) hypertension Coding Level of Care Code Est Pt Level 4 (18813) Complex EM visit Add On G2211 Diagnoses Abnormal echocardiogram findings without diagnosis R93.1 LBBB (left bundle branch block) I44.7 Essential hypertension I10 Abnormal nuclear stress test R94.39 Time Spent (min) 32
--- OUTSIDE RECORDS SUMMARY | 2024-11-02 15:55 | XMS_ITS ---
[facility] Organization [facility] Address [address] [place] [id number] Care Team Providers Care Slab Miller Operator Name Role Phone KENDRICK CAMEJO Primary Care Provider REASON FOR VISIT CPE Encounters Encounter Location Date Provider Diagnosis [address] [id number] 11/01/2024 KENDRICK CAMEJO PLAN OF TREATMENT No Information Progress Notes * STUART VERDUGOB:1960 (63 yo F)Acc No.[id number]:11/01/2024 Progress Note Patient:??ALEC VERDUGO Provider:??Kendrick Camejo DNP :1960?Age:63 Y?Sex:Fe male Date:11/01/2024 Phone: Address:[address] [place] [address] Subjective: * Chief Complaints: * ?1. CPE. * Medical History:?? Objective: Assessment: Plan: * Treatment: Care Plan: * Problems:?? * Billing Information: * Visit Code:?? * Procedure Codes:?? * Sign off status: Pending * Provider:??Kendrick Camejo DNP Date:??0 11/01/2024
--- OUTSIDE RECORDS SUMMARY | 2024-11-02 15:55 | XMS_ITS ---
Author Organization [facility] Address [address] [place] [phone] Care Team Providers Care First Leveler Name Role Phone KENDRICK GILES Primary Care Provider [phone] REASON FOR VISIT Refills MEDICATIONS Medication SIG (Take, Route, Frequency, Duration) Notes Start Date End Date Status Diclofenac Sodium 75 mg TAKE 1 TABLET BY MOUTH TWICE A DAY NEEDED orally twice a day as needed for 90 days 04/14/2025 Active Cyclobenzaprine HCl 10 MG 1 tablet at be dtipr as needed Orally Once a day for 90 days 04/14/2025 Active LORazepam 0.5 mg TAKE 1 TABLET BY SALUD TH TWICE A DAY NEEDED FOR PANIC *30 FOR 30 DAY SUPPLY* orally twice a day sparing use, only when needed for 30 days 10/18/2024 Active Synjardy XR 25-1000 MG 1 tablet with breakfast Orally Once a day for 90 days Samples Active traMADol HCl 50 MG 1 tablet as needed Orally twice a day as needed for 30 days 10/18/2024 02/13/2025 Active amLODIPine Besylate 5 MG 1 tablet Orally Once a day for 90 days Active Encounters Encounter Location Date Provider Diagnosis [facility], [address] [id number] 10/16/2024 KENDRICK GILES Essential (primary) hypertension I10 and Type 2 diabetes mellitus with diabetic autonomic (poly)neuropathy E11.43 ASSESSMENTS Encounter Date Diagnosis Assessment Notes Treatment Notes Treatment Clinical Notes Section Notes 10/16/2024 Essential (primary) hypertension (ICD-10 - I10) 10/16/2024 Type 2 diabetes mellitus with diabetic autonomic (poly)neuropathy (ICD-10 - E11.43) PLAN OF TREATMENT Medication Medication Name Sig Start Date Stop Date Notes Diclofenac Sodium 75 mg TAKE 1 TABLET BY MOUTH TWICE A DAY NEEDED orally twice a day as needed for 90 days 04/14/2025 Cyclobenzaprine HCl 10 MG 1 tablet at be dtime as needed Orally Once a day for 90 days 04/14/2025 LORazepam 0.5 mg TAKE 1 TABLET BY SALUD TH TWICE A DAY NEEDED FOR PANIC *30 FOR 30 DAY SUPPLY* orally twice a day sparing use, only when needed for 30 days 10/18/2024 Synjardy XR 25-1000 MG 1 tablet with reinaldo akfast Orally Once a day for 90 days Samples traMADol HCl 50 MG 1 tablet as needed O rally twice a day as needed for 30 days 10/18/2024 02/13/2025 amLODIPine Besylate 5 MG 1 tablet Orally Once a day for 90 days Progress Notes * VJ VERDUGO:1960 (63 yo F)Acc No.[id number]:10/16/2024 Patient:??ALEC VERDUGO :1960?Age:63 Y?Sex:Fe male Phone: Address:[address] [place] [phone] * Refills?? Refill Diclofenac Sodium Tablet Delayed Release, 75 mg, orally, 180, TAKE 1 TABLET BY MOUTH TWICE A DAY NEEDED, twice a day as needed, 90 days, Refills=1 Refill Cyclobenzaprine HCl Tablet, 10 MG, Orally, 90 Tablet, 1 tablet at bedtime as needed, Once a day, 90 days, Refills=1 Refill amLODIPine Besylate Tablet, 5 MG, Orally, 90 Tablet, 1 tablet, Once a day, 90 days, Refills=3 Refill LORazepam Tablet, 0.5 mg, orally, 60, TAKE 1 TABLET BY MOUTH TWICE A DAY NEEDED FOR PANIC *30 FOR 30 DAY SUPPLY*, twice a day sparing use, only when needed, 30 days, Refills=3 Refill Synjardy XR Tablet Extended Release 24 Hour, 25-1000 MG, Orally, 90 Tablet, 1 tablet with breakfast, Once a day, 90 days, Refills=3 Refill traMADol HCl Tablet, 50 MG, Orally, 60, 1 tablet as needed, twice a day as needed, 30 days, Refills=3 * true * Date:??
--- OUTSIDE RECORDS SUMMARY | 2024-11-02 15:56 | XMS_ITS ---
Author Organization [facility] Address [address] [place] [phone] Care Team Providers Care Engineering Aid Name Role Phone KENDRICK GILES Primary Care Provider REASON FOR VISIT refill MEDICATIONS Medication SIG (Take, Route, Frequency, Duration) Notes Start Date End Date Status buPROPion HCl ER (SR) 100 MG 1 tablet in the morning Orally Once a day for 90 days 10/02/2024 Active Encounters Encounter Location Date Provider Diagnosis [address] [id number] 10/02/2024 KENDRICK GILES PLAN OF TREATMENT Medication Medication Name Sig Start Date Stop Date Notes buPROPion HCl ER (SR) 100 MG 1 tablet in the morning Orally Once a day for 90 days 10/02/2024 Progress Notes * VJ VERDUGO:1960 (63 yo F)Acc No.[id number]:10/02/2024 Patient:??ALEC VERDUGO :1960?Age:63 Y?Sex:Fe male Phone: Address:[address] [place] [phone] * Refills?? Start buPROPion HCl ER (SR) Tablet Extended Release 12 Hour, 100 MG, Orally, 180 tabs, 1 tablet in the morning, Once a day, 90 days, Refills=3 * true * Date:??
== END 2024-11-02 13:56 | disposition home or self-care (01) ==
PROVIDERS: PCP Registered Nurse; Visit Provider Nurse Practitioner Family
DX: R93.1 Abnormal findings on diagnostic imaging of heart and coronary circulation (principal); I44.7 Left bundle-branch block, unspecified; I10 Essential (primary) hypertension; R94.39 Abnormal result of other cardiovascular function study
CPT/HCPCS: 99214

== ENCOUNTER → 2024-11-02 13:08 | Outpatient (BNVA) | payer OTHER, SELFPAY | PROVIDERS: PCP Registered Nurse; Visit Provider Nurse Practitioner Family ==

== ENCOUNTER 2024-11-23 13:18 | Outpatient (AMB) | payer OTHER, SELFPAY ==
[2024-11-23 13:25] VITALS: BP 145/63; PULSE 80; O2SAT 95; BMI 54.2
--- NOTE | 2024-11-23 13:25 | A.OFFVIS_ITS ---
Vital Signs 11/23/24 13:25 Height 4 ft 11 in Weight 268 lb 4 oz BMI 54.2 BP 145/63 H Blood Pressure Location Rt brachial Position Sitting Pulse 80 Pulse Source Pulse Oximeter Pulse Oximetry (%) 95 Oxygen Delivery Method Room Air Intake Visit Reasons: Chronic pain/Lumbar radicular pain Allergies Sulfa (Sulfonamide Antibiotics) [SULFA (SULFONAMIDE ANTIBIOTICS)] Allergy (Intermediate, Verified 11/23/24 13:28) SWELLING vancomycin Allergy (Verified 11/23/24 13:28) Rash HPI Comments Details: Shefali is very pleasant 63 years old female who presents in my office with complains on multiple pain generators. She reports severe pain in the lower back, she reports pain of intractable nature in the right hip as well as in the right knee. She stated that her pain started 3 years ago. She reports that the cause of her pain is osteoarthritis. She was examined in the past by radiography of the right hip and the right knee and she received conclusion that she has [id number] arthritis in those joints. She reports flexing forward aggravate her pain in the back. Reports that walking aggravates her pain in the knee and the hip. She reports that she is unable to sleep normally can not do activities of daily living she can take care of herself but she can not function normally. She is sole caregiver for her to development delayed sons of 20 and 21 years old as well as for her mentally compromised mother. She reports that she needs cane for ambulation. Weather changes and motions also aggravate her pain. The pain is severe all day long 8-10 out of 10 in terms of tissue damage he reports her pain as shooting, sharp, hurting, aching home tiring, exhausting, spreading, radiating, piercing, cool, cold sensation. In the past she was offered total hip and total knee replacement of however those were postponed because of her extremely high BMI. She is currently under care of bariatric program [facility]. She is taking Mounjaro 15 mg once a week to lose her weight. She had multiple x-rays of the knee and the hip in the past , she reported today that she had an MRI of the lumbar spine in the past which is not available for me today she stated that on MRI she had disc herniation and nerve root compressions.. She had multiple sessions of physical therapy which helps her pain minimally she had chiropractic manipulations which did not help her pain at all. She had injections in her hip joint with no results. She did not have any injections into her knee. Her past medical history significant for severe morbid obesity, headaches, hypertension, fatigue, shortness of breath, history of kidney stones, diabetes, history of gallbladder pancreatitis fatty liver disease digestive problems severe arthritis and left bundle branch block as a cardiac condition. Her past surgical history significant for gallbladder removal lap band insertion and removal in the past due to ineffectiveness. She also had minor surgery for finger. She stopped smoking in 1997 she very rarely consumes alcohol 1-2 times monthly she denies caffeinated beverages and she denies recreational drugs. [facility] Medical History Essential hypertension LBBB (left bundle branch block) Morbid obesity Super obesity Anxiety Depression Fatty liver Type 2 diabetes mellitus COPD (chronic obstructive pulmonary disease) Obstructive sleep apnea hypopnea, severe Surgical History History of hand surgery Hx of colonoscopy History of removal of laparoscopic gastric banding device History of carpal tunnel surgery Hx of cholecystectomy Hx of laparoscopic gastric banding Family History Father Interstitial pneumonitis Diabetes Mother Bladder cancer Brother No problems noted. Social History Household Members: Family and Children Housing: House Do you presently have visiting nurse or other home services: No Alcohol intake: current Alcohol intake frequency: holidays/special occasions only Alcohol type: wine and hard liquor Patient Tobacco Use Status: Former Tobacco user Advance Directives Date on File: 03/12/22 service: No Current occupational status: unemployed Review of Systems Const Reports no additional complaints ENT Reports Normal hearing present Card Reports as per HPI Resp Reports as per HPI GI Reports as per HPI Reports no additional complaints Musc Reports as per HPI Neuro Reports no additional complaints, Reports Normal hearing present, Denies Abnormal speech present, Denies confusion and Denies Sensory deficit (Neuro) Psych Reports no additional complaints and Denies confusion Physical Exam Vital Signs: Last Vital Signs Pulse 80 11/23/24 13:25 BP 145/63 H 11/23/24 13:25 Pulse Ox 95 11/23/24 13:25 Oxygen Delivery Method Room Air 11/23/24 13:25 BMI result Body Mass Index 54.2 Const General: no acute distress; No confusion Nutritional Appearance: obese morbidly obese Orientation/consciousness: patient oriented x3 and No confusion Eyes General: appearance normal, both eyes and all related structures Pupils: Equal, round and reactive pupils present EOM: EOMs intact bilaterally Neck Neck: Yes full ROM Chest Chest palpation & inspection: normal inspection of the chest Resp Effort & Inspection: normal respiratory effort, able to speak in complete sentences, normal respiratory pattern, no audible wheezes and no cough Cardio Jugular venous distension: no JVD GI Inspection: Yes normal to inspection Back/Spine/Pelvis Other: Severe tenderness on palpation in paraspinal spinal region lumbar spine. Flexing forward aggravate her pain. Flexing backwards aggravate her pain. Neuro General: patient oriented x3, gait normal and No confusion Cranial nerves: Yes CN's II-XII intact bilaterally, Yes Equal, round and reactive pupils present, Yes Normal hearing present and Yes Ability to bilaterally elevate shoulders present Speech: No Abnormal speech present Gait exam (Neuro): Normal gait present Motor exam (neuro): 5/5 motor strength present throughout Sensory Exam: No Sensory deficit (Neuro) Extrem Other: Crepitus on palpation of the right knee with motions. Unable to examined right hip due to severe obesity. General: No pedal edema Psych Speech and movement: Normal speech and movement present Affect: normal affect Attitude: cooperative Thought process: Normal thought process present Thought content: Normal thought content present Insight: Good insight present (Psych) Judgement: Good judgement present (Psych) Assessment & Plan Assessment & Plan (1) Right knee pain: Code(s): M25.561 - Pain in right knee Category: Medical (2) Osteoarthritis of right knee: Code(s): M17.11 - Unilateral primary osteoarthritis, right knee Category: Medical (3) Right hip pain: Code(s): M25.551 - Pain in right hip Category: Medical (4) Arthritis of right hip: Code(s): M16.11 - Unilateral primary osteoarthritis, right hip Category: Medical (5) Disc degeneration, lumbar: Code(s): M51.369 - Other intervertebral disc degeneration, lumbar region without mention of lumbar back pain or lower extremity pain Category: Medical (6) Spondylosis of lumbar region without myelopathy or radiculopathy: Code(s): M47.816 - Spondylosis without myelopathy or radiculopathy, lumbar region Category: Medical (7) Chronic pain syndrome: Code(s): G89.4 - Chronic pain syndrome Category: Medical Plan She never received treatment for her knee pain Nevro received any injections. I will schedule her in 1 week for right knee steroid injection in the office. She had injection in her hip without effect. I told her that it depends on needle positioning and ability of the provider to advance the needle into the joint, I told her that if she wants to I can schedule her for the intra- articular right knee steroid injections as well. I will schedule her for the MRI of the lumbar spine. She reports pain aggravation. She reports last MRI demonstrated disc degeneration and nerve root compressions. I want to access the changes of the MRI on the lumbar spine. Orders: Orders MR lumbar spine wo con Today G89.4 - Chronic pain syndrome, M47.816 - Spondylosis without myelopathy or radiculopathy, lumbar region, M51.369 - Other intervertebral disc degeneration, lumbar region without mention of lumbar back pain or lower extremity pain Patient Instructions: I here by testify that I spent 49 minutes in conversation with this patient as well as planning her care and organizing this note. Coding Level of Care Code New Pt Level 4 (71528) Diagnoses Right knee pain M25.561 Osteoarthritis of right knee M17.11 Right hip pain M25.551 Arthritis of right hip M16.11 Disc degeneration, lumbar M51.369 Spondylosis of lumbar region without myelopathy or radiculopathy M47.816 Chronic pain syndrome G89.4
== END 2024-11-23 13:58 | disposition home or self-care (01) ==
LOC: HO.PMC 13:18
PROVIDERS: PCP Registered Nurse; Referring Provider Registered Nurse; Visit Provider Anesthesiology
DX: M25.561 Pain in right knee (principal); M17.11 Unilateral primary osteoarthritis, right knee; M25.551 Pain in right hip; M16.11 Unilateral primary osteoarthritis, right hip; M51.369 Other intervertebral disc degeneration, lumbar region without mention of lumbar back pain or lower extremity pain; M47.816 Spondylosis without myelopathy or radiculopathy, lumbar region; G89.4 Chronic pain syndrome
CPT/HCPCS: 99204

== ENCOUNTER → 2024-11-23 13:18 | Outpatient (BNVA) | payer OTHER, SELFPAY | PROVIDERS: PCP Registered Nurse; Referring Provider Registered Nurse; Visit Provider Anesthesiology ==

== ENCOUNTER 2024-12-18 14:55 | Outpatient (REF) | payer OTHER, SELFPAY ==
--- NOTE | ~2024-12-18 | MR_ITS ---
EXAMINATION: MR LUMBAR SPINE WITHOUT CONTRAST CLINICAL INFORMATION: Chronic pain syndrome COMPARISON: None available. TECHNIQUE: MRI of the lumbar spine was obtained using routine sequences without contrast. FINDINGS: Last rib-bearing vertebra labeled T12. Probably Castellvi type I sacralization. No bone marrow STIR signal abnormality. Multilevel marginal osteophyte formation and disc desiccation, T10-11 to L5-S1. Grade 1 anterolisthesis L4-5. Schmorl nodes in the endplates of T10, T12, L1, L2 vertebral bodies. Conus medullaris ends at intervertebral disc L1-2 with normal signal. T11-12: No disc herniation. No neuroforamina stenosis. T12-L1: No disc herniation. No neuroforamina stenosis. L1-2: No disc herniation. No neuroforamina stenosis. L2-3: No disc herniation. No neuroforamina stenosis. L2-3: Broad-based disc bulging. Facet joint and ligamentum flavum hypertrophy. CSF effacement of the thecal sac. Central spinal canal stenosis. Left neuroforamina stenosis encroaching the left L3 exiting nerve root. L4-5: Broad-based disc bulging. Facet joint and ligamentum flavum hypertrophy. CSF effacement of the thecal sac and central spinal canal stenosis likely compressing the neural elements. Bilateral neuroforamina narrowing, left greater than the right side likely encroaching the left L4 exiting nerve root. L5-S1: Transitional vertebra. Broad-based disc bulging. Facet joint and ligamentum flavum hypertrophy. Central spinal canal stenosis and bilateral neuroforamina narrowing. No prevertebral compartment hematoma, mass or fluid collection. Slight asymmetric volume loss right psoas muscle. Hyperintense T2 cystic lesion in the posterior upper pole right kidney. MR/MR lumbar spine wo con IMPRESSION: Multilevel thoracolumbar spondylosis resulting in grade 1 anterolisthesis L4-5 and central spinal canal stenosis encroaching likely compressing the neural elements of the thecal sac at L4-5, L3-4 and to a lesser extent L5-S1. Multilevel left-sided neuroforamina stenosis from L3-4 to L5-S1 encroaching probably compressing the respective exiting nerve roots. Electronically signed by: Eugene Lizarraga MD 12/20/2024 05:30 AM EDT
[2024-12-18 17:31] LABS: Anion Gap 11 (12-20); Blood Urea Nitrogen 22 mg/dL (9-16); Calcium 9.3 mg/dL (8.4-10.2); Carbon Dioxide 31 mmol/L (22-29); Chloride 102 mmol/L (96-108); Estimated Glomerular Filt Rate > 60; Glucose Random 96 mg/dL (60-115); Sodium 140 mmol/L (135-145)
== END 2024-12-18 14:56 | disposition home or self-care (01) ==
LOC: HO.MRI 14:55
PROVIDERS: Absent Provider Nurse Practitioner Family; Visit Provider Anesthesiology
DX: I10 Essential (primary) hypertension (principal); G89.4 Chronic pain syndrome; M47.816 Spondylosis without myelopathy or radiculopathy, lumbar region; M51.369 Other intervertebral disc degeneration, lumbar region without mention of lumbar back pain or lower extremity pain
CPT/HCPCS: 36415; 72148; 80048

== ENCOUNTER → 2024-12-18 15:18 | Outpatient (BNV) | payer OTHER, SELFPAY | PROVIDERS: Absent Provider Nurse Practitioner Family; Visit Provider Radiology Diagnostic Radiology | DX: G89.4 Chronic pain syndrome (principal) | CPT/HCPCS: 72148 ==

== ENCOUNTER 2025-01-23 11:47 | Outpatient (REF) | payer OTHER, SELFPAY ==
[2025-01-23 12:04] LABS: MANUAL DIFF FLAG NO
[2025-01-23 12:23] LABS: Basophils Absolute Auto 0.1 X10*3/uL (0.0-0.2); Basophils Percent Auto 0.9 % (0-2); Eosinophils Absolute Auto 0.2 X10*3/uL (0.0-0.4); Eosinophils Percent Auto 2.7 % (0-4); Hematocrit 46.4 % (37.0-47.0); Hemoglobin 14.9 g/dl (12.0-16.0); Imm Gran Abs Auto 0.02 X10*3/uL (0.00-0.03); Imm Gran Pct Auto 0.3 % (0.0-0.4); Lymphocytes Absolute Auto 2.3 X10*3/uL (1.2-4.9); Lymphocytes Percent Auto 31.3 % (20-40); Mean Corpuscular HGB Conc 32.1 g/dl (31.0-35.0); Mean Corpuscular Hemoglobin 28.7 pg (27.0-33.0); Mean Corpuscular Volume 89.4 fL (80.0-98.0); Mean Platelet Volume 10.3 fL (9.4-12.3); Monocytes Absolute Auto 0.6 X10*3/uL (0.1-1.2); Neutrophils Absolute Auto 4.3 x10*3/uL (2.0-8.3); Neutrophils Percent Auto 56.8 % (45-73); Platelet Count 213 X10*3/uL (160-400); Red Blood Count 5.19 X10*6/uL (4.20-5.50); Red Cell Distribution Width 13.5 % (11.0-16.0); White Blood Count 7.5 X10*3/uL (4.8-10.8)
[2025-01-23 12:33] LABS: Prothrombin Time 10.9 SEC (10.9-12.4)
[2025-01-23 12:42] LABS: Anion Gap 12 (12-20); Blood Urea Nitrogen 24 mg/dL (9-16); Calcium 9.5 mg/dL (8.4-10.2); Carbon Dioxide 31 mmol/L (22-29); Chloride 102 mmol/L (96-108); Estimated Glomerular Filt Rate > 60; Glucose Random 116 mg/dL (60-115); Potassium 4.5 mmol/L (3.3-5.1); Sodium 140 mmol/L (135-145)
== END 2025-01-23 11:48 | disposition home or self-care (01) ==
LOC: HO.LAB 11:47
PROVIDERS: Visit Provider Nurse Practitioner Family
DX: I25.10 Atherosclerotic heart disease of native coronary artery without angina pectoris (principal)
CPT/HCPCS: 36415; 80048; 85025; 85610

== ENCOUNTER → 2025-01-25 23:59 | Outpatient (BNV) | payer OTHER, SELFPAY | PROVIDERS: Visit Provider Internal Medicine Cardiovascular Disease | DX: R93.1 Abnormal findings on diagnostic imaging of heart and coronary circulation (principal) | CPT/HCPCS: 92928; 92978; 93458; 99152 ==

== ENCOUNTER 2025-02-08 13:23 | Outpatient (AMB) | payer MEDICARE, SELFPAY ==
[2025-02-08 13:25] VITALS: BP 124/62; PULSE 71; BMI 54.5
--- NOTE | 2025-02-08 13:25 | A.OFFVIS_ITS ---
Vital Signs 02/08/25 13:25 Height 4 ft 11 in Weight 269 lb 13.533 oz BMI 54.5 BP 124/62 Blood Pressure Location Lt brachial Position Sitting Pulse 71 Pulse Source Pulse Oximeter Intake Visit Reasons: 3m follow up/Post cardiac cath Sheriffs Required: No Allergies Sulfa (Sulfonamide Antibiotics) [SULFA (SULFONAMIDE ANTIBIOTICS)] Allergy (Intermediate, Verified 02/08/25 13:28) SWELLING vancomycin Allergy (Verified 02/08/25 13:28) Rash Medication List - Last Reviewed 02/08/25 by Vicenta Payne, [facility] amlodipine 5 mg PO DAILY aspirin (Adult Aspirin Regimen) 81 mg PO DAILY atorvastatin 40 mg PO BEDTIME bupropion HCl SR 100 mg PO BID coQ10 (ubiquinol) (Qunol Serafin CoQ10) 100 mg PO DAILY cyclobenzaprine 10 mg PO BEDTIME empagliflozin-metformin 25-1,000 mg ER (Synjardy XR) 1 tab PO DAILY lorazepam 0.5 mg PO BID PRN losartan-hydrochlorothiazide 100-25 mg 1 tab PO DAILY sertraline 100 mg PO DAILY ticagrelor 90 mg PO BID tirzepatide (Mounjaro) 10 mg subcut QWEEK tramadol 50 mg PO BID PRN HPI HPI 3m follow up/Post cardiac cath: Details: Shefali is a 64-year-old female with past medical history of diabetes, hypertension, morbid obesity, obstructive sleep apnea with CPAP use, left bundle branch block who had abnormal nuclear stress test followed by abnormal CTA of the coronary arteries. She then underwent cardiac catheterization showing 90% lad stenosis, AURORA placed. Today she reports that she has been doing well since her stent placement. She was not getting chest discomfort prior to the procedure. She has some shortness of breath with walking which has not changed. Her activity is very limited due to her knee and hip arthritis. She ambulates slowly with use of a cane. This may have masked her angina. No presyncope, syncope, falls. Right radial catheterization site is feeling good. No bleeding issues reported. Taking meds as directed. [facility] Medical History Essential hypertension LBBB (left bundle branch block) Morbid obesity Super obesity Anxiety Depression Fatty liver Type 2 diabetes mellitus COPD (chronic obstructive pulmonary disease) Obstructive sleep apnea hypopnea, severe Surgical History History of hand surgery Hx of colonoscopy History of removal of laparoscopic gastric banding device History of carpal tunnel surgery Hx of cholecystectomy Hx of laparoscopic gastric banding Family History Father Interstitial pneumonitis Diabetes Mother Bladder cancer Brother No problems noted. Social History Household Members: Family and Children Housing: House Do you presently have visiting nurse or other home services: No Alcohol intake: current Alcohol intake frequency: holidays/special occasions only Alcohol type: wine and hard liquor Patient Tobacco Use Status: Former Tobacco user Advance Directives Date on File: 03/12/22 service: No Current occupational status: unemployed Review of Systems Const All systems reviewed & are unremarkable except as noted in HPI and below ENT Denies dizziness Card Denies chest pain, Denies chest pain at rest, Denies chest pain with activity, Denies rapid heart rate, Denies pedal edema, Denies edema, Denies leg edema, Denies lightheadedness, Denies palpitations, Denies dyspnea, Denies dyspnea on exertion and Denies orthopnea Resp Denies cough, Denies dyspnea and Denies dyspnea on exertion GI Denies hematochezia and Denies change in stool character Musc Reports abnormal gait, Reports limited range of motion, Denies muscle cramps, Denies muscle weakness, Denies numbness, Denies radiating pain into limb, Denies stiffness and Denies tingling Neuro Reports abnormal gait, Denies dizziness, Denies numbness and Denies tingling Endo Denies palpitations Physical Exam Vital Signs: Last Vital Signs Pulse 71 02/08/25 13:25 BP 124/62 02/08/25 13:25 BMI result Body Mass Index 54.5 Const Other: morbidly obese. uses cane General: cooperative, healthy appearing, comfortable and no acute distress Orientation/consciousness: patient oriented x3 Neck Neck: Yes normal visual inspection Resp Effort & Inspection: normal respiratory effort Auscultation: clear to auscultation bilaterally, no crackles, no rales, no rhonchi and no wheezes Cardio Jugular venous distension: no JVD Rate: regular rate Rhythm: regular rhythm Heart sounds: S1 normal heart sound present, S2 normal heart sound present, no murmurs and no rubs Neuro General: patient oriented x3 Extrem General: Yes normal to inspection and No no pedal edema Psych Appearance: grossly normal Mental Status: mental status grossly normal Speech and movement: Normal speech and movement present Assessment & Plan Assessment & Plan (1) CAD (coronary artery disease): Code(s): I25.10 - Atherosclerotic heart disease of [place] coronary artery without angina pectoris Category: Medical Plan: History of left bundle branch block and shortness of breath with exertion in patient who is mostly sedentary due to orthopedic issues. She had cardiac evaluation including echocardiogram was done on 05/02/2024 showing EF 52%, grade 1 diastolic dysfunction, moderate mitral annular calcification. Nuclear stress test on 10/10/2024 which shows a reversible distal lateral wall defect, ischemia versus infarct. A CTA of the coronary arteries was done on 01/04/2025 showing severe stenosis of the distal LAD distal to the takeoff of the 1st diagonal branch which exhibits approximately 50% stenosis. She then underwent cardiac catheterization on 01/25/2025 showing 90% mid LAD stenosis and AURORA was placed. Right radial catheterization site is healing well. Will have her continue aspirin indefinitely. Continue Brilinta uninterrupted for 1 year. Continue amlodipine and her losartan/hydrochlorothiazide combination. Blood pressure today well controlled at 124/62. Continue atorvastatin with ideal LDL goal less than 70, lipids ordered. Signs and symptoms of angina reviewed with her. Will order cardiac rehab however unclear if she will be able to participate in exercise due to her knee and hip issues. Cardiology follow-up 3 months, sooner if needed. (2) S/P cardiac cath: Comment: 01/25/2025 left main, left circumflex, RCA all normal mid LAD 90% stenosis, AURORA placed Code(s): Z98.890 - Other specified postprocedural states Category: Surgical (3) Stented coronary artery: Comment: Lad stent 01/25/2025 Code(s): Z95.5 - Presence of coronary angioplasty implant and graft Category: Surgical (4) Abnormal echocardiogram findings without diagnosis: Code(s): R93.1 - Abnormal findings on diagnostic imaging of heart and coronary circulation Category: Medical Plan: Low normal EF which could be related to left bundle branch block or LAD stenosis. Will plan recheck of echo in the future to reassess. (5) LBBB (left bundle branch block): Code(s): I44.7 - Left bundle-branch block, unspecified Category: Medical Plan: Chronic left bundle branch block. (6) Essential hypertension: Code(s): I10 - Essential (primary) hypertension Category: Medical Plan: Blood pressure goal less than 130/80, Well controlled at present. No med changes made Plan During the follow-up, I discussed with the patient the importance of antiplatelet therapy adherence with aspirin and Brilinta for one year post- stenting to prevent clot formation. I explained that the initial positioning of the stent and its healing process are crucial to avoiding further cardiac events. I reiterated that cholesterol management through atorvastatin is vital in preventing further arterial plaque formation. We discussed potential deferral of orthopedic procedures like hip or knee replacement until after a minimum of 12 months of Brilinta therapy due to thrombosis risks. We considered cardiac rehabilitation to improve overall cardiovascular health despite her orthopedic limitations. Dietary modifications to manage cholesterol were advocated. The pat ient expressed understanding of these detailed plans and agreed to the outlined follow-up and lifestyle modifications. Orders: Orders Lipid Panel Today I25.10 - Atherosclerotic heart disease of [place] coronary artery without angina pectoris Cardiac Rehab Today I25.10 - Atherosclerotic heart disease of [place] coronary artery without angina pectoris, Z95.5 - Presence of coronary angioplasty implant and graft, Z98.890 - Other specified postprocedural states Liver Panel Today I25.10 - Atherosclerotic heart disease of [place] coronary artery without angina pectoris Patient Instructions: - Continue taking aspirin once a day and Brilinta twice a day for one year. - Keep taking atorvastatin as prescribed. - Do not schedule hip or knee surgery until at least 12 months on Brilinta. - Attend cardiac rehab sessions, with exercises adjusted for your ability. - Eat a healthy diet to manage cholesterol levels. - Work on losing weight and monitor your health closely. - Follow up with scheduled appointments and monitor any new symptoms. - Call your doctor if you have any unusual bleeding or concerns. Patient was informed and verbally consented to the use of an ambient scribe for clinic note documentation during this visit. Visit time spent on chart review, interview, assessment, orders, documentation. Coding Level of Care Code Est Pt Level 4 (21162) Complex EM visit Add On G2211 Diagnoses CAD (coronary artery disease) I25.10 S/P cardiac cath Z98.890 Stented coronary artery Z95.5 Abnormal echocardiogram findings without diagnosis R93.1 LBBB (left bundle branch block) I44.7 Essential hypertension I10 Time Spent (min) 32
== END 2025-02-08 14:00 | disposition home or self-care (01) ==
LOC: HO.HCS 13:24
PROVIDERS: Visit Provider Nurse Practitioner Family
DX: I25.10 Atherosclerotic heart disease of native coronary artery without angina pectoris (principal); Z98.890 Other specified postprocedural states; Z95.5 Presence of coronary angioplasty implant and graft; R93.1 Abnormal findings on diagnostic imaging of heart and coronary circulation; I44.7 Left bundle-branch block, unspecified; I10 Essential (primary) hypertension
CPT/HCPCS: 99214; G2211

== ENCOUNTER → 2025-02-08 13:23 | Outpatient (BNVA) | payer MEDICARE, SELFPAY | PROVIDERS: Visit Provider Nurse Practitioner Family | DX: I25.10 Atherosclerotic heart disease of native coronary artery without angina pectoris (principal); I44.7 Left bundle-branch block, unspecified; I10 Essential (primary) hypertension; R93.1 Abnormal findings on diagnostic imaging of heart and coronary circulation; Z98.890 Other specified postprocedural states; Z95.5 Presence of coronary angioplasty implant and graft | CPT/HCPCS: 99212 ==

== ENCOUNTER 2025-06-26 13:01 | Outpatient (AMB) | payer MEDICARE, OTHER, SELFPAY ==
--- NOTE | 2025-06-26 13:08 | A.OFFPC_ITS ---
Vital Signs 3 06/26/25 13:21 Height 4 ft 11 in Weight 268 lb BMI 54.1 BP 138/78 Blood Pressure Location Lt brachial Position Sitting Respiration 13 Pulse 72 Pulse Source Pulse Oximeter Temp 97.2 F Temp Source Oral Pulse Oximetry (%) 98 Oxygen Delivery Method Room Air Intake Visit Reasons: Diabetes/cholesterol Intake Note: New patient to establish care and follow up on diabetes and cholesterol. Patient needs refill on meds. Marketing Mgr Required: No Allergies Sulfa (Sulfonamide Antibiotics) (SULFA (SULFONAMIDE ANTIBIOTICS)) Allergy (Intermediate, Verified 06/26/25 13:19) SWELLING vancomycin Allergy (Verified 06/26/25 13:19) Rash Medication List - Last Reconciled 06/26/25 by Darcy Victor, MANAGER MOLECULAR- amlodipine 5 mg PO DAILY aspirin (Adult Aspirin Regimen) 81 mg PO DAILY atorvastatin 40 mg PO BEDTIME bupropion HCl SR 100 mg PO BID coQ10 (ubiquinol) (Qunol Serafin CoQ10) 100 mg PO DAILY cyclobenzaprine 10 mg PO BEDTIME empagliflozin-metformin 25-1,000 mg ER (Synjardy XR) 1 tab PO DAILY lorazepam 0.5 mg PO BID PRN losartan-hydrochlorothiazide 100-25 mg 1 tab PO DAILY sertraline 100 mg PO DAILY ticagrelor 90 mg PO BID tirzepatide (Mounjaro) 10 mg subcut QWEEK tramadol 50 mg PO BID PRN Tobacco use date assessed: 06/26/25 Fall risk assessment: No Falls in past year Last assessed Fall Risk: 06/26/25 Dental Screening Dental Screen Date: 06/26/25 Did you have a dental visit in the last 12 months?: Yes Did you have a dental problem in the last 6 months where you did not have access to dental care?: No Was dental information given to patient?: Patient has dentist HPI HPI Comments 2 History of Present Illness0 Details 64-year-old female with bundle-branch bl ock morbid obesity, type 2 diabetes, hypertension, COPD, obstructive sleep apnea on CPAP GERD, MDD, fatty liver, coronary artery disease, umbilical hernia, DJD of spine, renal calculi, CHF SurgHx: Carpal tunnel surgery removal of gastric band, cholecystectomy, stent to LAD 01/25/2025 FHx brother from cirrhosis, diseased diabetes; mom with bladder cancer SocHx: Lives w/ 2 children Health Maintenance: See scanned preventative medicine assessment with personalized health plan and screening schedule. Colon: Mammo DEXA PAP Vaccines Flu 06/26/25; Tdap 06/26/25 AAA screen EKG: [place] of Care: Cardiology bariatrics Pain mgmt History of Present Illness The patient is a 64-year-old female presenting to community health care and for management of multiple chronic medical conditions. [facility] [place] Medical record reviewed; previous PCP [facility] - no records. Type 2 Diabetes Mellitus: - The patient has type 2 diabetes with a history of HbA1c as high as 12. - Her HbA1c has improved to 6.5 05/28/25 - Her diabetes was previously managed by her former PCP, Dr. Camejo, who she felt managed it well. - She currently takes Synjardy and Mounj robbie and has recent refills. - Recent labs showed an elevated insulin resistance score of 91. Hypothyroidism: - The patient was recently told by a [facility] uropathic doctor that she has severe hypothyroidism. - Lab work from the nozzle cement sprayer helper showed a TSH of 4.81, with the normal range up to 4.5. - Review of medical records from 20182019 show her thyroid labs were completely normal at that time. - she was placed on a natural thyroid leahy pplement; i have asked her to speak to this provider directly to follow up. Chronic Pain: - The patient experiences chronic pain, needing hip and knee replacements. - She has been advised that she cannot u ndergo surgery until she loses more weight. - She has lost 45 pounds in the last yea r, with her current weight at 266 pounds, but was originally told she needed to lose 100 pounds. - Her mobility is significantly impaired , which she reports has worsened since her tramadol prescription ran out three weeks ago. - In addition to her joint pain, she has spinal stenosis. - She previously visited [facility], had an MRI of her lumbar spine in November of this year, but never received the results or a definitive treatment plan. Left Hand Pain: - The patient reports new issues in her left hand, which she suspects is arthritis. - She experiences morning stiffness, fredis bility to form a fist, and locking of the fingers. - She feels a painful lump in the hand. - She has a history of two carpal tunnel surgeries and other finger surgeries. Mental Health: - The patient is on bupropion, lorazepam , and sertraline. - She reports significant current stress ors, including recently moving her mother into a memory care facility, losing her as a main source of support, and caring for her two children with disabilities. - Over the last three years, she has exp erienced the unexpected deaths of her only brother, her ex-, and her best friend. - She states her mental health has not b een good and feels she is hanging on by a thread. - She was previously in counseling but i s not currently active with a therapist. - She reports multiple past negative exp eriences with [facility] for her children's care. Coronary Artery Disease: - The patient has a history of coronary artery disease and underwent a coronary stent placement in December. - Her dentistry teacher suggested cardiac prabhu [facility], but the rehab facility indicated she could not participate without the ability to use a bike, so she did not attend. Past Medical History - Type 2 diabetes mellitus - Coronary artery disease, status post c oronary artery stenting - Morbid obesity with BMI greater than 6 0 - Congestive heart failure - Obstructive sleep apnea, on CPAP - Chronic obstructive pulmonary disease - Left bundle branch block - Lumbar spinal stenosis with nerve root compression at L2 - Past Loriane-Adorno virus infection - History of two carpal tunnel surgeries - Anxiety and Depression Review of Systems - Musculoskeletal: Reports significant h ip and knee pain that limits mobility. - Musculoskeletal: Reports back pain sec ondary to spinal stenosis. - Musculoskeletal: Reports left hand yordan n, morning stiffness, finger locking, and a palpable lump. - Psychiatric: Reports poor mental healt h and feeling overwhelmed by significant life stressors and bereavements. Physical Exam General: Well developed, well nourished, in no acute distress. Appears stated age. Head: Normocephalic, atraumatic. Eyes: Pupils are equal, round and reactive to light and accommodation. Conjunctivae are clear. Vision grossly normal. Lungs: Clear to auscultation bilaterally. No rales, rhonchi or wheeze noted. Good air flow in all lopez. Heart: Regular rate and rhythm. No murmurs, click, rubs or gallops are noted. Pulses: Peripheral pulses are equal and palpable bilaterally. Extremities: No clubbing, cyanosis nor edema is noted. Psych: Mood and affect appropriate. Results - Labs (from recent outside provider) - TSH: 4.81 (Normal up to 4.5). - Insulin Resistance Score: 91 (elevated ). - A1c: 6.5%. - Loraine-Adorno virus: Positive. - Imaging: - Lumbar Spine MRI (November of this year): Showed central canal stenosis at L2 with nerve root compression. - Prior Labs (from this health system): - Thyroid labs (2018 and 2019): Complete ly normal. Medical Decision Making The patient is a 64-year-old female with a complex medical and significant psychosocial history who [facility]. Her primary issues addressed today were management of multiple chronic conditions, uncontrolled chronic pain, and significant psychosocial distress. The patient's recent diagnosis of severe hypothyroidism from a nozzle cement sprayer helper seems inconsistent with the provided lab result of a TSH of 4.81 and a history of normal thyroid labs. I have advised her to seek clarification from that provider, as I would not initiate treatment based on this single, mildly elevated result. Her diabetes appears well-controlled with an HbA1c of 6.5 on her current regimen, and no changes are needed today. The patient's chronic pain from severe osteoarthritis and lumbar stenosis is a significant barrier to mobility and the weight loss required for surgical joint replacement. She reported a poor experience with a pain management clinic and a lack of follow-up on her MRI results, which showed significant pathology. I believe re-engagement with pain management is critical to explore interventional options, and a new referral will be placed. Her new left hand symptoms of pain, locking, and a palpable mass are consistent with a ganglion cyst, which warrants specialist evaluation. A referral to a hand surgery group will be placed for assessment and potential intervention. Given the immense psychosocial stress from caregiving and multiple recent bereavements, the patient's mental health is a priority. She expressed a preference for in-office counseling services due to past negative experiences with outside agencies, so a referral will be made to our integrated behavioral health team. Preventative care was addressed with influenza and Tdap vaccinations. The plan is to coordinate care across multiple specialties and follow up in three months to review progress and records from her previous PCP. Plan 1. New Patient Visit / Health Maintenanc e - Plan to review outside medical records from the patient's previous primary care physician. - Will administer influenza and Tdap vac cinations during today's visit. - No labs will be repeated today as rece nt results are available for review. - Recommended follow-up appointment in t ulisses office in September, approximately three months from now. 2. Chronic Pain Syndrome - The patient's chronic pain from osteoa rthritis and spinal stenosis significantly limits her mobility and efforts to lose weight required for joint replacement surgery. - Advised the patient not to combine the new anti-inflammatory supplement from her nozzle cement sprayer helper with diclofenac. - Will renew the referral to a pain [facility] for reassessment to explore interventions such as injections, despite her previous negative experience. 3. Type 2 Diabetes Mellitus - The patient's recent HbA1c is 6.5%, in dicating good control. - Plan to continue current medication re gimen of Synjardy and Mounjaro, for which she has recent refills. 4. Subclinical Hypothyroidism - Discussed recent TSH lab of 4.81 from a nozzle cement sprayer helper, noting it is only mildly elevated and does not indicate severe hypothyroidism. - Advised the patient to request nikki son from the naturopathic provider regarding their interpretation. - Deferring any further evaluation or tr eatment pending this clarification and review of repeat labs planned by the nozzle cement sprayer helper. 5. Ganglion Cyst, Left Hand - The patient's symptoms and physical ex am findings are consistent with a ganglion cyst in the left hand. - Will place a referral to a hand surger y specialist for further evaluation and management. 6. Anxiety And Depression - Acknowledged the patient's significant psychosocial distress due to caregiving duties and multiple recent bereavements. - Per patient preference due to past neg ative experiences with other agencies, will place a referral to the in-office navigation team for counseling services. Patient Instructions - You will receive a flu shot and a teta nus (Tdap) shot today. - Our office will make referrals for you to three different specialists: pain management, a hand surgeon for your left hand, and our counseling team for mental health support. - You should expect to receive calls fro m these specialty offices to schedule your appointments. - Please schedule a follow-up appointmen benji here in our office for September. - Regarding the thyroid issue mentioned by your other doctor, please ask him for a clear explanation of his findings, as your lab results do not appear to be severely abnormal. - Do not take the Inflammed supplement at the same time as diclofenac, as they may have similar actions. - You will get an email inviting you to sign up for our [facility] patient portal zachariah. - Please sign up for the zachariah, as it is t he best way to communicate with our office, see test results, and request appointments. Consent The patient provided verbal consent for administration of the influenza and Tdap vaccines after being offered them. Patient was informed and verbally consented to the use of an ambient scribe for clinic note documentation during this visit. Total time spent caring for the patient today was 45 minutes. This includes time spent before the visit reviewing the chart, time spent during the visit, and time spent after the visit on documentation, reviewing laboratory results, diagnostic imaging, medications, performing a medically necessary evaluation, counseling on diagnoses, care coordination, ordering appropriate tests, ordering appropriate medications, review of tests performed by other providers, reporting test results with the patient, communication with other healthcare providers. [facility] Medical History (Updated 06/26/25 @ 15:41 by Darcy Victor, [facility]) Anxiety Arthritis COPD (chronic obstructive pulmonary disease) Depression Dry skin Essential hypertension Fatty liver Hx of mammogram (~2022) Incontinence LBBB (left bundle branch block) Morbid obesity Neuropathy Obstructive sleep apnea hypopnea, severe Osteoarthritis Super obesity Thyroid disorder Type 2 diabetes mellitus Surgical History (Updated 06/26/25 @ 13:48 by Oleg Desouza MA) History of carpal tunnel surgery History of hand surgery History of removal of laparoscopic gastric banding device Hx of cholecystectomy Hx of colonoscopy (~2020) Hx of laparoscopic gastric banding Family History (Updated 06/26/25 @ 13:09 by Oleg Desouza MA) Father Interstitial pneumonitis Diabetes Mother Bladder cancer Brother No problems noted. Social History (Updated 06/26/25 @ 13:49 by Oleg Desouza MA) Household Members: Family and Children Both parents involved: No Caregiver staying overnight: No Housing: House Are you a primary healthcare risk control consultant to a significant other at home: No Do you presently have visiting nurse or other home services: No 75 years or older and lives alone: No Alcohol intake: current Alcohol intake frequency: holidays/special occasions only Alcohol type: wine and hard liquor Patient Tobacco Use Status: Former Tobacco user e-Cigarette/Vaping Use: Never Used Second Hand Smoke Exposure: No Advance Directives Date on File: 03/12/22 service: No Current occupational status: retired Cognitive needs: No Hearing needs: No Vision needs: Yes (wear glasses) Questionnaire PHQ-9 Over the last 2 weeks, how often have you been bothered by any of the following problems? 1. Little interest or pleasure in doing things: several days 2. Feeling down, depressed, or hopeless: more than half the days 3. Trouble falling or staying asleep, or sleeping too much: several days 4. Feeling tired or having little energy: nearly every day 5. Poor appetite or overeating: several days 6. Feeling bad about yourself - or that you are a failure or have let yourself or your family down: several days 7. Trouble concentrating on things, such as reading the newspaper or watching television: not at all 8. Moving or speaking so slowly that other people could have noticed. Or the opposite - being so fidgety or restless that you have been moving around a lot more than usual: not at all 9. Thoughts that you would be better off or of hurting yourself in some way: not at all Total score: 9 Depression Screening Interpretation: Positive Depression Screening Done: Yes 85283 - PHQ-9 Billing: Yes Source: Developed by Drs. Domenico Sharma, Koki Beaulieu, Anderson Cowart and colleagues, with an educational margaret from [employer]. Thrive Questionnaire Date Thrive assessed: 06/26/25 I am a: Patient What is your living situation today?: I have a steady place to live Within the past 12 months, did the food you bought not last and you didn't have the money to get more?: Never true Within the past 12 months, did you worry whether your food would run out before you got money to buy more?: Never true Do you have trouble paying for medicines?: No Do you have trouble getting transportation to medical appointments?: No Do you have trouble paying your heating and electricity bill?: No Do you have trouble taking care of your child, family member or friend?: No Do you have trouble with day-to-day activities such as bathing, preparing meals, shopping, managing finances, etc.?: No Are you currently unemployed and looking for a job?: No Are you interested in more education?: No Please select the resources that you would like help with: None Currently or been in a relationship where the following occur: Controlled Financially and Controlled Emotionally THRIVE Score: 2 AUDIT C Alcohol Use Questionnaire (AUDIT-C) 1. How often do you have a drink containing alcohol?: Monthly or less 2. How many drinks containing alcohol do you have on a typical day when you are drinking?: 1 or 2 3. How often do you have six or more drinks on one occasion?: Never Total Score: 1 DALE-7 AMB Questionnaire DALE-7 Date DALE - 7 assessed: 06/26/25 Feeling nervous, anxious, or on edge: 1 = Several days Not being able to stop or control worryin = Several days Worrying too much about different things: 1 = Several days Trouble relaxin = Several days Being so restless that it is hard to sit still: 0 = Not at all Becoming easily annoyed or irritable: 1 = Several days Feeling afraid as if something awful might happen: 0 = Not at all Total DALE-7 score (0-4 normal; 5-9 mild; 10-14 moderate; 15-21 severe): 5 Source: Developed by Drs. Domenico Sharma, Koki Beaulieu, Anderson Cowart and colleagues, with an educational margaret from [employer]. DALE-7 Assessment Billing DALE-7 Assessment Tool: DALE-7 Assessment 74969 Physical exam (Primary Care) Vital Signs: Last Vital Signs Temp 97.2 F 06/26/25 13:21 Pulse 72 06/26/25 13:21 Resp 13 06/26/25 13:21 BP 138/78 06/26/25 13:21 Pulse Ox 98 06/26/25 13:21 Oxygen Delivery Method Room Air 06/26/25 13:21 BMI result Body Mass Index 54.1 BMI Assessment/Plan discussion: High BMI High, discussed plan: lifestyle Tobacco/Smoking Status: Tobacco use Status Tobacco use date assessed 06/26/25 06/26/25 13:11 Patient Tobacco Use Status Former Tobacco user 06/26/25 13:49 e-Cigarette/Vaping Use Never Used 06/26/25 13:49 PHQ-9: PHQ-9 Score PHQ-9: Total score 9 06/26/25 13:59 Depression Screening Interpretation: Positive Thrive Assessment: Date of Thrive Assessment Date Thrive assessed 06/26/25 06/26/25 13:09 Currently or been in a relationship where the following occur: Controlled Financially and Controlled Emotionally Extrem Hand/finger images: 2 1. palpable firm area, TTP. normal thermite bomb loader strength. Hand neurovasc intact. co pain w/ movement of the pinky Office Procedures Flu Questionnaire Does the patient have a severe egg allergy?: No Does the patient have severe life threatening allergies?: No Does the patient have a fever or illness today?: No Has the patient ever had Guillain-Moore Syndrome?: No Has the patient ever had any past reaction to a flu shot?: No Immunizations Fluarix 7536-2208 (PF) 45 mcg (15 mcg x 3)/0.5 mL IM syringe Performing Provider: JENNI Cullen Performing Location: [facility] [place] Family Medicine Administered by: Oleg Desouza MA on 06/26/25 13:59 2 Dose Route Admin Location Dispensed Lot Number Expiration Date [place] [employer] 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 0.5 mL IM Left Deltoid 0.5 mL [id number] 02/26/26 37114-167-65 [employer]LA[employer]O SMITHKLINE 2 VIS Given Date VIS Provided VIS Publication Date 06/26/25 Single Vaccine 24 Eligibility Eligibility Date Funding Source Not VFC Eligible 06/26/25 Private Boostrix Tdap 2.5 Lf unit-8 mcg-5 Lf/0.5 mL intramuscular syringe Performing Provider: JENNI Cullen Performing Location: [facility] [place] Family Medicine Administered by: Oleg Desouza MA on 06/26/25 13:59 2 Dose Route Admin Location Dispensed Lot Number Expiration Date [place] H[employer] Farmworker 0.5 mL IM Right Deltoid 0.5 mL [id number] 07/27/27 11368-904-87 GLAX OSMITHKLINE 2 Total Dispensed Waste 0.5 mL 0 % 2 VIS Given Date VIS Provided VIS Publication Date 06/26/25 Single Vaccine 21 Eligibility Eligibility Date Funding Source Not VFC Eligible 06/26/25 Private Coding Level of Care Code New Pt Level 4 (60758) Complex EM visit Add On G2211 Diagnoses Encounter to establish care Z76.89 Type 2 diabetes mellitus with unspecified complications E11.8 Disc degeneration, lumbar M51.369 Spondylosis of lumbar region without myelopathy or radiculopathy M47.816 Chronic pain syndrome G89.4 Influenza vaccination administered at current visit Z23 Need for Tdap vaccination Z23 Left hand pain M79.642 Morbid obesity E66.01 Essential hypertension I10 Coronary atherosclerosis I25.10 S/P cardiac cath Z98.890 MDD (major depressive disorder), recurrent episode F33.9 DALE (generalized anxiety disorder) F41.1 Additional Codes DALE-7 Assessment Billing - DALE-7 Assessment Tool: DALE-7 Assessment 87325 ([id number]) PHQ-9 - 58988 - PHQ-9 Billing: Yes ([id number]) Assessment & Plan Assessment & Plan (1) Encounter to establish care: Code(s): Z76.89 - Persons encountering health services in other specified circumstances (2) Type 2 diabetes mellitus with unspecified complications: Comment: CAD and HTN Code(s): E11.8 - Type 2 diabetes mellitus with unspecified complications Category: Medical (3) Disc degeneration, lumbar: Code(s): M51.369 - Other intervertebral disc degeneration, lumbar region without mention of lumbar back pain or lower extremity pain Category: Medical (4) Spondylosis of lumbar region without myelopathy or radiculopathy: Code(s): M47.816 - Spondylosis without myelopathy or radiculopathy, lumbar region Category: Medical (5) Chronic pain syndrome: Code(s): G89.4 - Chronic pain syndrome Category: Medical (6) Influenza vaccination administered at current visit: Onset Date: ~06/26/25 Code(s): Z23 - Encounter for immunization Category: Medical (7) Need for Tdap vaccination: Onset Date: ~06/26/25 Code(s): Z23 - Encounter for immunization Category: Medical (8) Left hand pain: Code(s): M79.642 - Pain in left hand Category: Medical (9) Morbid obesity: Code(s): E66.01 - Morbid (severe) obesity due to excess calories Category: Medical (10) Essential hypertension: Code(s): I10 - Essential (primary) hypertension Category: Medical (11) Coronary atherosclerosis: Code(s): I25.10 - Atherosclerotic heart disease of red devil coronary artery without angina pectoris Category: Medical (12) S/P cardiac cath: Comment: 01/25/2025 left main, left circumflex, RCA all normal mid LAD 90% stenosis, [place] placed Code(s): Z98.890 - Other specified postprocedural states Category: Surgical (13) MDD (major depressive disorder), recurrent episode: Code(s): F33.9 - Major depressive disorder, recurrent, unspecified Category: Medical (14) DALE (generalized anxiety disorder): Code(s): F41.1 - Generalized anxiety disorder Category: Medical Plan , Orders: Orders 2 Influenza [id number] Immunization Today Z23 - Encounter for immunization TDaP Immunization Today Z23 - Encounter for immunization Referrals 2 Pain Management Referral G89.4 - Chronic pain syndrome, M47.816 - Spondylosis without myelopathy or radiculopathy, lumbar region, M51.369 - Other intervertebral disc degeneration, lumbar region without mention of lumbar back pain or lower extremity pain Hand Surgery Referral M79.642 - Pain in left hand Nurse Navigator Referral F41.1 - Generalized anxiety disorder Patient Instructions: Walk-In Care (Urgent Care): We Make it Easy Walk-in for urgent medical issues such as: ? Seasonal Allergies ? Insect Bites ? Cough ? Diarrhea ? Acute Asthma Attacks ? Back, Knee or Joint Pain ? Ear Infection ? Fever without a Rash ? Headaches ? Nausea ? [place], Rash or Skin Irritation ? Sore Throat ? Sports Physicals ? Vomiting Most insurances are accepted. Patients do not need to be part of the [facility] to seek care at the walk-in clinic. Locations [address], [place] Open Wednesday through Wednesday 8am-5pm *Hours may vary due to staffing availability. To confirm Walk-In Care hours please call. Chandrakant [address], [place] [address] ? [phone] [facility] Walk-In Care in [place] provides services to ages 18 and over. Open Wednesday-Wednesday: 7 a.m. to 5 p.m. and Wednesday: 9 a.m. to 3 p.m.* *Hours may vary due to staffing availability. To confirm Walk-In Care hours in [place], please call [phone]. [address] [place] [address] ? [phone] [facility] Walk-In Care in [place] provides services to ages 12 and over. Open Wednesday-Wednesday: 8 a.m. to 5 p.m. Hours may vary due to staffing availability. To confirm Walk-In Care hours in [place], please call [phone]. LABORATORY SERVICES: [facility] Lab ? Primary Location [address] [place] [address] Wednesday through Wednesday 6:00 AM ? 5:00 PM Wednesday 7:00 AM ? 11:00 AM* [phone] The [facility] Lab is centrally located near the front entrance of the [facility] for easy outpatient access. Convenient parking is provided for outpatients. *Hours may vary due to staffing availability. To confirm Laboratory hours for any location, please call [phone]. Offsite Location For your convenience, we offer offsite laboratory draw stations at the following locations: [address] [place] [address] ? [address], [address] Wednesday through Wednesday 7:30 AM ? 1:00 PM* [phone] *Hours may vary due to staffing availability. To confirm Laboratory hours for any location, please call [phone]. [place] ? [address] Wednesday through Wednesday 6:00 AM ? 3:30 PM* Wednesday 6:30 AM ? 3 PM* [phone] *Hours may vary due to staffing availability. To confirm Laboratory hours for any location, please call [phone] [place] [address] Wednesday through Wednesday 7:30 AM ? 4:00 PM* [phone] *Hours may vary due to staffing availability. To confirm Laboratory hours for any location, please call [phone] [place] [address] Wednesday through 9:00 AM ? 4:00 PM* *Hours may vary due to staffing availability. To confirm Laboratory hours for any location, please call [phone]. Appointments are not necessary. Walk-ins are welcome. Like all the departments throughout the [facility], our Lab undergoes frequent reviews to ensure the quality and accuracy of test results, and our staff takes special pride in its status as a nationally accredited facility. Patient Portal: [facility] ONE PATIENT. ONE RECORD. BETTER CARE. [facility] has a fully integrated, cutting- edge mobile electronic health information system that has revolutionized the way we care for our patients and manage our organization. This system improves communication and coordination enabling us to provide safe, higher-quality care, and an overall positive experience for staff and patients. Our first priority, as always, is to deliver the highest quality care possible. The system is running in the background supporting that priority. This portal is for all [facility] services and practices. If you are experiencing any technical difficulties with enrolling or logging into the Patient Portal please complete the [facility] Patient Portal Technical Support Form. [facility] now offers a new secure on-line interactive tool for patients to review their health information ? ?Patient Portal. This interactive web portal will enable patients and their families to take an active role in their care by providing easy, secure access to their health information via the internet. The Patient Portal provides patients with instant access to their health information, including laboratory results, medications, allergies, demographic information, visit history, and more. In addition to managing their own care, parents and health care proxies with authorized consent will appreciate the ability to access the records of those individuals for whom they provide care. Please note: if you wish to gain access (Proxy) to another patient?s portal, you will be required to come to the Medical Records Department in person at [facility]. Both the patient giving proxy access and the proxy will need to provide photo identification and complete the appropriate authorization. The Patient Portal also allows track their appointments online. The [facility] Patient Portal also saves patients time by allowing them to submit updates to their demographic and contact information prior to their visits. Portal email notifications will also alert patients to any new activity on their portal, such as test results and new appointments. In order to initially enroll in the [facility] Patient Portal, you will need to enter some required information including the following: * your [facility] Medical Record number * your personal home email address * name * date of Please note: In order to enroll in the [facility] Patient Portal, we need to have your email address on file in your electronic medical record. ?The email address needs to be specific for one person (yourself) in order for your Portal enrollment to be successful. ?You can update your email address in person with our Registration staff when you are registering for a hospital visit. ?Otherwise, you will need to come to the Health Information Management (Medical Records) Department at [facility]. ?We are open from Wednesday ? Wednesday from 7:30 a.m. ? 4:30 p.m. ?You will be required to present a photo id. Once you have successfully enrolled in the Patient Portal, you will receive a one-time user id and password for the Portal, sent to your email address. ?This will allow you to log into the Patient Portal within 99 hrs and reset your own logon id and password, and define personal security questions. ?Once your permanent login and password have been set, you can log into the [facility] Patient Portal at any time via the blue button above or from the Portal Logon button on any page of the [facility] website. [facility] and [facility] encourage all of our patients to enroll in Patient Portal as it presents a valuable opportunity for patients and their families to actively participate in their care and stay healthy Welcome to [facility]. ?We look forward to working with you.
[2025-06-26 13:21] VITALS: BP 138/78; PULSE 72; RESP 13; TEMP 36.2; O2SAT 98; BMI 54.1
--- OUTSIDE RECORDS SUMMARY | 2025-06-26 16:34 | XMS_ITS | Clinical Summary ---
Author Organization [facility] Address [address] [place] [address] Phone Care Team Providers Care Marine Extension Agent Name Role Phone Linda Camejo NP Primary Care Provider + Allergies Active Allergy Reactions Criticality Noted Date Comments Sulfa (Sulfonamide Antibiotics) 09/2019 Medications dulaglutide (TRULICITY) 1.5 mg/0.5 mL subcutaneous injection Inject 1.5 mg under the skin every 7 days. Active insulin degludec U-200 (TRESIBA FLEXTOUCH) 200 unit/mL (3 mL) InPn injection pen Inject 60 Units under the skin. Active insulin lispro (HUMALOG PEN SUBQ) Inject under the skin. Active metFORMIN (GLUCOPHAGE) 500 MG tablet Take 1,000 mg by mouth 2 (two) times a day with meals. Active FLUoxetine (PROZAC) 40 MG capsule Take 40 mg by mouth daily. Active amLODIPine (NORVASC) 5 MG tablet Take 5 mg by mouth daily. Active lisinopriL (PRINIVIL,ZESTRIL ) 20 MG tablet Take 20 mg by mouth daily. Active cholecalciferol (VITAMIN D3) 2,000 unit capsule Take by mouth daily. Active Social History Tobacco Use Types Packs/Day Years Used Date Smoking Tobacco: Never Assessed Education Answer Date Recorded Are you interested in more education? Not on matthew e 12/25/2022 Are you concerned about learning? Not on file 12/25/2022 No 12/25/2022 No 12/25/2022 Digital Access Answer Date Recorded No 01/23/2023 No 01/23/2023 Reliable internet access at home? Not on file 01/23/2023 Device with a working camera? Not on file Comments Unknown Sex and Gender Information Value Date Recorded Sex Assigned at Not on file Legal Sex Female 9:22 AM EDT Gender Identity Not on file Sexual Orientation Not on file Last Filed Vital Signs Vital Sign Reading Time Taken Comments Blood Pressure 155/64 10/30/2019 10:17 AM EST Pulse 94 10/30/2019 9:30 AM EST Temperature 36.2 C (97.2 F) 10/30/2019 10:07 AM EST Respiratory Rate 14 10/30/2019 9:30 AM EST Oxygen Saturation 97% 10/30/2019 10:16 AM EST Inhaled Oxygen Concentration - - Weight 136.1 kg (300 lb) 10/30/2019 9:30 AM EST Height 149.9 cm (4' 11 ) 10/30/2019 9:30 AM EST Body Mass Index 60.59 10/30/2019 9:30 AM EST Plan of Treatment Health Maintenance Due Date Last Done Comments CREATININE LEVEL 1960 LIPID PANEL 1959 POTASSIUM LEVEL 1960 DEPRESSION SCREENING 1971 SMOKING Hx and SMOKELESS TOBACCO SCREENING 12/16/1972 HEPATITIS C SCREENING 12/16/1977 HIV ONE-TIME SCREENING (18-65 YEARS) 12/16/1977 MAMMOGRAM 1999 COLOGUARD 12/16/2004 FIT TEST 12/16/2004 FOBT 12/16/2004 SIGMOIDOSCOPY 12/16/2004 VIRTUAL COLONOSCOPY 12/16/2004 ZOSTER VACCINES (1 of 2) 12/16/2009 PNEUMOCOCCAL VACCINES (50+ years) (2 of 2 - PPSV23) 01/02/2016 01/01/2015 Adult Td,Tdap Booster 09/09/2021 09/09/2011 OSTEOPOROSIS SCREENING INITIAL (ONE-TIME) 12/16/2024 INFLUENZA VACCINE (#1) 2025 8, 08/15/2015, 06/19/2014, Additional history exists COVID-19 VACCINE (3 - 2024- season) 2025 11/15/2020, 10/15/2020 COLONOSCOPY 10/29/2029 10/30/2019 COLORECTAL CANCER SCREENING 10/29/2029 RSV VACCINE (1 - 1-dose 75+ series) 12/16/2034 HEPATITIS A VACCINES Aged Out No long er eligible based on patient's age to complete this topic HIB VACCINES Aged Out No longer eligi ble based on patient's age to complete this topic MENINGOCOCCAL VACCINES (ACWY) Aged Out No longer eligible based on patient's age to complete this topic MENINGOCOCCAL VACCINES (B) Aged Out N o longer eligible based on patient's age to complete this topic Medical Devices Not on file Procedures Procedure Name Priority Date/Time Associated Diagnosis Comments ENDOSCOPY, COLON 10/30/2019 9:38 AM EST from Last 3 Months or Most Recently Relevant to Health Maintenance Results * ENDOSCOPY, COLON (10/30/2019 9:38 AM EST) Narrative Transcriptions Juliano Shoemaker MD - 10/30/2019 9:38 AM EST Patient Name: Shefali Figueroa Attending MD:: JULIANO SHOEMAKER MD Procedure Date: 10/30/2019 9:38 AM Date of : 1960 Age: 58 Admit Type: Outpatient Gender: Female Room: [place] [address] Referring MD: Linda Camejo Exam Type: Colonoscopy Indications: Chronic diarrhea, Clinically significant diarrhea of unexplained origin; last exam > 20 years ago Medications: Monitored Anesthesia Care Procedure: Informed consent was obtained from the patient after discussion of the indications, limitations, alternatives, benefits, and risks of the procedure. Risks specifically discussed include but are not limited to medication reactions, missed lesions, bleeding, perforation, or the need for emergentsurgery. Throughout the procedure, the patient's bloodpressure, pulse, end-tidal CO2, and oxygen saturations were monitored continuously. The Olympus adult variable colonoscope CF-LN550M #5was introduced through the anus and advanced to thececum, identified by the appendiceal orifice, ileocecalvalve and palpation. The colonoscopy was performed without difficulty. The patient tolerated the procedurefairly well. The quality of the bowel preparation wasgood. Complications: No immediate complications. Estimated blood loss:None. Findings: The perianal and digital rectal examinations were normal. Pertinent negatives include normal sphincter tone. Normal mucosa was found in the entire colon.Biopsies for histology were taken with a cold forceps fromthe ascending colon, transverse colon and descendingcolon for evaluation of microscopic colitis. Estimatedblood loss was minimal. Retroflexion in the right colon was performed. The exam was otherwise without abnormality on direct and retroflexion views. Impression: - Normal mucosa in the entire examined colon.Biopsied. - The examination was otherwise normal on direct and retroflexion views. Recommendation: - I will send results of your biopsy to you and your referring physician or provider. If you do notreceive notification within 3 weeks, please call ouroffice. - Repeat colonoscopy in 10 years for screeningpurposes. - Return to GI office as previously scheduled. JULIANO SHOEMAKER MD 10/30/2019 10:07:00 AM This report has been signed electronically. Number of Addenda: 0 Note Initiated On: 10/30/2019 9:38 AM Procedure Code(s): --- Professional --- 95641, Colonoscopy, flexible; with biopsy, single or multiple --- Technical --- 73299, Colonoscopy, flexible; with biopsy, single or multiple Diagnosis Code(s): --- Professional --- K52.9, Noninfective gastroenteritis and colitis, unspecified R19.7, Diarrhea, unspecified --- Technical --- K52.9, Noninfective gastroenteritis and colitis, unspecified R19.7, Diarrhea, unspecified CPT copyright 2018 [employer]. All rights reserved. The codes documented in this report are preliminary and upon sports book server reviewmay be revised to meet current compliance requirements. Procedure Date: 10/30/2019 9:38:53 AM [address] [place] [address] Linda Camejo NUTRITION AIDE GI PROCEDURE ORDERABLES Final Result from Last 3 Months or Most Recently Relevant to Health Maintenance Insurance [employer] TOTAL CHOICE INDEMNITY [employer] TOTAL CHOICE INDEMNITY [employer] TOTAL CHOICE INDEMNITY [employer] TOTAL CHOICE INDEMNITY [employer] TOTAL CHOICE INDEMNITY [employer]OTAL [employer] INDEMNITY [employer]OTAL CHOICE INDEMNITY [employer]OTAL [employer] INDEMNITY [employer] INDEMNITY Care Teams Marine Extension Agent Relationship Specialty Start Date End Date Linda Camejo NP [address] [place] [address] [phone] PCP - General Family Medicine 10/24/19 Additional Source Comments The information contained in this document represents components of the legal health record. It is not the complete legal health record.[facility]
--- OUTSIDE RECORDS SUMMARY | 2025-06-26 16:34 | XMS_ITS | Encounter Summary ---
Author Organization [facility] Address [address] [address] Phone Care Team Providers Care Material Handling Warehouse Supervisor Name Role Phone Doreen Larsen MD Primary Care Provider + Linda Camejo NP Primary Care Provider + Encounter Details Date Type Department Care Team (Late st Contact Info) Description 01/09/2018 Ancillary Orders Non-Invasive Cardiology [address] [place] [address] Jenifer Burns NP [address] [place] [address] [email or web address] Type 2 diabetes mellitus with hyperglycemia, unspecified termite control service representative insulin use status; Essential hypertension; Elevated C-reactive protein (CRP) Social History Tobacco Use Types Packs/Day Years Used Date Smoking Tobacco: Never Assessed Comments Unknown Sex and Gender Information Value Date Recorded Sex Assigned at Not on file Legal Sex Female 9:22 AM EDT Gender Identity Not on file Sexual Orientation Not on file documented as of this encounter Plan of Treatment Not on file documented as of this encounter Results * NC Stress Result for Nuclear Stress Test (01/10/2018 11:11 AM EDT) Max BP Systolic 198 mmHg [facility] Max BP Diastolic 88 mmHg [facility] Max HR 144 BPM [facility] Resting HR 93 BPM [facility] Resting BP Systolic 130 mmHg [facility] Resting BP Diastolic 80 mmHg [facility] Peak METS 7.0 METS [facility] Peak HR 144 BPM [facility] Peak BP Systolic 150 mmHg [facility] Peak BP Diastolic 80 mmHg [facility] Anatomical Region Laterality Modality Heart Other 01/10/2018 9:19 AM EDT 01/10/2018 11:12 AM EDT Narrative 01/10/2018 11:46 AM EDT Response to Stress The patient exercised for minutes seconds, achieving 7.0 METS at peak exercise. Baseline blood pressure was 130/80 bpm, and baseline heart rate was 93. Peak blood pressure was 150/80 bpm. The patient achieved a peak heart rate of 144 bpm, which is% of their maximum predicted heart rate. Rate pressure product was [address]. Exercise Stress Test Report: Reason for termination: fatigue, SOB Summary: Resting ECG: SR HR 87 RSR' NSSTW Functional capacity: fair Heart rate response to exercise: appropriate Blood pressure response to exercise: normotensive - appropriate response to exercise Chest pain: none Arrhythmias: none Conclusion: Patient exercised for 4:41 minutes on a standard Florentino protocol achieving 88% MPHR (144 BPM) and 7 METS. Test terminated due to fatigue, SOB. Summary: 1. EKG: No EKG evidence of ischemia per criteria. 2. Symptoms: No exertional chest pain or symptoms concerning for angina. 3. Exercise physiology: Normal heart rate and BP response to exercise. Max HR 144 BPM with normal HR recovery. Max BP 198/88 from baseline BP of 130/80. Baseline O2 sat 95% on RA. 02 sat 93-94% with exercise. Fair functional capacity for age noted. 4. Arrhythmia: Occasional PAC Conclusion: Normal ETT portion of test. No ischemic EKG changes. Vital signs at baseline at time of discharge from the lab. Nuclear images to follow under separate document. EKG reviewed with Dr. Rodriguez. July Mays NP, MPH . Jenifer Burns NP CV NM CARDIAC Final R esult documented in this encounter Visit Diagnoses Diagnosis Type 2 diabetes mellitus with hyperglycemia, unspecified termite control service representative insulin use status Essential hypertension Unspecified essential hypertension Elevated C-reactive protein (CRP) Type 2 diabetes mellitus with hyperglycemia, unspecified termite control service representative insulin use status Essential hypertension Unspecified essential hypertension Elevated C-reactive protein (CRP) documented in this encounter Care Teams Material Handling Warehouse Supervisor Relationship Specialty Start Date End Date Doreen Larsen MD [address] [place] [phone] [email or web address] PCP - General Family Medicine 12/31/17 10/23/19 Linda Camejo NP [address] [place] [phone] PCP - General Family Medicine 10/24/19 documented as of this encounter Additional Source Comments The information contained in this document represents components of the legal health record. It is not the complete legal health record.[facility]
--- OUTSIDE RECORDS SUMMARY | 2025-06-26 16:34 | XMS_ITS | Encounter Summary ---
Author Organization [facility] Address [address] [place] [address] Phone Care Team Providers Care Metal Engineering Process Worker Name Role Phone Doreen Larsen MD Primary Care Provider + Linda Camejo NP Primary Care Provider + Encounter Details Date Type Department Care Team ([facility] Contact Info) Description 10/23/2019 Procedure Pass [facility] Endoscopy Admitting Dept Virtual Department [address] [place] [phone] Social History Tobacco Use Types Packs/Day Years Used Date Smoking Tobacco: Never Assessed Comments Unknown Sex and Gender Information Value Date Recorded Sex Assigned at Not on file Legal Sex Female 9:22 AM EDT Gender Identity Not on file Sexual Orientation Not on file documented as of this encounter Plan of Treatment Not on file documented as of this encounter Visit Diagnoses Not on filedocumented in this encounter Care Teams Metal Engineering Process Worker Relationship Specialty Start Date End Date Doreen Larsen MD [address] [place] [phone] PCP - General Family Medicine 12/31/17 10/23/19 Linda Camejo NP [address] [place] [phone] PCP - General Family Medicine 10/24/19 documented as of this encounter Additional Source Comments The information contained in this document represents components of the legal health record. It is not the complete legal health record.[facility]
--- OUTSIDE RECORDS SUMMARY | 2025-06-26 16:34 | XMS_ITS | Encounter Summary ---
Author Organization [facility] Address [address] [place] [phone] Phone Care Team Providers Care Table Games Supervisor Name Role Phone Linda Camejo NP Primary Care Provider + Encounter Details Date Type Department Care Team (Late st Contact Info) Description 10/30/2019 Procedure Pass [facility] Endoscopy Admitting Dept Virtual Department [address] [place] [phone] Social History Tobacco Use Types Packs/Day Years [...] on filedocumented in this encounter Care Teams Table Games Supervisor Relationship Specialty Start Date End Date Linda Camejo NP [address] [place] [phone] PCP - General Family Medicine 10/24/19 documented as of this encounter Additional Source Comments The information contained in this document represents components of the legal health record. It is not the complete legal health record.[facility]
--- OUTSIDE RECORDS SUMMARY | 2025-06-26 16:34 | XMS_ITS | Encounter Summary ---
Author Organization [facility] Address [address] [address] Phone Care Team Providers Care Carbonizer Tester Name Role Phone Doreen Larsen MD Primary Care Provider + Linda Camejo NP Primary Care Provider + Encounter Details Date Type Department Care Team (Late st Contact Info) Description 12/24/2017 Ancillary Orders Virtual Department 30 [place] [address] Jenifer Burns NP [address] [place] [phone] [email or web address] Type 2 diabetes mellitus with hyperglycemia, unspecified care home insulin use status; Essential hypertension; Elevated C-reactive [...] as of this encounter Results * NC Myocardial Perfusion Pharmacologic Stress Multiple (01/11/2018 10:02 AM EDT) Anatomical Region Laterality Modality Heart, Vascular Nuclear Medicine 01/11/2018 10:1 7 AM EDT Impressions 01/11/2018 10:19 AM EDT No ischemia or infarction. Normal LVEF of 76%. POS [id number] Narrative 01/11/2018 10:19 AM EDT COMPARISON: None. DOSE: 26.9 mCi at rest and 29.9 mCi at stress of Tc99m Sestamibi TECHNIQUE: Patient underwent an pharmacologic stress test. NUCLEAR MEDICINE CARDIAC SPECT FINDINGS: Left ventricle is normal in size from stress to rest. No perfusion defects. Gated study is normal with an LVEF of 76%. Procedure Note Mariela Aly MD - 01/11/2018 COMPARISON: None. DOSE: 26.9 mCi at rest and 29.9 mCi at stress of Tc99m Sestamibi TECHNIQUE: Patient underwent an pharmacologic stress test. NUCLEAR MEDICINE CARDIAC SPECT FINDINGS: Left ventricle is normal in size from stress to rest. No perfusiondefects. Gated study is normal with an LVEF of 76%. IMPRESSION: No ischemia or infarction. Normal LVEF of 76%. POS [id number] Jenifer Burns STORAGE WORKER CV NM CARDIAC Final R esult documented in this encounter Visit Diagnoses Diagnosis Type 2 diabetes mellitus with hyperglycemia, unspecified last pattern grader insulin use status Essential hypertension Unspecified essential hypertension Elevated C-reactive protein (CRP) Type 2 diabetes mellitus with hyperglycemia, unspecified care home insulin use status Essential hypertension Unspecified essential hypertension Elevated C-reactive protein (CRP) documented in this encounter Care Teams Carbonizer Tester Relationship Specialty Start Date End Date Doreen Larsen MD [address] [place] [phone] PCP - General Family Medicine 12/31/17 10/23/19 Linda Camejo NP [address] [place] [phone] PCP - General Family Medicine 10/24/19 documented as of this encounter Additional Source Comments The information contained in this document represents components of the legal health record. It is not the complete legal health record.[facility]
--- OUTSIDE RECORDS SUMMARY | 2025-06-26 16:34 | XMS_ITS | Encounter Summary ---
Author Organization [facility] Address [address] [address] Phone Care Team Providers Care Chief Solution Architect Name Role Phone Doreen Larsen MD Primary Care Provider + Linda Camejo NP Primary Care Provider + Encounter Details Date Type Department Care Team (Late st Contact Info) Description 12/24/2017 Ancillary Orders Virtual Department 30 [place] [address] Jenifer Burns NP [address] [place] [phone] [email or web address] Social History Tobacco Use Types Packs/Day Years [...] on filedocumented in this encounter Care Teams Chief Solution Architect Relationship Specialty Start Date End Date Doreen Larsen MD [address] [place] [phone] PCP - General Family Medicine 12/31/17 10/23/19 Linda Camejo, CAYDEN [address] [place] [phone] (work) PCP - General Family Medicine 10/24/19 documented as of this encounter Additional Source Comments The information contained in this document represents components of the legal health record. It is not the complete legal health record.[facility]
== END 2025-06-26 13:57 | disposition home or self-care (01) ==
LOC: HO.HMCFM 13:02
PROVIDERS: PCP Nurse Practitioner Family; Visit Provider Nurse Practitioner Family
DX: E11.8 Type 2 diabetes mellitus with unspecified complications (principal); M51.369 Other intervertebral disc degeneration, lumbar region without mention of lumbar back pain or lower extremity pain; E66.01 Morbid (severe) obesity due to excess calories; Z68.43 Body mass index [BMI] 50.0-59.9, adult; M47.816 Spondylosis without myelopathy or radiculopathy, lumbar region; Z76.89 Persons encountering health services in other specified circumstances; G89.4 Chronic pain syndrome; Z23 Encounter for immunization; M79.642 Pain in left hand; I10 Essential (primary) hypertension; I25.10 Atherosclerotic heart disease of native coronary artery without angina pectoris; Z98.890 Other specified postprocedural states

== ENCOUNTER → 2025-06-26 13:01 | Outpatient (BNVA) | payer MEDICARE, OTHER, SELFPAY | PROVIDERS: PCP Nurse Practitioner Family; Visit Provider Nurse Practitioner Family | DX: Z76.89 Persons encountering health services in other specified circumstances (principal); E11.8 Type 2 diabetes mellitus with unspecified complications; E03.9 Hypothyroidism, unspecified; M79.642 Pain in left hand; M47.816 Spondylosis without myelopathy or radiculopathy, lumbar region; M51.369 Other intervertebral disc degeneration, lumbar region without mention of lumbar back pain or lower extremity pain; G89.4 Chronic pain syndrome; E66.01 Morbid (severe) obesity due to excess calories; I10 Essential (primary) hypertension; I25.10 Atherosclerotic heart disease of native coronary artery without angina pectoris; Z23 Encounter for immunization; Z13.31 Encounter for screening for depression; Z13.39 Encounter for screening examination for other mental health and behavioral disorders; F33.9 Major depressive disorder, recurrent, unspecified; F41.1 Generalized anxiety disorder | CPT/HCPCS: 90471; 90656; 90715; 96127; 99202 ==

== ENCOUNTER 2025-07-30 08:29 | Emergency (ER) | payer MEDICARE, OTHER, SELFPAY ==
[2025-07-30] VITALS (8 sets, daily range): BP systolic 118–170; BP diastolic 64–77; PULSE 87–92; RESP 16–20; TEMP 36.6–36.8; O2SAT 94–98; BMI 54.3
--- NOTE | ~2025-07-30 | XR_ITS ---
EXAMINATION: XR CHEST CLINICAL INFORMATION: cough, sob COMPARISON: X-ray 08/26/2020 TECHNIQUE: 2 views of the chest were obtained. FINDINGS: The cardiomediastinal silhouette is within normal limits. The lungs are well expanded. There is no focal consolidation, edema, or effusion. No pneumothorax. Multilevel thoracal lumbar spondylosis. XR/XR chest 2V IMPRESSION: No focal consolidation Electronically signed by: Narayan Killian MD 07/30/2025 09:17 AM [facility]
--- OUTSIDE RECORDS SUMMARY | 2025-07-30 10:01 | XMS_ITS | Encounter Summary ---
Author Organization [facility] Address [address] [place] [address] Phone Care Team Providers Care Emission Technician Name Role Phone Doreen Larsen MD Primary Care Provider + Linda Camejo NP Primary Care Provider + Encounter Details Date Type Department Care Team ([facility] Contact Info) Description 10/23/2019 Procedure Pass [facility] Endoscopy Admitting Dept Virtual Department [address] [place] [address] Social History Tobacco Use Types Packs/Day Years [...] on filedocumented in this encounter Care Teams Emission Technician Relationship Specialty Start Date End Date Doreen Larsen MD [address] [place] [phone] PCP - General Family Medicine 12/31/17 10/23/19 Linda Camejo NP [address] [place] [address] PCP - General Family Medicine 10/24/19 documented as of this encounter Additional Source Comments The information contained in this document represents components of the legal health record. It is not the complete legal health record.[facility]
--- OUTSIDE RECORDS SUMMARY | 2025-07-30 10:01 | XMS_ITS | Clinical Summary ---
Author Organization [facility] Address [address] [place] [address] Phone Care Team Providers Care Core Piler Name Role Phone Linda Camejo NP Primary [...] VACCINES (50+ years) (2 of 2 - PCV20 or PCV21) 01/02/2016 01/01/2015 Adult Td,Tdap Booster 09/09/2021 09/09/2011 [...] 58 Admit Type: Outpatient Gender: Female Room: [place] [address] Referring MD: Linda Camejo Exam Type: Colonoscopy [...] monitored continuously. The Olympus adult variable colonoscope [id number] #5was introduced through the anus and advanced [...] 9:38 AM Procedure Code(s): --- Professional --- 57764, Colonoscopy, flexible; with biopsy, single or multiple --- Technical --- 16096, Colonoscopy, flexible; with biopsy, single or multiple Diagnosis Code(s): --- Professional --- K52.9, Noninfective gastroenteritis and colitis, unspecified R19.7, Diarrhea, unspecified --- Technical --- K52.9, Noninfective gastroenteritis and colitis, unspecified R19.7, Diarrhea, unspecified CPT copyright 2018 [employer]. All rights reserved. The codes documented in this report are preliminary and upon geophysical party chief reviewmay be revised to meet current compliance requirements. Procedure Date: 10/30/2019 9:38:53 AM [address] [place] [address] Linda Camejo NP GI PROCEDURE ORDERABLES Final Result from Last 3 Months or Most Recently Relevant to Health Maintenance Insurance [employer] TOTAL CHOICE INDEMNITY [employer] TOTAL CHOICE INDEMNITY [employer] TOTAL CHOICE INDEMNITY [employer] TOTAL CHOICE INDEMNITY [employer] TOTAL CHOICE INDEMNITY [employer] TOTAL CHOICE INDEMNITY [employer] TOTAL CHOICE INDEMNITY [employer] TOTAL CHOICE INDEMNITY [facility] TOTAL CHOICE INDEMNITY Care Teams Core Piler Relationship Specialty Start Date End Date Linda Camejo NP [address] [place] [address] [phone] PCP - General Family Medicine 10/24/19 Additional Source Comments The information contained in this document represents components of the legal health record. It is not the complete legal health record.[facility]
--- OUTSIDE RECORDS SUMMARY | 2025-07-30 10:02 | XMS_ITS | Encounter Summary ---
Author Organization [facility] Address [address] [place] [address] Phone Care Team Providers Care Plumbing Technician Name Role Phone Linda Camejo NP Primary Care Provider + Encounter Details Date Type Department Care Team (Late st Contact Info) Description 10/30/2019 Procedure Pass [facility] Endoscopy Admitting Dept Virtual Department [address] [place] [phone] Social History Tobacco Use Types Packs/Day Years [...] on filedocumented in this encounter Care Teams Plumbing Technician Relationship Specialty Start Date End Date Linda Camejo NP [address] [place] [phone] PCP - General Family Medicine 10/24/19 documented as of this encounter Additional Source Comments The information contained in this document represents components of the legal health record. It is not the complete legal health record.[facility]
--- OUTSIDE RECORDS SUMMARY | 2025-07-30 10:02 | XMS_ITS | Encounter Summary ---
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 use status; Essential hypertension; Elevated C-reactive [...] AM EDT) Max BP Systolic 198 mmHg [facility] Max BP Diastolic 88 mmHg [facility] Max HR 144 BPM [facility] Resting HR 93 BPM [facility] Resting BP Systolic 130 mmHg [facility] Resting BP Diastolic 80 mmHg [facility] Peak METS 7.0 METS [facility] Peak HR 144 BPM [facility] Peak BP Systolic 150 mmHg [facility] Peak BP Diastolic 80 mmHg [facility] Anatomical Region Laterality Modality Heart Other [...] predicted heart rate. Rate pressure product was 865[address]. Exercise Stress Test Report: Reason for termination: [...] Type 2 diabetes mellitus with hyperglycemia, unspecified vermin exterminator insulin use status Essential hypertension Unspecified essential hypertension Elevated C-reactive protein (CRP) Type 2 diabetes mellitus with hyperglycemia, unspecified vermin exterminator insulin use status Essential hypertension Unspecified essential hypertension Elevated C-reactive protein (CRP) documented in this encounter Care Teams Lithograph Press Feeder Relationship Specialty Start Date End Date Doreen Larsen MD [address] [place] [phone] [email or web address] PCP - General Family Medicine 12/31/17 10/23/19 Linda Camejo NP [address] [place] [phone] PCP - General Family Medicine 10/24/19 documented as of this encounter Additional Source Comments The information contained in this document represents components of the legal health record. It is not the complete legal health record.[facility]
--- OUTSIDE RECORDS SUMMARY | 2025-07-30 10:02 | XMS_ITS | Encounter Summary ---
Author Organization [facility] Address [address] [address] Phone Care Team Providers Care Tectonophysicist Name Role Phone Doreen Larsen MD Primary Care Provider + Linda Camejo NP Primary Care Provider + Encounter Details Date Type Department Care Team (Late st Contact Info) Description 12/24/2017 Ancillary Orders Virtual Department 30 [place] [address] Jenifer Burns NP [address] [place] [phone] [email or web address] Type 2 diabetes mellitus with hyperglycemia, unspecified nursing home insulin use status; Essential hypertension; Elevated [...] or infarction. Normal LVEF of 76%. POS [id number] Narrative 01/11/2018 10:19 AM EDT COMPARISON: None. [...] or infarction. Normal LVEF of 76%. 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 line teamster insulin use status Essential hypertension Unspecified essential hypertension Elevated C-reactive protein (CRP) Type 2 diabetes mellitus with hyperglycemia, unspecified nursing home insulin use status Essential hypertension Unspecified essential hypertension Elevated C-reactive protein (CRP) documented in this encounter Care Teams Tectonophysicist Relationship Specialty Start Date End Date Doreen Larsen MD [address] [place] [phone] PCP - General Family Medicine 12/31/17 10/23/19 Linda Camejo NP [address] [place] [phone] PCP - General Family Medicine 10/24/19 documented as of this encounter Additional Source Comments The information contained in this document represents components of the legal health record. It is not the complete legal health record.[facility]
--- OUTSIDE RECORDS SUMMARY | 2025-07-30 10:02 | XMS_ITS | Encounter Summary ---
Author Organization [facility] Address [address] [address] Phone Care Team Providers Care Steep Tender Name Role Phone Doreen Larsen MD Primary Care Provider + Linda Camejo NP Primary Care Provider + Encounter Details Date Type Department Care Team (Late st Contact Info) Description 12/24/2017 Ancillary Orders Virtual Department [address] [place] [address] Jenifer Burns NP [address] [place] [phone] [email or web address] Social History Tobacco Use Types Packs/Day [...] on filedocumented in this encounter Care Teams Steep Tender Relationship Specialty Start Date End Date Doreen Larsen MD [address] [place] [phone] [email or web address] PCP - General Family Medicine 12/31/17 10/23/19 Linda Camejo, CAYDEN [address] [place] [phone] (work) PCP - General Family Medicine 10/24/19 documented as of this encounter Additional Source Comments The information contained in this document represents components of the legal health record. It is not the complete legal health record.[facility]
[2025-07-30 10:04] LABS: Resp Syncy Virus RNA Qual PCR NEGATIVE (Negative); SARS COV2 PCR INHOUSE POSITIVE (Negative)
[2025-07-30] MEDS: Albuterol Sulfate 2.5 MG, Albuterol/Iprat 2.5/0.5MG 3 ML 3 ML INHALE ×2 (10:19→13:01)
--- NOTE | 2025-07-30 10:23 | ECG_ITS ---
Test Reason : sob Blood Pressure : */* mmHG Vent. Rate : 89 BPM Atrial Rate : 89 BPM P-R Int : 198 ms QRS Dur : 144 ms QT Int : 418 ms P-R-T Axes : 66 -43 128 degrees QTcB Int : 508 ms Sinus rhythm with Premature supraventricular complexes Left axis deviation Left bundle branch block Abnormal ECG When compared with ECG of 26-Aug-2020 20:48, Left bundle branch block is now Present Referred By: Elva Payne Electronically Signed By: KARMA ALVAREZ
[2025-07-30 10:52] LABS: MANUAL DIFF FLAG NO
--- NOTE | 2025-07-30 11:05 | ED.URI ---
HPI - URI/Sore Throat General Chief Complaint: Upper Respiratory Symptoms Stated Complaint: bronchitis, + covid 2 wks, still testing positive Time Seen by Provider: 07/30/25 10:11 Source: patient Mode of arrival: ambulatory Limitations: no limitations History of Present Illness ED Provider: JARET MAYER PA-C HPI Narrative: 64-year-old female with past medical history significant for CAD, DM, COPD, left bundle-branch block presents to the emergency department today for evaluation of shortness of breath x last night. Patient states she tested positive for covid on 07/18 at [facility] Care. She was given an inhaler while there however lost her spacer a few days ago. As a result, has not been able to use her inhaler. Reports worsening shortness of breath secondary to chest congestion. Feels like she needs to expel sputum however is having difficulty. She has been taking Mucinex last dose last night. She is not dependent on supplemental oxygen at home. Denies recent travel or long car rides. Denies hemoptysis, lower extremity pain/swelling, chest pain, palpitations. Related Data Home Medications ?Medication ?Instructions ?Recorded ?Confirmed sertraline 100 mg tablet 100 mg PO DAILY 03/11/22 06/26/25 bupropion HCl 100 mg tablet,12 hr 100 mg PO BID 05/24/23 06/26/25 sustained-release lorazepam 0.5 mg tablet 0.5 mg PO BID PRN 05/24/23 06/26/25 tirzepatide 10 mg/0.5 mL 10 mg subcut QWEEK 11/23/23 06/26/25 subcutaneous pen injector (Mounjaro) empagliflozin 25 mg-metformin ER 1 tab PO DAILY 05/04/24 06/26/25 1,000 mg tablet,extended release 24hr (Synjardy XR) aspirin 81 mg tablet,delayed 81 mg PO DAILY 11/23/24 06/26/25 release (Adult Aspirin Regimen) coQ10 (ubiquinol) 100 mg capsule 100 mg PO DAILY 11/23/24 06/26/25 (Qunol Serafin CoQ10) cyclobenzaprine 10 mg tablet 10 mg PO BEDTIME 11/23/24 06/26/25 ticagrelor 90 mg tablet 90 mg PO BID 02/08/25 06/26/25 Previous Rx's ?Medication ?Instructions ?Recorded amlodipine 5 mg tablet 5 mg PO DAILY #90 tabs 11/03/24 atorvastatin 40 mg tablet 40 mg PO BEDTIME #90 tabs 05/24/25 losartan 100 1 tab PO DAILY #90 tabs 06/12/25 mg-hydrochlorothiazide 25 mg tablet albuterol sulfate 90 mcg/actuation 2 inh inhalation Q20M PRN 07/30/25 aerosol inhaler (Ventolin HFA) shortness of breath or wheezing #8.5 grams azithromycin 250 mg tablet See Rx Instructions PO .COMPLEX #6 07/30/25 tabs guaifenesin 200 mg tablet 200 mg PO Q4H PRN cough #9 tabs 07/30/25 prednisone 20 mg tablet 40 mg (2 x 20 mg) PO DAILY 5 days 07/30/25 #10 tabs Allergies Allergy/AdvReac Type Severity Reaction Status Date / Time Sulfa (Sulfonamide Allergy Intermediate SWELLING Verified 07/30/25 08:34 Antibiotics) (SULFA (SULFONAMIDE ANTIBIOTICS)) vancomycin Allergy Rash Verified 07/30/25 08:34 Review of Systems Review of Systems: Yes all other systems are reviewed and are negative PMFSH Past Medical History Attestation statement: The following information was validated with the patient. Source: old records reviewed and nursing notes reviewed Medical History Hx of mammogram (~2022) Neuropathy Dry skin Incontinence Osteoarthritis Arthritis Thyroid disorder Essential hypertension LBBB (left bundle branch block) Morbid obesity Super obesity Anxiety Depression Fatty liver Type 2 diabetes mellitus COPD (chronic obstructive pulmonary disease) Obstructive sleep apnea hypopnea, severe Surgical History History of hand surgery Hx of colonoscopy (~2020) History of removal of laparoscopic gastric banding device History of carpal tunnel surgery Hx of cholecystectomy Hx of laparoscopic gastric banding Family History Family History Father Interstitial pneumonitis Diabetes Mother Bladder cancer Brother No problems noted. Social History Social History Household Members: Family and Children Both parents involved: No Caregiver staying overnight: No Housing: House Are you a primary career services representative to a significant other at home: No Do you presently have visiting nurse or other home services: No 75 years or older and lives alone: No Alcohol intake: current Alcohol intake frequency: holidays/special occasions only Alcohol type: wine and hard liquor Patient Tobacco Use Status: Former Tobacco user e-Cigarette/Vaping Use: Never Used Second Hand Smoke Exposure: No Advance Directives Date on File: 03/12/22 service: No Current occupational status: retired Cognitive needs: No Hearing needs: No Vision needs: Yes (wear glasses) Physical Exam Vital Signs: Vital Signs: Last Vital Signs Temp 98.2 F 07/30/25 13:41 Pulse 87 07/30/25 13:41 Resp 18 07/30/25 13:41 BP 132/74 07/30/25 13:41 Pulse Ox 95 07/30/25 13:41 O2 Del Method Room Air 07/30/25 13:41 BMI result Body Mass Index 54.3 Hypertensive, vitals otherwise WNL General: Well appearing, in no acute distress. Skin: Warm, dry, intact. No rashes or lesions. Head: Normocephalic, atraumatic. EENT: Hearing is intact b/l. Conjunctiva clear. PERRLA. EOM intact. Moist mucous membranes.? Cardiac: Chest wall symmetric. RRR. no jvd. Lungs: Normal respiratory effort, no accessory muscle use, no tripoding. There are diffuse expiratory wheezes and rhonchi. no crackles. Abdomen: Soft, non-tender, non-distended. No rebound tenderness or guarding. Positive BS x4. Ext: no pitting edema, no calf tenderness bilaterally. Neuro: AOx3. Normal speech. Ambulating with steady gait assisted by cane. Course Course Course Narrative: CBC without leukocytosis or left shift. H&H stable. Chemistry showing slight hypokalemia to 3.2, magnesium WNL. Oral repletion ordered. No other acute electrolyte abnormalities requiring intervention. No BENNY. Random glucose 154, no anion gap. Liver function at baseline. Troponin WNL. Patient is positive for COVID, negative RSV, flu. Chest x-ray without infiltrate, consolidation or pulmonary edema. > medicated with DuoNeb x2, magnesium, Solu-Medrol with improvement. She states she feels well. She sustained 97% on room air during O2 ambulation trial. > discussed all workup results with patient. Used shared decision-making to determine patient's disposition home. Likely prolonged COVID exacerbating her COPD. Will discharge home with prednisone, azithromycin, guaifenesin and albuterol inhaler. Patient has remained stable throughout ED visit today. Discussed worrisome signs and symptoms and when to return to the ED. All questions answered at this time. Patient is agreeable with disposition and stable for discharge. Medications Administered Discontinued Medications Generic Name Dose Route Start Last Admin Trade Name Lawrence PRN Reason Stop Dose Admin Albuterol Sulfate 2.5 mg/ 0 mg 07/30/25 10:14 07/30/25 10:19 Albuterol/Ipratropium 3 ml INHALE 07/30/25 10:15 5 dose ONCE ONE Administration Albuterol Sulfate 2.5 mg/ 0 mg 07/30/25 13:00 07/30/25 13:01 Albuterol/Ipratropium 3 ml INHALE 07/30/25 13:01 5 dose ONCE ONE Administration Magnesium Sulfate 2 gm in 50 mls @ 150 mls/hr 07/30/25 13:04 07/30/25 13:24 Magnesium Sulfate/H2o IV 07/30/25 13:23 Infused ONCE ONE Infusion Methylprednisolone Sodium Succinate 80 mg 07/30/25 11:10 07/30/25 11:18 Methylprednisolone Sod Succ 125 Mg/2 Ml Vial IVPUSH 07/30/25 11:11 80 mg ONCE ONE Administration Potassium Chloride 40 meq 07/30/25 12:54 07/30/25 13:05 Potassium Chloride Packet 20 Meq Packet PO 07/30/25 12:55 40 meq ONCE ONE Administration Medical Decision Making Medical Decision Making [facility] Narrative: 64-year-old female with past medical history significant for CAD, DM, COPD, left bundle-branch block presents to the emergency department today for evaluation of shortness of breath x last night. Hypertensive, vitals are otherwise WNL. Not hypoxic or tachycardic. She is generally well-appearing and in no acute respiratory distress. No tripoding. Differential diagnosis includes anemia, electrolyte abnormality, pneumonia, bronchitis, viral syndrome, pulmonary embolism, ACS, arrhythmia, COPD exacerbation Plan for labs, ekg, viral swabs, cxr, bronch treatment, IV meds, re-evaluation. Differential Diagnosis Differential Diagnoses: The differential diagnosis associated with the presentation includes As above Admission/Observation Not indicated Lab Data [facility] Lab Attestation statement: I reviewed the patient's lab results. As above 07/30/25 10:45 07/30/25 10:45 Labs: Lab Results 07/30/25 07/30/25 07/30/25 Range/Units 08:45 10:45 12:03 WBC 10.0 (4.8-10.8) X10*3/uL RBC 5.53 H (4.20-5.50) X10*6/uL Hgb 15.6 (12.0-16.0) g/dl Hct 48.0 H (37.0-47.0) % MCV 86.8 (80.0-98.0) fL MCH 28.2 (27.0-33.0) pg MCHC 32.5 (31.0-35.0) g/dl RDW 14.0 (11.0-16.0) % Plt Count 241 (160-400) X10*3/uL MPV 10.9 (9.4-12.3) fL Immature Gran % (Auto) 0.5 H (0.0-0.4) % Neut % (Auto) 64.7 (45-73) % Lymph % (Auto) 22.4 (20-40) % Elk % (Auto) 8.4 (2-11) % Eos % (Auto) 3.2 (0-4) % Baso % (Auto) 0.8 (0-2) % Lymph # (Auto) 2.2 (1.2-4.9) X10*3/uL Elk # (Auto) 0.8 (0.1-1.2) X10*3/uL Eos # (Auto) 0.3 (0.0-0.4) X10*3/uL Baso # (Auto) 0.1 (0.0-0.2) X10*3/uL Abs Immat Gran (auto) 0.05 H (0.00-0.03) X10*3/uL Absolute Neuts (auto) 6.5 (2.0-8.3) x10*3/uL Absolute Nucleated RBC 0.000 (0.0-0.012) X10*3/uL Nucleated RBC % (auto) 0.0 (0.0-0.2) /100WBC D-Dimer High Sensitivty < 150 NG/ML Sodium 142 (135-145) mmol/L Potassium 3.2 L D (3.3-5.1) mmol/L Chloride 103 (96-108) mmol/L Carbon Dioxide 28 (22-29) mmol/L Anion Gap 14 (12-20) BUN 18 H (9-16) mg/dL Creatinine 0.87 (0.5-1.4) mg/dL Estim Creat Clear Calc 72.9 Estimated GFR > 60 Random Glucose 154 H (60-115) mg/dL Calcium 9.5 (8.4-10.2) mg/dL Magnesium 2.0 (1.6-2.6) mg/dL Total Bilirubin 0.5 (0.0-1.0) mg/dL AST 42 H (5-31) U/L ALT 53 H (0-31) U/L Alkaline Phosphatase 106 (39-117) U/L Troponin I High Sens 8.1 (<3.5-17.0) ng/L Total Protein 8.0 (6.5-8.0) g/dL Albumin 4.4 (3.5-5.0) g/dL Influenza Type A (PCR) NEGATIVE (Negative) Influenza Type B (PCR) NEGATIVE (Negative) RSV RNA Qual (PCR) NEGATIVE (Negative) SARS-CoV-2 RNA (RT-PCR) POSITIVE A (Negative) Independent Interpretation I performed an independent interpretation of an: EKG and Plain X-Ray Interpretation: EKG showing sinus rhythm, no acute ischemic changes or ST elevations, known left bundle-branch block cxr without infiltrate or consolidation, no pulmonary edema Radiology Impression Discussion of test interpretation with radiology: I have reviewed the radiologist's reading. Radiologist Impression: Date of Service: 07/30/25 Procedure(s): XR chest 2V Accession Number(s): [id number] cc: Generic ED Physician; Darcy Victor~ Reason for Exam: cough, sob EXAMINATION: XR CHEST CLINICAL INFORMATION: cough, sob COMPARISON: X-ray 08/26/2020 TECHNIQUE: 2 views of the chest were obtained. FINDINGS: The cardiomediastinal silhouette is within normal limits. The lungs are well expanded. There is no focal consolidation, edema, or effusion. No pneumothorax. Multilevel thoracal lumbar spondylosis. XR/XR chest 2V IMPRESSION: No focal consolidation Electronically signed by: Narayan Killian MD 07/30/2025 09:17 AM [facility] External Record Review External record reviewed: Inpatient record Prescription Management I considered prescription management with: Antibiotic (azithromycin) Chronic Conditions Patient?s care impacted by: Other (COPD) Social Determinants Patient?s care significantly limited by Social Determinants of Health including: Other Social Determinant of Health Critical Care Time Critical Care Time Critical Care Time: Yes Total Critical Care Time: 50 Attestation: Critical care time in the amount of 50 minutes has been provided to the patient in terms of direct patient care, frequent reevaluation on IV mag, review and interpretation of medical data and results, and management of potentially life-threatening conditions. This is all outside of any medical procedures. Discharge Plan Discharge Clinical Impression: COPD with acute exacerbation, COVID-19 Patient Disposition: Home, Self-Care Instructions: COPD (Chronic Obstructive Pulmonary Disease) (ED), COVID-19 (Coronavirus Disease 2019) (ED) Additional Instructions: You were evaluated in the ED today for shortness of breath and cough. Your blood work is reassuring. You continue to test positive for COVID. Negative flu and RSV. Your chest x-ray does not demonstrate any pneumonia. There is no fluid in your lungs. As discussed, your D-dimer is undetectable so I do not feel as though you need a CT scan of your chest. Your symptoms improved with medications today. I am sending you home with a refill of your albuterol inhaler. I am starting you on a 5 day course of prednisone. Take your next dose tomorrow as you already received steroids in the ED today. Guaifenesin cough medicine has been sent to your pharmacy to help expel your sputum. I am also starting you on an antibiotic, azithromycin. Take this over the next 5 days. Follow up with your PCP and fisheries technician. Return with any new or worsening symptoms. In the case of an emergency call 911. Prescriptions: New azithromycin 250 mg tablet See Rx Instructions PO .COMPLEX Qty: 6 0RF Rx Instructions: For 250 mg dose pack: take 500 mg today (day 1), then 250 mg for 4 days (days 2-5) prednisone 20 mg tablet 40 mg PO DAILY 5 Days Qty: 10 0RF guaifenesin 200 mg tablet 200 mg PO Q4H PRN (Reason: cough) Qty: 9 0RF albuterol sulfate [Ventolin HFA] 90 mcg/actuation HFA aerosol inhaler 2 inh inhalation Q20M PRN (Reason: shortness of breath or wheezing) Qty: 8.5 0RF No Action atorvastatin 40 mg tablet 40 mg PO BEDTIME Qty: 90 3RF Rx Instructions: cholesterol lowering medication losartan-hydrochlorothiazide 100-25 mg tablet 1 tab PO DAILY Qty: 90 3RF sertraline 100 mg tablet 100 mg PO DAILY lorazepam 0.5 mg tablet 0.5 mg PO BID PRN bupropion HCl 100 mg tablet sustained-release 12 hr 100 mg PO BID Synjardy XR 25-1,000 mg tablet, IR - ER, biphasic 24hr 1 tab PO DAILY amlodipine 5 mg tablet 5 mg PO DAILY Qty: 90 3RF ticagrelor 90 mg tablet 90 mg PO BID cyclobenzaprine 10 mg tablet 10 mg PO BEDTIME aspirin [Adult Aspirin Regimen] 81 mg tablet,delayed release (DR/EC) 81 mg PO DAILY coQ10 (ubiquinol) [Qunol Serafin CoQ10] 100 mg capsule 100 mg PO DAILY Mounjaro 10 mg/0.5 mL pen injector 10 mg subcut QWEEK Referrals: Darcy Victor FNP-BC [Primary Care Provider, Internal Medicine] Interventions: ED Discharge Assessment Last Done: 07/30/25 13:41 Discharge Date/Time: 07/30/25 13:41 Print Language: Telugu
[2025-07-30 11:09] LABS: Hematocrit 48.0 % (37.0-47.0); Hemoglobin 15.6 g/dl (12.0-16.0); Imm Gran Abs Auto 0.05 X10*3/uL (0.00-0.03); Imm Gran Pct Auto 0.5 % (0.0-0.4); Lymphocytes Absolute Auto 2.2 X10*3/uL (1.2-4.9); Mean Corpuscular HGB Conc 32.5 g/dl (31.0-35.0); Mean Corpuscular Hemoglobin 28.2 pg (27.0-33.0); Mean Corpuscular Volume 86.8 fL (80.0-98.0); NRBC Abs Auto 0.000 X10*3/uL (0.0-0.012); NRBC Pct Auto 0.0 /100WBC (0.0-0.2); Platelet Count 241 X10*3/uL (160-400); Red Blood Count 5.53 X10*6/uL (4.20-5.50); White Blood Count 10.0 X10*3/uL (4.8-10.8)
[2025-07-30 11:10] LABS: Alanine Aminotransferase 53 U/L (0-31); Albumin Level 4.4 g/dL (3.5-5.0); Alkaline Phosphatase 106 U/L (39-117); Anion Gap 14 (12-20); Aspartate Amino Transferase 42 U/L (5-31); Blood Urea Nitrogen 18 mg/dL (9-16); Calcium 9.5 mg/dL (8.4-10.2); Carbon Dioxide 28 mmol/L (22-29); Chloride 103 mmol/L (96-108); Creatinine Clr Calc Pharmacy 72.9; Estimated Glomerular Filt Rate > 60; Magnesium 2.0 mg/dL (1.6-2.6); Potassium 3.2 mmol/L (3.3-5.1); Sodium 142 mmol/L (135-145); Total Protein 8.0 g/dL (6.5-8.0)
[2025-07-30 11:18] LABS: Troponin-I High Sensitivity 8.1 ng/L (<3.5-17.0)
[2025-07-30 12:24] LABS: D Dimer High Sensitivity < 150 NG/ML
[2025-07-30] MEDS: Potassium Chloride Packet 20 MEQ PACKET 40 MEQ PO (13:05)
[2025-07-30] MEDS: Magnesium Sulfate/H2O 2 GM/50 ML PIGGYBACK IV (13:06)
== END 2025-07-30 13:41 | disposition home or self-care (01) ==
PROVIDERS: Physician Assistant Medical; Emergency Provider Emergency Medicine Emergency Medical Services; PCP Nurse Practitioner Family
DX: U07.1 COVID-19 (principal); J44.1 Chronic obstructive pulmonary disease with (acute) exacerbation; E87.6 Hypokalemia; E11.9 Type 2 diabetes mellitus without complications; I10 Essential (primary) hypertension; Z88.1 Allergy status to other antibiotic agents; Z88.2 Allergy status to sulfonamides
CPT/HCPCS: 36415; 71046; 80053; 83735; 84484; 85025; 85379; 87637; 93005; 94640; 96365; 96375; 99285; J2919; J3475

== ENCOUNTER → 2025-07-30 08:36 | Outpatient (BNV) | payer MEDICARE, OTHER, SELFPAY | PROVIDERS: PCP Nurse Practitioner Family; Visit Provider Radiology Diagnostic Ultrasound | DX: R05.9 Cough, unspecified (principal); R06.02 Shortness of breath | CPT/HCPCS: 71046 ==

== ENCOUNTER → 2025-07-30 10:23 | Outpatient (BNV) | payer MEDICARE, OTHER, SELFPAY | PROVIDERS: Emergency Provider Emergency Medicine Emergency Medical Services; PCP Nurse Practitioner Family; Visit Provider Internal Medicine | DX: I49.3 Ventricular premature depolarization (principal); I44.7 Left bundle-branch block, unspecified | CPT/HCPCS: 93010 ==

== ENCOUNTER 2025-08-09 14:06 | Outpatient (AMB) | payer MEDICARE, OTHER, SELFPAY ==
[2025-08-09 14:15] VITALS: BP 114/52; PULSE 77; BMI 54.6
--- NOTE | 2025-08-09 14:15 | A.OFFVIS_ITS ---
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 Required: No Allergies Sulfa (Sulfonamide Antibiotics) (SULFA (SULFONAMIDE ANTIBIOTICS)) Allergy (Intermediate, Verified 08/09/25 14:24) SWELLING vancomycin Allergy (Verified 08/09/25 14:24) Rash Medication List - Last Reconciled 08/09/25 by DAKOTA Roa albuterol sulfate 90 mcg/actuation (Ventolin HFA) 2 inhalations inhalation Q20M PRN amlodipine 5 mg PO DAILY aspirin (Adult Aspirin Regimen) 81 mg PO DAILY atorvastatin 40 mg PO BEDTIME azithromycin For 250 mg dose pack: take 500 mg today (day 1), then 250 mg for 4 days (days 2-5) budesonide-formoterol 80-4.5 mcg/actuation 2 puffs inhalation BID bupropion HCl SR 100 mg PO BID coQ10 (ubiquinol) (Qunol Serafin CoQ10) 100 mg PO DAILY cyclobenzaprine 10 mg PO BEDTIME empagliflozin-metformin 25-1,000 mg ER (Synjardy XR) 1 tab PO DAILY guaifenesin 200 mg PO Q4H PRN losartan-hydrochlorothiazide 100-25 mg 1 tab PO DAILY sertraline 100 mg PO DAILY ticagrelor 90 mg PO BID tirzepatide (Mounjaro) 10 mg subcut QWEEK umeclidinium 62.5 mcg/actuation (Incruse Ellipta) 1 inh inhalation Q24H HPI HPI 3m follow up: Details: Shefali is a 64-year-old female with past medical history of diabetes, hypertension, morbid obesity, obstructive sleep apnea with CPAP use, left bundle branch block, abnormall CTA of the coronary arteries followed by cardiac catheterization 12/2024, showing 90% lad stenosis, AURORA placed. She was admitted to [facility] last week with increased shortness of breath and treated for COPD exacerbation, COVID and found to have secondary NSTEMI. BNP was only slightly elevated and she was not thought to have Congestive heart failure. Her condition improved quickly with treatment. Today she reports that her breathing is much improved. She is now on 2 inhalers which are helping but make her feel somewhat shaky. She has not having PND, orthopnea or edema. No chest discomfort at rest or during activity. No heart palpitations, lightheadedness, presyncope, syncope, falls. She ambulates with a cane. Her activity is very limited due to her knee and hip arthritis. No bleeding issues reported. Taking meds as directed. [facility] Medical History Hx of mammogram (~2022) Neuropathy Dry skin Incontinence Osteoarthritis Arthritis Thyroid disorder Essential hypertension LBBB (left bundle branch block) Morbid obesity Super obesity Anxiety Depression Fatty liver Type 2 diabetes mellitus COPD (chronic obstructive pulmonary disease) Obstructive sleep apnea hypopnea, severe Surgical History History of hand surgery Hx of colonoscopy (~2020) History of removal of laparoscopic gastric banding device History of carpal tunnel surgery Hx of cholecystectomy Hx of laparoscopic gastric banding Family History Father Interstitial pneumonitis Diabetes Mother Bladder cancer Brother No problems noted. Social History Household Members: Family and Children Both parents involved: No Caregiver staying overnight: No Housing: House Are you a primary healthcare network pricing consultant to a significant other at home: No Do you presently have visiting nurse or other home services: No 75 years or older and lives alone: No Alcohol intake: current Alcohol intake frequency: holidays/special occasions only Alcohol type: wine and hard liquor Patient Tobacco Use Status: Former Tobacco user e-Cigarette/Vaping Use: Never Used Second Hand Smoke Exposure: No Advance Directives Date on File: 03/12/22 service: No Current occupational status: retired Cognitive needs: No Hearing needs: No Vision needs: Yes (wear glasses) Review of Systems Const All systems reviewed & are unremarkable except as noted in HPI and below ENT Denies dizziness Card Denies chest pain, Denies chest pain at rest, Denies chest pain with activity, Denies rapid heart rate, Denies pedal edema, Denies edema, Denies leg edema, Denies lightheadedness, Denies palpitations, Reports dyspnea, Reports dyspnea on exertion and Denies orthopnea Resp Denies cough, Reports dyspnea and Reports dyspnea on exertion GI Denies hematochezia and Denies change in stool character Musc Denies abnormal gait, Denies limited range of motion, Denies muscle cramps, Denies muscle weakness, Denies numbness, Denies radiating pain into limb, Denies stiffness and Denies tingling Neuro Denies abnormal gait, Denies dizziness, Denies numbness and Denies tingling Endo Denies palpitations Physical Exam Vital Signs: Last Vital Signs Pulse 77 08/09/25 14:15 BP 114/52 L 08/09/25 14:15 BMI result Body Mass Index 54.6 Const Other: morbidly obese. uses cane General: cooperative, healthy appearing, comfortable and no acute distress Orientation/consciousness: patient oriented x3 Neck Neck: Yes normal visual inspection Resp Effort & Inspection: normal respiratory effort Auscultation: clear to auscultation bilaterally, no crackles, no rales, no rhonchi and no wheezes Cardio Jugular venous distension: no JVD Rate: regular rate Rhythm: regular rhythm Heart sounds: S1 normal heart sound present, S2 normal heart sound present, no murmurs and no rubs Neuro General: patient oriented x3 Extrem General: Yes normal to inspection and No no pedal edema Psych Appearance: grossly normal Mental Status: mental status grossly normal Speech and movement: Normal speech and movement present Assessment & Plan Assessment & Plan (1) CAD (coronary artery disease): Code(s): I25.10 - Atherosclerotic heart disease of kenaitze coronary artery without angina pectoris Category: Medical Plan: History of left bundle branch block and shortness of breath with exertion in patient who is mostly sedentary due to orthopedic issues. She had cardiac evaluation including echocardiogram was done on 05/02/2024 showing EF 52%, grade 1 diastolic dysfunction, moderate mitral annular calcification. Nuclear stress test on 10/10/2024 which shows a reversible distal lateral wall defect, ischemia versus infarct. A CTA of the coronary arteries was done on 01/04/2025 showing severe stenosis of the distal LAD distal to the takeoff of the 1st diagonal branch which exhibits approximately 50% stenosis. She then underwent cardiac catheterization on 01/25/2025 showing 90% mid LAD stenosis and AURORA was placed. She did have admission for COPD exacerbation and COVID with hypoxia last week with mild troponin elevation consistent with secondary NSTEMI. Currently no anginal symptoms. Will repeat echocardiogram to reassess EF and wall motion. Continue aspirin indefinitely. Continue Brilinta uninterrupted for 1 year. Continue amlodipine and her losartan/hydrochlorothiazide combination. Continue atorvastatin with ideal LDL goal less than 70, lipids previously ordered. Signs and symptoms of angina reviewed with her. Cardiology follow-up 3 months, sooner if needed. (2) S/P cardiac cath: Comment: 01/25/2025 left main, left circumflex, RCA all normal mid LAD 90% stenosis, AURORA placed Code(s): Z98.890 - Other specified postprocedural states Category: Surgical (3) Stented coronary artery: Comment: Lad stent 01/25/2025 Code(s): Z95.5 - Presence of coronary angioplasty implant and graft Category: Surgical (4) Abnormal echocardiogram findings without diagnosis: Code(s): R93.1 - Abnormal findings on diagnostic imaging of heart and coronary circulation Category: Medical Plan: Low normal EF which could be related to left bundle branch block or LAD stenosis. Updating echo (5) LBBB (left bundle branch block): Code(s): I44.7 - Left bundle-branch block, unspecified Category: Medical Plan: Chronic left bundle branch block. (6) Essential hypertension: Code(s): I10 - Essential (primary) hypertension Category: Medical Plan: Blood pressure goal less than 130/80, initially 114/52, recheck done by me 10 . She is concerned about hypotension as she has lost close to 40 lb recently with GLP 1 medication. Will review current amlodipine 0.5 mm continue. (7) Hospital discharge follow-up: Code(s): Z51.89 - Encounter for other specified aftercare Category: Medical Plan: [facility] notes reviewed Plan I explained to the patient that her recent hospitalization with elevated heart enzymes was due to a Type 2 myocardial infarction, which is a form of heart strain caused by severe physical stress and hypoxia from COVID, not likely a new blockage in her coronary arteries. I informed her that we will order an echocardiogram to check her heart's function after this event and that a stress test might be considered after I fully review her hospital records from [facility]. We discussed that her blood pressure is lower, likely due to her significant weight loss, and as a result, I advised her to reduce the dose of her amlodipine medication to 2.5 mg daily. I reassured her that the inhalers prescribed for her breathing are safe for her to use with her heart condition and are important for her recovery. We acknowledged her successful weight loss and discussed her consideration of weight loss surgery as a more definitive long-term solution, especially given her need for future joint replacements. Orders: Orders CA echo transthoracic complete Today I25.10 - Atherosclerotic heart disease of kenaitze coronary artery without angina pectoris, Z98.890 - Other specified postprocedural states Medications: New amlodipine dose reduced 2.5 mg PO DAILY 90 tabs 1RF Discontinued amlodipine Discontinued Reason: Doctor's Order 5 mg PO DAILY 90 tabs 3RF Patient Instructions: - Continue to take your aspirin, Brilinta, and atorvastatin as prescribed. - You will need to lower the dose of your blood pressure medication, amlodipine. - Break your current 5 mg amlodipine pills in half to take 2.5 mg each day until you receive the new prescription from the pharmacy. - A new prescription for amlodipine 2.5 mg will be sent to your [facility] pharmacy on [facility]. - Continue to use your prescribed inhalers (albuterol and budesonide) for your breathing. - It is normal for the inhalers to make you feel a little shaky. - We will schedule an echocardiogram (an ultrasound of your heart) to check its function. - Our office may also call you to schedule a stress test after the doctor reviews your recent hospital records. - Continue your efforts with weight loss, as it is helping your blood pressure and overall health. Patient was informed and verbally consented to the use of an ambient scribe for clinic note documentation during this visit. Visit time spent on chart review, interview, assessment, orders, documentation. Coding Level of Care Code Est Pt Level 4 (39709) Add On Problem Visit Only Diagnoses CAD (coronary artery disease) I25.10 S/P cardiac cath Z98.890 Stented coronary artery Z95.5 Abnormal echocardiogram findings without diagnosis R93.1 LBBB (left bundle branch block) I44.7 Essential hypertension I10 Hospital discharge follow-up Z51.89 Time Spent (min) 32
--- OUTSIDE RECORDS SUMMARY | 2025-08-09 21:36 | XMS_ITS | Encounter Summary ---
Author Organization [facility] Address [address] [address] Phone Care Team Providers Care Film Technician Name Role Phone Doreen Larsen MD Primary Care Provider + Linda Camejo NP Primary Care Provider + Encounter Details Date Type Department Care Team (Late st Contact Info) Description 12/24/2017 Ancillary Orders Virtual Department [address] [place] [address] Jenifer Burns NP [address] [place] [phone] [email or web address] Type 2 diabetes mellitus with hyperglycemia, unspecified terminologist insulin use status; Essential hypertension; Elevated C-reactive [...] or infarction. Normal LVEF of 76%. POS [id number] Narrative 01/11/2018 10:19 AM EDT COMPARISON: None. [...] or infarction. Normal LVEF of 76%. POS [id number] Jenifer Burns PERFECT BINDER SETTER CV NM CARDIAC Final R esult documented in this encounter Visit Diagnoses Diagnosis Type 2 diabetes mellitus with hyperglycemia, unspecified terminologist insulin use status Essential hypertension Unspecified essential hypertension Elevated C-reactive protein (CRP) Type 2 diabetes mellitus with hyperglycemia, unspecified alf insulin use status Essential hypertension Unspecified essential hypertension Elevated C-reactive protein (CRP) documented in this encounter Care Teams Film Technician Relationship Specialty Start Date End Date Doreen Larsen MD [address] [place] [phone] PCP - General Family Medicine 12/31/17 10/23/19 Linda Camejo NP [address] [place] [phone] PCP - General Family Medicine 10/24/19 documented as of this encounter Additional Source Comments The information contained in this document represents components of the legal health record. It is not the complete legal health record.[facility]
--- OUTSIDE RECORDS SUMMARY | 2025-08-09 21:36 | XMS_ITS | Encounter Summary ---
Author Organization [facility] Address [address] [place] [phone] Phone Care Team Providers Care Bicycle Repairman Name Role Phone Linda Camejo NP Primary Care Provider + Encounter Details Date Type Department Care Team (Late st Contact Info) Description 10/30/2019 Procedure Pass [facility] Endoscopy Admitting Dept Virtual Department [address] [place] [phone] Social History Tobacco Use Types Packs/Day Years [...] on filedocumented in this encounter Care Teams Bicycle Repairman Relationship Specialty Start Date End Date Linda Camejo NP [address] [place] [phone] PCP - General Family Medicine 10/24/19 documented as of this encounter Additional Source Comments The information contained in this document represents components of the legal health record. It is not the complete legal health record.[facility]
--- OUTSIDE RECORDS SUMMARY | 2025-08-09 21:36 | XMS_ITS | Encounter Summary ---
Author Organization [facility] Address [address] [address] Phone Care Team Providers Care Stock Replenisher Name Role Phone Doreen Larsen MD Primary Care Provider + Linda Camejo NP Primary Care Provider + Encounter Details Date Type Department Care Team (Late st Contact Info) Description 01/09/2018 Ancillary Orders Non-Invasive Cardiology [address] [place] [address] Jenifer Burns NP [address] [place] [address] [email or web address] Type 2 diabetes mellitus with hyperglycemia, unspecified termite treater insulin use status; Essential hypertension; Elevated C-reactive [...] AM EDT) Max BP Systolic 198 mmHg [facility] Max BP Diastolic 88 mmHg [facility] Max HR 144 BPM [facility] Resting HR 93 BPM [facility] Resting BP Systolic 130 mmHg [facility] Resting BP Diastolic 80 mmHg [facility] Peak METS 7.0 METS [facility] Peak HR 144 BPM [facility] Peak BP Systolic 150 mmHg [facility] Peak BP Diastolic 80 mmHg [facility] Anatomical Region Laterality Modality Heart Other 01/10/2018 [...] predicted heart rate. Rate pressure product was 7[address]. Exercise Stress Test Report: Reason for termination: [...] Type 2 diabetes mellitus with hyperglycemia, unspecified [facility] insulin use status Essential hypertension Unspecified essential hypertension Elevated C-reactive protein (CRP) Type 2 diabetes mellitus with hyperglycemia, unspecified termite treater insulin use status Essential hypertension Unspecified essential hypertension Elevated C-reactive protein (CRP) documented in this encounter Care Teams Stock Replenisher Relationship Specialty Start Date End Date Doreen Larsen MD [address] [place] [phone] [email or web address] PCP - General Family Medicine 12/31/17 10/23/19 Linda Camejo NP [address] [place] [phone] PCP - General Family Medicine 10/24/19 documented as of this encounter Additional Source Comments The information contained in this document represents components of the legal health record. It is not the complete legal health record.[facility]
--- OUTSIDE RECORDS SUMMARY | 2025-08-09 21:36 | XMS_ITS | Encounter Summary ---
Author Organization [facility] Address [address] [place] [phone] Phone Care Team Providers Care Dyed Raw Stock Blower Feeder Name Role Phone Doreen Larsen MD Primary Care Provider + Linda Camejo NP Primary Care Provider + Encounter Details Date Type Department Care Team ([facility] Contact Info) Description 10/23/2019 Procedure Pass [facility] Endoscopy Admitting Dept Virtual Department [address] [place] [phone] Social History Tobacco Use Types Packs/Day Years [...] on filedocumented in this encounter Care Teams Dyed Raw Stock Blower Feeder Relationship Specialty Start Date End Date Doreen Larsen MD [address] [place] [phone] PCP - General Family Medicine 12/31/17 10/23/19 Linda Camejo NP [address] [place] [phone] PCP - General Family Medicine 10/24/19 documented as of this encounter Additional Source Comments The information contained in this document represents components of the legal health record. It is not the complete legal health record.[facility]
--- OUTSIDE RECORDS SUMMARY | 2025-08-09 21:36 | XMS_ITS | Encounter Summary ---
Author Organization [facility] Address [address] [address] Phone Care Team Providers Care Weatherization Administrator Name Role Phone Doreen Larsen MD Primary Care Provider + Linda Camejo NP Primary Care Provider + Encounter Details Date Type Department Care Team (Late st Contact Info) Description 12/24/2017 Ancillary Orders Virtual Department [address] [place] [address] Jenifer Burns NP [address] [place] [phone] [email or web address] Social History Tobacco Use Types [...] on filedocumented in this encounter Care Teams Weatherization Administrator Relationship Specialty Start Date End Date Doreen Larsen MD [address] [place] [phone] PCP - General Family Medicine 12/31/17 10/23/19 Linda Camejo, CAYDEN [address] [place] [phone] (work) PCP - General Family Medicine 10/24/19 documented as of this encounter Additional Source Comments The information contained in this document represents components of the legal health record. It is not the complete legal health record.[facility]
--- OUTSIDE RECORDS SUMMARY | 2025-08-09 21:36 | XMS_ITS | Clinical Summary ---
Author Organization [facility] Address [address] [place] [phone] Phone Care Team Providers Care Senior Grants Officer Name Role Phone Linda Camejo NP Primary [...] 59 Admit Type: Outpatient Gender: Female Room: [place] [address] Referring MD: Linda Camejo Exam Type: Colonoscopy [...] monitored continuously. The Olympus adult variable colonoscope [id number] #5was introduced through the anus and advanced [...] 9:38 AM Procedure Code(s): --- Professional --- 93145, Colonoscopy, flexible; with biopsy, single or multiple --- Technical --- 76773, Colonoscopy, flexible; with biopsy, single or multiple Diagnosis Code(s): --- Professional --- K52.9, Noninfective gastroenteritis and colitis, unspecified R19.7, Diarrhea, unspecified --- Technical --- K52.9, Noninfective gastroenteritis and colitis, unspecified R19.7, Diarrhea, unspecified CPT copyright 2018 [employer]. All rights reserved. The codes documented in this report are preliminary and upon cashier or checker stock clerk reviewmay be revised to meet current compliance requirements. Procedure Date: 10/30/2019 9:38:53 AM [address] [place] [address] Linda Camejo NP GI PROCEDURE ORDERABLES Final Result from Last 3 Months or Most Recently Relevant to Health Maintenance Insurance 2,10E+07 TOTAL CHOICE INDEMNITY 2,10E+07 TOTAL CHOICE INDEMNITY 2,10E+07 TOTAL CHOICE INDEMNITY 2,10E+07 TOTAL CHOICE INDEMNITY 2,10E+07 TOTAL CHOICE INDEMNITY 2,10E+07 TOTAL CHOICE INDEMNITY 2,10E+07 TOTAL CHOICE INDEMNITY 2,10E+07 TOTAL CHOICE INDEMNITY [facility] TOTAL CHOICE INDEMNITY Care Teams Senior Grants Officer Relationship Specialty Start Date End Date Linda Camejo NP [address] [place] [address] [phone] PCP - General Family Medicine 10/24/19 Additional Source Comments The information contained in this document represents components of the legal health record. It is not the complete legal health record.[facility]
== END 2025-08-09 14:57 | disposition home or self-care (01) ==
LOC: HO.HCS 14:07
PROVIDERS: PCP Nurse Practitioner Family; Visit Provider Nurse Practitioner Family
DX: I25.10 Atherosclerotic heart disease of native coronary artery without angina pectoris (principal); Z98.890 Other specified postprocedural states; Z95.5 Presence of coronary angioplasty implant and graft; R93.1 Abnormal findings on diagnostic imaging of heart and coronary circulation; I44.7 Left bundle-branch block, unspecified; I10 Essential (primary) hypertension; Z51.89 Encounter for other specified aftercare
CPT/HCPCS: 99214; G2211

== ENCOUNTER → 2025-08-09 14:06 | Outpatient (BNVA) | payer MEDICARE, OTHER, SELFPAY | PROVIDERS: PCP Nurse Practitioner Family; Visit Provider Nurse Practitioner Family | DX: I25.10 Atherosclerotic heart disease of native coronary artery without angina pectoris (principal); R93.1 Abnormal findings on diagnostic imaging of heart and coronary circulation; I44.7 Left bundle-branch block, unspecified; I10 Essential (primary) hypertension; Z95.5 Presence of coronary angioplasty implant and graft | CPT/HCPCS: 99212 ==

== ENCOUNTER 2025-08-22 09:00 | Outpatient (AMB) | payer MEDICARE, OTHER, SELFPAY ==
--- NOTE | 2025-08-22 09:03 | A.OFFPC_ITS ---
Vital Signs 3 08/22/25 09:09 Height 4 ft 10 in Weight 260 lb 8 oz BMI 54.4 BP 133/60 Blood Pressure Location Rt brachial Position Sitting Respiration 16 Pulse 86 Pulse Source Pulse Oximeter Temp 97.5 F Temp Source Oral Pulse Oximetry (%) 96 Oxygen Delivery Method Room Air Intake Visit Reasons: HDF from [facility] - See Comments Intake Note: patient here for HDF from [facility] Oil And Gas Principal Required: No Is last menstrual period known: No Post menopausal: No Patient : No Allergies Sulfa (Sulfonamide Antibiotics) (SULFA (SULFONAMIDE ANTIBIOTICS)) Allergy (Intermediate, Verified 08/22/25 09:13) SWELLING vancomycin Allergy (Verified 08/22/25 09:13) Rash Medication List - Last Reconciled 08/22/25 by JOSE L Cullen- albuterol sulfate 90 mcg/actuation (Ventolin HFA) 2 inhalations inhalation Q20M PRN amlodipine 2.5 mg PO DAILY aspirin (Adult Aspirin Regimen) 81 mg PO DAILY atorvastatin 40 mg PO BEDTIME azithromycin For 250 mg dose pack: take 500 mg today (day 1), then 250 mg for 4 days (days 2-5) budesonide-formoterol 80-4.5 mcg/actuation 2 puffs inhalation BID bupropion HCl SR 100 mg PO BID coQ10 (ubiquinol) (Qunol Serafin CoQ10) 100 mg PO DAILY cyclobenzaprine 10 mg PO BEDTIME empagliflozin-metformin 25-1,000 mg ER (Synjardy XR) 1 tab PO DAILY guaifenesin 200 mg PO Q4H PRN losartan-hydrochlorothiazide 100-25 mg 1 tab PO DAILY sertraline 100 mg PO DAILY ticagrelor 90 mg PO BID tirzepatide (Mounjaro) 10 mg subcut QWEEK umeclidinium 62.5 mcg/actuation (Incruse Ellipta) 1 inh inhalation Q24H Tobacco use date assessed: 08/22/25 Fall risk assessment: No Falls in past year Last assessed Fall Risk: 08/22/25 Dental Screening Dental Screen Date: 08/22/25 Did you have a dental visit in the last 12 months?: Yes Did you have a dental problem in the last 6 months where you did not have access to dental care?: No Was dental information given to patient?: Patient has dentist HPI HPI Comments 2 History of Present Illness0 Details 64-year-old female with bundle-branch bl ock morbid obesity, type 2 diabetes, hypertension, COPD, obstructive sleep apnea on CPAP GERD, MDD, fatty liver, coronary artery disease, umbilical hernia, DJD of spine, renal calculi, CHF SurgHx: Carpal tunnel surgery removal of gastric band, cholecystectomy, stent to LAD 01/25/2025 FHx brother from cirrhosis, diseased diabetes; mom with bladder cancer SocHx: Lives w/ 2 children Here today for a Transitional Care Management Visit Discharge summary reviewed. Admission Date: 08/02/25 Discharge Date: 08/11/25 Hospital: [facility] Date of interactive contact with Nurse Navigator: as documented in chart Pending diagnostic tests/treatments: no Pending consults: no DME: none PT/OT/SOUND RANGING CREWMEMBER: declined Home Health Aide/CHILD WELFARE SOCIAL WORKER: declined Community Resources: Asst Living: Home Health: Hospice: Support group: Other: Referrals: none Medications reconciled & updated. During todays TCM visit, the d/c summary was reviewed, along with the need for or follow-up on pending diagnostic tests and treatments, as necessary interaction with other health transitional care nurse who will assume or reassume care of the beneficiary?s system-specific problems was done or is being worked on, education was provided to the beneficiary, family, guardian, and/or caregiver, referrals to establish or re-establish and arrange needed community resources we completed, assistance in scheduling required follow-up with community providers and services & finally updated medication list given to patient/caregiver. History of Present Illness The patient is a 64 year old female presenting for a transitional care management visit after a recent hospitalization. COVID-19 with Acute Hypoxic Respiratory Failure: - The patient was hospitalized at [facility] from August 02 to August 11 for a COVID-19 infection that began around July 18. - Complications included a COPD exacerba tion, acute hypoxic respiratory failure, and interstitial edema noted on chest x-ray. - Upon initial presentation via ambulanc e, her oxygen saturation was 70% on room air, and it reportedly dropped to 55% in the emergency department. - A CT angiogram performed due to persis tent hypoxia was negative for pulmonary embolism. - Intubation was suggested, but the tyrone ent declined. - She was discharged home with services, but she declined them as the visiting nurse did not contact her until a week later, by which time she felt she had improved. Persistent Cough and Bronchitis: - The patient complains of persistent br onchitis and a significant cough since her illness began on July 18. - She reports coughing up brownish-yello w sputum and feels the need to cough upon deep inspiration. - She also reports sinus discharge of th e same color. - She completed a course of azithromycin that was started at [facility] and continued at [facility]. - She is using inhalers and guaifenesin (Mucinex), and notes her symptoms significantly worsened after she skipped her inhaler for one night. - She denies fevers since returning home . Cardiovascular History: - During her recent hospitalization, she had an elevated troponin that peaked at 237, which was attributed to demand ischemia. - She has a history of a coronary stent. - She followed up with cardiology on Jul, and the senior staff consultant note was reviewed. - Cardiology recommended continuing Bril inta uninterrupted for one year, as well as her antihypertensive medications: losartan, hydrochlorothiazide, and amlodipine. - The amlodipine dose was decreased to 2 .5 mg by her experimental rocket sled mechanic due to lower blood pressure readings in the context of weight loss. - An echocardiogram has been ordered by cardiology. Pulmonary Micronodules: - A CT scan during her hospitalization r evealed a few scattered 2-3 mm micronodules in the lungs, which were deemed not suspicious. - The patient expressed anxiety about destinee ng cancer after seeing a news story, but she was reassured that the findings were not concerning for malignancy. Past Medical History - Hospitalization: Admitted to [facility] from 08/02 to 08/11 for COVID-19 infection with acute hypoxic respiratory failure and COPD exacerbation. - COVID-19 infection diagnosed in [facility] er. - Chronic Obstructive Pulmonary Disease (COPD). - Hypertension, managed with amlodipine, losartan, and hydrochlorothiazide. - Coronary artery disease with history o f stent placement. - Demand ischemia during recent hospital ization. - History of hip and knee problems. - Dental issues with broken teeth requir ing extraction. - Allergies: Sulfa, vancomycin. Review of Systems - Constitutional: Denies fever since hos pital discharge. Denies falls. - HEENT: Reports sinus discharge that is brownish-yellow. Reports epistaxis from the left nostril when blowing her nose. Reports hoarseness from coughing. Denies facial pain or dental pain. - Respiratory: Reports a persistent coug h productive of brownish-yellow sputum. Reports dyspnea at times, particularly after walking. - Cardiovascular: Denies chest pain. Pat won is scheduled for an echocardiogram. - Musculoskeletal: No acute complaints; mentions prior hip and knee issues. - Lower Extremities: Denies increased sw elling. Physical Exam General: Well developed, well nourished, in no acute distress. Appears stated age. Head: Normocephalic, atraumatic. Ears: cerumen bilat eac, unable to see TM Nose: turbinates pale, no sinus tenderness, reports brown/bloody drainage from L nostril Pharynx: Uvula midline, no exudate, + erythema Eyes: Pupils are equal, round and reactive to light and accommodation. Conjunctivae are clear. Lungs: Dim BLL otherwise clear, dry hacking cough w/o distress Heart: Regular rate and rhythm. No murmurs, click, rubs or gallops are noted. Musculoskeletal: Joints are nontender, without swelling, redness, or effusions. Pulses: Peripheral pulses are equal and palpable bilaterally. Extremities: No clubbing, cyanosis nor edema is noted. Psych: Mood and affect appropriate. Diagnostic results CXR ordered and pending Results - Labs (during hospitalization): Elevate d troponin, peaked at 237. - Imaging (during hospitalization): Ches t x-ray showed interstitial edema. - Imaging (during hospitalization): CT a ngiogram of the chest was negative for pulmonary embolism but showed a few scattered 2-3 mm micronodules, which were not suspicious, and no lymphadenopathy. Medical Decision Making The patient is a 64-year-old female here for transitional care management following a severe COVID-19 infection complicated by acute hypoxic respiratory failure and a COPD exacerbation. She presents with persistent symptoms of bronchitis and productive cough with purulent-appearing sputum, concerning for an ongoing or secondary bacterial infection of the sinuses and chest, despite a prior course of azithromycin. Given the persistent symptoms and to rule out an underlying pneumonia, a stat chest x-ray is warranted today. A course of Augmentin is being prescribed for broad coverage of both sinus and pulmonary pathogens, representing a different class of antibiotic than what she previously received. The use of oral steroids was considered but deferred due to the potential to stress her system further; the inhaled steroid (budesonide) she is currently using is a safer, localized alternative. The patient had a significant pulmonary insult from her infection, and her prior CT showed benign-appearing micronodules. A referral to pulmonology is appropriate for long-term monitoring of these nodules and management of any potential post-COVID sequelae, such as pulmonary scarring. Her cardiology recommendations have been reviewed and will be continued. A two-week follow-up is scheduled to assess her response to treatment and review diagnostic results. Plan 1. Acute Bronchitis And Sinusitis - A stat chest x-ray will be ordered for today to rule out pneumonia. - Augmentin will be prescribed, one tabl et twice daily for seven days, to be taken with food for treatment of chest and sinus infection. - The patient is to continue her current inhaler, which contains the steroid budesonide. - She is advised to continue using an ex pectorant like Mucinex DM to help clear secretions. - A follow-up appointment is scheduled i n two weeks to reassess her condition. 2. Pulmonary Micronodules - A referral will be placed to pulmonolo gy for evaluation of post-COVID lung changes and for monitoring of the benign-appearing micronodules. - The patient was informed that the pulm onology group will call her to schedule an appointment and will likely repeat a CT scan for follow up. 3. Cardiovascular Management - Per cardiology recommendations, the idalia wade will continue Brilinta for one year. - She will continue her current antihype rtensive medications, including amlodipine 2.5 mg, losartan, and hydrochlorothiazide. - She is to proceed with the scheduled e chocardiogram. Patient Instructions - Go for a chest x-ray today. You can go to the outpatient radiology department at [facility]. - A prescription for Augmentin will be s ent to your pharmacy. Take one tablet twice a day for seven days. Be sure to take it with food. - A referral is being made to a lung spe patricia (invertebrate paleontologist). Their office will call you to set up an appointment. - Continue to use your inhaler every day as prescribed. Do not skip doses, even if you feel better. - You can continue taking an over-the-co unter cough medicine like Mucinex DM to help break up the mucus. - Continue all your current medications for blood pressure and heart health as directed. - We will call you with the results of y our chest x-ray later today. - Schedule a follow-up appointment with me in two weeks before you leave today. You can cancel this appointment if your chest x-ray is clear and you are feeling completely better. - Please wear a mask when you go to the hospital to protect yourself from other illnesses like the flu, as your immune system is currently weakened. Consent Patient was informed and verbally consented to the use of an ambient scribe for clinic note documentation during this visit. [facility] Medical History Hx of mammogram (~2022) Neuropathy Dry skin Incontinence Osteoarthritis Arthritis Thyroid disorder Essential hypertension LBBB (left bundle branch block) Morbid obesity Super obesity Anxiety Depression Fatty liver Type 2 diabetes mellitus COPD (chronic obstructive pulmonary disease) Obstructive sleep apnea hypopnea, severe Surgical History History of hand surgery Hx of colonoscopy (~2020) History of removal of laparoscopic gastric banding device History of carpal tunnel surgery Hx of cholecystectomy Hx of laparoscopic gastric banding Family History Father Interstitial pneumonitis Diabetes Mother Bladder cancer Brother No problems noted. Social History Household Members: Family and Children Both parents involved: No Caregiver staying overnight: No Housing: House Are you a primary animal care provider to a significant other at home: No Do you presently have visiting nurse or other home services: No 75 years or older and lives alone: No Alcohol intake: current Alcohol intake frequency: holidays/special occasions only Alcohol type: wine and hard liquor Patient Tobacco Use Status: Former Tobacco user e-Cigarette/Vaping Use: Never Used Second Hand Smoke Exposure: No Advance Directives Date on File: 03/12/22 service: No Current occupational status: retired Cognitive needs: No Hearing needs: No Vision needs: Yes (wear glasses) Questionnaire Thrive Questionnaire Date Thrive assessed: 06/26/25 I am a: Patient What is your living situation today?: I have a steady place to live Within the past 12 months, did the food you bought not last and you didn't have the money to get more?: Never true Within the past 12 months, did you worry whether your food would run out before you got money to buy more?: Never true Do you have trouble paying for medicines?: No Do you have trouble getting transportation to medical appointments?: No Do you have trouble paying your heating and electricity bill?: No Do you have trouble taking care of your child, family member or friend?: No Do you have trouble with day-to-day activities such as bathing, preparing meals, shopping, managing finances, etc.?: No Are you currently unemployed and looking for a job?: No Are you interested in more education?: No Currently or been in a relationship where the following occur: Controlled Financially and Controlled Emotionally THRIVE Score: 2 DALE-7 AMB Questionnaire DALE-7 Date DALE - 7 assessed: 06/26/25 Source: Developed by Drs. Domenico Sharma, Koki Beaulieu, Anderson Cowart and colleagues, with an educational margaret from [email or web address]. Physical exam (Primary Care) Vital Signs: Last Vital Signs Temp 97.5 F 08/22/25 09:09 Pulse 86 08/22/25 09:09 Resp 16 08/22/25 09:09 BP 133/60 08/22/25 09:09 Pulse Ox 96 08/22/25 09:09 Oxygen Delivery Method Room Air 08/22/25 09:09 BMI result Body Mass Index 54.4 Tobacco/Smoking Status: Tobacco use Status Tobacco use date assessed 08/22/25 08/22/25 09:12 Patient Tobacco Use Status Former Tobacco user 08/22/25 09:06 e-Cigarette/Vaping Use Never Used 08/22/25 09:06 Thrive Assessment: Date of Thrive Assessment Date Thrive assessed 06/26/25 08/22/25 09:06 Currently or been in a relationship where the following occur: Controlled Financially and Controlled Emotionally Results Reviewed Results Reviewed: Coding Level of Care Code Add On Problem Visit Only TCM High MDM <= 14 days Diagnoses Hospital discharge follow-up Z51.89 Pulmonary nodule R91.1 History of respiratory failure Z87.09 COVID-19 U07.1 Coronary atherosclerosis I25.10 Assessment & Plan Assessment & Plan (1) Hospital discharge follow-up: Code(s): Z51.89 - Encounter for other specified aftercare Category: Medical (2) Pulmonary nodule: Onset Date: ~07/2025 Comment: CT scan [facility] few scattered 2-3mm micronodules Code(s): R91.1 - Solitary pulmonary nodule Category: Medical (3) History of respiratory failure: Onset Date: ~07/2025 Comment: admitted to [facility] covid hypoxic resp failure Code(s): Z87.09 - Personal history of other diseases of the respiratory system Category: Medical (4) COVID-19: Code(s): U07.1 - COVID-19 Category: Medical (5) Coronary atherosclerosis: Code(s): I25.10 - Atherosclerotic heart disease of [place]da[place] coronary artery without angina pectoris Category: Medical Plan . Orders: Orders 2 XR chest 2V Today I25.10 - Atherosclerotic heart disease of agdaag[place] coronary artery without angina pectoris, U07.1 - COVID-19 Referrals 2 Pulmonology Referral R91.1 - Solitary pulmonary nodule, Z87.09 - Personal history of other diseases of the respiratory system Medications: New 2 amoxicillin-pot clavulanate 875-125 mg 1 tab PO BID 14 tabs 0RF 7 days Discontinued 2 azithromycin Discontinued Reason: Patient Completed Course For 250 mg dose pack: take 500 mg today (day 1), then 250 mg for 4 days (days 2-5) 6 tabs 0RF Patient Instructions: Patient Instructions - Go for a chest x-ray today. You can go to the outpatient radiology department at [facility]. - A prescription for Augmentin will be sent to your pharmacy. Take one tablet twice a day for seven days. Be sure to take it with food. - A referral is being made to a lung specialist (invertebrate paleontologist). Their office will call you to set up an appointment. - Continue to use your inhaler every day as prescribed. Do not skip doses, even if you feel better. - You can continue taking an kqfx-pqv-gspkvey cough medicine like Mucinex DM to help break up the mucus. - Continue all your current medications for blood pressure and heart health as directed. - We will call you with the results of your chest x-ray later today. - Schedule a follow-up appointment with me in two weeks before you leave today. You can cancel this appointment if your chest x-ray is clear and you are feeling completely better. - Please wear a mask when you go to the hospital to protect yourself from other illnesses like the flu, as your immune system is currently weakened.
--- OUTSIDE RECORDS SUMMARY | 2025-08-22 09:06 | XMS_ITS | Clinical Summary ---
Author Organization [facility] Address [address] [place] [phone] Phone Care Team Providers Care Cloth Printing Inspector Name Role Phone Linda Camejo NP Primary [...] 58 Admit Type: Outpatient Gender: Female Room: [place] [address] Referring MD: Linda Camejo Exam Type: Colonoscopy [...] monitored continuously. The Olympus adult variable colonoscope [id number] #5was introduced through the anus and advanced [...] 9:38 AM Procedure Code(s): --- Professional --- 03545, Colonoscopy, flexible; with biopsy, single or multiple --- Technical --- 68476, Colonoscopy, flexible; with biopsy, single or multiple Diagnosis Code(s): --- Professional --- K52.9, Noninfective gastroenteritis and colitis, unspecified R19.7, Diarrhea, unspecified --- Technical --- K52.9, Noninfective gastroenteritis and colitis, unspecified R19.7, Diarrhea, unspecified CPT copyright 2018 [employer]. All rights reserved. The codes documented in this report are preliminary and upon wastewater treatment operator reviewmay be revised to meet current compliance requirements. Procedure Date: 10/30/2019 9:38:53 AM [address] [place] [address] Linda Camejo NP GI PROCEDURE ORDERABLES Final Result from Last 3 Months or Most Recently Relevant to Health Maintenance Insurance [employer] TOTAL CHOICE INDEMNITY [employer] TOTAL CHOICE INDEMNITY [employer] TOTAL CHOICE INDEMNITY [employer] TOTAL CHOICE INDEMNITY [employer] TOTAL CHOICE INDEMNITY [employer] TOTAL CHOICE INDEMNITY [employer] TOTAL CHOICE INDEMNITY [employer] TOTAL CHOICE INDEMNITY [facility] TOTAL CHOICE INDEMNITY Care Teams Cloth Printing Inspector Relationship Specialty Start Date End Date Linda Camejo NP [address] [place] [address] [phone] PCP - General Family Medicine 10/24/19 Additional Source Comments The information contained in this document represents components of the legal health record. It is not the complete legal health record.[facility]
--- OUTSIDE RECORDS SUMMARY | 2025-08-22 09:06 | XMS_ITS | Encounter Summary ---
Author Organization [facility] Address [address] [place] [phone] Phone Care Team Providers Care Photolith Operator Name Role Phone Doreen Larsen MD Primary Care Provider + Linda Camejo NP Primary Care Provider + Encounter Details Date Type Department Care Team ([facility] Contact Info) Description 10/23/2019 Procedure Pass [facility] Endoscopy Admitting Dept Virtual Department [address] [place] [phone] Social History Tobacco Use Types Packs/Day Years [...] on filedocumented in this encounter Care Teams Photolith Operator Relationship Specialty Start Date End Date Doreen Larsen MD [address] [place] [phone] PCP - General Family Medicine 12/31/17 10/23/19 Linda Camejo NP [address] [place] [phone] PCP - General Family Medicine 10/24/19 documented as of this encounter Additional Source Comments The information contained in this document represents components of the legal health record. It is not the complete legal health record.[facility]
--- OUTSIDE RECORDS SUMMARY | 2025-08-22 09:06 | XMS_ITS | Encounter Summary ---
Author Organization [facility] Address [address] [place] [phone] Phone Care Team Providers Care Media Consultant Outside Sales Name Role Phone Linda Camejo NP Primary Care Provider + Encounter Details Date Type Department Care Team (Late st Contact Info) Description 10/30/2019 Procedure Pass [facility] Endoscopy Admitting Dept Virtual Department [address] [place] [phone] Social History Tobacco Use Types Packs/Day Years [...] on filedocumented in this encounter Care Teams Media Consultant Outside Sales Relationship Specialty Start Date End Date Linda Camejo NP [address] [place] [phone] PCP - General Family Medicine 10/24/19 documented as of this encounter Additional Source Comments The information contained in this document represents components of the legal health record. It is not the complete legal health record.[facility]
--- OUTSIDE RECORDS SUMMARY | 2025-08-22 09:06 | XMS_ITS | Encounter Summary ---
Author Organization [facility] Address [address] [phone] Phone Care Team Providers Care Irrigator Gravity Flow Name Role Phone Doreen Larsen MD Primary Care Provider + Linda Camejo NP Primary Care Provider + Encounter Details Date Type Department Care Team (Late st Contact Info) Description 12/24/2017 Ancillary Orders Virtual Department [address] [place] [phone] Jenifer Burns NP [address] [place] [phone] [email or web address] Social History Tobacco Use Types [...] on filedocumented in this encounter Care Teams Irrigator Gravity Flow Relationship Specialty Start Date End Date Doreen Larsen MD [address] [place] [phone] PCP - General Family Medicine 12/31/17 10/23/19 Linda Camejo, CAYDEN [address] [place] [phone] (work) PCP - General Family Medicine 10/24/19 documented as of this encounter Additional Source Comments The information contained in this document represents components of the legal health record. It is not the complete legal health record.[facility]
--- OUTSIDE RECORDS SUMMARY | 2025-08-22 09:06 | XMS_ITS | Encounter Summary ---
Author Organization [facility] Address [address] [address] Phone Care Team Providers Care Radar Repairer Name Role Phone Doreen Larsen MD Primary Care Provider + Linda Camejo NP Primary Care Provider + Encounter Details Date Type Department Care Team (Late st Contact Info) Description 01/09/2018 Ancillary Orders [facility] Non-Invasic Cardiology [address] [place] [address] Jenifer Burns NP [address] [place] [address] [email or web address] Type 2 diabetes mellitus with hyperglycemia, unspecified detention insulin use status; Essential hypertension; Elevated C-reactive [...] AM EDT) Max BP Systolic 198 mmHg [facility] Max BP Diastolic 88 mmHg [facility] Max HR 144 BPM [facility] Resting HR 93 BPM [facility] Resting BP Systolic 130 mmHg [facility] Resting BP Diastolic 80 mmHg [facility] Peak METS 7.0 METS [facility] Peak HR 144 BPM [facility] Peak BP Systolic 150 mmHg [facility] Peak BP Diastolic 80 mmHg [facility] Anatomical Region Laterality Modality Heart Other 01/10/2018 9:1 9 AM EDT 01/10/2018 11:12 AM EDT Narrative [...] predicted heart rate. Rate pressure product was 57987. Exercise Stress Test Report: Reason for termination: [...] Type 2 diabetes mellitus with hyperglycemia, unspecified manager long term care insulin use status Essential hypertension Unspecified essential hypertension Elevated C-reactive protein (CRP) Type 2 diabetes mellitus with hyperglycemia, unspecified detention insulin use status Essential hypertension Unspecified essential hypertension Elevated C-reactive protein (CRP) documented in this encounter Care Teams Radar Repairer Relationship Specialty Start Date End Date Doreen Larsen MD [address] [place] [phone] [email or web address] PCP - General Family Medicine 12/31/17 10/23/19 Linda Camejo NP [address] [place] [phone] PCP - General Family Medicine 10/24/19 documented as of this encounter Additional Source Comments The information contained in this document represents components of the legal health record. It is not the complete legal health record.[facility]
--- OUTSIDE RECORDS SUMMARY | 2025-08-22 09:06 | XMS_ITS | Clinical Summary ---
Author Organization Emma Champagne [facility] Address [address] [place] [address] Care Team Providers Care Emt I/99 Name Role Phone Unavailable Primary Care Provider Unavailabl e Social History Tobacco Use Types Packs/Day Years Used Date Smoking Tobacco: Never Assessed Comments Unknown Sex and Gender Information Value Date Recorded Sex Assigned at Not on file Legal Sex Female 11:24 PM EST Gender Identity Not on file Sexual Orientation Not on file Plan of Treatment Not on file
--- OUTSIDE RECORDS SUMMARY | 2025-08-22 09:07 | XMS_ITS | Encounter Summary ---
Author Organization [facility] Address [address] [address] Phone Care Team Providers Care Employment Representative Name Role Phone Doreen Larsen MD Primary Care Provider + Linda Camejo NP Primary Care Provider + Encounter Details Date Type Department Care Team (Late st Contact Info) Description 12/24/2017 Ancillary Orders Virtual Department 30 [place] [address] Jenifer Burns NP [address] [place] [phone] [email or web address] Type 2 diabetes mellitus with hyperglycemia, unspecified rodent exterminator insulin use status; Essential hypertension; Elevated [...] or infarction. Normal LVEF of 76%. POS [id number] Narrative 01/11/2018 10:19 AM EDT COMPARISON: None. [...] or infarction. Normal LVEF of 76%. POS [id number] Jenifer Burns ELECTRICIAN JOURNEYMAN WIREMAN CV NM CARDIAC Final R esult documented in this encounter Visit Diagnoses Diagnosis Type 2 diabetes mellitus with hyperglycemia, unspecified rodent exterminator insulin use status Essential hypertension Unspecified essential hypertension Elevated C-reactive protein (CRP) Type 2 diabetes mellitus with hyperglycemia, unspecified [facility] insulin use status Essential hypertension Unspecified essential hypertension Elevated C-reactive protein (CRP) documented in this encounter Care Teams Employment Representative Relationship Specialty Start Date End Date Doreen Larsen MD [address] [place] [phone] PCP - General Family Medicine 12/31/17 10/23/19 Linda Camejo NP [address] [place] [phone] PCP - General Family Medicine 10/24/19 documented as of this encounter Additional Source Comments The information contained in this document represents components of the legal health record. It is not the complete legal health record.[facility]
[2025-08-22 09:09] VITALS: BP 133/60; PULSE 86; RESP 16; TEMP 36.4; O2SAT 96; BMI 54.4
== END 2025-08-22 09:33 | disposition home or self-care (01) ==
LOC: HO.HMCFM 09:01
PROVIDERS: PCP Nurse Practitioner Family; Visit Provider Nurse Practitioner Family
DX: Z51.89 Encounter for other specified aftercare (principal); U07.1 COVID-19; R91.1 Solitary pulmonary nodule; I25.10 Atherosclerotic heart disease of native coronary artery without angina pectoris; Z87.09 Personal history of other diseases of the respiratory system

== ENCOUNTER → 2025-08-22 10:26 | Outpatient (BNV) | payer MEDICARE, OTHER, SELFPAY | PROVIDERS: PCP Nurse Practitioner Family; Visit Provider Radiology Diagnostic Radiology | DX: U07.1 COVID-19 (principal) | CPT/HCPCS: 71046 ==

== ENCOUNTER 2025-08-27 07:42 | Outpatient (REF) | payer MEDICARE, OTHER, SELFPAY ==
--- NOTE | ~2025-08-27 | XR_ITS ---
EXAMINATION: XR HAND 3 OR MORE VIEWS LEFT HISTORY: M79.642 - Pain in left hand COMPARISON: There are no prior studies available for comparison. FINDINGS: Three views of the left hand are submitted. Osseous mineralization is normal. There is no fracture or dislocation. There is severe osteoarthritis of the 1st carpometacarpal joint, with joint space narrowing and osteophyte formation. There is mild degenerative change of the interphalangeal joint of the thumb. The soft tissues are unremarkable. XR/XR hand LT min 3V IMPRESSION: Osteoarthritis of the left thumb as described. Electronically signed by: Domenico Mojica MD 08/27/2025 10:20 AM PRICE
--- OUTSIDE RECORDS SUMMARY | 2025-08-27 07:45 | XMS_ITS | Encounter Summary ---
Author Organization [facility] Address [address] [place] [phone] Phone Care Team Providers Care Video Library Assistant Name Role Phone Doreen Larsen MD Primary Care Provider + Linda Camejo NP Primary Care Provider + Encounter Details Date Type Department Care Team ([facility] Contact Info) Description 10/23/2019 Procedure Pass [facility] Endoscopy Admitting Dept Virtual Department [address] [place] [phone] Social History Tobacco Use Types Packs/Day Years [...] on filedocumented in this encounter Care Teams Video Library Assistant Relationship Specialty Start Date End Date Doreen Larsen MD [address] [place] [phone] PCP - General Family Medicine 12/31/17 10/23/19 Linda Camejo NP [address] [place] [phone] PCP - General Family Medicine 10/24/19 documented as of this encounter Additional Source Comments The information contained in this document represents components of the legal health record. It is not the complete legal health record.[facility]
--- OUTSIDE RECORDS SUMMARY | 2025-08-27 07:45 | XMS_ITS | Encounter Summary ---
Author Organization [facility] Address [address] [address] Phone Care Team Providers Care Supervisor Contingents Name Role Phone Doreen Larsen MD Primary Care Provider + Linda Camejo NP Primary Care Provider + Encounter Details Date Type Department Care Team (Late st Contact Info) Description 01/09/2018 Ancillary Orders [facility] Non-Invasic Cardiology 30 [place] [address] Jenifer Burns NP 17 [place] [address] [email or web address] Type 2 diabetes mellitus with hyperglycemia, unspecified pen[facility]iary insulin use status; Essential hypertension; Elevated C-reactive [...] AM EDT) Max BP Systolic 198 mmHg [facility] Max BP Diastolic 88 mmHg [facility] Max HR 144 BPM [facility] Resting HR 93 BPM [facility] Resting BP Systolic 130 mmHg [facility] Resting BP Diastolic 80 mmHg [facility] Peak METS 7.0 METS [facility] Peak HR 144 BPM [facility] Peak BP Systolic 150 mmHg [facility] Peak BP Diastolic 80 mmHg [facility] Anatomical Region Laterality Modality Heart Other [...] predicted heart rate. Rate pressure product was 92633. Exercise Stress Test Report: Reason for termination: [...] Type 2 diabetes mellitus with hyperglycemia, unspecified computer terminal operator insulin use status Essential hypertension Unspecified essential hypertension Elevated C-reactive protein (CRP) Type 2 diabetes mellitus with hyperglycemia, unspecified penitentiary insulin use status Essential hypertension Unspecified essential hypertension Elevated C-reactive protein (CRP) documented in this encounter Care Teams Supervisor Contingents Relationship Specialty Start Date End Date Doreen Larsen MD [address] [place] [phone] [email or web address] PCP - General Family Medicine 12/31/17 10/23/19 Linda Camejo NP [address] [place] [phone] PCP - General Family Medicine 10/24/19 documented as of this encounter Additional Source Comments The information contained in this document represents components of the legal health record. It is not the complete legal health record.[facility]
--- OUTSIDE RECORDS SUMMARY | 2025-08-27 07:45 | XMS_ITS | Encounter Summary ---
Author Organization [facility] Address [address] [place] [address] Phone Care Team Providers Care External Relations Manager Name Role Phone Linda Camejo NP Primary Care Provider + Encounter Details Date Type Department Care Team (Late st Contact Info) Description 10/30/2019 Procedure Pass [facility] Endoscopy Admitting Dept Virtual Department [address] [place] [phone] Social History Tobacco Use Types Packs/Day Years [...] on filedocumented in this encounter Care Teams External Relations Manager Relationship Specialty Start Date End Date Linda Camejo NP [address] [place] [phone] PCP - General Family Medicine 10/24/19 documented as of this encounter Additional Source Comments The information contained in this document represents components of the legal health record. It is not the complete legal health record.[facility]
--- OUTSIDE RECORDS SUMMARY | 2025-08-27 07:45 | XMS_ITS | Clinical Summary ---
Author Organization [facility] Address [address] [place] [address] Phone Care Team Providers Care Slot Machine Department Floorperson Name Role Phone Linda Camejo NP Primary [...] 59 Admit Type: Outpatient Gender: Female Room: [place] [address] Referring MD: Linda Camejo Exam Type: Colonoscopy [...] monitored continuously. The Olympus adult variable colonoscope [id number] #5was introduced through the anus and advanced [...] 9:38 AM Procedure Code(s): --- Professional --- 33214, Colonoscopy, flexible; with biopsy, single or multiple --- Technical --- 98061, Colonoscopy, flexible; with biopsy, single or multiple Diagnosis Code(s): --- Professional --- K52.9, Noninfective gastroenteritis and colitis, unspecified R19.7, Diarrhea, unspecified --- Technical --- K52.9, Noninfective gastroenteritis and colitis, unspecified R19.7, Diarrhea, unspecified CPT copyright 2018 [employer]. All rights reserved. The codes documented in this report are preliminary and upon heavy equipment mechanic reviewmay be revised to meet current compliance requirements. Procedure Date: 10/30/2019 9:38:53 AM 30 [place] [address] Linda Camejo NP GI PROCEDURE ORDERABLES Final Result from Last 3 Months or Most Recently Relevant to Health Maintenance Insurance [employer] TOTAL CHOICE INDEMNITY [employer]OTAL CHOICE INDEMNITY [employer] TOTAL CHOICE INDEMNITY [employer] TOTAL CHOICE INDEMNITY [employer] TOTAL CHOICE INDEMNITY [employer] TOTAL CHOICE INDEMNITY [employer] TOTAL CHOICE INDEMNITY [employer] TOTAL CHOICE INDEMNITY [facility] TOTAL CHOICE INDEMNITY Care Teams Slot Machine Department Floorperson Relationship Specialty Start Date End Date Linda Camejo NP [address] [place] [address] [phone] PCP - General Family Medicine 10/24/19 Additional Source Comments The information contained in this document represents components of the legal health record. It is not the complete legal health record.[facility]
--- OUTSIDE RECORDS SUMMARY | 2025-08-27 07:45 | XMS_ITS | Clinical Summary ---
Author Organization Emma Champagne [facility] Address [address] [place] [address] Care Team Providers Care Fuel Cell Assembler Name Role Phone Unavailable Primary Care Provider [...]
--- OUTSIDE RECORDS SUMMARY | 2025-08-27 07:45 | XMS_ITS | Encounter Summary ---
Author Organization [facility] Address [address] [address] Phone Care Team Providers Care Nail Setter Name Role Phone Doreen Lasren MD Primary Care Provider + Linda Camejo NP Primary Care Provider + Encounter Details Date Type Department Care Team (Late st Contact Info) Description 12/24/2017 Ancillary Orders Virtual Department 30 [place] [address] Jenifer Burns NP [address] [place] [phone] [email or web address] Social History Tobacco Use Types [...] on filedocumented in this encounter Care Teams Nail Setter Relationship Specialty Start Date End Date Doreen Larsen MD [address] [place] [phone] PCP - General Family Medicine 12/31/17 10/23/19 Linda Camejo, CAYDEN [address] [place] [phone] (work) PCP - General Family Medicine 10/24/19 documented as of this encounter Additional Source Comments The information contained in this document represents components of the legal health record. It is not the complete legal health record.[facility]
--- OUTSIDE RECORDS SUMMARY | 2025-08-27 07:45 | XMS_ITS | Encounter Summary ---
Author Organization [facility] Address [address] [address] Phone Care Team Providers Care Oncology Nurse Navigator Name Role Phone Doreen Larsen MD Primary Care Provider + Linda Camejo NP Primary Care Provider + Encounter Details Date Type Department Care Team (Late st Contact Info) Description 12/24/2017 Ancillary Orders Virtual Department [address] [place] [address] Jenifer Burns NP [address] [place] [phone] [email or web address] Type 2 diabetes mellitus with hyperglycemia, unspecified computer terminal operator insulin use status; Essential hypertension; Elevated C-reactive [...] or infarction. Normal LVEF of 76%. POS [id number] Narrative 01/11/2018 10:19 AM EDT COMPARISON: None. [...] or infarction. Normal LVEF of 76%. POS [id number] Jenifer Burns DOUBLER OPERATOR CV NM CARDIAC Final R esult documented in this encounter Visit Diagnoses Diagnosis Type 2 diabetes mellitus with hyperglycemia, unspecified computer terminal operator insulin use status Essential hypertension Unspecified essential hypertension Elevated C-reactive protein (CRP) Type 2 diabetes mellitus with hyperglycemia, unspecified [facility] insulin use status Essential hypertension Unspecified essential hypertension Elevated C-reactive protein (CRP) documented in this encounter Care Teams Oncology Nurse Navigator Relationship Specialty Start Date End Date Doreen Larsen MD [address] [place] [phone] PCP - General Family Medicine 12/31/17 10/23/19 Linda Camejo NP [address] [place] [address] PCP - General Family Medicine 10/24/19 documented as of this encounter Additional Source Comments The information contained in this document represents components of the legal health record. It is not the complete legal health record.[facility]
== END 2025-08-27 07:43 | disposition home or self-care (01) ==
LOC: HO.HOSX 07:42
DX: M65.342 Trigger finger, left ring finger (principal); M65.352 Trigger finger, left little finger; M65.332 Trigger finger, left middle finger
CPT/HCPCS: 73130

== ENCOUNTER 2025-08-27 09:49 | Outpatient (AMB) | payer MEDICARE, OTHER, SELFPAY ==
--- NOTE | 2025-08-27 09:54 | A.OFFVIS_ITS ---
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 Patient reported morning stiffness, inability to form a fist, and locking of the left middle,ring and pinky fingers. She also feels a painful lump near her left pinky finger. At today's visit she states that for the past 7 months she has had left hand pain, no injury/fall. She noted that her fingers have not locked up since last week but when they do the pain is very intense. History of T2DM, last A1C done 05/28/25 - 6.5% History of Right Index Finger Flexor Tendon Sheath I & D, from a cat bite, DOS: 03/12/[address] Horn. 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 Patient reported morning stiffness, inability to form a fist, and locking of the left middle,ring and pinky fingers. She also feels a painful lump near her left pinky finger. Patient states that the ring and small fingers are much more bothersome than the left middle finger, which has just begun to experience symptoms. At today's visit she states that for the past 7 months she has had left hand pain, no injury/fall. She noted that her fingers have not locked up since last week but when they do the pain is very intense. History of T2DM, last A1C done 05/28/25 - 6.5% History of Right Index Finger Flexor Tendon Sheath I & D, from a cat bite, DOS: 03/12/[address] Horn. [facility] Medical History Hx of mammogram (~2022) Neuropathy Dry skin Incontinence Osteoarthritis Arthritis Thyroid disorder Essential hypertension LBBB (left bundle branch block) Morbid obesity Super obesity Anxiety Depression Fatty liver Type 2 diabetes mellitus COPD (chronic obstructive pulmonary disease) Obstructive sleep apnea hypopnea, severe Surgical History History of hand surgery Hx of colonoscopy (~2020) History of removal of laparoscopic gastric banding device History of carpal tunnel surgery Hx of cholecystectomy Hx of laparoscopic gastric banding Family History Father Interstitial pneumonitis Diabetes Mother Bladder cancer Brother No problems noted. Social History Household Members: Family and Children Housing: House Are you a primary care companion to a significant other at home: No Do you presently have visiting nurse or other home services: No Alcohol intake: current Alcohol intake frequency: holidays/special occasions only Alcohol type: wine and hard liquor Patient Tobacco Use Status: Former Tobacco user e-Cigarette/Vaping Use: Never Used Second Hand Smoke Exposure: No Advance Directives Date on File: 03/12/22 service: No Current occupational status: retired Cognitive needs: No Hearing needs: No Vision needs: Yes (wear glasses) Physical Exam Vital Signs: BMI result Body Mass Index 53.3 Extrem Other: Patient is alert, oriented, and in no acute distress. Neuro: Normal sensation of the tips of all digits of the left hand at this time Vascular: Cap refill brisk Pain: Tenderness to palpation about A1 margaret of left ring and small fingers Pain with locking and catching ROM: There is a visible and palpable locking and catching of the left ring and small fingers in a flexed position Range of motion of all of the digits of the left hand full and intact Skin: No lacerations or abrasions. General: No ecchymosis, erythema, or evidence of infection. Psych: Appears grossly normal Affect normal Attitude cooperative Assessment & Plan Assessment & Plan (1) Trigger finger, left ring finger: Code(s): M65.342 - Trigger finger, left ring finger Category: Medical (2) Trigger finger, left little finger: Code(s): M65.352 - Trigger finger, left little finger Category: Medical (3) Trigger finger, left middle finger: Code(s): M65.332 - Trigger finger, left middle finger Category: Medical Plan 1. Left ring and small finger trigger fingers I educated the patient about the condition. I discussed both operative and nonoperative treatment options. The patient would like to proceed with surgery. The risks and benefits of operative treatment were discussed with the patient and the patient wishes to proceed with surgery. These risks include, but are not limited to, risk of damage to blood vessels, nerves, tendons, infection, recurrence, incomplete relief of preoperative symptoms, persistent pain, possible need for further surgery, and the risks associated with regional blocks and/or anesthesia. Plan is to take the patient to the operating room at some point in the next few weeks for the following procedures: 1. Left ring finger trigger release under local 2. Left small finger trigger release under local All of the preoperative paperwork including the consent was discussed today. All of the patient's questions were answered in the clinic today. The patient understands that they will be in contact with our surgical consultant to discuss scheduling their procedure. Patient reports diabetes, last A1c 6.5 Patient is on ticagrelor Denies other blood thinners, asthma, heart issues, lung issues, kidney issues, or current smoking. Orders: Orders XR hand LT min 3V Today M79.642 - Pain in left hand Coding Level of Care Code New Pt Level 4 (11437) Diagnoses Trigger finger, left ring finger M65.342 Trigger finger, left little finger M65.352 Trigger finger, left middle finger M65.332
[2025-08-27 09:58] VITALS: BMI 53.3
== END 2025-08-27 10:29 | disposition home or self-care (01) ==
LOC: HO.HOS 09:50
PROVIDERS: PCP Nurse Practitioner Family
DX: M65.342 Trigger finger, left ring finger (principal); M65.352 Trigger finger, left little finger; M65.332 Trigger finger, left middle finger
CPT/HCPCS: 99204

== ENCOUNTER → 2025-08-27 09:51 | Outpatient (BNV) | payer MEDICARE, OTHER, SELFPAY | PROVIDERS: Visit Provider Radiology Diagnostic Radiology | DX: M19.042 Primary osteoarthritis, left hand (principal) | CPT/HCPCS: 73130 ==